=== PATIENT | male | born 1950 | race Caucasian/White ===

== ENCOUNTER 2022-09-21 07:14 | Outpatient (REF) | payer MEDICARE, SELFPAY ==
[2022-09-21 07:36] LABS: MANUAL DIFF FLAG NO
[2022-09-21 08:21] LABS: Basophils Percent Auto 0.4 % (0-2); Eosinophils Absolute Auto 0.2 X10*3/uL (0.0-0.4); Eosinophils Percent Auto 3.1 % (0-4); Hematocrit 49.2 % (42.0-52.0); Hemoglobin 16.4 g/dl (14.0-18.0); Imm Gran Abs Auto 0.01 X10*3/uL (0.00-0.03); Imm Gran Pct Auto 0.1 % (0.0-0.4); Lymphocytes Absolute Auto 2.5 X10*3/uL (1.2-4.9); Lymphocytes Percent Auto 37.2 % (20-40); Mean Corpuscular HGB Conc 33.3 g/dl (31.0-36.0); Mean Corpuscular Hemoglobin 30.3 pg (27.0-33.0); Mean Corpuscular Volume 90.9 fL (80.0-98.0); Mean Platelet Volume 11.5 fL (9.4-12.4); Monocytes Absolute Auto 0.5 X10*3/uL (0.1-1.2); Neutrophils Absolute Auto 3.5 x10*3/uL (2.0-8.3); Neutrophils Percent Auto 51.2 % (45-73); Platelet Count 165 X10*3/uL (160-400); Red Blood Count 5.41 X10*6/uL (4.60-5.80); Red Cell Distribution Width 12.8 % (11.0-16.0); White Blood Count 6.8 X10*3/uL (4.8-10.8)
[2022-09-21 08:39] LABS: Estimated Average Glucose 183 mg/dL
[2022-09-21 08:58] LABS: Alanine Aminotransferase 35 U/L (0-40); Albumin Level 3.9 g/dL (3.5-5.0); Alkaline Phosphatase 41 U/L (39-117); Anion Gap 13 (12-20); Aspartate Amino Transferase 21 U/L (5-37); Bilirubin Total 1.9 mg/dL (0.0-1.0); Blood Urea Nitrogen 15 mg/dL (9-16); Calcium 9.3 mg/dL (8.4-10.2); Carbon Dioxide 31 mmol/L (22-29); Chloride 102 mmol/L (96-108); Cholesterol 101 mg/dL; Estimated Glomerular Filt Rate > 60; Glucose Fasting 114 mg/dL (60-99); HDL Cholesterol 25 mg/dL; LDL Cholesterol Calculated 56 mg/dl; Potassium 3.8 mmol/L (3.3-5.1); Sodium 142 mmol/L (135-145); Total Protein 6.7 g/dL (6.5-8.0); Triglycerides 101 mg/dL
== END 2022-09-21 07:15 | disposition home or self-care (01) ==
LOC: HO.LAB 07:14
PROVIDERS: Visit Provider Internal Medicine Medical Oncology
DX: E78.5 Hyperlipidemia, unspecified (principal); E11.65 Type 2 diabetes mellitus with hyperglycemia; N40.0 Benign prostatic hyperplasia without lower urinary tract symptoms
CPT/HCPCS: 36415; 80053; 80061; 83036; 85025

== ENCOUNTER 2023-03-04 12:23 | Outpatient (REF) | payer MEDICARE, SELFPAY ==
--- NOTE | ~2023-03-04 | XR_ITS ---
EXAMINATION: XR CHEST CLINICAL INFORMATION: Nonrheumatic aortic valve stenosis. COMPARISON: 04/13/2016. TECHNIQUE: 2 views of the chest were obtained. 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 There is chronic elevation of the left hemidiaphragm. There is mild cardiac enlargement. There is mild central pulmonary vascular congestion without gross edema. There are tiny new bilateral pleural effusions. There is some left basilar atelectasis. No focal consolidations or lung masses are seen. XR/XR chest 2V IMPRESSION: Cardiomegaly with mild central pulmonary vascular congestion and tiny bilateral pleural effusions.
== END 2023-03-04 12:24 | disposition home or self-care (01) ==
LOC: HO.XRAY 12:23
PROVIDERS: PCP Internal Medicine Medical Oncology; Visit Provider Internal Medicine Medical Oncology
DX: I35.0 Nonrheumatic aortic (valve) stenosis (principal); I25.10 Atherosclerotic heart disease of native coronary artery without angina pectoris
CPT/HCPCS: 71046

== ENCOUNTER 2023-03-05 07:05 | Outpatient (REF) | payer MEDICARE, SELFPAY ==
[2023-03-05 07:35] LABS: MANUAL DIFF FLAG NO
[2023-03-05 08:14] LABS: Basophils Percent Auto 0.3 % (0-2); Eosinophils Absolute Auto 0.2 X10*3/uL (0.0-0.4); Eosinophils Percent Auto 2.6 % (0-4); Hematocrit 48.3 % (42.0-52.0); Hemoglobin 15.9 g/dl (14.0-18.0); Imm Gran Abs Auto 0.02 X10*3/uL (0.00-0.03); Imm Gran Pct Auto 0.3 % (0.0-0.4); Lymphocytes Absolute Auto 1.6 X10*3/uL (1.2-4.9); Lymphocytes Percent Auto 23.4 % (20-40); Mean Corpuscular HGB Conc 32.9 g/dl (31.0-36.0); Mean Corpuscular Hemoglobin 30.5 pg (27.0-33.0); Mean Corpuscular Volume 92.7 fL (80.0-98.0); Mean Platelet Volume 12.2 fL (9.4-12.4); Monocytes Absolute Auto 0.5 X10*3/uL (0.1-1.2); Monocytes Percent Auto 7.5 % (2-11); Neutrophils Absolute Auto 4.5 x10*3/uL (2.0-8.3); Neutrophils Percent Auto 65.9 % (45-73); Platelet Count 146 X10*3/uL (160-400); Red Blood Count 5.21 X10*6/uL (4.60-5.80); Red Cell Distribution Width 12.7 % (11.0-16.0); White Blood Count 6.9 X10*3/uL (4.8-10.8)
[2023-03-05 08:28] LABS: Estimated Average Glucose 163 mg/dL; Hemoglobin A1c % 7.3 % (<6.0)
[2023-03-05 08:39] LABS: Alanine Aminotransferase 48 U/L (0-40); Alkaline Phosphatase 40 U/L (39-117); Anion Gap 14 (12-20); Aspartate Amino Transferase 27 U/L (5-37); Bilirubin Total 1.6 mg/dL (0.0-1.0); Blood Urea Nitrogen 19 mg/dL (9-16); Calcium 9.2 mg/dL (8.4-10.2); Carbon Dioxide 31 mmol/L (22-29); Chloride 101 mmol/L (96-108); Cholesterol 76 mg/dL (<200); Estimated Glomerular Filt Rate > 60; Glucose Fasting 168 mg/dL (60-99); HDL Cholesterol 24 mg/dL (>40); LDL Cholesterol Calculated 39 mg/dL (<100); Potassium 4.2 mmol/L (3.3-5.1); Sodium 142 mmol/L (135-145); Total Protein 6.7 g/dL (6.5-8.0); Triglycerides 68 mg/dL (<150)
[2023-03-05 08:41] LABS: B Type Natriuretic Peptide 721 pg/mL (<100)
[2023-03-05 08:58] LABS: Creatinine Urine 112.58 mg/dL; Microalbum/Creatinine Ratio Ur 768.3 ug/mg cr (<30)
== END 2023-03-05 07:06 | disposition home or self-care (01) ==
LOC: HO.LAB 07:05
PROVIDERS: PCP Internal Medicine Medical Oncology; Visit Provider Internal Medicine Medical Oncology
DX: Z12.5 Encounter for screening for malignant neoplasm of prostate (principal); I35.0 Nonrheumatic aortic (valve) stenosis; E66.3 Overweight; E78.5 Hyperlipidemia, unspecified; E11.9 Type 2 diabetes mellitus without complications; N40.0 Benign prostatic hyperplasia without lower urinary tract symptoms
CPT/HCPCS: 36415; 80053; 80061; 82043; 82570; 83036; 83880; 84153; 85025

== ENCOUNTER 2023-08-01 08:46 | Outpatient (REF) | payer MEDICARE, SELFPAY ==
[2023-08-01 09:07] LABS: MANUAL DIFF FLAG NO
[2023-08-01 10:47] LABS: Basophils Percent Auto 0.3 % (0-2); Eosinophils Absolute Auto 0.3 X10*3/uL (0.0-0.4); Eosinophils Percent Auto 4.5 % (0-4); Hematocrit 41.7 % (42.0-52.0); Hemoglobin 14.1 g/dl (14.0-18.0); Imm Gran Abs Auto 0.02 X10*3/uL (0.00-0.03); Imm Gran Pct Auto 0.3 % (0.0-0.4); Lymphocytes Absolute Auto 1.7 X10*3/uL (1.2-4.9); Lymphocytes Percent Auto 28.4 % (20-40); Mean Corpuscular HGB Conc 33.8 g/dl (31.0-36.0); Mean Corpuscular Hemoglobin 31.5 pg (27.0-33.0); Mean Corpuscular Volume 93.3 fL (80.0-98.0); Monocytes Absolute Auto 0.5 X10*3/uL (0.1-1.2); Monocytes Percent Auto 8.1 % (2-11); Neutrophils Absolute Auto 3.4 x10*3/uL (2.0-8.3); Neutrophils Percent Auto 58.4 % (45-73); Platelet Count 140 X10*3/uL (160-400); Red Blood Count 4.47 X10*6/uL (4.60-5.80); Red Cell Distribution Width 13.9 % (11.0-16.0); White Blood Count 5.8 X10*3/uL (4.8-10.8)
[2023-08-01 11:04] LABS: Estimated Average Glucose 157 mg/dL; Hemoglobin A1c % 7.1 % (<6.0)
[2023-08-01 11:27] LABS: Alanine Aminotransferase 31 U/L (0-40); Albumin Level 3.7 g/dL (3.5-5.0); Alkaline Phosphatase 52 U/L (39-117); Anion Gap 15 (12-20); Aspartate Amino Transferase 25 U/L (5-37); Bilirubin Total 1.2 mg/dL (0.0-1.0); Blood Urea Nitrogen 25 mg/dL (9-16); Calcium 9.4 mg/dL (8.4-10.2); Carbon Dioxide 29 mmol/L (22-29); Chloride 102 mmol/L (96-108); Cholesterol 79 mg/dL (<200); Estimated Glomerular Filt Rate > 60; Glucose Fasting 134 mg/dL (60-99); Sodium 142 mmol/L (135-145); Total Protein 6.5 g/dL (6.5-8.0); Triglycerides 97 mg/dL (<150)
[2023-08-01 11:41] LABS: HDL Cholesterol 23 mg/dL (>40); LDL Cholesterol Calculated 37 mg/dL (<100)
== END 2023-08-01 08:47 | disposition home or self-care (01) ==
LOC: HO.LAB 08:46
PROVIDERS: PCP Internal Medicine Medical Oncology; Visit Provider Internal Medicine Medical Oncology
DX: I35.0 Nonrheumatic aortic (valve) stenosis (principal); E66.3 Overweight; N40.0 Benign prostatic hyperplasia without lower urinary tract symptoms; E11.9 Type 2 diabetes mellitus without complications
CPT/HCPCS: 36415; 80053; 80061; 82043; 82570; 83036; 85025; 87338

== ENCOUNTER 2023-09-26 08:39 | Outpatient (REF) | payer MEDICARE, SELFPAY ==
[2023-09-26 09:07] LABS: MANUAL DIFF FLAG NO
[2023-09-26 09:16] LABS: Basophils Percent Auto 0.3 % (0-2); Eosinophils Absolute Auto 0.2 X10*3/uL (0.0-0.4); Eosinophils Percent Auto 3.6 % (0-4); Hematocrit 44.1 % (42.0-52.0); Hemoglobin 15.5 g/dl (14.0-18.0); Imm Gran Abs Auto 0.01 X10*3/uL (0.00-0.03); Imm Gran Pct Auto 0.2 % (0.0-0.4); Lymphocytes Absolute Auto 1.7 X10*3/uL (1.2-4.9); Lymphocytes Percent Auto 28.5 % (20-40); Mean Corpuscular HGB Conc 35.1 g/dl (31.0-36.0); Mean Corpuscular Hemoglobin 31.6 pg (27.0-33.0); Mean Platelet Volume 11.4 fL (9.4-12.4); Monocytes Absolute Auto 0.5 X10*3/uL (0.1-1.2); Monocytes Percent Auto 7.9 % (2-11); Neutrophils Absolute Auto 3.6 x10*3/uL (2.0-8.3); Neutrophils Percent Auto 59.5 % (45-73); Platelet Count 156 X10*3/uL (160-400); Red Cell Distribution Width 12.6 % (11.0-16.0); White Blood Count 6.1 X10*3/uL (4.8-10.8)
[2023-09-26 09:52] LABS: Alanine Aminotransferase 26 U/L (0-40); Albumin Level 4.2 g/dL (3.5-5.0); Alkaline Phosphatase 60 U/L (39-117); Anion Gap 16 (12-20); Aspartate Amino Transferase 23 U/L (5-37); Blood Urea Nitrogen 25 mg/dL (9-16); Calcium 9.7 mg/dL (8.4-10.2); Carbon Dioxide 36 mmol/L (22-29); Chloride 98 mmol/L (96-108); Cholesterol 87 mg/dL (<200); Estimated Glomerular Filt Rate > 60; Glucose Random 178 mg/dL (60-115); HDL Cholesterol 25 mg/dL (>40); LDL Cholesterol Calculated 41 mg/dL (<100); Potassium 4.6 mmol/L (3.3-5.1); Sodium 145 mmol/L (135-145); Total Protein 7.2 g/dL (6.5-8.0); Triglycerides 109 mg/dL (<150)
== END 2023-09-26 08:40 | disposition home or self-care (01) ==
LOC: HO.LAB 08:39
PROVIDERS: PCP Internal Medicine Medical Oncology; Visit Provider Internal Medicine Medical Oncology
DX: Z00.00 Encounter for general adult medical examination without abnormal findings (principal); E78.5 Hyperlipidemia, unspecified; E66.3 Overweight
CPT/HCPCS: 36415; 80053; 80061; 85025

== ENCOUNTER 2023-12-27 07:32 | Outpatient (REF) | payer MEDICARE, SELFPAY ==
[2023-12-27 07:43] LABS: MANUAL DIFF FLAG NO
[2023-12-27 08:26] LABS: Basophils Percent Auto 0.2 % (0-2); Eosinophils Absolute Auto 0.2 X10*3/uL (0.0-0.4); Eosinophils Percent Auto 2.7 % (0-4); Hematocrit 42.6 % (42.0-52.0); Hemoglobin 14.3 g/dl (14.0-18.0); Imm Gran Abs Auto 0.02 X10*3/uL (0.00-0.03); Imm Gran Pct Auto 0.3 % (0.0-0.4); Lymphocytes Absolute Auto 1.7 X10*3/uL (1.2-4.9); Lymphocytes Percent Auto 29.8 % (20-40); Mean Corpuscular HGB Conc 33.6 g/dl (31.0-36.0); Mean Corpuscular Volume 92.4 fL (80.0-98.0); Mean Platelet Volume 12.1 fL (9.4-12.4); Monocytes Absolute Auto 0.5 X10*3/uL (0.1-1.2); Monocytes Percent Auto 9.1 % (2-11); Neutrophils Absolute Auto 3.4 x10*3/uL (2.0-8.3); Neutrophils Percent Auto 57.9 % (45-73); Platelet Count 134 X10*3/uL (160-400); Red Blood Count 4.61 X10*6/uL (4.60-5.80); Red Cell Distribution Width 13.3 % (11.0-16.0); White Blood Count 5.8 X10*3/uL (4.8-10.8)
[2023-12-27 08:48] LABS: B Type Natriuretic Peptide 353 pg/mL (<100)
[2023-12-27 08:54] LABS: Alanine Aminotransferase 35 U/L (0-40); Alkaline Phosphatase 57 U/L (39-117); Anion Gap 10 (12-20); Aspartate Amino Transferase 22 U/L (5-37); Bilirubin Total 1.2 mg/dL (0.0-1.0); Blood Urea Nitrogen 21 mg/dL (9-16); Calcium 9.5 mg/dL (8.4-10.2); Carbon Dioxide 33 mmol/L (22-29); Chloride 103 mmol/L (96-108); Cholesterol 77 mg/dL (<200); Estimated Glomerular Filt Rate > 60; Glucose Fasting 158 mg/dL (60-99); HDL Cholesterol 26 mg/dL (>40); LDL Cholesterol Calculated 35 mg/dL (<100); Potassium 3.7 mmol/L (3.3-5.1); Sodium 142 mmol/L (135-145); Total Protein 6.7 g/dL (6.5-8.0); Triglycerides 81 mg/dL (<150)
== END 2023-12-27 07:33 | disposition home or self-care (01) ==
LOC: HO.LAB 07:32
PROVIDERS: PCP Internal Medicine Medical Oncology; Visit Provider Internal Medicine Medical Oncology
DX: I35.0 Nonrheumatic aortic (valve) stenosis (principal); E66.3 Overweight; E78.5 Hyperlipidemia, unspecified; E11.9 Type 2 diabetes mellitus without complications
CPT/HCPCS: 36415; 80053; 80061; 83880; 85025

== ENCOUNTER 2024-03-12 09:13 | Outpatient (REF) | payer MEDICARE, SELFPAY ==
[2024-03-12 09:32] LABS: MANUAL DIFF FLAG NO
[2024-03-12 10:12] LABS: Basophils Percent Auto 0.3 % (0-2); Eosinophils Absolute Auto 0.2 X10*3/uL (0.0-0.4); Eosinophils Percent Auto 3.6 % (0-4); Hematocrit 44.7 % (42.0-52.0); Hemoglobin 15.1 g/dl (14.0-18.0); Imm Gran Abs Auto 0.02 X10*3/uL (0.00-0.03); Imm Gran Pct Auto 0.3 % (0.0-0.4); Lymphocytes Absolute Auto 1.6 X10*3/uL (1.2-4.9); Lymphocytes Percent Auto 27.3 % (20-40); Mean Corpuscular HGB Conc 33.8 g/dl (31.0-36.0); Mean Corpuscular Hemoglobin 31.1 pg (27.0-33.0); Mean Platelet Volume 11.8 fL (9.4-12.4); Monocytes Absolute Auto 0.5 X10*3/uL (0.1-1.2); Monocytes Percent Auto 8.5 % (2-11); Neutrophils Absolute Auto 3.5 x10*3/uL (2.0-8.3); Platelet Count 135 X10*3/uL (160-400); Red Blood Count 4.86 X10*6/uL (4.60-5.80); Red Cell Distribution Width 12.7 % (11.0-16.0); White Blood Count 5.9 X10*3/uL (4.8-10.8)
[2024-03-12 10:55] LABS: Alanine Aminotransferase 48 U/L (0-40); Alkaline Phosphatase 53 U/L (39-117); Anion Gap 10 (12-20); Aspartate Amino Transferase 27 U/L (5-37); Blood Urea Nitrogen 18 mg/dL (9-16); Calcium 8.8 mg/dL (8.4-10.2); Carbon Dioxide 34 mmol/L (22-29); Chloride 102 mmol/L (96-108); Cholesterol 92 mg/dL (<200); Estimated Glomerular Filt Rate > 60; Glucose Fasting 191 mg/dL (60-99); HDL Cholesterol 28 mg/dL (>40); LDL Cholesterol Calculated 48 mg/dL (<100); Potassium 4.6 mmol/L (3.3-5.1); Sodium 141 mmol/L (135-145); Total Protein 6.7 g/dL (6.5-8.0); Triglycerides 84 mg/dL (<150)
[2024-03-12 11:09] LABS: Prostate Specific Antigen 0.18 ng/mL (<0.05-4.0)
--- OUTSIDE RECORDS SUMMARY | 2024-03-14 13:50 | XMS_ITS ---
Author Organization Adan Arellano III, MD Address [address] [place] [address] Care Team Providers [facility] Sales Consultant Name Role Phone Adan Arellano Primary Care Provider Allergies Allergen (clinical drug ingredient) Drug/Non Drug Allergy documented on EMR Reaction Allergy Type Onset Date Status Penicillin Unknown Drug Allergy Active Contrast Allergy PreMed Pack Unknown Drug Allergy Active REASON FOR VISIT Follow up Medications Medication SIG (Take, Route, Frequency, Duration) Notes Start Date End Date Status Atorvastatin Calcium 40 MG 1 tablet Oral ly Once a day Active Doxylamine Succinate (Sleep) 25 MG 1 tablet at bedtime as needed Orally Once a day 04/13/2023 Active Omeprazole 20 MG 1 capsule 30 minutes before morning meal Orally Once a day 07/11/2023 Active metFORMIN HCl 1000 MG 1 tablet with a me al Orally Once a day 09/26/2023 Active Metoprolol Succinate ER 50 MG 1 tablet Orally Once a day 07/11/2023 Active Aspirin 81 81 MG 1 tablet Orally Once a day Active Brilinta 90 MG 1 tablet Orally Twic e a day Active Social History Tobacco Use: Social History Observation Description Date Details (start date - stop date) Former Smoker NA - NA Sex Assigned At : Social History Observation Description Sex Assigned At Male Tobacco Use/Smoking Question Answer Notes Patient is a former smoker How long has it been since you last smoked? > 10 years Additional Findings: Tobacco Non-User Ex-cigaret te smoker Vital Signs Temperature 98.8 degrees Fahrenheit 03/13/20 24 Blood pressure systolic 145 mm Hg 03/13/20 24 Blood pressure diastolic 78 mm Hg 024 Heart Rate 65 /min 03/13/2024 Height 65 in 03/13/2024 Weight 151, 148.0 lbs 03/13/2024 BMI 25.12 kg/m2 03/13/2024 Encounters Encounter Location Date Provider Diagnosis Adan Arellano III, MD [address] [place] [address] [place] [address] 03/13/2024 Adan Arellano Nonrheumatic aortic valve stenosis I35.0 ; Overweight E66.3 ; Hyperlipidemia E78.5 ; Type 2 diabetes mellitus without complication, without long-term current use of insulin E11.9 and Coronary artery disease involving [place] coronary artery of [place] heart without angina pectoris I25.10 Assessments Encounter Date Diagnosis (ICD Code) Assessment Notes Treat ment Notes Treatment Clinical Notes 03/13/2024 Nonrheumatic aortic valve stenosis (ICD-10 - I35.0) He was admitted to [facility] July 04 and discharged July 07, 2023 for an elective TAVR which was successfully accomplished. His shortness of breath is much better. I do not hear an aortic murmur today. I do not hear mitral murmur. He reports feeling much better and more able to tolerate exertion.His BNP has decreased from 721 to a current value of 353. He is asymptomatic. 03/13/2024 Overweight (ICD-10 - E66.3) 03/13/2024 Hyperlipidemia (ICD-10 - E78.5) 03/13/2024 Type 2 diabetes mellitus without complication, without long-term current use of insulin (ICD-10 - E11.9) 03/13/2024 Coronary artery disease involving [place] coronary artery of [place] heart without angina pectoris (ICD-10 - I25.10) Plan Of Treatment Medication Medication Name Sig Start Date Stop Date Notes Atorvastatin Calcium 40 MG 1 tablet Orally Once a day Doxylamine Succinate (Sleep) 25 MG 1 tablet at bedtime as needed Orally Once a day 04/13/2023 Omeprazole 20 MG 1 capsule 30 minutes before morning meal Orally Once a day 07/11/2023 metFORMIN HCl 1000 MG 1 tablet with a me al Orally Once a day 09/26/2023 Metoprolol Succinate ER 50 MG 1 tablet Orally Once a day 0 07/11/2023 Aspirin 81 81 MG 1 tablet Orally Once a day Brilinta 90 MG 1 tablet Orally Twic e a day Pending Test Test Name Order Date PROFILE, FASTING (COMPREHENSIVE METABOLI C) 03/13/2024 MICROALBUMIN, RANDOM 03/13/2024 CBC w DIFF 03/13/2024 Lipid Panel 03/13/2024 Hemoglobin A1c 03/13/2024 Next Appt Details Follow Up: 3 Months, In thre e months, Reason: ov review labs, Regular follow-up Provider Name:Adan Arellano, 09/26/2024 02:00:00 PM, [address] [place] [address] , [place] [address], [place], [id number], Progress Notes * Dionicio VIDALDOB:[birth year] (73 yo M)Acc No.[id number]:03/13/2024 Progress Notes Patient:?Dionicio VIDAL Provider:?Adan Arellano MD :1950???Age:73 Y???Sex:Male Jones e:03/13/2024 Address: [address], [id number] Subjective: * Chief Complaints: * ???1. Follow up. * HPI: ???COVID-19 Screening:?Questions?Have you experienced fever, chills, cough, sore throat, shortness of breath, difficulty breathing, muscle aches, loss of taste or smell??No ?Have you been exposed to the virus within the last 10 days??No ?Have you travelled internationally in the last 10 days??No ?Have you been exposed to COVID-19 in the past??Yes ???:? The patient, a 73-year-old male, presented with a history of aortic valve replacement and diabetes. He reported no swelling and has been maintaining his weight around 144 lbs, although he noted a recent increase to 148 lbs. He has been taking atorvastatin and expressed concern about his A1C3 levels, which he believes may be affected by the medication. He also mentioned his brother's experience with bypass surgery and subsequent increase in A1C3 levels. The patient has been on Brilinta since his aortic valve replacement and is considering stopping it. He reported occasional bruising and difficulty controlling bleeding when he bites his tongue. He also mentioned a dental issue related to a root canal that became reinfected, but was told by a dental team in [place] that it should be fine. * ROS:?General/Constitutional:?pain?only normal aches and pains.?Chills?denies.?Fatigue?admits.?Fever?denies.?ENT:?Decreased hearing?denies.?Respiratory:?Cough?denies.?Cardiovascular:?Chest pain with exertion?denies.?Dyspnea on exertion?denies.?Shortness of breath?denies.?Gastrointestinal:?Constipation?denies.?Decreased appetite?denies.?Diarrhea?denies.?Heartburn?denies.?Nausea?denies.?Rectal bleeding?denies.?Vomiting?denies.?Hematology:?Admits?bruising,?denies.?petechiae?denies.?Swollen glands?none have been noted.?Genitourinary:?Frequent urination?denies.?Musculoskeletal:?Muscle aches?denies.?Painful joints?denies.?Sciatica?denies.?Weakness?denies.?Skin:?Itching?denies.?Rash?denies.?Skin lesion(s)?denies.?Neurologic:?Difficulty speaking?denies.?Dizziness?denies.?Headache?denies.?Low back pain?denies.?Psychiatric:?Depressed mood?denies.? * Medical History:?Elevated tr iglycerides with high cholesterol, Atrial fibrillation, unspecified type, Aortic valve stenosis, etiology of cardiac valve disease unspecified, 1982. 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 2010, Overweight, Atrial fibrillation 2005, moderate aortic stenosis, ? Radiation- related, Former smoker, Asthmatic bronchitis, Incisional hernia, DVT left brachial and jugular veins 2004, coronary artery disease. 2004 four-vessel CABG, Dr. Mcgrath, Hyperlipidemia, Mitral valve regurgitation, Life long need for endocarditis prophylaxis with invasive procedures, Aortic Valve Replacement, Diabetes. * Surgical History:?CABG x 4 v essels 12/2004, resection of malignant seminoma of mediastinum, phrenic nerve injury, left diaphragm paralyzed 1982, history of incisional hernia , cardiac catheterization 2004, colonoscopy, Dr. Adan Linda, [facility], tubular adenoma 2010, colonoscopy, Dr. Adan Linda, [facility], negative findings 2016, TAVR 07/2023, Aortic valve replacement . * Hospitalization/Major Diagno stic Procedure:?Denies Past Hospitalization. * Family History:?Father: dece ased 73 yrs, diagnosed with Cancer, DM, HTN.?Mother: 47 yrs.?Siblings: alive.?Paternal uncle: alive, diagnosed with DM.?2 brother(s) - healthy. .? His mother of liver disease age 47. His father at age 73 of lung cancer. He has 2 healthy brothers who are alive and well. He has no children. * Social History:?Tobacco Use:?Tobacco Use/Smoking?Patient is a?former smoker ?How long has it been since you last smoked??> 10 years ?Additional Findings: Tobacco Non-User?Ex-cigarette smoker ???He has been to [place] and for 37 years. He has 2 stepdaughters but no biological children. 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 He is not on-call and he works 18 hours a week. 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 * Medications:?Taking Aspirin 81 81 MG Tablet 1 tablet Orally Once a day , Taking Brilinta 90 MG Tablet 1 tablet Orally Twice a day , Taking Atorvastatin Calcium 40 MG Tablet 1 tablet Orally Once a day , Taking Doxylamine Succinate (Sleep) 25 MG Tablet 1 tablet at bedtime as needed Orally Once a day , Taking Omeprazole 20 MG Capsule Delayed Release 1 capsule 30 minutes before morning meal Orally Once a day , Taking Metoprolol Succinate ER 50 MG Tablet Extended Release 24 Hour 1 tablet Orally Once a day , Taking metFORMIN HCl 1000 MG Tablet 1 tablet with a meal Orally Once a day , Discontinued Bumetanide 1 MG Tablet 1 tablet Orally Once a day , Discontinued Furosemide 20 MG Tablet 1 tablet Orally Once a day , Medication List reviewed and reconciled with the patient * Allergies:?Penicillin: Aller gy, Contrast Allergy PreMed Pack: Allergy. Objective: * Vitals:?Ht: 65, Wt: 151,148. 0, BMI:25.12, BP:145/78, HR:65, Temp:98.8, Wt-k.49. * ???Past Orders: Lab:B Type Natriuretic Pepti de * Collection Date 12/27/2023 03/05/2023 Collection Time 07:42 AM 07:33 AM Order Date 12/27/2023 03/05/2023 B Type Natriuretic Peptide 353?H (Ref Range: <100 pg/mL) 721?H (Ref Range: <100 pg/mL) * Lab:Lipid Panel * Collection Date 12/27/2023 09/26/2023 08/01/2023 Collection Time 07:42 AM 09:05 AM 09:06 AM Order Date 12/27/2023 09/26/2023 08/01/2023 Triglycerides 81 (Ref Range: <150 mg/dL) 109 (Ref Range: <150 mg/dL) 97 (Ref Range: <150 mg/dL) Cholesterol 77 (Ref Range: <200 mg/dL) 87 (Ref Range: <200 mg/dL) 79 (Ref Range: <200 mg/dL) LDL Cholesterol Calculated 35 (Ref Range: <100 mg/dL) 41 (Ref Range: <100 mg/dL) 37 (Ref Range: <100 mg/dL) HDL Cholesterol 26?L (Ref Range: >40 mg/dL) 25?L (Ref Range: >40 mg/dL) 23?L (Ref Range: >40 mg/dL) * Lab:Complete Blood Count Aut o Diff * Collection Date 12/27/2023 09/26/2023 08/01/2023 Collection Time 07:42 AM 09:05 AM 09:06 AM Order Date 12/27/2023 09/26/2023 08/01/2023 White Blood Count 5.8 (Ref Range: 4.8-10.8 X10*3/uL) 6.1 (Ref Range: 4.8-10.8 X10*3/uL) 5.8 (Ref Range: 4.8-10.8 X10*3/uL) Red Blood Count 4.61 (Ref Range: 4.60-5.80 X10*6/uL) 4.90 (Ref Range: 4.60-5.80 X10*6/uL) 4.47?L (Ref Range: 4.60-5.80 X10*6/uL) Hemoglobin 14.3 (Ref Range: 14.0-18.0 g/dl) 15.5 (Ref Range: 14.0-18.0 g/dl) 14.1 (Ref Range: 14.0-18.0 g/dl) Hematocrit 42.6 (Ref Range: 42.0-52.0 %) 44.1 (Ref Range: 42.0-52.0 %) 41.7?L (Ref Range: 42.0-52.0 %) Mean Corpuscular Volume 92.4 (Ref Range: 80.0-98.0 fL) 90.0 (Ref Range: 80.0-98.0 fL) 93.3 (Ref Range: 80.0-98.0 fL) Mean Corpuscular Hemoglobin 31.0 (Ref Range: 27.0-33.0 pg) 31.6 (Ref Range: 27.0-33.0 pg) 31.5 (Ref Range: 27.0-33.0 pg) Mean Corpuscular HGB Conc 33.6 (Ref Range: 31.0-36.0 g/dl) 35.1 (Ref Range: 31.0-36.0 g/dl) 33.8 (Ref Range: 31.0-36.0 g/dl) Red Cell Distribution Width 13.3 (Ref Range: 11.0-16.0 %) 12.6 (Ref Range: 11.0-16.0 %) 13.9 (Ref Range: 11.0-16.0 %) Platelet Count 134?L (Ref Range: 160-400 X10*3/uL) 156?L (Ref Range: 160-400 X10*3/uL) 140?L (Ref Range: 160-400 X10*3/uL) Mean Platelet Volume 12.1 (Ref Range: 9.4-12.4 fL) 11.4 (Ref Range: 9.4-12.4 fL) 12.0 (Ref Range: 9.4-12.4 fL) Neutrophils Percent Auto 57.9 (Ref Range: 45-73 %) 59.5 (Ref Range: 45-73 %) 58.4 (Ref Range: 45-73 %) Imm Gran Pct Auto 0.3 (Ref Range: 0.0-0.4 %) 0.2 (Ref Range: 0.0-0.4 %) 0.3 (Ref Range: 0.0-0.4 %) Lymphocytes Percent Auto 29.8 (Ref Range: 20-40 %) 28.5 (Ref Range: 20-40 %) 28.4 (Ref Range: 20-40 %) Monocytes Percent Auto 9.1 (Ref Range: 2-11 %) 7.9 (Ref Range: 2-11 %) 8.1 (Ref Range: 2-11 %) Eosinophils Percent Auto 2.7 (Ref Range: 0-4 %) 3.6 (Ref Range: 0-4 %) 4.5?H (Ref Range: 0-4 %) Basophils Percent Auto 0.2 (Ref Range: 0-2 %) 0.3 (Ref Range: 0-2 %) 0.3 (Ref Range: 0-2 %) NRBC Pct Auto 0.0 (Ref Range: 0.0-0.2 /100WBC) 0.0 (Ref Range: 0.0-0.2 /100WBC) 0.0 (Ref Range: 0.0-0.2 /100WBC) Neutrophils Absolute Auto 3.4 (Ref Range: 2.0-8.3 x10*3/uL) 3.6 (Ref Range: 2.0-8.3 x10*3/uL) 3.4 (Ref Range: 2.0-8.3 x10*3/uL) Imm Gran Abs Auto 0.02 (Ref Range: 0.00-0.03 X10*3/uL) 0.01 (Ref Range: 0.00-0.03 X10*3/uL) 0.02 (Ref Range: 0.00-0.03 X10*3/uL) Lymphocytes Absolute Auto 1.7 (Ref Range: 1.2-4.9 X10*3/uL) 1.7 (Ref Range: 1.2-4.9 X10*3/uL) 1.7 (Ref Range: 1.2-4.9 X10*3/uL) Monocytes Absolute Auto 0.5 (Ref Range: 0.1-1.2 X10*3/uL) 0.5 (Ref Range: 0.1-1.2 X10*3/uL) 0.5 (Ref Range: 0.1-1.2 X10*3/uL) Eosinophils Absolute Auto 0.2 (Ref Range: 0.0-0.4 X10*3/uL) 0.2 (Ref Range: 0.0-0.4 X10*3/uL) 0.3 (Ref Range: 0.0-0.4 X10*3/uL) Basophils Absolute Auto 0.0 (Ref Range: 0.0-0.2 X10*3/uL) 0.0 (Ref Range: 0.0-0.2 X10*3/uL) 0.0 (Ref Range: 0.0-0.2 X10*3/uL) NRBC Abs Auto 0.000 (Ref Range: 0.0-0.012 X10*3/uL) 0.000 (Ref Range: 0.0-0.012 X10*3/uL) 0.000 (Ref Range: 0.0-0.012 X10*3/uL) * Lab:Namita bejarano Fast * Collection Date 12/27/2023 08/01/2023 03/05/2023 Collection Time 07:42 AM 09:06 AM 07:33 AM Order Date 12/27/2023 08/01/2023 03/05/2023 Sodium 142 (Ref Range: 135-145 mmol/L) 142 (Ref Range: 135-145 mmol/L) 142 (Ref Range: 135-145 mmol/L) Bilirubin Total 1.2?H (Ref Range: 0.0-1.0 mg/dL) 1.2?H (Ref Range: 0.0-1.0 mg/dL) 1.6?H (Ref Range: 0.0-1.0 mg/dL) Aspartate Amino Transferase 22 (Ref Range: 5-37 U/L) 25 (Ref Range: 5-37 U/L) 27 (Ref Range: 5-37 U/L) Alanine Aminotransferase 35 (Ref Range: 0-40 U/L) 31 (Ref Range: 0-40 U/L) 48?H (Ref Range: 0-40 U/L) Total Protein 6.7 (Ref Range: 6.5-8.0 g/dL) 6.5 (Ref Range: 6.5-8.0 g/dL) 6.7 (Ref Range: 6.5-8.0 g/dL) Albumin Level 4.0 (Ref Range: 3.5-5.0 g/dL) 3.7 (Ref Range: 3.5-5.0 g/dL) 4.0 (Ref Range: 3.5-5.0 g/dL) Alkaline Phosphatase 57 (Ref Range: 39-117 U/L) 52 (Ref Range: 39-117 U/L) 40 (Ref Range: 39-117 U/L) Potassium 3.7 (Ref Range: 3.3-5.1 mmol/L) 4.0 (Ref Range: 3.3-5.1 mmol/L) 4.2 (Ref Range: 3.3-5.1 mmol/L) Chloride 103 (Ref Range: 96-108 mmol/L) 102 (Ref Range: 96-108 mmol/L) 101 (Ref Range: 96-108 mmol/L) Carbon Dioxide 33?H (Ref Range: 22-29 mmol/L) 29 (Ref Range: 22-29 mmol/L) 31?H (Ref Range: 22-29 mmol/L) Anion Gap 10?L (Ref Range: 12-20) 15 (Ref Range: 12-20) 14 (Ref Range: 12-20) Blood Urea Nitrogen 21?H (Ref Range: 9-16 mg/dL) 25?H (Ref Range: 9-16 mg/dL) 19?H (Ref Range: 9-16 mg/dL) Creatinine 0.80 (Ref Range: 0.5-1.4 mg/dL) 0.75 (Ref Range: 0.5-1.4 mg/dL) 0.85 (Ref Range: 0.5-1.4 mg/dL) Estimated Glomerular Filt Rate > 60 > 60 > 60 Glucose Fasting 158?H (Ref Range: 60-99 mg/dL) 134?H (Ref Range: 60-99 mg/dL) 168?H (Ref Range: 60-99 mg/dL) Calcium 9.5 (Ref Range: 8.4-10.2 mg/dL) 9.4 (Ref Range: 8.4-10.2 mg/dL) 9.2 (Ref Range: 8.4-10.2 mg/dL) * Examination: ???General Examination: ?GENERAL APPEARANCE:?pleasant, well nourished, well developed, in no acute distress, calm and relaxed.?HEAD:?atraumatic, normocephalic.?EYES:?eomi, perrla, anicteric, conjugate.?EARS:?normal.?NOSE:?septum intact.?ORAL CAVITY:?normal, unremarkable.?NECK/THYROID:?no jugular venous distention, no carotid bruit, thyroid normal.?LYMPH NODES:?no enlarged lymph nodes,spleen normal.?SKIN:?no suspicious lesions, anicteric.?HEART:?no clicks, gallops, murmurs, or rubs, regular rhythm, S1, S2 normal, no s3, or vascular bruits.?LUNGS:?clear to auscultation .?BREASTS:??no masses palpable bilaterally.?ABDOMEN:?bowel sounds normal, no ascites, no organomegaly, no mass.?RECTAL EXAM:?not examined.?MUSCULOSKELETAL:?extremities unremarkable, no clubbing, cyanosis or edema.?PERIPHERAL PULSES:?normal.?NEUROLOGIC:?alert and oriented, cranial nerves 2-12 grossly intact, deep tendon reflexes 2+ symmetrical, motor strength normal upper and lower extremities, sensory exam intact.?PSYCH:?alert, oriented.? Assessment: * Assessment: 1.?Nonrheumatic aortic valve stenosis - I35.0???Notes :He was admitted to [facility] July 04 and discharged July 07, 2023 for an elective TAVR which was successfully accomplished. His shortness of breath is much better. I do not hear an aortic murmur today. I do not hear mitral murmur. He reports feeling much better and more able to tolerate exertion.His BNP has decreased from 721 to a current value of 353. He is asymptomatic.???2.?Overweight - E66.3???3.?Hyperlipidemia - E78.5???4.?Type 2 diabetes mellitus without complication, without long-term current use of insulin - E11.9???5.?Coronary artery disease involving [place] coronary artery of [place] heart without angina pectoris - I25.10??? Plan: * Treatment: 2.?Overweight?LAB: PROFILE, FASTING (COMPREHENSIVE METABOLIC) ?LAB: MICROALBUMIN, RANDOM ?LAB: CBC w DIFF ?LAB: Lipid Panel ?LAB: Hemoglobin A1c 3.?Hyperlipidemia?LAB: PROFILE, FASTING (COMPREHENSIVE METABOLIC) ?LAB: MICROALBUMIN, RANDOM ?LAB: CBC w DIFF ?LAB: Lipid Panel ?LAB: Hemoglobin A1c 4.?Type 2 diabetes mellitus without complication, without long-term current use of insulin?LAB: PROFILE, FASTING (COMPREHENSIVE METABOLIC) ?LAB: MICROALBUMIN, RANDOM ?LAB: CBC w DIFF ?LAB: Lipid Panel ?LAB: Hemoglobin A1c 5.?Coronary artery disease i nvolving [place] coronary artery of [place] heart without angina pectoris?LAB: PROFILE, FASTING (COMPREHENSIVE METABOLIC) ?LAB: MICROALBUMIN, RANDOM ?LAB: CBC w DIFF ?LAB: Lipid Panel ?LAB: Hemoglobin A1c 6.?Others? Continue Brilinta Tablet, 90 MG, 1 tablet, Orally, Twice a day;?Continue Atorvastatin Calcium Tablet, 40 MG, 1 tablet, Orally, Once a day;?Continue Metoprolol Succinate ER Tablet Extended Release 24 Hour, 50 MG, 1 tablet, Orally, Once a day.?? * Follow Up:?3 Months, In thre e months (Reason: ov review labs, Regular follow-up) * Images: * The named appointment provid er may or may not be the originator of this progress note, and it is not deemed complete until electronically signed by the appointment provider. Sign off status: Pending * Provider:?Adan Arellano MD Date:?03/04 Generated for Polly mccurdy/Michael/eTransmitting on:?03/14/2024 01:50 PM EST History and Physical Notes * HPI (History of Present Illness) Category Sub-Category Detail Notes COVID-19 Screening Questions Have you expe rienced fever, chills, cough, sore throat, shortness of breath, difficulty breathing, muscle aches, loss of taste or smell?: No Have you been exposed to the virus withi n the last 10 days?: No Have you travelled internationally in e last 10 days?: No Have you been exposed to COVID-19 in the past?: Yes Examination Category Sub-Category Detail Notes General Examination GENERAL APPEARANCE: pleasant , well nourished, well developed, in no acute distress, calm and relaxed HEAD: atraumatic, normocep halic EYES: eomi, perrla, anicte laura, conjugate EARS: normal NOSE: septum intact NECK/THYROID: no jugular venous di stention, no carotid bruit, thyroid normal HEART: no clicks, gallops, murmurs, or rubs, regular rhythm, S1, S2 normal, no s3, or vascular bruits LUNGS: clear to auscultatio n ABDOMEN: bowel sounds normal, no ascites, no organomegaly, no mass NEUROLOGIC: alert and oriented, cranial nerves 2-12 grossly intact, deep tendon reflexes 2+ symmetrical, motor strength normal upper and lower extremities, sensory exam intact SKIN: no suspicious lesion s, anicteric PERIPHERAL PULSES: normal BREASTS: no masses palpable b ilaterally MUSCULOSKELETAL: extremities unremark able, no clubbing, cyanosis or edema LYMPH NODES: no enlarged lymph no sully,spleen normal RECTAL EXAM: not examined PSYCH: alert, oriented ORAL CAVITY: normal, unremarkable
--- OUTSIDE RECORDS SUMMARY | 2024-03-14 13:51 | XMS_ITS | Patient Health Record ---
Author Organization Adan Arellano III, MD Address [address] [place] [address] Care Team Providers Care Apartment Assistant Manager Name Role Phone Adan Arellano Primary Care Provider Allergies Allergen (clinical drug ingredient) Drug/Non Drug Allergy documented on EMR Reaction Allergy Type Onset Date Status Penicillin Unknown Drug Allergy Active Contrast Allergy PreMed Pack Unknown Drug Allergy Active Results Component Value Reference Range Notes URINE DIP STICK Reviewed date:09/26/2023 03:43:12 PM Interpretation: Performing Lab: Notes/Report: SG 1.010 1.005 - 1.025 pH 6.5 5.0 - 9.0 DILIA Negative Negative - NIT Negative Negative - PRO 15 Negative - Trace GLU Negative Negative - KET Negative Negative - UBG 1 0.1 - 1.8 EFRA Negative 0.2 - 1.3 BLD Negative Negative - Complete Blood Count Auto Di ff Reviewed date:08/02/2023 02:49:13 PM Interpretation: Performing Lab:[facility], [address] [place] [phone] Notes/Report: White Blood Count 5.8 4.8-10.8 X10*3/uL Red Blood Count 4.47 4.60-5.80 X10*6/uL Hemoglobin 14.1 14.0-18.0 g/dl Hematocrit 41.7 42.0-52.0 % Mean Corpuscular Volume 93.3 80.0-98.0 fL Mean Corpuscular Hemoglobin 31.5 27.0-33.0 pg Mean Corpuscular HGB Conc 33.8 31.0-36.0 g/dl Red Cell Distribution Width 13.9 11.0-16.0 % Platelet Count 140 160-400 X10*3/uL Mean Platelet Volume 12.0 9.4-12.4 fL Neutrophils Percent Auto 58.4 45-73 % Imm Gran Pct Auto 0.3 0.0-0.4 % Lymphocytes Percent Auto 28.4 20-40 % Monocytes Percent Auto 8.1 2-11 % Eosinophils Percent Auto 4.5 0-4 % Basophils Percent Auto 0.3 0-2 % NRBC Pct Auto 0.0 0.0-0.2 /100WBC Neutrophils Absolute Auto 3.4 2.0-8.3 x10*3/u L Imm Gran Abs Auto 0.02 0.00-0.03 X10*3/uL Lymphocytes Absolute Auto 1.7 1.2-4.9 X10*3/u L Monocytes Absolute Auto 0.5 0.1-1.2 X10*3/uL Eosinophils Absolute Auto 0.3 0.0-0.4 X10*3/u L Basophils Absolute Auto 0.0 0.0-0.2 X10*3/uL NRBC Abs Auto 0.000 0.0-0.012 X10*3/uL Comprehensive [place]. Panel Fa st Reviewed date:08/02/2023 02:49:13 PM Interpretation: Performing Lab:[facility], [address] [place] [phone] Notes/Report: Sodium 142 135-145 mmol/L Potassium 4.0 3.3-5.1 mmol/L Chloride 102 96-108 mmol/L Carbon Dioxide 29 22-29 mmol/L Anion Gap 15 12-20 Blood Urea Nitrogen 25 9-16 mg/dL Creatinine 0.75 0.5-1.4 mg/dL Estimated Glomerular Filt Rate > 60 NOTE: For -[place]oc[place] individuals, multiply the result by 1.210. Chronic Kidney Disease: Estimated GFR < 60 mL/min/1.73m2 Severe Kidney Disease: Estimated GFR < 15 mL/min/1.73m2 Glucose Fasting 134 60-99 mg/dL A fasting glucose of 126 mg/dl or greater on more than one occasion is considered diagnostic of diabetes. Calcium 9.4 8.4-10.2 mg/dL Bilirubin Total 1.2 0.0-1.0 mg/dL Aspartate Amino Transferase 25 5-37 U/L Alanine Aminotransferase 31 0-40 U/L Total Protein 6.5 6.5-8.0 g/dL Albumin Level 3.7 3.5-5.0 g/dL Alkaline Phosphatase 52 39-117 U/L Lipid Panel Reviewed date:08/02/2023 02:49:13 PM Interpretation: Performing Lab:[facility], [address] [place] [phone] Notes/Report: Triglycerides 97 <150 mg/dL Desirable Triglyceride: less than 150 mg/dL Borderline High Triglyceride 150-199 mg/dL High Triglyceride: 200-499 mg/dL Very High Triglyceride: greater than or equal to 5OO mg/dL Cholesterol 79 <200 mg/dL Desirable Cholesterol: less than 200 mg/dL Borderline High Cholesterol: 200-239 mg/dL High Cholesterol: greater than 239 mg/dL LDL Cholesterol Calculated 37 <100 mg/dL Desirable LDL: less than 100 mg/dL Near Optimal/Above Optimal LDL: 110-129 mg/dL Borderline High LDL: 130-159 mg/dL High LDL: 160-189 mg/dL Very High LDL: greater than or equal to 190 mg/dL HDL Cholesterol 23 >40 mg/dL Desirable HDL: greater than 40 mg/dL Note: This HDL assay may give artificially low results in patients with liver disease. Microalbumin, Random Reviewed date:08/02/2023 02:49:13 PM Interpretation: Performing Lab:[facility], [address] [place] [phone] Notes/Report: Creatinine Urine 148.00 Microalbumin Urine 9.0 Microalbum/Creatinine Ratio Ur 6.0 <30 ug/mg cr Albumin/Creatinine Ratio Reference Ranges: Normal: < 30 ug/mg creatinine Microalbuminuria: 30 - 300 ug/mg creatinine Clinical Albuminuria: > 300 ug/mg creatinine H pylori Ag Stool Reviewed date:08/04/2023 10:59:49 AM Interpretation: Performing Lab:[facility], [address] [place] [phone] Notes/Report: H pylori Ag Stool SEE NOTE [employer], EIA, STOOL Micro Number: [id number] Test Status: Final Specimen Source: Stool Specimen Quality: Adequate H.pylori Ag: Not Detected Antimicrobials, proton pump inhibitors, and bismuth preparations inhibit H. pylori and ingestion up to two weeks prior to testing may cause false negative results. If clinically indicated the test should be repeated on a new specimen obtained two weeks after discontinuing treatment. Reference Range: Not Detected THIS TEST WAS PERFORMED AT: [facility] [address] [place] [phone] SHANICE VERA MD Hemoglobin A1c Reviewed date:08/02/2023 02:49:13 PM Interpretation: Performing Lab:[address] [phone] Notes/Report: Hemoglobin A1c % 7.1 <6.0 % Hemoglobin A1C Reference Range Adults: 4.8 - 6.0 % Non diabetic: < 6.0 % Goal: < 7.0 % Additional Action Suggested: > 8.0 % Note: Hemoglobin A1c results are invalid for patients with abnormal amounts of HbF. Blood transfusions may impact the HbA1c concentration in the patient sample. Estimated Average Glucose 157 eAG = Estimated average glucose which is %A1C expressed as average glucose, using the formula of the [id number] Average Glucose study (ADAG), Diabetes Care, Vol.31,#8, Nov. 2007 Diabetic Eye Exam Reviewed date:09/07/2023 02:36:17 PM Interpretation:undefined Performing Lab: Notes/Report: undefined Complete Blood Count Auto Di ff Reviewed date:10/26/2023 01:10:19 PM Interpretation: Performing Lab:[facility], [address] [place] [phone] Notes/Report: White Blood Count 6.1 4.8-10.8 X10*3/uL Red Blood Count 4.90 4.60-5.80 X10*6/uL Hemoglobin 15.5 14.0-18.0 g/dl Hematocrit 44.1 42.0-52.0 % Mean Corpuscular Volume 90.0 80.0-98.0 fL Mean Corpuscular Hemoglobin 31.6 27.0-33.0 pg Mean Corpuscular HGB Conc 35.1 31.0-36.0 g/dl Red Cell Distribution Width 12.6 11.0-16.0 % Platelet Count 156 160-400 X10*3/uL Mean Platelet Volume 11.4 9.4-12.4 fL Neutrophils Percent Auto 59.5 45-73 % Imm Gran Pct Auto 0.2 0.0-0.4 % Lymphocytes Percent Auto 28.5 20-40 % Monocytes Percent Auto 7.9 2-11 % Eosinophils Percent Auto 3.6 0-4 % Basophils Percent Auto 0.3 0-2 % NRBC Pct Auto 0.0 0.0-0.2 /100WBC Neutrophils Absolute Auto 3.6 2.0-8.3 x10*3/u L Imm Gran Abs Auto 0.01 0.00-0.03 X10*3/uL Lymphocytes Absolute Auto 1.7 1.2-4.9 X10*3/u L Monocytes Absolute Auto 0.5 0.1-1.2 X10*3/uL Eosinophils Absolute Auto 0.2 0.0-0.4 X10*3/u L Basophils Absolute Auto 0.0 0.0-0.2 X10*3/uL NRBC Abs Auto 0.000 0.0-0.012 X10*3/uL Comprehensive Met. Panel Reviewed date:10/26/2023 01:10:19 PM Interpretation: Performing Lab:[facility], [address] [place] [phone] Notes/Report: Sodium 145 135-145 mmol/L Potassium 4.6 3.3-5.1 mmol/L Chloride 98 96-108 mmol/L Carbon Dioxide 36 22-29 mmol/L Anion Gap 16 12-20 Blood Urea Nitrogen 25 9-16 mg/dL Creatinine 0.87 0.5-1.4 mg/dL Estimated Glomerular Filt Rate > 60 NOTE: For -[place]oc[place] individuals, multiply the result by 1.210. Chronic Kidney Disease: Estimated GFR < 60 mL/min/1.73m2 Severe Kidney Disease: Estimated GFR < 15 mL/min/1.73m2 Glucose Random 178 60-115 mg/dL Calcium 9.7 8.4-10.2 mg/dL Bilirubin Total 1.0 0.0-1.0 mg/dL Aspartate Amino Transferase 23 5-37 U/L Alanine Aminotransferase 26 0-40 U/L Total Protein 7.2 6.5-8.0 g/dL Albumin Level 4.2 3.5-5.0 g/dL Alkaline Phosphatase 60 39-117 U/L Lipid Panel Reviewed date:10/26/2023 01:10:19 PM Interpretation: Performing Lab:[facility], [address] [place] [phone] Notes/Report: Triglycerides 109 <150 mg/dL Desirable Triglyceride: less than 150 mg/dL Borderline High Triglyceride 150-199 mg/dL High Triglyceride: 200-499 mg/dL Very High Triglyceride: greater than or equal to 5OO mg/dL Cholesterol 87 <200 mg/dL Desirable Cholesterol: less than 200 mg/dL Borderline High Cholesterol: 200-239 mg/dL High Cholesterol: greater than 239 mg/dL LDL Cholesterol Calculated 41 <100 mg/dL Desirable LDL: less than 100 mg/dL Near Optimal/Above Optimal LDL: 110-129 mg/dL Borderline High LDL: 130-159 mg/dL High LDL: 160-189 mg/dL Very High LDL: greater than or equal to 190 mg/dL HDL Cholesterol 25 >40 mg/dL Desirable HDL: greater than 40 mg/dL Note: This HDL assay may give artificially low results in patients with liver disease. Complete Blood Count Auto Di ff Reviewed date:12/27/2023 02:22:23 PM Interpretation: Performing Lab:[facility], [address] [place] [phone] Notes/Report: White Blood Count 5.8 4.8-10.8 X10*3/uL Red Blood Count 4.61 4.60-5.80 X10*6/uL Hemoglobin 14.3 14.0-18.0 g/dl Hematocrit 42.6 42.0-52.0 % Mean Corpuscular Volume 92.4 80.0-98.0 fL Mean Corpuscular Hemoglobin 31.0 27.0-33.0 pg Mean Corpuscular HGB Conc 33.6 31.0-36.0 g/dl Red Cell Distribution Width 13.3 11.0-16.0 % Platelet Count 134 160-400 X10*3/uL Mean Platelet Volume 12.1 9.4-12.4 fL Neutrophils Percent Auto 57.9 45-73 % Imm Gran Pct Auto 0.3 0.0-0.4 % Lymphocytes Percent Auto 29.8 20-40 % Monocytes Percent Auto 9.1 2-11 % Eosinophils Percent Auto 2.7 0-4 % Basophils Percent Auto 0.2 0-2 % NRBC Pct Auto 0.0 0.0-0.2 /100WBC Neutrophils Absolute Auto 3.4 2.0-8.3 x10*3/u L Imm Gran Abs Auto 0.02 0.00-0.03 X10*3/uL Lymphocytes Absolute Auto 1.7 1.2-4.9 X10*3/u L Monocytes Absolute Auto 0.5 0.1-1.2 X10*3/uL Eosinophils Absolute Auto 0.2 0.0-0.4 X10*3/u L Basophils Absolute Auto 0.0 0.0-0.2 X10*3/uL NRBC Abs Auto 0.000 0.0-0.012 X10*3/uL Comprehensive [place]. Panel Fa st Reviewed date:12/27/2023 02:22:23 PM Interpretation: Performing Lab:[facility], [address] [place] [phone] Notes/Report: Sodium 142 135-145 mmol/L Potassium 3.7 3.3-5.1 mmol/L Chloride 103 96-108 mmol/L Carbon Dioxide 33 22-29 mmol/L Anion Gap 10 12-20 Blood Urea Nitrogen 21 9-16 mg/dL Creatinine 0.80 0.5-1.4 mg/dL Estimated Glomerular Filt Rate > 60 NOTE: For -[place]oc[place] individuals, multiply the result by 1.210. Chronic Kidney Disease: Estimated GFR < 60 mL/min/1.73m2 Severe Kidney Disease: Estimated GFR < 15 mL/min/1.73m2 Glucose Fasting 158 60-99 mg/dL A fasting glucose of 126 mg/dl or greater on more than one occasion is considered diagnostic of diabetes. Calcium 9.5 8.4-10.2 mg/dL Bilirubin Total 1.2 0.0-1.0 mg/dL Aspartate Amino Transferase 22 5-37 U/L Alanine Aminotransferase 35 0-40 U/L Total Protein 6.7 6.5-8.0 g/dL Albumin Level 4.0 3.5-5.0 g/dL Alkaline Phosphatase 57 39-117 U/L B Type Natriuretic Peptide Reviewed date:12/27/2023 02:22:23 PM Interpretation: Performing Lab:[facility], [address] [place] [phone] Notes/Report: B Type Natriuretic Peptide 353 <100 pg/mL For those patients who are being treated with Natrecor (nesiritide, recombinant BNP), BNP testing should be performed at least two hours post treatment in order to ensure that only endogenous levels of BNP are detected. Lipid Panel Reviewed date:12/27/2023 02:22:23 PM Interpretation: Performing Lab:[facility], [address] [place] [phone] Notes/Report: Triglycerides 81 <150 mg/dL Desirable Triglyceride: less than 150 mg/dL Borderline High Triglyceride 150-199 mg/dL High Triglyceride: 200-499 mg/dL Very High Triglyceride: greater than or equal to 5OO mg/dL Cholesterol 77 <200 mg/dL Desirable Cholesterol: less than 200 mg/dL Borderline High Cholesterol: 200-239 mg/dL High Cholesterol: greater than 239 mg/dL LDL Cholesterol Calculated 35 <100 mg/dL Desirable LDL: less than 100 mg/dL Near Optimal/Above Optimal LDL: 110-129 mg/dL Borderline High LDL: 130-159 mg/dL High LDL: 160-189 mg/dL Very High LDL: greater than or equal to 190 mg/dL HDL Cholesterol 26 >40 mg/dL Desirable HDL: greater than 40 mg/dL Note: This HDL assay may give artificially low results in patients with liver disease. Complete Blood Count Auto Di ff (Not yet reviewed by provider) Interpretation: Performing Lab:[facility], [address] [place] [phone] Notes/Report: White Blood Count 5.9 4.8-10.8 X10*3/uL Red Blood Count 4.86 4.60-5.80 X10*6/uL Hemoglobin 15.1 14.0-18.0 g/dl Hematocrit 44.7 42.0-52.0 % Mean Corpuscular Volume 92.0 80.0-98.0 fL Mean Corpuscular Hemoglobin 31.1 27.0-33.0 pg Mean Corpuscular HGB Conc 33.8 31.0-36.0 g/dl Red Cell Distribution Width 12.7 11.0-16.0 % Platelet Count 135 160-400 X10*3/uL Mean Platelet Volume 11.8 9.4-12.4 fL Neutrophils Percent Auto 60.0 45-73 % Imm Gran Pct Auto 0.3 0.0-0.4 % Lymphocytes Percent Auto 27.3 20-40 % Monocytes Percent Auto 8.5 2-11 % Eosinophils Percent Auto 3.6 0-4 % Basophils Percent Auto 0.3 0-2 % NRBC Pct Auto 0.0 0.0-0.2 /100WBC Neutrophils Absolute Auto 3.5 2.0-8.3 x10*3/u L Imm Gran Abs Auto 0.02 0.00-0.03 X10*3/uL Lymphocytes Absolute Auto 1.6 1.2-4.9 X10*3/u L Monocytes Absolute Auto 0.5 0.1-1.2 X10*3/uL Eosinophils Absolute Auto 0.2 0.0-0.4 X10*3/u L Basophils Absolute Auto 0.0 0.0-0.2 X10*3/uL NRBC Abs Auto 0.000 0.0-0.012 X10*3/uL Comprehensive [place]. Panel Fa st (Not yet reviewed by provider) Interpretation: Performing Lab:[address] [phone] Notes/Report: Sodium 141 135-145 mmol/L Potassium 4.6 3.3-5.1 mmol/L Chloride 102 96-108 mmol/L Carbon Dioxide 34 22-29 mmol/L Anion Gap 10 12-20 Blood Urea Nitrogen 18 9-16 mg/dL Creatinine 0.76 0.5-1.4 mg/dL Estimated Glomerular Filt Rate > 60 Chronic Kidney Disease: Estimated GFR < 60 mL/min/1.73m2 Severe Kidney Disease: Estimated GFR < 15 mL/min/1.73m2 Glucose Fasting 191 60-99 mg/dL A fasting glucose of 126 mg/dl or greater on more than one occasion is considered diagnostic of diabetes. Calcium 8.8 8.4-10.2 mg/dL Bilirubin Total 1.0 0.0-1.0 mg/dL Aspartate Amino Transferase 27 5-37 U/L Alanine Aminotransferase 48 0-40 U/L Total Protein 6.7 6.5-8.0 g/dL Albumin Level 4.0 3.5-5.0 g/dL Alkaline Phosphatase 53 39-117 U/L Lipid Panel (Not yet reviewe d by provider) Interpretation: Performing Lab:[facility], [address] [place] [phone] Notes/Report: Triglycerides 84 <150 mg/dL Desirable Triglyceride: less than 150 mg/dL Borderline High Triglyceride 150-199 mg/dL High Triglyceride: 200-499 mg/dL Very High Triglyceride: greater than or equal to 5OO mg/dL Cholesterol 92 <200 mg/dL Desirable Cholesterol: less than 200 mg/dL Borderline High Cholesterol: 200-239 mg/dL High Cholesterol: greater than 239 mg/dL LDL Cholesterol Calculated 48 <100 mg/dL Desirable LDL: less than 100 mg/dL Near Optimal/Above Optimal LDL: 110-129 mg/dL Borderline High LDL: 130-159 mg/dL High LDL: 160-189 mg/dL Very High LDL: greater than or equal to 190 mg/dL HDL Cholesterol 28 >40 mg/dL Desirable HDL: greater than 40 mg/dL Note: This HDL assay may give artificially low results in patients with liver disease. Prostate Specific Antigen (N ot yet reviewed by provider) Interpretation: Performing Lab:[facility], [address] [place] [phone] Notes/Report: Prostate Specific Antigen 0.18 <0.05-4.0 ng/mL PSA methodology: [employer] Chemiluminescent Microparticle Immunoassay (CMIA) Reason For Referral No Information Medications Medication SIG (Take, Route, Frequency, Duration) Notes Start Date End Date Status Aspirin 81 81 MG 1 tablet Orally Once a day Active Atorvastatin Calcium 40 MG 1 tablet Oral ly Once a day Active Brilinta 90 MG 1 tablet Orally Twic e a day Active Doxylamine Succinate (Sleep) 25 [...] tablet Orally Once a day 07/11/2023 Active Immunizations Vaccine Route Administration Date Status Comme nts COVID PFIZER Unknown 01/28/2021 Administered COVID PFIZER Unknown 07/23/2020 Administered COVID PFIZER Unknown 07/01/2020 Administered COVID PFIZER Unknown 07/01/2020 Administered COVID PFIZER Unknown 01/28/2021 Administered Social History Tobacco Use: Social History Observation Description Date Details (start date - stop date) Former Smoker NA - NA Sex Assigned At : Social History Observation Description Sex Assigned At Male Tobacco Use/Smoking Question Answer Notes Patient is a former smoker How long has it been since you last smoked? > 10 years Additional Findings: Tobacco Non-User Ex-cigaret te smoker Alcohol Screen Question Answer Notes Did you have a drink containing alcohol in the p ast year? No Points 0 Interpretation Negative Problems Problem Type SNOMED Code ICD Code Onset Dates Problem Status W/U Status Risk Notes Problem 9504490 Former smoker (Z87.891) Active confirmed He is highly motivated not to smoke and has a plan to prevent relapse in times of stress and illness. Problem Hyperlipidemia (63007743) Hyperlipidemia (E78.5) Active confirmed His lipids are stable and in their target range. No changge in his medication was needed today. Problem 327377602 Overweight (E66.3) Active confirmed His weight is now in the normal range and this problem has resolved. Problem Benign prostatic hyperplasia (040399550) BPH (benign prostatic hyperplasia) (N40.0) Active confirmed He rises from sleep once a night to urinate. We have discussed lifestyle modifications as a way to reduce nocturia. Problem 81538713 Penicillin allergy (Z88.0) Active confirmed Problem 152342708 Nonrheumatic aortic valve stenosis (I35.0) Active confirmed He was admitted to [facility] July 04 and discharged July 07, 2023 for an elective TAVR which was successfully accomplished. His shortness of breath is much better. I do not hear an aortic murmur today. I do not hear mitral murmur. He reports feeling much better and more able to tolerate exertion.His BNP has decreased from 721 to a current value of 353. He is asymptomatic. Problem 672141790 History of DVT (deep vein thrombosis) (Z86.718) Active confirmed There are no signs of a DVT at this time. He has no history of a familial thrombophilia. The DVT occurred after cardiac surgery. Problem 3998490075898 Coronary artery disease involving [place] coronary artery of [place] heart without angina pectoris (I25.10) Active confirmed He has had no chest pain with exertion. Problem 535065430 History of atrial fibrillation (Z86.79) Active confirmed He is currently a regular sinus rhythm which is well controlled. Problem 976894090 Type 2 diabetes mellitus without complication, without long-term current use of insulin (E11.9) Active confirmed Is compliant with his medication. Problem 517052175 Adenomatous polyp (D36.9) Active confirmed His last colonoscopy had no findings and he is now scheduled to repeat in 10 years. 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 Vital Signs Heart Rate 65 /min 03/13/2024 Temperature 98.8 degrees Fahrenheit 03/13/2024 Blood pressure diastolic 78 mm Hg 03/13/2024 Height 65 in 03/13/2024 Blood pressure systolic 145 mm Hg 03/13/2024 Weight 151, 148.0 lbs 03/13/2024 BMI 25.12 kg/m2 03/13/2024 Encounters Encounter Location Date Provider Diagnosis Adan Arellano III, MD [address] [place] [address] [address] [place] [address] 03/13/2024 Adan Arellano Nonrheumatic aortic valve stenosis I35.0 ; Overweight E66.3 ; Hyperlipidemia E78.5 ; Type 2 diabetes mellitus without complication, without long-term current use of insulin E11.9 and Coronary artery disease involving [place] coronary artery of [place] heart without angina pectoris I25.10 Adan Arellano III, MD [address] [place] [address] [address] [place] [address] 03/23/2023 Adan Arellano Nonrheumatic aortic valve stenosis I35.0 ; History of atrial fibrillation Z86.79 ; 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 ; Coronary artery disease involving [place] coronary artery of [place] heart without angina pectoris I25.10 ; Overweight E66.3 ; Former smoker Z87.891 ; History of DVT (deep vein thrombosis) Z86.718 ; BPH (benign prostatic hyperplasia) N40.0 and Type 2 diabetes mellitus without complication, without long-term current use of insulin E11.9 Adan Arellano III, MD [address] [place] [address] [address] [place] [address] 03/31/2023 Adan Arellano Nonrheumatic aortic valve stenosis I35.0 ; History of atrial fibrillation Z86.79 ; 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 ; Coronary artery disease involving [place] coronary artery of [place] heart without angina pectoris I25.10 ; History of DVT (deep vein thrombosis) Z86.718 ; BPH (benign prostatic hyperplasia) N40.0 ; Type 2 diabetes mellitus without complication, without long-term current use of insulin E11.9 and Circadian rhythm sleep disorder, 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 Adan Arellano III, MD [address] [place] [address] [place] [address] 04/13/2023 Adan Mantillane Nonrheumatic aortic valve stenosis I35.0 ; History of atrial fibrillation Z86.79 ; 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 ; Overweight E66.3 ; Former smoker Z87.891 ; History of DVT (deep vein thrombosis) Z86.718 ; Coronary artery disease involving [place] coronary artery of [place] heart without angina pectoris I25.10 ; Type 2 diabetes mellitus without complication, without long-term current use of insulin E11.9 ; BPH (benign prostatic hyperplasia) N40.0 and Hyperlipidemia E78.5 Adan Arellano III, MD [address] [place] [address] [place] [address] 05/13/2023 Adan Arellano Nonrheumatic aortic valve stenosis I35.0 ; History of atrial fibrillation Z86.79 ; 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 ; Coronary artery disease involving [place] coronary artery of [place] heart without angina pectoris I25.10 ; History of DVT (deep vein thrombosis) Z86.718 ; Former smoker Z87.891 ; Type 2 diabetes mellitus without complication, without long-term current use of insulin E11.9 and Overweight E66.3 Adan Arellano III, MD [address] [place] [address] [place] [address] 07/11/2023 Adan Arellano Nonrheumatic aortic valve stenosis I35.0 ; Overweight E66.3 ; BPH (benign prostatic hyperplasia) N40.0 ; Type 2 diabetes mellitus without complication, without long-term current use of insulin E11.9 ; History of atrial fibrillation Z86.79 ; 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 ; Coronary artery disease involving [place] coronary artery of [place] heart without angina pectoris I25.10 ; History of DVT (deep vein thrombosis) Z86.718 ; Former smoker Z87.891 and Hyperlipidemia E78.5 Adan Arellano III, MD [address] [place] [address] [place] [address] 08/02/2023 Adan Arellano Nonrheumatic aortic valve stenosis I35.0 ; History of atrial fibrillation Z86.79 ; 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 ; History of DVT (deep vein thrombosis) Z86.718 ; Former smoker Z87.891 ; Coronary artery disease involving [place] coronary artery of [place] heart without angina pectoris I25.10 and Type 2 diabetes mellitus without complication, without long-term current use of insulin E11.9 Adan Arellano III, MD [address] [place] [address] [place] [address] 09/26/2023 Adan Arellano Nonrheumatic aortic valve stenosis I35.0 ; Coronary artery disease involving [place] coronary artery of [place] heart without angina pectoris I25.10 ; Hyperlipidemia E78.5 and Type 2 diabetes mellitus without complication, without long-term current use of insulin E11.9 Adan Arellano III, MD [address] [place] [address] [place] [address] 12/27/2023 Adan Arellano Nonrheumatic aortic valve stenosis I35.0 ; Hyperlipidemia E78.5 ; Overweight E66.3 ; BPH (benign prostatic hyperplasia) N40.0 ; History of atrial fibrillation Z86.79 ; 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 ; History of DVT (deep vein thrombosis) Z86.718 ; Coronary artery disease involving [place] coronary artery of [place] heart without angina pectoris I25.10 and Former smoker Z87.891 Adan Arellano III, MD [address] [place] [address] [place] [address] 03/14/2024 Adan Arellano III, MD [address] [place] [address] [place] [address] 03/23/2023 Adan Arellano III, MD [address] [place] [address] [place] [address] 03/31/2023 Adan Arellano III, MD [address] [place] [address] [address] [place] [id number] 03/31/2023 Adan Arellano III, MD [address] [place] [address] [place] [address] 04/01/2023 Adan Arellano III, MD [address] [place] [address] [place] [address] 04/01/2023 Adan Arellano III, MD [address] [place] [address] [place] [address] 04/01/2023 Adan Arellano III, MD [address] [place] [address] [place] [address] 04/25/2023 Adan Arellano III, MD [address] [place] [address] [place] [address] 04/25/2023 Adan Arellano III, MD [address] [place] [address] [place] [address] 05/03/2023 Adan Arellano III, MD [address] [place] [address] [place] [address] 05/03/2023 Adan Arellano III, MD [address] [place] [address] [place] [address] 06/02/2023 Adan Arellano III, MD [address] [place] [address] [place] [address] 07/12/2023 Adan Arellano III, MD [address] [place] [address] [place] [address] 10/04/2023 Adan Arellano Assessments Encounter Date Diagnosis (ICD Code) Assessment Notes Treat ment Notes Treatment Clinical Notes 03/13/2024 Nonrheumatic aortic valve stenosis (ICD-10 - I35.0) He was admitted to [facility] July 04 and discharged July 07, 2023 for an elective TAVR which was successfully accomplished. His shortness of breath is much better. I do not hear an aortic murmur today. I do not hear mitral murmur. He reports feeling much better and more able to tolerate exertion.His BNP has decreased from 721 to a current value of 353. He is asymptomatic. 03/23/2023 Nonrheumatic aortic valve stenosis (ICD-10 - I35.0) The peripheral edema has resolved without a change in weight.He is short of breath except with exertion. He was compliant with the furosemide. He has an appointment at the end of this week with the cardiology nurse practitioner. He has had the echocardiogram, but is not yet interpreted. We have called the cardiology office to see if they could get it interpreted by the time he goes for the appointment. They have replied that they would do so. 03/23/2023 History of atrial fibrillation (ICD-10 - Z86.79) His heart rate is well controlled and no change in his regimen as needed. His rhythm today is regular 03/31/2023 Nonrheumatic aortic valve stenosis (ICD-10 - I35.0) The echocardiogram has been interpreted with an aortic valve of 0.94 cm2, he has arranged a second opinion at [facility]. He will continue on his current diuretic therapy and followup with cardiology. 03/31/2023 History of atrial fibrillation (ICD-10 - Z86.79) His heart rate is well controlled and no change in his regimen as needed. His rhythm today is regular 04/13/2023 Nonrheumatic aortic valve stenosis (ICD-10 - I35.0) The echocardiogram has been interpreted with an aortic valve of 0.94 cm2, he has arranged a second opinion at [facility]. He will continue on his current diuretic therapy and followup with cardiology. It is likely that a repair will be done in the near future.A BNP value of 721 is noted. 04/13/2023 History of atrial fibrillation (ICD-10 - Z86.79) His heart rate is well controlled and no change in his regimen as needed. His rhythm today is regular 05/13/2023 Nonrheumatic aortic valve stenosis (ICD-10 - I35.0) His peripheral edema is improved but still present. He is less dyspneic. He pplans to have his invasive cardiac therapy done at [facility] where he has recently had a consultation. They have scheduled a stress echocardiogram and pulmonary function tests. He was comfortable at rest today with clear lungs. 05/13/2023 History of atrial fibrillation (ICD-10 - Z86.79) His heart rate is well controlled and no change in his regimen as needed. His rhythm today is regular 07/11/2023 Overweight (ICD-10 - E66.3) His body mass index is now in the normal range at 24. This problem has resolved. 07/11/2023 Nonrheumatic aortic valve stenosis (ICD-10 - I35.0) He was admitted to [facility] July 04 and discharge July 07, 2023 for an elective TAVR which was successfully accomplished. His shortness of breath is much better. I do not hear an aortic murmur today. He was told he may need a mitral valve procedure. 08/02/2023 Nonrheumatic aortic valve stenosis (ICD-10 - I35.0) He was admitted to [facility] July 04 and discharge July 07, 2023 for an elective TAVR which was successfully accomplished. His shortness of breath is much better. I do not hear an aortic murmur today. He was told he may need a mitral valve procedure. 08/02/2023 History of atrial fibrillation (ICD-10 - Z86.79) His heart rate is well controlled and no change in his regimen as needed. His rhythm today is regular 09/26/2023 Nonrheumatic aortic valve stenosis (ICD-10 - I35.0) He was admitted to [facility] July 04 and discharged July 07, 2023 for an elective TAVR which was successfully accomplished. His shortness of breath is much better. I do not hear an aortic murmur today. I do not hear mitral murmur. He reports feeling much better and more able to tolerate exertion. 09/26/2023 Coronary artery disease involving [place] coronary artery of [place] heart without angina pectoris (ICD-10 - I25.10) He has had no chest pain with exertion. 12/27/2023 Hyperlipidemia (ICD-10 - E78.5) His lipids are stable and in their target range. No changge in his medication was needed today. 12/27/2023 Nonrheumatic aortic valve stenosis (ICD-10 - I35.0) He was admitted to [facility] July 04 and discharged July 07, [...] is asymptomatic. 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 07/11/2023 BPH (benign prostatic hyperplasia) (ICD-10 - N40.0) He continues to rise from sleep once a night to urinate. We reviewed lifestyle modification as a way to reduce nocturia. 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 09/26/2023 Hyperlipidemia (ICD-10 - E78.5) Comprehensive blood work has been ordered. 12/27/2023 Overweight (ICD-10 - E66.3) His weight is now in the normal range and this problem has resolved. 03/13/2024 Hyperlipidemia (ICD-10 - E78.5) 03/23/2023 Coronary artery disease involving [place] coronary artery of [place] heart without angina pectoris (ICD-10 - I25.10) He denies any chest pain or exertional dyspnea or anginal symptoms. 03/31/2023 Coronary artery disease involving [place] coronary artery of [place] heart without angina pectoris (ICD-10 - I25.10) He denies any chest pain or exertional dyspnea or anginal symptoms. 04/13/2023 Overweight (ICD-10 - E66.3) His BMI is 27 and his weight is stable. We reviewed his diet and nutrition today.We reviewed his weight loss strategy. 05/13/2023 Coronary artery disease involving [place] coronary artery of [place] heart without angina pectoris (ICD-10 - I25.10) He denies any chest pain or exertional dyspnea or anginal symptoms. 07/11/2023 Type 2 diabetes mellitus without complication, without long-term current use of insulin (ICD-10 - E11.9) He was continued on current medications. His blood work was reviewed with him. He will have a hemoglobin A1c in the near future. 08/02/2023 History of DVT (deep vein thrombosis) (ICD-10 - Z86.718) There are no signs of a DVT at this time. He has no history of a familial thrombophilia. The DVT occurred after cardiac surgery. 09/26/2023 Type 2 diabetes mellitus without complication, without long-term current use of insulin (ICD-10 - E11.9) Is compliant with his medication. 12/27/2023 BPH (benign prostatic hyperplasia) (ICD-10 - N40.0) He rises from sleep once a night to urinate. We have discussed lifestyle modifications as a way to reduce nocturia. 03/13/2024 Type 2 diabetes mellitus without complication, without long-term current use of insulin (ICD-10 - E11.9) 03/23/2023 Overweight (ICD-10 - E66.3) He has gained 3 poounds, which is likely from the fluid retention. He kellogg wwinter clothing on. His weight is likely stable at this time. He will avoid excessive use of sodium. 03/31/2023 History of DVT (deep vein thrombosis) (ICD-10 - Z86.718) There are no signs of a DVT at this time. He has no history of a familial thrombophilia. The DVT occurred after cardiac surgery. 04/13/2023 Former smoker (ICD-10 - Z87.891) He is highly motivated not to smoke and has a plan to prevent relapse in times of stress and illness. 05/13/2023 History of DVT (deep vein thrombosis) (ICD-10 - Z86.718) There are no signs of a DVT at this time. He has no history of a familial thrombophilia. The DVT occurred after cardiac surgery. 07/11/2023 History of atrial fibrillation (ICD-10 - Z86.79) His heart rate is well controlled and no change in his regimen as needed. His rhythm today is regular 08/02/2023 Former smoker (ICD-10 - Z87.891) He is highly motivated not to smoke and has a plan to prevent relapse in times of stress and illness. 12/27/2023 History of atrial fibrillation (ICD-10 - Z86.79) He is currently a regular sinus rhythm which is well controlled. 03/13/2024 Coronary artery disease involving [place] coronary artery of [place] heart without angina pectoris (ICD-10 - I25.10) 03/23/2023 Former smoker (ICD-10 - Z87.891) He is highly motivated not to smoke and has a plan to prevent relapse in times of stress and illness. 03/31/2023 BPH (benign prostatic hyperplasia) (ICD-10 - N40.0) We have discussed lifestyle modification as a way of reducing nocturia today. 04/13/2023 History of DVT (deep vein thrombosis) (ICD-10 - Z86.718) There are no signs of a DVT at this time. He has no history of a familial thrombophilia. The DVT occurred after cardiac surgery. 05/13/2023 Former smoker (ICD-10 - Z87.891) He is highly motivated not to smoke and has a plan to prevent relapse in times of stress and illness. 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 08/02/2023 Coronary artery disease involving [place] coronary artery of [place] heart without angina pectoris (ICD-10 - I25.10) He denies any chest pain or exertional dyspnea or anginal symptoms. 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 03/23/2023 History of DVT (deep vein thrombosis) (ICD-10 - Z86.718) There are no signs of a DVT at this time. He has no history of a familial thrombophilia. The DVT occurred after cardiac surgery. 03/31/2023 Type 2 diabetes mellitus without complication, without long-term current use of insulin (ICD-10 - E11.9) His hemoglobin A1c has improved from 8.0 to 7.3. We reviewed his ddiabetic diet and nutrition and weight loss strategy today. 04/13/2023 Coronary artery disease involving [place] coronary artery of [place] heart without angina pectoris (ICD-10 - I25.10) He denies any chest pain or exertional dyspnea or anginal symptoms. 05/13/2023 Type 2 diabetes mellitus without complication, without long-term current use of insulin (ICD-10 - E11.9) His hemoglobin A1c has improved from 8.0 to 7.3. We reviewed his ddiabetic diet and nutrition and weight loss strategy today.His fasting glucose is 168. The microalbumin/creatin ine ratio of 768 is noted. We will pursue aggressive control of the diabetes. 07/11/2023 Coronary artery disease involving [place] coronary artery of [place] heart without angina pectoris (ICD-10 - I25.10) He denies any chest pain or exertional dyspnea or anginal symptoms. 08/02/2023 Type 2 diabetes mellitus without complication, without long-term current use of insulin (ICD-10 - E11.9) He was continued on current medications. His blood work was reviewed with him. His hemoglobin A1c is 7.1. 12/27/2023 History of DVT (deep vein thrombosis) (ICD-10 - Z86.718) There are no signs of a DVT at this time. He has no history of a familial thrombophilia. The DVT occurred after cardiac surgery. 03/23/2023 BPH (benign prostatic hyperplasia) (ICD-10 - N40.0) We have discussed lifestyle modification as a way of reducing nocturia today. 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 04/13/2023 Type 2 diabetes mellitus without complication, without long-term current use of insulin (ICD-10 - E11.9) His hemoglobin A1c has improved from 8.0 to 7.3. We reviewed his ddiabetic diet and nutrition and weight loss strategy today.His fasting glucose is 168. The microalbumin/creatin ine ratio of 768 is noted. We will pursue aggressive control of the diabetes. 05/13/2023 Overweight (ICD-10 - E66.3) His BMI is 28.12 and his weight is stable. He has gained 3 pounds with improvement in peripheral edema. We reviewed his diet and nutrition today. We reviewed his weight loss strategy. 07/11/2023 History of DVT (deep vein thrombosis) (ICD-10 - Z86.718) There are no signs of a DVT at this time. He has no history of a familial thrombophilia. The DVT occurred after cardiac surgery. 12/27/2023 Coronary artery disease involving [place] coronary artery of [place] heart without angina pectoris (ICD-10 - I25.10) He has had no chest pain with exertion. 03/23/2023 Type 2 diabetes mellitus without complication, without long-term current use of insulin (ICD-10 - E11.9) His hemoglobin A1c has improved from 8.0 to 7.3. We reviewed his ddiabetic diet and nutrition and weight loss strategy today. 04/13/2023 BPH (benign prostatic hyperplasia) (ICD-10 - N40.0) We have discussed lifestyle modification as a way of reducing nocturia today. 07/11/2023 Former smoker (ICD-10 - Z87.891) He is highly motivated not to smoke and has a plan to prevent relapse in times of stress and illness. 12/27/2023 Former smoker (ICD-10 - Z87.891) He is highly motivated not to smoke and has a plan to prevent relapse in times of stress and illness. 04/13/2023 Hyperlipidemia (ICD-10 - E78.5) Comprehensive blood work has been ordered with a fasting lipid profile. 07/11/2023 Hyperlipidemia (ICD-10 - E78.5) Comprehensive blood work has been ordered with a fasting lipid profile. Plan Of Treatment Pending Test Test Name Order Date PROFILE, FASTING (COMPREHENSIVE METABOLI C) 05/21/2022 PROFILE, FASTING (COMPREHENSIVE METABOLI C) 12/27/2023 PROFILE, FASTING (COMPREHENSIVE METABOLI C) 01/18/2022 PROFILE, FASTING (COMPREHENSIVE METABOLI C) 07/11/2023 PROFILE, FASTING (COMPREHENSIVE METABOLI C) 04/10/2019 PROFILE, FASTING (COMPREHENSIVE METABOLI C) 09/16/2021 PROFILE, FASTING (COMPREHENSIVE METABOLI C) 03/04/2023 PROFILE, FASTING (COMPREHENSIVE METABOLI C) 03/13/2024 PROFILE, FASTING (COMPREHENSIVE METABOLI C) 09/26/2023 PROFILE, FASTING (COMPREHENSIVE METABOLI C) 09/21/2022 PROFILE, FASTING (COMPREHENSIVE METABOLI C) 12/03/2019 PROFILE, FASTING (COMPREHENSIVE METABOLI C) 08/10/2019 HEMOGLOBIN A1C (GLYCOHEMOGLOBIN) 020 HEMOGLOBIN A1C (GLYCOHEMOGLOBIN) 023 HEMOGLOBIN A1C (GLYCOHEMOGLOBIN) 022 LIPID PANEL 09/21/2022 LIPID PANEL 12/03/2019 LIPID PANEL 08/10/2019 LIPID PANEL 05/21/2022 LIPID PANEL 04/10/2019 LIPID PANEL 09/16/2021 BRAIN NATRIURETIC PEPTIDE (BNP) 03/04/20 23 BRAIN NATRIURETIC PEPTIDE (BNP) 09/26/19 24 PSA, TOTAL 12/27/2023 PSA, TOTAL 03/04/2023 PSA, TOTAL 09/16/2021 MICROALBUMIN, RANDOM 08/10/2019 MICROALBUMIN, RANDOM 03/13/2024 CBC w DIFF 09/16/2021 CBC w DIFF 09/21/2022 CBC w DIFF 12/03/2019 CBC w DIFF 01/18/2022 CBC w DIFF 12/27/2023 CBC w DIFF 05/21/2022 CBC w DIFF 08/10/2019 CBC w DIFF 04/10/2019 CBC w DIFF 03/13/2024 HELICOBACTER PYLORI IGG (H PYLORI IGG) 0 07/11/2023 Sleep Study - Baseline 03/04/2023 CBC WITH AUTO DIFF 07/11/2023 CBC WITH AUTO DIFF 09/26/2023 CBC WITH AUTO DIFF 03/04/2023 SARS COV2 IGG 11/07/2019 Complete Blood Count Auto Diff Comprehensive [place]. Panel Fast Lipid Panel 09/26/2023 Lipid Panel 03/12/2024 Lipid Panel 01/18/2022 Lipid Panel 12/27/2023 Lipid Panel 07/11/2023 Lipid Panel 03/13/2024 Prostate Specific Antigen 03/12/2024 Microalbumin, Random 07/11/2023 Hemoglobin A1c 03/13/2024 Hemoglobin A1c 07/11/2023 Hemoglobin A1c 01/18/2022 Next Appt Details Provider Name:Adan Mejiarne, 09/26/2024 02:00:00 PM, [address] [place] [address] , [address], [phone], Insurance Providers Payer Name Payer Address Payer Phone Subscriber Number Group Number Insured Name Patient Relationship to Insured Coverage Start Date Coverage End Date MEDICARE NGS [address] [facility] [place] [address] [phone] [id number] Dionicio Salgado Self - patient is the insured [facility] [address] [place], [place] [id number] Dionicio Salgado Self - patient is the insured Medical (General) History Medical History History ICD Code Elevated triglycerides with high cholest simon E78.2 Atrial fibrillation, unspecified type I4 8.91 Aortic valve stenosis, etiology of cardi ac valve disease unspecified I35.0 1982. 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 2010 overweight atrial fibrillation 2006 moderate aortic stenosis, ? Radiation-re lated former smoker asthmatic bronchitis incisional hernia DVT left brachial and jugular veins 2005 coronary artery disease. 2005 four-vesse l CABG, Dr. Mcgrath hyperlipidemia Mitral valve regurgitation Life long need for endocarditis prophyla xis with invasive procedures Aortic Valve Replacement, Diabetes Surgical History Surgery Date(Month/Year) CABG x 4 vessels 12/2004 resection of malignant semin sebastian of mediastinum, phrenic nerve injury, left diaphragm paralyzed 1982 history of incisional hernia cardiac catheterization 2004 colonoscopy, Dr. Adan ramírez, [facility], tubular adenoma 2010 colonoscopy, Dr. Adan ramírez, [facility], negative findings 2016 TAVR 07/2023 Aortic valve replacement
--- OUTSIDE RECORDS SUMMARY | 2024-03-14 13:51 | XMS_ITS ---
Author Organization Adan Arellano III, MD Address [address] [place] [address] Care Team Providers Care Traffic Signal Technician Name Role Phone Adan Arellano Primary Care Provider Allergies Allergen (clinical drug ingredient) Drug/Non Drug Allergy documented on EMR Reaction Allergy Type Onset Date Status Penicillin Unknown Drug Allergy Active Contrast Allergy PreMed Pack Unknown Drug Allergy Active REASON FOR VISIT Aortic stenosis, Recent TAVR, History of atrial fibrillation, History of DVT, Coronary artery disease, History of seminoma with mediastinal radiation Medications Medication SIG (Take, Route, Frequency, Duration) Notes Start Date End Date Status Doxylamine Succinate (Sleep) 25 MG 1 tablet at bedtime as needed Orally Once a day 04/13/2023 Active Omeprazole 20 MG 1 capsule 30 minutes before morning meal Orally Once a day 07/11/2023 Active Furosemide 20 MG 1 tablet Orally Once a day 03/04/2023 Active Metoprolol Succinate ER 50 MG 1 tablet Orally Once a day 07/11/2023 Active metFORMIN HCl 1000 MG 1 tablet with a me al Orally Once a day 09/26/2023 Active Bumetanide 1 MG 1 tablet Orally Once a day Active Aspirin 81 81 MG 1 tablet Orally Once a day Active Atorvastatin Calcium 40 MG 1 tablet Oral ly Once a day Active Brilinta 90 MG 1 tablet Orally Twic e a day Active Azithromycin 500 MG 1 tablet Orally once before dental work for 1 days 12/27/2023 01/03/2024 Active Social History Tobacco Use: Social History [...] Non-User Ex-cigaret te smoker Vital Signs Temperature 97.9 degrees Fahrenheit 12/27/19 Blood pressure systolic 128 mm Hg 12/27/19 Blood pressure diastolic 65 mm Hg 024 Heart Rate 62 /min 12/27/2023 Height 65 in 12/27/2023 Weight 147 lbs 12/27/2023 BMI 24.46 kg/m2 12/27/2023 Encounters Encounter Location Date Provider Diagnosis Adan Arellano III, MD [address] [place] [address] [place] [address] 12/27/2023 Adan Arellano Nonrheumatic aortic valve stenosis I35.0 ; Hyperlipidemia E78.5 ; Overweight E66.3 ; BPH (benign prostatic hyperplasia) N40.0 ; History of atrial fibrillation Z86.79 ; 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 ; History of DVT (deep vein thrombosis) Z86.718 ; Coronary artery disease involving ely shoshone coronary artery of ely shoshone heart without angina pectoris I25.10 and Former smoker Z87.891 Assessments Encounter Date Diagnosis (ICD Code) Assessment Notes Treat ment Notes Treatment Clinical Notes 12/27/2023 Nonrheumatic aortic valve stenosis (ICD-10 - I35.0) He was admitted to [facility] July 04 and discharged July 07, 2023 for an elective TAVR which was successfully accomplished. His shortness of breath is much better. I do not hear an aortic murmur today. I do not hear mitral murmur. He reports feeling much better and more able to tolerate exertion.His BNP has decreased from 721 to a current value of 353. He is asymptomatic. 12/27/2023 Hyperlipidemia (ICD-10 - E78.5) His lipids are stable and in their target range. No changge in his medication was needed today. 12/27/2023 Overweight (ICD-10 - E66.3) His weight is now in the normal range and this problem has resolved. 12/27/2023 BPH (benign prostati c hyperplasia) (ICD-10 - N40.0) He rises from sleep once a night to urinate. We have discussed lifestyle modifications as a way to reduce nocturia. 12/27/2023 History of atrial fibrillation (ICD-10 - Z86.79) He is currently a regular sinus rhythm which is well controlled. 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 12/27/2023 History of DVT (deep vein thrombosis) (ICD-10 - Z86.718) There are no signs of a DVT at this time. He has no history of a familial thrombophilia. The DVT occurred after cardiac surgery. 12/27/2023 Coronary artery disease involving ely shoshone coronary artery of ely shoshone heart without angina pectoris (ICD-10 - I25.10) He has had no chest pain with exertion. 12/27/2023 Former smoker (ICD-1 0 - Z87.891) He is highly motivated not to smoke and has a plan to prevent relapse in times of stress and illness. Plan Of Treatment Medication Medication Name Sig Start Date Stop Date Notes Doxylamine Succinate (Sleep) 25 MG 1 tablet at bedtime as needed Orally Once a day 04/13/2023 Omeprazole 20 MG 1 capsule 30 minutes before morning meal Orally Once a day 07/11/2023 Furosemide 20 MG 1 tablet Orally Once a day 03/04/2023 Metoprolol Succinate ER 50 MG 1 tablet Orally Once a day 0 07/11/2023 metFORMIN HCl 1000 MG 1 tablet with a me al Orally Once a day 09/26/2023 Bumetanide 1 MG 1 tablet Orally Once a day Aspirin 81 81 MG 1 tablet Orally Once a day Atorvastatin Calcium 40 MG 1 tablet Orally Once a day Brilinta 90 MG 1 tablet Orally Twic e a day Azithromycin 500 MG 1 tablet Orally once before dental work for 1 days 12/27/2023 01/03/2024 Pending Test Test Name Order Date PROFILE, FASTING (COMPREHENSIVE METABOLI C) 12/27/2023 PSA, TOTAL 12/27/2023 CBC w DIFF 12/27/2023 Lipid Panel 12/27/2023 Next Appt Details Follow Up: 3 Months, Reason: Office visit Provider Name:Adan Arellano, 09/26/2024 02:00:00 PM, [address] [place] [address] [address], [place], [address], Progress Notes * Duane VIDAL:[birth year] (73 yo M)Acc No.[id number]:12/27/2023 Progress Notes Patient:?Dionicio VIDLA Provider:?Adan Arellano MD :1950???Age:73 Y???Sex:Male Jones e:12/27/2023 Address: [id number] Subjective: * Chief Complaints: * ???Aortic stenosisRecent TAV RHistory of atrial fibrillationHistory of DVTCoronary artery diseaseHistory of seminoma with mediastinal radiation * HPI: ???COVID-19 Screening:? He returns to the office for medical management.? Since his last visit he has been breathing comfortably with exertion.? He is up-to-date with his visits to cardiology.? He has no new complaints.? His weight is stable.? It is in the normal range.? He is breathing comfortably.? He has been in sinus rhythm without palpitations or syncope.? His diabetes has been controlled. ?Questions?Have you experienced fever, chills, cough, sore throat, shortness of breath, difficulty breathing, muscle aches, loss of taste or smell??No ?Have you been exposed to the virus within the last 10 days??No ?Have you travelled internationally in the last 10 days??No ?Have you been exposed to COVID-19 in the past??Yes * ROS:?General/Constitutional:?pain?only normal aches and pains.?Chills?denies.?Fatigue?admits.?Fever?denies.?ENT:?Decreased hearing?denies.?Respiratory:?Cough?denies.?Cardiovascular:?Chest pain with exertion?denies.?Dyspnea on exertion?denies.?Shortness of breath?denies.?Gastrointestinal:?Constipation?occasional.?Decreased appetite?denies.?Diarrhea?denies.?Heartburn?denies.?Nausea?denies.?Rectal bleeding?denies.?Vomiting?denies.?Hematology:?bruising?Since he began on brillinta, recent easy bruising.?petechiae?denies.?Swollen glands?none have been noted.?Genitourinary:?Frequent urination?denies.?Musculoskeletal:?Muscle aches?denies.?Painful joints?denies.?Sciatica?denies.?Weakness?denies.?Skin:?Itching?denies.?Rash?denies.?Skin lesion(s)?denies.?Neurologic:?Difficulty speaking?denies.?Dizziness?denies.?Headache?denies.?Low back pain?denies.?Psychiatric:?Depressed mood?denies.? * Medical History:? * Surgical History:?CABG x 4 v essels 12/2004resection of malignant seminoma of mediastinum, phrenic nerve injury, left diaphragm paralyzed 1983history of incisional hernia cardiac catheterization 2004colonoscopy, Dr. Adan Linda, [facility], tubular adenoma 2010colonoscopy, Dr. 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 * Medications:?TakingAspirin 8 1 81 MG Tablet 1 tablet Orally Once a day Brilinta 90 MG Tablet 1 tablet Orally Twice a day Atorvastatin Calcium 40 MG Tablet 1 tablet Orally Once a day Doxylamine Succinate (Sleep) 25 MG Tablet 1 tablet at bedtime as needed Orally Once a day Omeprazole 20 MG Capsule Delayed Release 1 capsule 30 minutes before morning meal Orally Once a day Metoprolol Succinate ER 50 MG Tablet Extended Release 24 Hour 1 tablet Orally Once a day metFORMIN HCl 1000 MG Tablet 1 tablet with a meal Orally Once a day Taking Aspirin 81 81 MG Tablet 1 tablet Orally Once a day Taking Brilinta 90 MG Tablet 1 tablet Orally Twice a day Taking Atorvastatin Calcium 40 MG Tablet 1 tablet Orally Once a day Taking Doxylamine Succinate (Sleep) 25 MG Tablet 1 tablet at bedtime as needed Orally Once a day Taking Omeprazole 20 MG Capsule Delayed Release 1 capsule 30 minutes before morning meal Orally Once a day Taking Metoprolol Succinate ER 50 MG Tablet Extended Release 24 Hour 1 tablet Orally Once a day Taking metFORMIN HCl 1000 MG Tablet 1 tablet with a meal Orally Once a day DiscontinuedBumetanide 1 MG Tablet 1 tablet Orally Once a day Furosemide 20 MG Tablet 1 tablet Orally Once a day metFORMIN HCl 500 MG Tablet 1 tablet with a meal Orally Once a day Medication List reviewed and reconciled with the patientDiscontinued Bumetanide 1 MG Tablet 1 tablet Orally Once a day Discontinued Furosemide 20 MG Tablet 1 tablet Orally Once a day Discontinued metFORMIN HCl 500 MG Tablet 1 tablet with a meal Orally Once a day Medication List reviewed and reconciled with the patient * Allergies:?Penicillin: Aller gyContrast Allergy PreMed Pack: Allergyno[Allergies Verified] Objective: * Vitals:?Ht: 65, Wt:147, BMI: 24.46, BP:128/65, HR:62, Temp:97.9, Wt-k.68. * ???Past Orders: Lab:Lipid Panel * Collection Date 12/27/2023 09/26/2023 [...] >40 mg/dL) 23?L (Ref Range: >40 mg/dL) ???Lab:Comprehensive Met. Panel (Order Date - 09/26/2023) (Collection Date & Time - 09/26/2023 09:05 AM)?ValueReference Range?[id number] - mmol/L?Bilirubin Total1.00.0-1.0 - mg/dL?Aspartate Amino Tdkkrfvfqab363-22 - U/L?Alanine Ziruippnhjqzxpie968-26 - U/L?Total Protein7.26.5-8.0 - g/dL?Albumin Level4.23.5-5.0 - g/dL?Alkaline Mnhvoghmgut7948-489 - U/L?Potassium4.63.3-5.1 - mmol/L?Dwbfbbvg77 96-108 - mmol/L?Carbon Qrdudxs71K17-49 - mmol/L?Anion Qok9578-20 - ?Blood Urea Bmedrpkh55M1-41 - mg/dL?Creatinine0.870.5-1.4 - mg/dL ?Estimated Glomerular Filt Rate> 60-?Glucose Yqtzxr560Y72-994 - mg/dL?Calcium9.78.4-10.2 - mg/dL * Lab:Complete Blood Count Aut o Diff [...] X10*3/uL) 0.000 (Ref Range: 0.0-0.012 X10*3/uL) * Lab:URINE DIP STICK * Collection Date 09/26/2023 09/21/2022 09/16/2021 Order Date 09/26/2023 09/21/2022 09/16/2021 SG 1.010 (Ref Range: 1.005 - 1.025) 1.010 (Ref Range: 1.005 - 1.025) 1.010 pH 6.5 (Ref Range: 5.0 - 9.0) 6.5 (Ref Range: 5.0 - 9.0) 6.5 DILIA Negative (Ref Range: Negative -) Negative (Ref Range: Negative -) neg NIT Negative (Ref Range: Negative -) Negative (Ref Range: Negative -) neg PRO 15 (Ref Range: Negative - Trace) 15 (Ref Range: Negative - Trace) trace GLU Negative (Ref Range: Negative -) Negative (Ref Range: Negative -) normal KET Negative (Ref Range: Negative -) Negative (Ref Range: Negative -) neg UBG 1 (Ref Range: 0.1 - 1.8) 0.2 (Ref Range: 0.1 - 1.8) neg EFRA Negative (Ref Range: 0.2 - 1.3) Negative (Ref Range: 0.2 - 1.3) neg BLD Negative (Ref Range: Negative -) Negative (Ref Range: Negative -) neg Menstrating NR N/A n/a * Lab:B Type Natriuretic Pepti de * Collection Date 12/27/2023 03/05/2023 Collection Time 07:42 AM 07:33 AM Order Date 12/27/2023 03/05/2023 B Type Natriuretic Peptide 353?H (Ref Range: <100 pg/mL) 721?H (Ref Range: <100 pg/mL) * Lab:Comprehensive [place]. Pane l Fast * Collection Date 12/27/2023 08/01/2023 03/05/2023 [...] developed, in no acute distress, calm and relaxed, man.?HEAD:?atraumatic, normocephalic.?EYES:?eomi, perrla, anicteric, conjugate.?EARS:?normal.?NOSE:?septum intact.?ORAL CAVITY:?normal, unremarkable.?NECK/THYROID:?no [...] * Assessment: 1.?Nonrheumatic aortic valve stenosis - I35.0 (Primary)???Notes :He was admitted to [facility] July 04 and discharged July 07, 2023 for an elective TAVR which was successfully accomplished. His shortness of breath is much better. I do not hear an aortic murmur today. I do not hear mitral murmur. He reports feeling much better and more able to tolerate exertion.His BNP has decreased from 721 to a current value of 353.? He is asymptomatic.???2.?Hyperlipidemia - E78.5???Notes :His lipids are stable and in their target range.? No changge in his medication was needed today.???3.?Overweight - E66.3???Notes :His weight is now in the normal range and this problem has resolved.???4.?BPH (benign prostatic hyperplasia) - N40.0???Notes :He rises from sleep once a night to urinate.? We have discussed lifestyle modifications as a way to reduce nocturia.???5.?History of atrial fibrillation - Z86.79???Notes :He is currently a regular sinus rhythm which is well controlled.???6.?Seminoma - C62.90???Notes :He reports that his remaining testis is unremarkable.???7.?History of DVT (deep vein thrombosis) - Z86.718???Notes :There are no signs of a DVT at this time. He has no history of a familial thrombophilia. The DVT occurred after cardiac surgery.???8.?Coronary artery disease involving ely shoshone coronary artery of ely shoshone heart without angina pectoris - I25.10???Notes :He has had no chest pain with exertion.???9.?Former smoker - Z87.891???Notes :He is highly motivated not to smoke and has a plan to prevent relapse in times of stress and illness.??? Plan: * Treatment: 2.?Hyperlipidemia?LAB: PROFILE, FASTING (COMPREHENSIVE METABOLIC) ?LAB: PSA, TOTAL ?LAB: CBC w DIFF ?LAB: Lipid Panel 3.?Overweight?LAB: PROFILE, FASTING (COMPREHENSIVE METABOLIC) ?LAB: PSA, TOTAL ?LAB: CBC w DIFF ?LAB: Lipid Panel 4.?BPH (benign prostatic hyp erplasia)?LAB: PROFILE, FASTING (COMPREHENSIVE METABOLIC) ?LAB: PSA, TOTAL ?LAB: CBC w DIFF ?LAB: Lipid Panel 5.?History of atrial fibrill ation?LAB: PROFILE, FASTING (COMPREHENSIVE METABOLIC) ?LAB: PSA, TOTAL ?LAB: CBC w DIFF ?LAB: Lipid Panel 6.?Others? Continue Brilinta Tablet, 90 MG, 1 tablet, Orally, Twice a day;?Continue Atorvastatin Calcium Tablet, 40 MG, 1 tablet, Orally, Once a day;?Continue Bumetanide Tablet, 1 MG, 1 tablet, Orally, Once a day;?Continue Metoprolol Succinate ER Tablet Extended Release 24 Hour, 50 MG, 1 tablet, Orally, Once a day.?? * Procedure Codes:? * Preventive Medicine:? ??Counseling:?Smoking/Tobacco Use?Patient counseled on the dangers of tobacco use and urged to quit.?12/27/2023 ??DM Care Plan:?Patient Lifestyle Goals?Patient wants to be able to manage diabetes without too much effort.?Treatment Goals?HbA1C < 7.0, Blood Sugars less than < 115.?Barriers?no barriers.?Self-Managment Goals?Increase exercise to 3 times a week for 30 mins, Stop drinking juice and/or soda, replace with more water.? * Follow Up:?3 Months (Reason: Office visit) * Images: * Sign off status: Completed true * Provider:?Adan Arellano MD Date:?12/04 Generated for Printi ng/Annag/eTransmitting on:?03/14/2024 01:50 PM EST History and Physical Notes * HPI (History of Present Illness) Category Sub-Category Detail Notes COVID-19 Screening Questions Have you expe rienced fever, chills, cough, sore throat, shortness of breath, difficulty breathing, muscle aches, loss of taste or smell?: No Have you been exposed to the virus withi n the last 10 days?: No Have you travelled internationally in [facility] last 10 days?: No Have you been exposed to COVID-19 in the past?: Yes Examination Category Sub-Category Detail Notes General Examination GENERAL APPEARANCE: pleasant , well nourished, well developed, in no acute distress, calm and relaxed, man HEAD: atraumatic, normocep halic EYES: eomi, perrla, [...]
--- OUTSIDE RECORDS SUMMARY | 2024-03-14 13:51 | XMS_ITS ---
Author Organization Adan Arellano III, MD Address [address] [place] [address] Care Team Providers Care Veterinary Pharmacologist Name Role Phone Adan Arellano Primary Care Provider REASON FOR VISIT New Refill Request Social History Sex Assigned At : Social History Observation Description Sex Assigned At Male Encounters Encounter Location Date Provider Diagnosis Adan Arellano III, MD [address] [place] [address] [place] [address] 10/04/2023 Adan Arellano Plan Of Treatment Next Appt Details Provider Name:Adan Arellano, 09/26/2024 02:00:00 PM, [address] [place] [address] [place], [address], Progress Notes * Dionicio VIDALDOB:[birth year] (73 yo M)Acc No.[id number]:10/04/2023 Patient:?Dionicio Vidal :1950???Age:73 Y???Sex:Male Address:[address], [place], [address] * true * Date:? Generated for Printi ng/Fadeirdreg/eTransmitting on:?03/14/2024 01:50 PM EST
== END 2024-03-12 09:14 | disposition home or self-care (01) ==
LOC: HO.LAB 09:13
PROVIDERS: PCP Internal Medicine Medical Oncology; Visit Provider Internal Medicine Medical Oncology
DX: I35.0 Nonrheumatic aortic (valve) stenosis (principal); E78.5 Hyperlipidemia, unspecified; E66.3 Overweight; N40.0 Benign prostatic hyperplasia without lower urinary tract symptoms; Z86.79 Personal history of other diseases of the circulatory system; Z12.5 Encounter for screening for malignant neoplasm of prostate
CPT/HCPCS: 36415; 80053; 80061; 84153; 85025

== ENCOUNTER 2024-08-17 11:26 | Outpatient (AMB) | payer MEDICARE, SELFPAY ==
--- NOTE | 2024-08-17 11:29 | A.OFFVIS_ITS ---
Vital Signs 3 08/17/24 11:37 Height 5 ft 4 in Weight 150 lb BMI 25.7 BP 145/67 H Blood Pressure Location Lt brachial Position Sitting Pulse 59 Intake Visit Reasons: INGUNIAL HERNIA Intake Note: Patient is seen in office for evaluation of an inguinal hernia. Pt c/o: right groin hernia and another above the belly button, groin one is more bothersome, pain comes and goes, some constipation, denies n/v/d, no blood in stool Manager Equipment Required: No Accompanied by: Self / Same As Patient Allergies Iodinated Contrast Media [IV Dye, Iodine Containing Contrast ] Allergy (Unknown, Unverified 08/17/24 11:33) HIVES Penicillins [PENICILLINS] Allergy (Unknown, Unverified 08/17/24 11:33) HIVES Medication List - Last Reconciled 08/17/24 by Jose Mckeno MD aspirin 81 mg PO DAILY atorvastatin 40 mg PO DAILY metformin 1,000 mg PO DAILY metoprolol succinate ER 50 mg PO DAILY HPI Comments Details: 74-year-old male patient presenting for evaluation of right inguinal hernia and incisional hernia. He reports recently undergoing a TEVAR with multiple procedures performed through the right groin. As a result he now feels a lump in the right groin which seems to increase in size with lifting and straining. He also notes increased pain when sitting forward in a chair. If he is having increased discomfort at the site he noted that laying down and relaxing we will reduce the hernia spontaneously. He denies nausea, vomiting, but does report constipation on occasion. He denies any previous history of hernia repair at this location. 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 He now has an upper midline abdominal wall incisional hernia which has been present for many years in his gradually increasing in size and causing some discomfort. He would like to have both hernias repaired at the same time. FORMERLY [facility], [facility] Medical History (Updated 08/17/24 @ 14:10 by Jose Mckeon MD) Diabetes type 2 VHD (valvular heart disease) CAD (coronary artery disease) Surgical History Heart valve replaced Hx of heart bypass surgery Hx of excision of mass Social History Alcohol intake: current Alcohol intake frequency: holidays/special occasions only Patient Tobacco Use Status: Never used Tobacco Review of Systems Const All systems reviewed & are unremarkable except as noted in HPI and below Physical Exam Const General: cooperative and no acute distress Nutritional Appearance: well nourished Orientation/consciousness: patient oriented x3 Limitations: no limitations HEENT Head: Yes normocephalic and Yes atraumatic Ears: hearing grossly normal bilaterally Chest Other: Median sternotomy incision Resp Effort & Inspection: normal respiratory effort, no audible wheezes, no cough and no respiratory distress Cardio Jugular venous distension: no JVD GI Other: Palpable epigastric incisional hernia measuring approximately 5 cm in diameter. The hernia increases in size with Valsalva maneuvers but reduces with light pressure. In the right groin a palpable right inguinal hernias noted which increases with Valsalva maneuvers but reduces spontaneously. No left inguinal hernias identified. Inspection: Yes normal to inspection Abdomen image: 2 1. 2. Skin Other: Warm, dry, no rash Neuro General: patient oriented x3 Extrem General: Yes no clubbing, cyanosis or edema Assessment & Plan Assessment & Plan (1) Reducible right inguinal hernia: Code(s): K40.90 - Unilateral inguinal hernia, without obstruction or gangrene, not specified as recurrent Category: Medical (2) Incisional hernia: Code(s): K43.2 - Incisional hernia without obstruction or gangrene Category: Medical Qualifiers: Obstruction and gangrene presence: without obstruction or gangrene Q ualified Code(s): K43.2 - Incisional hernia without obstruction or gangrene Plan 74-year-old male patient with a history of diabetes mellitus type 2, valvular heart disease, and cardiac disease presenting with an enlarging symptomatic right inguinal hernia and incisional hernia in the upper abdomen. He notes both hernias to be reducible but seemed to be causing more discomfort and is requesting repair of both. I reviewed the procedure, risks, and alternatives and he consents to a repair of the right inguinal and incisional hernia with mesh. This will be scheduled as a short-stay admit given his prior cardiac history in the large size of the upper abdominal hernia. Patient expressed understanding and agrees with the plan. Coding Level of Care Code New Pt Level 4 (74215) Diagnoses Reducible right inguinal hernia K40.90 Incisional hernia, without obstruction or gangrene K43.2 Obstruction and gangrene presence: without obstruction or gangrene
[2024-08-17 11:37] VITALS: BP 145/67; PULSE 59; BMI 25.7
--- OUTSIDE RECORDS SUMMARY | 2024-08-17 11:45 | XMS_ITS ---
Author Organization Adan Arellano III, MD Address [address] [address] Care Team Providers Care Stroke Program Coordinator Name Role Phone Adan Arellano Primary Care Provider [phone] Allergies Allergen (clinical drug ingredient) Drug/Non Drug [...] Date Provider Diagnosis Adan Arellano III, MD [address] [place] [address] [place] [address] 07/13/2024 Adan Arellano Nonrheumatic aortic valve stenosis I35.0 ; Type 2 diabetes mellitus without complication, without long-term current use of insulin E11.9 ; BPH (benign prostatic hyperplasia) N40.0 ; Hyperlipidemia E78.5 ; History of atrial fibrillation Z86.79 ; 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 ; Coronary artery disease involving [place] coronary artery of [place] heart without angina pectoris I25.10 ; History of DVT (deep vein thrombosis) Z86.718 and Former smoker Z87.891 Assessments Encounter Date Diagnosis (ICD Code) Assessment Notes Treat ment Notes Treatment Clinical Notes 07/13/2024 Nonrheumatic aortic valve stenosis (ICD-10 - I35.0) He was admitted to [facility] July 04 and discharged July 07, [...] is unremarkable. 07/13/2024 Coronary artery disease involving [place] coronary artery of [place] heart without angina pectoris (ICD-10 - I25.10) [...] Exam Provider Name:Adan Arellano, 09/26/2024 02:00:00 PM, [address] [place] [address] DR, [facility] [address], [place], [place], [address], Progress Notes * Khadijah VIDALB:[birth year] (74 yo M)Acc No.[id number]:07/13/2024 Progress Notes Patient:?Dionicio VIDAL Provider:?Adan Arellano MD :1950???Age:74 Y???Sex:Male Jones e:07/13/2024 [facility] [id number] Subjective: * Chief Complaints: * ???2 weeks of right knee mike nuncertainty about duration of BrilintaRepaired aortic stenosisHistory of atrial fibrillationHistory of seminomaHistory of deviatedCoronary artery diseaseDiabetesRight inguinal herniaBenign prostatic hypertrophy * HPI: ???COVID-19 Screening:? He returns with several issues. he has had pain in his right knee for 14 days.? It is beginning to feel better.? He is able to walk.? Pain is anterior around the patella.? I offered to get x-rays and send him to orthopedics.? He said that he would think about it and let me know.? He is concerned about a medication he is taking, Brilinta.? He understands this is a antiplatelet drug use to prevent clots intercoronary stent.? He does not know how long he should take it and wonders if he can stop it.? He was begun by the cardiology service in [place] he has gone back to his previous cardiology group here locally but they have referred him back to [place] not answering his questions.? He does not have an appointment with cardiology in [place] for several months.? I told him we would call them and see what they could tell us.? He has had no angina.? He was in normal sinus rhythm today with a rate of 58 and an oxygen saturation of 98.? His diabetes will be reevaluated in September with a hemoglobin A1c annd microalbumin.? His fasting blood glucose levels have been about 116-120.? He has small bilateral hernias that do not bother him.? He identifies his post form remover at [facility] as Dr. Dick Roberts. ?Questions?Have you had any new onset fever, chills, cough, congestion, sore throat, shortness of breath, muscle aches??No * ROS:?General/Constitutional:?pain?right knee with weightbearing for 2 weeks.?Chills?denies.?Fatigue?admits.?Fever?denies.?ENT:?Decreased hearing?denies.?Respiratory:?Cough?denies.?Cardiovascular:?Chest pain with exertion?denies.?Dyspnea on exertion?denies.?Shortness of breath?denies.?Gastrointestinal:?Constipation?occasional.?Decreased appetite?denies.?Diarrhea?denies.?Heartburn?denies.?Nausea?denies.?Rectal bleeding?denies.?Vomiting?denies.?Hematology:?bruising?denies.?petechiae?denies.?Swollen glands?none have been noted.?Genitourinary:?Frequent urination?once a night.?Musculoskeletal:?Muscle aches?denies.?Painful joints?denies.?Sciatica?denies.?Weakness?denies.?Skin:?Itching?denies.?Rash?denies.?Skin lesion(s)?denies.?Neurologic:?Difficulty speaking?denies.?Dizziness?denies.?Headache?denies.?Low back pain?denies.?Psychiatric:?Depressed mood?denies.? * Medical History:? * Surgical History:?CABG x 4 v essels 12/2004resection of malignant seminoma of mediastinum, phrenic nerve injury, left diaphragm paralyzed 1983history of incisional hernia cardiac catheterization 2004colonoscopy, Dr. Adan Linda, [facility], tubular adenoma 2010colonoscopy, Dr. Adan Linda, [facility], negative findings 2016TAVR ortic valve replacement * Hospitalization/Major Diagno stic Procedure:?Denies Past Hospitalization [...] Pack: Allergyno[Allergies Verified] Objective: * Vitals:?Ht: 65, Wt:150, BMI: 24.96, BP:136/64, HR:60, Temp:98.8, Oxygen sat %:97, Wt-k.04. * Examination: ???General Examination: ?GENERAL APPEARANCE:?pleasant, well [...] no organomegaly, no mass, small bilateral inguinal hernias.?RECTAL EXAM:?not examined.?MUSCULOSKELETAL:?extremities unremarkable, no clubbing, cyanosis or edema.?PERIPHERAL PULSES:?normal.?NEUROLOGIC:?alert and oriented, cranial nerves 2-12 grossly intact, deep tendon reflexes 2+ symmetrical, motor strength normal upper and lower extremities, sensory exam intact.?PSYCH:?alert, oriented.? Assessment: * Assessment: 1.?Type 2 diabetes mellitus without complication, without long-term current use of insulin - E11.9 (Primary)???Notes :he will have comprehensive blood work prior to his next visit in September.? His fasting glucose levels at home 3 times a week average between 1:15 and 125.? No change in his therapy was made today.???2.?Nonrheumatic aortic valve stenosis - I35.0???Notes :He was admitted to [facility] July 04 and discharged July 07, 2023 for an elective TAVR which was successfully accomplished. His shortness of breath is much better. I do not hear an aortic murmur today. I do not hear mitral murmur. He reports feeling much better and more able to tolerate exertion.His BNP has decreased from 721 to a current value of 353. He is asymptomatic.???3.?BPH (benign prostatic hyperplasia) - N40.0???Notes :he rises from sleep once a night to urinate.? We have discussed various lifestyle modifications he can make to reduce this.???4.?Hyperlipidemia - E78.5???Notes :fasting lipid profile has been ordered prior to his next visit.? No change in his therapy was made today.???5.?History of atrial fibrillation - Z86.79???Notes :He is currently a regular sinus rhythm which is well controlled.???6.?Seminoma - C62.90???Notes :He reports that his remaining testis is unremarkable.???7.?Coronary artery disease involving [place] coronary artery of [place] heart without angina pectoris - I25.10???Notes :He has had no angina recently. His aortic valve is working well. His cardiac status is stable. His BNP has dropped.???8.?History of DVT (deep vein thrombosis) - Z86.718???Notes :There are no signs of a DVT at this time. He has no history of a familial thrombophilia. The DVT occurred after cardiac surgery.???9.?Former smoker - Z87.891???Notes :He is highly motivated not to smoke and has a plan to prevent relapse in times of stress and illness.??? Plan: * Treatment: 2.?Nonrheumatic aortic valve stenosis? Continue Aspirin 81 Tablet, 81 MG, 1 tablet, Orally, Once a day;?Continue Doxylamine Succinate (Sleep) Tablet, 25 MG, 1 tablet at bedtime as needed, Orally, Once a day;?Continue Omeprazole Capsule Delayed Release, 20 MG, 1 capsule 30 minutes before morning meal, Orally, Once a day;?Continue metFORMIN HCl Tablet, 1000 MG, 1 tablet with a meal, Orally, Once a day.?? 3.?BPH (benign prostatic hyp erplasia)?LAB: PROFILE, FASTING (COMPREHENSIVE METABOLIC) ?LAB: PSA, TOTAL ?LAB: CBC w DIFF ?LAB: Lipid Panel ?LAB: Microalbumin, Random ?LAB: Hemoglobin A1c 4.?Hyperlipidemia?LAB: PROFILE, FASTING (COMPREHENSIVE METABOLIC) ?LAB: PSA, TOTAL ?LAB: CBC w DIFF ?LAB: Lipid Panel ?LAB: Microalbumin, Random ?LAB: Hemoglobin A1c 5.?Others? Continue Brilinta Tablet, 90 MG, 1 tablet, Orally, Twice a day;?Continue Atorvastatin Calcium Tablet, 40 MG, 1 tablet, Orally, Once a day;?Continue Metoprolol Succinate ER Tablet Extended Release 24 Hour, 50 MG, TAKE ONE TABLET BY MOUTH EVERY DAY.?? * Procedure Codes:?67864 MEASU RE BLOOD OXYGEN LEVEL * Preventive Medicine:? ??DM Care Plan:?Patient Lifestyle Goals?Patient wants to be able to manage diabetes without too much effort.?Treatment Goals?HbA1C < 7.0, Blood Sugars less than < 115.?Barriers?no barriers.?Self-Managment Goals?Increase exercise to 3 times a week for 30 mins, Stop drinking juice and/or soda, replace with more water.? * Follow Up:?As Scheduled (Reyna son: Annual Exam) * Images: * Sign off status: Completed true * Provider:?Adan Arellano MD Date:?07/03 Generated for Mariei calli/Michael/eTransmitting on:?08/17/2024 11:45 AM EDT History and Physical Notes * [...]
--- OUTSIDE RECORDS SUMMARY | 2024-08-17 11:45 | XMS_ITS ---
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 06/18/2024 Coronary artery disease involving wiyot coronary artery of wiyot heart without angina pectoris (ICD-10 - I25.10) [...] Exam Provider Name:Adan Arellano, 09/26/2024 02:00:00 PM, [address] [place] [address] [address] [place] [address], [place], [address], Progress Notes * Dionicio VIDALDOB:[birth year] (74 yo M)Acc No.[id number]:06/18/2024 Patient:?Dionicio VIDAL Provider:?Adan Arellano MD :1950???Age:74 Y???Sex:Male Jones e:06/18/2024 Address: [address], [place], [id number] Subjective: * Chief Complaints: * ???Right groin lump and pain for 2 weeksRepaired aortic stenosisHistory of atrial fibrillationHistory of mediastinal seminomaHistory of DVTCoronary artery disease * HPI: ???COVID-19 Screening:?He comes to the office today concerned he may have developed a hernia in the right groin.? He is noticing her intermittent lump with mild pain there several times a day.? It is not present when he is supine.? He was examined today.? There was a small right inguinal hernia.? We discussed this at length and he elected for observation at this time.? The risks and benefits treating it for discussion with him at length.? He was instructeed on what to do if it becomes very painful and is possibly incarcerated.He is due to see the cardiology team at [facility] in 2 weeks.? He had a TAVR last July and is very pleased with the results. ?Questions?Have you had any new onset fever, chills, cough, congestion, sore throat, shortness of breath, muscle aches??No * ROS:?General/Constitutional:?pain?Mild, right groin.?Chills?denies.?Fatigue?admits.?Fever?denies.?ENT:?Decreased hearing?denies.?Respiratory:?Cough?denies.?Cardiovascular:?Chest pain with exertion?denies.?Dyspnea on exertion?denies.?Shortness of breath?denies.?Gastrointestinal:?Constipation?occasional.?Decreased appetite?denies.?Diarrhea?denies.?Heartburn?denies.?Nausea?denies.?Rectal bleeding?denies.?Vomiting?denies.?Hematology:?bruising?denies.?petechiae?denies.?Swollen glands?none have been noted.?Genitourinary:?Frequent urination?once a night.?Musculoskeletal:?Muscle aches?denies.?Painful joints?denies.?Sciatica?denies.?Weakness?denies.?Skin:?Itching?denies.?Rash?denies.?Skin lesion(s)?denies.?Neurologic:?Difficulty speaking?denies.?Dizziness?denies.?Headache?denies.?Low back pain?denies.?Psychiatric:?Depressed mood?denies.? * Medical History:? * Surgical History:?CABG x 4 v essels 12/2004resection of malignant seminoma of mediastinum, phrenic nerve injury, left diaphragm paralyzed 1983history of incisional hernia cardiac catheterization 2005colonoscopy, Dr. Adan Linda, [facility], tubular adenoma 2010colonoscopy, Dr. Adan Linda, [facility], negative findings 2016TAVR ortic valve replacement [...] Pack: Allergyno[Allergies Verified] Objective: * Vitals:?Ht: 65, Wt:149, BMI: 24.79, BP:139/62, HR:63, Temp:98.8, Wt-k.59. * Examination: ???General Examination: ?GENERAL APPEARANCE:?pleasant, well nourished, well developed, in no acute distress, calm and relaxed, man.?HEAD:?atraumatic, normocephalic.?EYES:?eomi, perrla, anicteric, conjugate.?EARS:?normal.?NOSE:?septum intact.?ORAL CAVITY:?normal, unremarkable.?NECK/THYROID:?no jugular venous distention, no carotid bruit, thyroid normal.?LYMPH NODES:?no enlarged lymph nodes,spleen normal.?SKIN:?no suspicious lesions, anicteric.?HEART:?no clicks, gallops, murmurs, or rubs, regular rhythm, S1, S2 normal, no s3, or vascular bruits, Old sternotomy incision.?LUNGS:?clear to auscultation .?BREASTS:??no masses palpable bilaterally.?ABDOMEN:?bowel sounds normal, no ascites, no organomegaly, no mass.?RECTAL EXAM:?not examined.?MUSCULOSKELETAL:?extremities unremarkable, no clubbing, cyanosis or edema, Very small right inguinal hernia.?PERIPHERAL PULSES:?normal.?NEUROLOGIC:?alert and oriented, cranial nerves 2-12 grossly intact, deep tendon reflexes 2+ symmetrical, motor strength normal upper and lower extremities, sensory exam intact.?PSYCH:?alert, oriented.? Assessment: * Assessment: 1.?Right inguinal hernia - K 40.90 (Primary)???Notes :It is very small.? He has elected for observation.? We discussed what is involved in a herniorrhaphy and what to do if a loop of bowel becomes incarcerated and with those symptoms are.? Follow-up was arranged.???2.?Nonrheumatic aortic valve stenosis - I35.0???Notes :He was admitted to [facility] July 04 and discharged July 07, 2023 for an elective TAVR which was successfully accomplished. His shortness of breath is much better. I do not hear an aortic murmur today. I do not hear mitral murmur. He reports feeling much better and more able to tolerate exertion.His BNP has decreased from 721 to a current value of 353. 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 We have discussed lifestyle modifications as a way to reduce nocturia.???6.?Hyperlipidemia - E78.5???Notes :His fasting lipid profile shows his total cholesterol to be 77. He is doing well. No change in his regimen is needed..???7.?Coronary artery disease involving wiyot coronary artery of wiyot heart without angina pectoris - I25.10???Notes :He has had no angina recently. His aortic valve is working well. His cardiac status is stable. His BNP has dropped.???8.?Type 2 diabetes mellitus without complication, without long-term current use of insulin - E11.9???Notes :His fasting glucose is 158. I have ordered a hemoglobin A1c to be done before his next visit. He seems to be stable and no change in his regimen was made today.??? Plan: * Treatment: 2.?Others? Continue Brilinta Tablet, 90 MG, 1 tablet, Orally, Twice a day;?Continue Atorvastatin Calcium Tablet, 40 MG, 1 tablet, Orally, Once a day;?Continue Metoprolol Succinate ER Tablet Extended Release 24 Hour, 50 MG, TAKE ONE TABLET BY MOUTH EVERY DAY.?? * Procedure Codes:? * Preventive Medicine:? ??DM Care Plan:?Patient Lifestyle Goals?Patient wants to be able to manage diabetes without too much effort.?Treatment Goals?Blood Sugars less than < 115, HbA1C < 7.0.?Barriers?no barriers.?Self-Managment Goals?Take blood sugars twice daily and keep a log. Bring log in to next appointment, Increase exercise to 3 times a week for 30 mins.? * Follow Up:?As Scheduled (Reyna son: Annual Exam) * Images: * Sign off status: Completed true * Provider:?Adan Arellano MD Date:?06/02 Generated for Polly mccurdy/Michael/eTransmitting on:?08/17/2024 11:45 AM EDT History and Physical [...]
--- OUTSIDE RECORDS SUMMARY | 2024-08-17 11:45 | XMS_ITS | Patient Health Record ---
Author Organization Adan Arellano III, MD Address [address] [place] [address] Care Team Providers Care Stunner And Shackler Name Role Phone Adan Arellano Primary Care Provider [phone] Allergies Allergen (clinical drug ingredient) Drug/Non Drug [...] 0.2 - 1.3 BLD Negative Negative - Diabetic Eye Exam Reviewed date:09/07/2023 02:36:17 PM Interpretation:undefined Performing Lab: Notes/Report: undefined Complete Blood Count Auto Di ff Reviewed date:10/26/2023 01:10:19 PM Interpretation: Performing Lab:[facility], [address] [place] [phone] Notes/Report: White Blood Count 6.1 4.8-10.8 X10*3/uL [...] Panel Reviewed date:10/26/2023 01:10:19 PM Interpretation: Performing Lab:[facility], [address] [place] [phone] Notes/Report: Sodium 145 135-145 mmol/L Potassium 4.6 3.3-5.1 mmol/L Chloride 98 96-108 mmol/L Carbon Dioxide 36 22-29 mmol/L Anion Gap 16 12-20 Blood Urea Nitrogen 25 9-16 mg/dL Creatinine 0.87 0.5-1.4 mg/dL Estimated Glomerular Filt Rate > 60 NOTE: For -Irish individuals, multiply the result by 1.210. Chronic [...] Panel Reviewed date:10/26/2023 01:10:19 PM Interpretation: Performing Lab:[address] [phone] Notes/Report: Triglycerides 109 <150 mg/dL Desirable Triglyceride: [...] ff Reviewed date:12/27/2023 02:22:23 PM Interpretation: Performing Lab:[address] [phone] Notes/Report: White Blood Count 5.8 4.8-10.8 X10*3/uL [...] NRBC Abs Auto 0.000 0.0-0.012 X10*3/uL Comprehensive [place]. Panel Fa st Reviewed date:12/27/2023 02:22:23 PM Interpretation: Performing Lab:[facility], [address] [place] [phone] Notes/Report: Sodium 142 135-145 mmol/L Potassium 3.7 3.3-5.1 mmol/L Chloride 103 96-108 mmol/L Carbon Dioxide 33 22-29 mmol/L Anion Gap 10 12-20 Blood Urea Nitrogen 21 9-16 mg/dL Creatinine 0.80 0.5-1.4 mg/dL Estimated Glomerular Filt Rate > 60 NOTE: For -Irish individuals, multiply the result by 1.210. Chronic [...] Peptide Reviewed date:12/27/2023 02:22:23 PM Interpretation: Performing Lab:[facility], [address] [place] [phone] Notes/Report: B Type Natriuretic Peptide 353 <100 pg/mL For those patients who are being treated with Natrecor (nesiritide, recombinant BNP), BNP testing should be performed at least two hours post treatment in order to ensure that only endogenous levels of BNP are detected. Lipid Panel Reviewed date:12/27/2023 02:22:23 PM Interpretation: Performing Lab:[address] [phone] Notes/Report: Triglycerides 81 <150 mg/dL Desirable Triglyceride: [...] Complete Blood Count Auto Di ff Reviewed date:03/26/2024 11:50:31 AM Interpretation: Performing Lab:[facility], [address] [place] [phone] Notes/Report: White Blood Count 5.9 4.8-10.8 X10*3/uL [...] NRBC Abs Auto 0.000 0.0-0.012 X10*3/uL Comprehensive [place]. Panel Fa st Reviewed date:03/26/2024 11:50:31 AM Interpretation: Performing Lab:[facility], [address] [place] [phone] Notes/Report: Sodium 141 135-145 mmol/L Potassium 4.6 [...] Alkaline Phosphatase 53 39-117 U/L Lipid Panel Reviewed date:03/26/2024 11:50:31 AM Interpretation: Performing Lab:[facility], [address] [place] [phone] Notes/Report: Triglycerides 84 <150 mg/dL Desirable Triglyceride: [...] patients with liver disease. Prostate Specific Antigen Reviewed date:03/26/2024 11:50:31 AM Interpretation: Performing Lab:[facility], [address] [place] [phone] Notes/Report: Prostate Specific Antigen 0.18 <0.05-4.0 ng/mL PSA methodology: Malik Alinity i Chemiluminescent Microparticle Immunoassay (CMIA) Reason For Referral Reason evaluation and treat ment for inguinal hernia Diagnosis 1 Right inguinal herni a (K40.90) Referral Organization Adan Arellano III, MD Referring Provider First Name Adan Referring Provider Last Name Eileen Referring Provider Speciality Internal M edicine Referred Provider Jose Mckeon Referred Provider Specialty General Surg priyanka General Notes Shima Ramírez CMA 07/25 04:11:56 PM >ref, demographics and progress note faxed to Dr Keyes office today pt called and mailed this appt information Referral Priority Routine Referral Appointment Date 08/06/2024 Medications Medication SIG (Take, Route, Frequency, Duration) Notes Start Date End Date Status Omeprazole 20 MG 1 capsule 30 minutes before morning meal Orally Once a day 07/11/2023 Active metFORMIN HCl 1000 MG 1 tablet with a me al Orally Once a day 09/26/2023 Active Metoprolol Succinate ER 50 MG TAKE ONE TABLET BY MOUTH EVERY DAY Active Atorvastatin Calcium 40 MG TAKE ONE TABL ET BY MOUTH EVERY DAY for 90 Active Doxylamine Succinate (Sleep) 25 MG 1 tablet at bedtime as needed Orally Once a day 04/13/2023 Active Brilinta 90 MG 1 tablet Orally Twic e a day Active Aspirin 81 81 MG 1 tablet Orally Once a day Active Immunizations Vaccine Route Administration Date Status [...] Problem Status W/U Status Risk Notes Problem 0265067 Former smoker (Z87.891) Active confirmed He is highly motivated not to smoke and has a plan to prevent relapse in times of stress and illness. Problem Hyperlipidemia (17294147) Hyperlipidemia (E78.5) Active confirmed fasting lipid profile has been ordered prior to his next visit. No change in his therapy was made today. Problem 343852433 Overweight (E66.3) Active confirmed We have discussed his weight and his diet and nutrition. We reviewed his weight loss strategy. We made a plan to lose weight at a rate of one half of a pound per week. Problem 559005031 Thrombocytopenia (D69.6) Active confirmed Problem Benign prostatic hyperplasia (700799057) BPH (benign prostatic hyperplasia) (N40.0) Active confirmed he rises from sleep once a night to urinate. We have discussed various lifestyle modifications he can make to reduce this. Problem 14542573 Penicillin allergy (Z88.0) Active confirmed Problem 525953930 Nonrheumatic aortic valve stenosis (I35.0) Active confirmed He was admitted to [facility] July 04 and discharged July 07, 2023 for an elective TAVR which was successfully accomplished. His shortness of breath is much better. I do not hear an aortic murmur today. I do not hear mitral murmur. He reports feeling much better and more able to tolerate exertion.His BNP has decreased from 721 to a current value of 353. He is asymptomatic. Problem 116146830 History of DVT (deep vein thrombosis) (Z86.718) Active confirmed There are no signs of a DVT at this time. He has no history of a familial thrombophilia. The DVT occurred after cardiac surgery. Problem 3355963182334 Coronary artery disease involving council coronary artery of council heart without angina pectoris (I25.10) Active confirmed He has had no angina recently. His aortic valve is working well. His cardiac status is stable. His BNP has dropped. Problem 285421188 Right inguinal hernia (K40.90) Active confirmed It is very small. He has elected for observation. We discussed what is involved in a herniorrhaphy and what to do if a loop of bowel becomes incarcerated and with those symptoms are. Follow-up was arranged. Problem 461059211 History of atria l fibrillation (Z86.79) Active confirmed He is currently a regular sinus rhythm which is well controlled. Problem 713019161 Type 2 diabetes mellitus without complication, without long-term current use of insulin (E11.9) Active confirmed he will have comprehensive blood work prior to his next visit in September. His fasting glucose levels at home 3 times a week average between 1:15 and 125. No change in his therapy was made today. Problem 274436945 Adenomatous poly p (D36.9) Active confirmed His last colonoscopy had no findings and he is now scheduled to repeat in 10 years. 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 Vital Signs Heart Rate 60 /min 07/13/2024 Temperature 98.8 degrees Fahrenheit 07/13/2024 Oximetry 97 % 07/13/2024 Blood pressure diastolic 64 mm Hg 07/13/2024 Height 65 in 07/13/2024 Blood pressure systolic 136 mm Hg 07/13/2024 Weight 150 lbs 07/13/2024 BMI 24.96 kg/m2 07/13/2024 Encounters Encounter Location Date Provider Diagnosis Adan Arellano III, MD [address] [place] [address] [place] [phone] 09/26/2023 Adan Mantillane Nonrheumatic aortic valve stenosis I35.0 ; Coronary artery disease involving council coronary artery of council heart without angina pectoris I25.10 ; Hyperlipidemia E78.5 and Type 2 diabetes mellitus without complication, without long-term current use of insulin E11.9 Adan Arellano III, MD [address] [place] [address] [place] [phone] 12/27/2023 Adan Mantillane Nonrheumatic aortic valve stenosis I35.0 ; Hyperlipidemia E78.5 ; Overweight E66.3 ; BPH (benign prostatic hyperplasia) N40.0 ; History of atrial fibrillation Z86.79 ; 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 ; History of DVT (deep vein thrombosis) Z86.718 ; Coronary artery disease involving council coronary artery of council heart without angina pectoris I25.10 and Former smoker Z87.891 Adan Arellano III, MD [address] [place] [address] [place] [phone] 03/13/2024 Adan Mejiarne Nonrheumatic aortic valve stenosis I35.0 ; Type 2 diabetes mellitus without complication, without long-term current use of insulin E11.9 ; Overweight E66.3 ; Hyperlipidemia E78.5 ; Coronary artery disease involving council coronary artery of council heart without angina pectoris I25.10 and Thrombocytopenia D69.6 Adan Arellano III, MD [address] [place] [address] [place] [phone] 06/18/2024 Adan Eileen Nonrheumatic aortic valve stenosis I35.0 ; Right inguinal hernia K40.90 ; History of atrial fibrillation Z86.79 ; 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 ; BPH (benign prostatic hyperplasia) N40.0 ; Hyperlipidemia E78.5 ; Coronary artery disease involving council coronary artery of council heart without angina pectoris I25.10 and Type 2 diabetes mellitus without complication, without long-term current use of insulin E11.9 Adan Arellano III, MD [address] [place] [address] [place] [phone] 07/13/2024 Adan Arellano Nonrheumatic aortic valve stenosis I35.0 ; Type 2 diabetes mellitus without complication, without long-term current use of insulin E11.9 ; BPH (benign prostatic hyperplasia) N40.0 ; Hyperlipidemia E78.5 ; History of atrial fibrillation Z86.79 ; 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 ; Coronary artery disease involving council coronary artery of council heart without angina pectoris I25.10 ; History of DVT (deep vein thrombosis) Z86.718 and Former smoker Z87.891 Adan Arellano III, MD [address] [place] [address] [place] [phone] 03/14/2024 Adan Arellano III, MD [address] [place] [address] [place] [phone] 07/25/2024 Adan Arellano III, MD [address] [place] [address] [place] [phone] 10/04/2023 Adan Arellano Assessments Encounter Date Diagnosis (ICD Code) Assessment Notes Treat ment Notes Treatment Clinical Notes 09/26/2023 Nonrheumatic aortic valve stenosis (ICD-10 - I35.0) He was admitted to [facility] July 04 and discharged July 07, 2023 for an elective TAVR which was successfully accomplished. His shortness of breath is much better. I do not hear an aortic murmur today. I do not hear mitral murmur. He reports feeling much better and more able to tolerate exertion. 09/26/2023 Coronary artery disease involving council coronary artery of council heart without angina pectoris (ICD-10 - I25.10) He has had no chest pain with exertion. 12/27/2023 Hyperlipidemia (ICD- 10 - E78.5) His lipids are stable and in their target range. No changge in his medication was needed today. 12/27/2023 Nonrheumatic aortic valve stenosis (ICD-10 - I35.0) He was admitted to [facility] July 04 and discharged July 07, 2023 for an elective TAVR which was successfully accomplished. His shortness of breath is much better. I do not hear an aortic murmur today. I do not hear mitral murmur. He reports feeling much better and more able to tolerate exertion.His BNP has decreased from 721 to a current value of 353. He is asymptomatic. 03/13/2024 Nonrheumatic aortic valve stenosis (ICD-10 - I35.0) He was admitted to [facility] July 04 and discharged July 07, 2023 for an elective TAVR which was successfully accomplished. His shortness of breath is much better. I do not hear an aortic murmur today. I do not hear mitral murmur. He reports feeling much better and more able to tolerate exertion.His BNP has decreased from 721 to a current value of 353. He is asymptomatic. 03/13/2024 Type 2 diabetes mellitus without complication, without long-term current use of insulin (ICD-10 - E11.9) His fasting glucose is 158. I have ordered a hemoglobin A1c to be done before his next visit. He seems to be stable and no change in his regimen was made today. 06/18/2024 Nonrheumatic aortic valve stenosis (ICD-10 - I35.0) He was admitted to [facility] July 04 and discharged July 07, [...] with those symptoms are. Follow-up was arranged. 07/13/2024 Nonrheumatic aortic valve stenosis (ICD-10 - I35.0) He was admitted to [facility] July 04 and discharged July 07, [...] change in his therapy was made today. 09/26/2023 Hyperlipidemia (ICD- 10 - E78.5) Comprehensive blood work has been ordered. 12/27/2023 Overweight (ICD-10 - E66.3) His weight is now in the normal range and this problem has resolved. 03/13/2024 Overweight (ICD-10 - E66.3) We have discussed his weight and his diet and nutrition. We reviewed his weight loss strategy. We made a plan to lose weight at a rate of one half of a pound per week. 06/18/2024 History of atrial fibrillation (ICD-10 - Z86.79) He is currently a regular sinus rhythm which is well controlled. 07/13/2024 BPH (benign prostati c hyperplasia) (ICD-10 - N40.0) he rises from sleep once a night to urinate. We have discussed various lifestyle modifications he can make to reduce this. 09/26/2023 Type 2 diabetes mellitus without complication, without long-term current use of insulin (ICD-10 - E11.9) Is compliant with his medication. 12/27/2023 BPH (benign prostati c hyperplasia) (ICD-10 - N40.0) He rises from sleep once a night to urinate. We have discussed lifestyle modifications as a way to reduce nocturia. 03/13/2024 Hyperlipidemia (ICD- 10 - E78.5) His fasting lipid profile shows his total cholesterol to be 77. He is doing well. No change in his regimen is needed.. 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 07/13/2024 Hyperlipidemia (ICD- 10 - E78.5) fasting lipid profile has been ordered prior to his next visit. No change in his therapy was made today. 12/27/2023 History of atrial fibrillation (ICD-10 - Z86.79) He is currently a regular sinus rhythm which is well controlled. 03/13/2024 Coronary artery disease involving council coronary artery of council heart without angina pectoris (ICD-10 - I25.10) He has had no angina recently. His aortic valve is working well. His cardiac status is stable. His BNP has dropped. 06/18/2024 BPH (benign prostati c hyperplasia) (ICD-10 - N40.0) He rises from sleep once a night to urinate. We have discussed lifestyle modifications as a way to reduce nocturia. 07/13/2024 History of atrial fibrillation (ICD-10 - Z86.79) He is currently a regular sinus rhythm which is well controlled. 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 03/13/2024 Thrombocytopenia (ICD-10 - D69.6) 06/18/2024 Hyperlipidemia (ICD- 10 - E78.5) His fasting lipid profile shows his total cholesterol to be 77. He is doing well. No change in his regimen is needed.. 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 12/27/2023 History of DVT (deep vein thrombosis) (ICD-10 - Z86.718) There are no signs of a DVT at this time. He has no history of a familial thrombophilia. The DVT occurred after cardiac surgery. 06/18/2024 Coronary artery disease involving council coronary artery of council heart without angina pectoris (ICD-10 - I25.10) He has had no angina recently. His aortic valve is working well. His cardiac status is stable. His BNP has dropped. 07/13/2024 Coronary artery disease involving council coronary artery of council heart without angina pectoris (ICD-10 - I25.10) He has had no angina recently. His aortic valve is working well. His cardiac status is stable. His BNP has dropped. 12/27/2023 Coronary artery disease involving council coronary artery of council heart without angina pectoris (ICD-10 - I25.10) He has had no chest pain with exertion. 06/18/2024 Type 2 diabetes mellitus without complication, without long-term current use of insulin (ICD-10 - E11.9) His fasting glucose is 158. I have ordered a hemoglobin A1c to be done before his next visit. He seems to be stable and no change in his regimen was made today. 07/13/2024 History of DVT (deep vein thrombosis) (ICD-10 - Z86.718) There are no signs of a DVT at this time. He has no history of a familial thrombophilia. The DVT occurred after cardiac surgery. 12/27/2023 Former smoker (ICD-1 0 - Z87.891) He is highly motivated not to smoke and has a plan to prevent relapse in times of stress and illness. 07/13/2024 Former smoker (ICD-1 0 - Z87.891) He is highly motivated not to smoke and has a plan to prevent relapse in times of stress and illness. Plan Of Treatment Pending Test Test Name Order Date PROFILE, FASTING (COMPREHENSIVE METABOLI C) 05/21/2022 PROFILE, FASTING (COMPREHENSIVE METABOLI C) 12/27/2023 PROFILE, FASTING (COMPREHENSIVE METABOLI C) 01/18/2022 PROFILE, FASTING (COMPREHENSIVE METABOLI C) 07/11/2023 PROFILE, FASTING (COMPREHENSIVE METABOLI C) 04/10/2019 PROFILE, FASTING (COMPREHENSIVE METABOLI C) 03/04/2023 PROFILE, FASTING (COMPREHENSIVE METABOLI C) 09/16/2021 PROFILE, FASTING (COMPREHENSIVE METABOLI C) 09/26/2023 PROFILE, FASTING (COMPREHENSIVE METABOLI C) 09/21/2022 PROFILE, FASTING (COMPREHENSIVE METABOLI C) 12/03/2019 PROFILE, FASTING (COMPREHENSIVE METABOLI C) 07/13/2024 PROFILE, FASTING (COMPREHENSIVE METABOLI C) 08/10/2019 PROFILE, FASTING (COMPREHENSIVE METABOLI C) 03/13/2024 HEMOGLOBIN A1C (GLYCOHEMOGLOBIN) 020 HEMOGLOBIN A1C (GLYCOHEMOGLOBIN) 023 HEMOGLOBIN A1C (GLYCOHEMOGLOBIN) 022 LIPID PANEL 08/10/2019 LIPID PANEL 05/21/2022 LIPID PANEL 04/10/2019 LIPID PANEL 09/16/2021 LIPID PANEL 09/21/2022 LIPID PANEL 12/03/2019 BRAIN NATRIURETIC PEPTIDE (BNP) 03/04/20 23 BRAIN NATRIURETIC PEPTIDE (BNP) 09/26/19 24 PSA, TOTAL 07/13/2024 PSA, TOTAL 12/27/2023 PSA, TOTAL 03/04/2023 PSA, TOTAL 09/16/2021 MICROALBUMIN, RANDOM 03/13/2024 MICROALBUMIN, RANDOM 08/10/2019 CBC w DIFF 09/16/2021 CBC w DIFF 09/21/2022 CBC w DIFF 12/03/2019 CBC w DIFF 07/13/2024 CBC w DIFF 03/13/2024 CBC w DIFF 01/18/2022 CBC w DIFF 12/27/2023 CBC w DIFF 05/21/2022 CBC w DIFF 08/10/2019 CBC w DIFF 04/10/2019 HELICOBACTER PYLORI IGG (H PYLORI IGG) 0 07/11/2023 Sleep Study - Baseline 03/04/2023 CBC WITH AUTO DIFF 07/11/2023 CBC WITH AUTO DIFF 09/26/2023 CBC WITH AUTO DIFF 03/04/2023 SARS COV2 IGG 11/07/2019 Lipid Panel 07/13/2024 Lipid Panel 03/13/2024 Lipid Panel 01/18/2022 Lipid Panel 12/27/2023 Lipid Panel 07/11/2023 Lipid Panel 09/26/2023 Microalbumin, Random 07/11/2023 Microalbumin, Random 07/13/2024 Hemoglobin A1c 07/11/2023 Hemoglobin A1c 03/13/2024 Hemoglobin A1c 07/13/2024 Hemoglobin A1c 01/18/2022 Next Appt Details Provider Name:Adan Arellano, 09/26/2024 02:00:00 PM, [address] [place] [address] [address], [place], [address], Insurance Providers Payer Name Payer Address Payer Phone Subscriber Number Group Number Insured Name Patient Relationship to Insured Coverage Start Date Coverage End Date MEDICARE NGS [address] [place] [address] [id number] Dionicio Salgado Self - patient is the insured [facility] [address] [place], [place] [id number] [phone] [id number] Dionicio Salgado Self - patient is [...] Valve Replacement, Diabetes Surgical History Surgery Date(Month/Year) Aortic valve replacement TAVR 07/2023 colonoscopy, Dr. Adan ramírez, [facility], negative findings 2016 colonoscopy, Dr. 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
--- OUTSIDE RECORDS SUMMARY | 2024-08-17 11:46 | XMS_ITS ---
Author Organization Adan Arellano III, MD Address [address] [place] [address] [place] [address] Care Team Providers Care Brine Room Laborer Name Role Phone Adan Arellano Primary Care [...] Date Provider Diagnosis Adan Arellano III, MD [address] [place] [address] [place] [address] 07/25/2024 Adan Arellano Plan Of Treatment Referrals Referral Date Details 07/25/2024 07/25/2024, evaluati on and treatment for inguinal hernia, Jose Mckeon Next Appt Details Provider Name:Adan Arellano, 09/26/2024 02:00:00 PM, [address] [place] [address] [place], [address], Progress Notes * Duane VIDAL:[birth year] (74 yo M)Acc No.[id number]:07/25/2024 Patient:Dionicio ALMONTE :1950???Age:74 Y???Sex:Male Address: [address], [place], [address] Subjective: * Chief Complaints: * ???Message * Medical History:? * Surgical History:? * Hospitalization/Major Diagno stic Procedure:? * Medications:? Objective: * Vitals:? * Physical Examination:? Assessment: Plan: * Treatment: * Procedure Codes:? * true * Date:? Generated for Polly mccurdy/Michael/eTransmitting on:?08/17/2024 11:45 AM EDT Consultation Request Notes Referral Date Referring Provider Referred Provider Not es 07/25/2024 Adan Arellano John evaluation a nd treatment for inguinal hernia
== END 2024-08-17 12:06 | disposition home or self-care (01) ==
PROVIDERS: PCP Internal Medicine Medical Oncology; Visit Provider Surgery
DX: K40.90 Unilateral inguinal hernia, without obstruction or gangrene, not specified as recurrent (principal); K43.2 Incisional hernia without obstruction or gangrene
CPT/HCPCS: 99204

== ENCOUNTER → 2024-08-17 11:26 | Outpatient (BNVA) | payer MEDICARE, SELFPAY | PROVIDERS: PCP Internal Medicine Medical Oncology; Visit Provider Surgery | DX: K40.90 Unilateral inguinal hernia, without obstruction or gangrene, not specified as recurrent (principal); K43.2 Incisional hernia without obstruction or gangrene | CPT/HCPCS: 99202 ==

== ENCOUNTER → 2024-09-20 10:50 | Outpatient (BNV) | payer MEDICARE, SELFPAY | PROVIDERS: PCP Internal Medicine Medical Oncology; Visit Provider Internal Medicine Cardiovascular Disease | DX: R00.1 Bradycardia, unspecified (principal) | CPT/HCPCS: 93010 ==

== ENCOUNTER 2024-09-26 08:21 | Outpatient (REF) | payer MEDICARE, SELFPAY ==
--- OUTSIDE RECORDS SUMMARY | 2024-07-13 11:30 | XMS_ITS ---
Author Organization Adan Arellano III, MD Address [address] [place] [address] Care Team Providers Care Information Systems Coordinator Name Role Phone Adan Arellano Primary Care Provider [phone] Allergies Allergen (clinical drug ingredient) Drug/Non Drug [...] Date Provider Diagnosis Adan Arellano III, MD [address] [place] [address] [place] [address] 07/13/2024 Adan Arellano Nonrheumatic aortic valve stenosis I35.0 ; Type 2 diabetes mellitus without complication, without long-term current use of insulin E11.9 ; BPH (benign prostatic hyperplasia) N40.0 ; Hyperlipidemia E78.5 ; History of atrial fibrillation Z86.79 ; 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 07/13/2024 Coronary artery disease involving wainwright coronary artery of wainwright heart without angina pectoris (ICD-10 - I25.10) [...] Reyna son: Annual Exam Provider Name:Adan Arellano, 09/26/2024 02:00:00 PM, [address] [place] [address] DR, [facility] [address], [place], [place], [address], Progress Notes * Khadijah VIDALB:[birth year] (74 yo M)Acc No.[id number]:07/13/2024 Progress Notes Patient: Dionicio OSPINA Provider: Mara Arellano MD :1950 A ge:74 Y S ex:Male Date:07/13/2024 Address: [address], [id number] Subjective: * Chief Complaints: * 2 weeks [...] was begun by the cardiology service in [place] he has gone back to his previous cardiology group here locally but they have referred him back to [place] not answering his questions. He does not have an appointment with cardiology in [place] for several months. I told him we [...] do not bother him. 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 Dick Roberts. Questions H [...] hernia cardiac catheterization 2004colonoscopy, Dr. Adan Linda, [facility], tubular adenoma 2010colonoscopy, Dr. Adan Linda, [facility], negative findings 2016TAVR ortic valve replacement * [...] Examination: G eneral Examination: GENERAL APPEARANCE: p jose, well nourished, well developed, in no acute [...] I35.0 N otes :He was admitted to [facility] July 04 and discharged July 07, [...] 7 . C oronary artery disease involving wainwright coronary artery of wainwright heart without angina pectoris - I25.10 N [...] Arellano MD Date: 0 07/13/2024 Generated for Polly mccurdy/Michael/Valentinitting on: 0 09/26/2024 08:35 AM EDT History and Physical Notes * [...]
[2024-09-26 08:43] LABS: MANUAL DIFF FLAG NO
[2024-09-26 09:07] LABS: Basophils Percent Auto 0.3 % (0-2); Eosinophils Absolute Auto 0.2 X10*3/uL (0.0-0.4); Eosinophils Percent Auto 2.7 % (0-4); Hematocrit 46.6 % (42.0-52.0); Hemoglobin 15.7 g/dl (14.0-18.0); Imm Gran Abs Auto 0.02 X10*3/uL (0.00-0.03); Imm Gran Pct Auto 0.3 % (0.0-0.4); Lymphocytes Absolute Auto 1.7 X10*3/uL (1.2-4.9); Lymphocytes Percent Auto 28.8 % (20-40); Mean Corpuscular HGB Conc 33.7 g/dl (31.0-36.0); Mean Corpuscular Hemoglobin 30.7 pg (27.0-33.0); Mean Corpuscular Volume 91.2 fL (80.0-98.0); Monocytes Absolute Auto 0.5 X10*3/uL (0.1-1.2); Monocytes Percent Auto 7.8 % (2-11); Neutrophils Absolute Auto 3.6 x10*3/uL (2.0-8.3); Neutrophils Percent Auto 60.1 % (45-73); Platelet Count 143 X10*3/uL (160-400); Red Blood Count 5.11 X10*6/uL (4.60-5.80); Red Cell Distribution Width 12.5 % (11.0-16.0); White Blood Count 5.9 X10*3/uL (4.8-10.8)
[2024-09-26 09:17] LABS: Estimated Average Glucose 154 mg/dL
[2024-09-26 09:49] LABS: Alanine Aminotransferase 65 U/L (0-40); Albumin Level 4.2 g/dL (3.5-5.0); Alkaline Phosphatase 49 U/L (39-117); Anion Gap 11 (12-20); Aspartate Amino Transferase 32 U/L (5-37); Bilirubin Total 1.2 mg/dL (0.0-1.0); Blood Urea Nitrogen 20 mg/dL (9-16); Calcium 9.1 mg/dL (8.4-10.2); Carbon Dioxide 31 mmol/L (22-29); Chloride 103 mmol/L (96-108); Cholesterol 83 mg/dL (<200); Estimated Glomerular Filt Rate > 60; Glucose Fasting 119 mg/dL (60-99); HDL Cholesterol 27 mg/dL (>40); LDL Cholesterol Calculated 38 mg/dL (<100); Potassium 4.2 mmol/L (3.3-5.1); Sodium 141 mmol/L (135-145); Total Protein 6.6 g/dL (6.5-8.0); Triglycerides 90 mg/dL (<150)
[2024-09-26 11:35] LABS: Creatinine Urine 111.43 mg/dL; Microalbum/Creatinine Ratio Ur 13.4 ug/mg cr (<30)
== END 2024-09-26 08:22 | disposition home or self-care (01) ==
LOC: HO.LAB 08:21
PROVIDERS: PCP Internal Medicine Medical Oncology; Visit Provider Internal Medicine Medical Oncology
DX: E66.3 Overweight (principal); E11.9 Type 2 diabetes mellitus without complications; N40.0 Benign prostatic hyperplasia without lower urinary tract symptoms; E78.5 Hyperlipidemia, unspecified; Z12.5 Encounter for screening for malignant neoplasm of prostate
CPT/HCPCS: 36415; 80053; 80061; 82043; 82570; 83036; 84153; 85025

== ENCOUNTER 2024-10-03 05:55 | Day surgery (SDC) | payer MEDICARE, SELFPAY ==
--- OUTSIDE RECORDS SUMMARY | 2024-09-03 14:52 | XMS_ITS ---
Author Organization Adan Arellano III, MD Address [address] [place] [place] [address] Care Team Providers Care Division Commander Name Role Phone Adan Arellano Primary Care [...] Provider Diagnosis Adan Arellano III, MD [address] [place] [address] [place] [address] 07/13/2024 Adan Arellano Nonrheumatic aortic valve stenosis I35.0 ; Type 2 diabetes mellitus without complication, without long-term current use of insulin E11.9 ; BPH (benign prostatic hyperplasia) N40.0 ; Hyperlipidemia E78.5 ; History of atrial fibrillation Z86.79 ; 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 ; Coronary artery disease involving [place] coronary artery of [place] heart without angina pectoris I25.10 ; History of DVT (deep vein thrombosis) Z86.718 and Former smoker Z87.891 Assessments Encounter Date Diagnosis (ICD Code) Assessment Notes Treat ment Notes Treatment Clinical Notes 07/13/2024 Nonrheumatic aortic valve stenosis (ICD-10 - I35.0) He was admitted to [facility] July 04 and discharged July 07, [...] is unremarkable. 07/13/2024 Coronary artery disease involving [place] coronary artery of [place] heart without angina pectoris (ICD-10 - I25.10) [...] Exam Provider Name:Adan Arellano, 09/26/2024 02:00:00 PM, [address] [place] [address] DR, [facility], [place], [place], [address], Progress Notes * Khadijah VIDALB:[birth year] (74 yo M)Acc No.[id number]:07/13/2024 Progress Notes Patient:?Dionicio VIDAL Provider:?Adan Arellano MD :1950???Age:74 Y???Sex:Male Jones e:07/13/2024 Address: [address], [id number] Subjective: * Chief Complaints: * ???2 weeks [...] was begun by the cardiology service in [place] he has gone back to his previous cardiology group here locally but they have referred him back to [place] not answering his questions.? He does not have an appointment with cardiology in [place] for several months.? I told him we [...] do not bother him.? He identifies his administrative analyst at [facility] as Dr. Dick Roberts. ?Questions?Have you [...] hernia cardiac catheterization 2004colonoscopy, Dr. Adan Linda, [facility], tubular adenoma 2010colonoscopy, Dr. Adan Linda, [facility], negative findings 2016TAVR ortic valve replacement * [...] stenosis - I35.0???Notes :He was admitted to [facility] July 04 and discharged July 07, [...] remaining testis is unremarkable.???7.?Coronary artery disease involving [place] coronary artery of [place] heart without angina pectoris - I25.10???Notes :He [...] TABLET BY MOUTH EVERY DAY.?? * Procedure Codes:?77287 MEASU RE BLOOD OXYGEN LEVEL * Preventive [...] Arellano MD Date:?07/03 Generated for Mariei calli/Michael/eTransmitting on:?09/03/2024 02:52 PM EDT History and Physical Notes * HPI [...]
--- NOTE | 2024-09-20 | ECG_ITS ---
Test Reason : PREOP Blood Pressure : */* mmHG Vent. Rate : 53 BPM Atrial Rate : 53 BPM P-R Int : 146 ms QRS Dur : 102 ms QT Int : 460 ms P-R-T Axes : 46 -5 16 degrees QTcB Int : 431 ms Sinus bradycardia Otherwise normal ECG No previous ECGs available Referred By: Sima Luo Electronically Signed By: Og Montes De Oca
[2024-09-20 10:08] VITALS: BP 131/64; PULSE 55; RESP 16; O2SAT 97; BMI 25.8
--- NOTE | 2024-09-20 10:29 | HO.ANESPROP2 ---
Documented by User: Sima Luo NP 10/01/24 15:01 HPI - Anesthesia Eval Consult details Narrative: 74yo M for Right Repair Hernia Incisional Reducible with mesh, 10/03/24 No recent illness No CP/SOB with walking ~ 10k steps daily, some heavy lifting Cardiac optimized. 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 LLL not fully inflating) DM: metformin only, FBS ~ 120 PMFSH Active Problems Active Problems: All Active Problems Incisional hernia (Acute) Reducible right inguinal hernia (Acute) Diabetes type 2 (Acute) VHD (valvular heart disease) (Acute) CAD (coronary artery disease) (Acute) Past Medical History Medical History Hx of deep venous thrombosis Disorder of phrenic nerve History of aortic stenosis HTN (hypertension) HLD (hyperlipidemia) Hx of radiation therapy History of cancer (1982) Diabetes type 2 VHD (valvular heart disease) CAD (coronary artery disease) Family History Family history of problems with anesthesia: No Surgical History Surgical History Hx of colonoscopy Hx of cardiac catheterization (06/2023) Hx of aortic valve repair (07/2023) Heart valve replaced Hx of heart bypass surgery (2004) Hx of excision of mass History of Problems with Anesthesia: No Social History Social History Are you a primary manager critical care to a significant other at home: No Do you presently have visiting nurse or other home services: No Alcohol intake: current Alcohol intake frequency: holidays/special occasions only Patient Tobacco Use Status: Former Tobacco user Use of substances other than those prescribed or required for medical reasons: No Have you been hit, kicked, punched, or otherwise hurt by someone within the past year? If so, by whom?: No Are you DNR?: No Advance Directives: No Advance Directives Information Provided: Yes Advance Directives on File: No Poor oral hygiene: No Meds Allergies Allergy/AdvReac Type Severity Reaction Status Date / Time Iodinated Contrast Media (IV Allergy Severe HIVES Unverified 09/20/24 10:05 Dye, Iodine Containing Contrast ) Penicillins (PENICILLINS) Allergy Severe HIVES Unverified 09/20/24 10:05 Home Medications ?Medication ?Instructions ?Recorded ?Confirmed ?Last Taken ?Type aspirin 81 mg capsule 81 mg PO DAILY 08/17/24 10/03/24 10/03/24 History 0500 atorvastatin 40 mg tablet 40 mg PO DAILY 08/17/24 09/20/24 Unknown History metformin 1,000 mg tablet 1,000 mg DAILY 08/17/24 09/20/24 Unknown History metoprolol succinate 50 mg 50 mg PO DAILY 08/17/24 09/20/24 Unknown History tablet,extended release 24 hr Exam Height,Weight and Vital Signs: Height 5 ft 4 in Weight 68.2 kg Last Vital Signs Pulse 55 09/20/24 10:08 Resp 16 09/20/24 10:08 BP 131/64 09/20/24 10:08 Pulse Ox 97 09/20/24 10:08 O2 Del Method Room Air 09/20/24 10:08 Pertinent Lab Results Pertinent Lab Results: Lab Results 09/20/24 Range/Units 11:02 WBC 5.8 (4.8-10.8) X10*3/uL RBC 5.05 (4.60-5.80) X10*6/uL Hgb 15.5 (14.0-18.0) g/dl Hct 47.0 (42.0-52.0) % MCV 93.1 (80.0-98.0) fL MCH 30.7 (27.0-33.0) pg MCHC 33.0 (31.0-36.0) g/dl RDW 12.6 (11.0-16.0) % Plt Count 146 L (160-400) X10*3/uL MPV 11.7 (9.4-12.4) fL Absolute Nucleated RBC 0.000 (0.0-0.012) X10*3/uL Nucleated RBC % (auto) 0.0 (0.0-0.2) /100WBC Sodium 142 (135-145) mmol/L Potassium 4.8 (3.3-5.1) mmol/L Chloride 105 (96-108) mmol/L Carbon Dioxide 33 H (22-29) mmol/L Anion Gap 9 L (12-20) BUN 24 H (9-16) mg/dL Creatinine 0.71 (0.5-1.4) mg/dL Estim Creat Clear Calc 78.7 Estimated GFR > 60 Random Glucose 168 H (60-115) mg/dL Calcium 9.4 D (8.4-10.2) mg/dL Narrative Narrative: EKG 09/2024 Vent. Rate : 53 BPM Atrial Rate : 53 BPM P-R Int : 146 ms QRS Dur : 102 ms QT Int : 460 ms P-R-T Axes : 46 -5 16 degrees QTcB Int : 431 ms Sinus bradycardia Otherwise normal ECG No previous ECGs available ECHO 07/2024 Airway Mallampati Class: I TM Dist: >3cm Neck ROM: Full Loose/Missing/Broken Teeth: Yes (molars extracted, permanent bridge front up) Heart: RRR +M Lungs: dim LLL, otherwise CTA Assessment and Plan Assessment Anesthesia Assessment: Anesthesia Plan Discussed and PAT Visit Final Anesthetic Review Family History of Problems with Anesthesia: No History of Problems with Anesthesia: No Documented by User: Sheila Sharma MD 10/03/24 07:20 [facility] Past Medical History Medical History Hx of deep venous thrombosis Disorder of phrenic nerve History of aortic stenosis HTN (hypertension) HLD (hyperlipidemia) Hx of radiation therapy History of cancer (1982) Diabetes type 2 VHD (valvular heart disease) CAD (coronary artery disease) Surgical History Surgical History Hx of colonoscopy Hx of cardiac catheterization (06/2023) Hx of aortic valve repair (07/2023) Heart valve replaced Hx of heart bypass surgery (2004) Hx of excision of mass Social History Social History Are you a primary manager critical care to a significant other at home: No Do you presently have visiting nurse or other home services: No Alcohol intake: current Alcohol intake frequency: holidays/special occasions only Patient Tobacco Use Status: Former Tobacco user Use of substances other than those prescribed or required for medical reasons: No Have you been hit, kicked, punched, or otherwise hurt by someone within the past year? If so, by whom?: No Are you DNR?: No Advance Directives: No Advance Directives Information Provided: Yes Advance Directives on File: No Poor oral hygiene: No Meds Allergies Allergy/AdvReac Type Severity Reaction Status Date / Time Iodinated Contrast Media (IV Allergy Severe HIVES Unverified 09/20/24 10:05 Dye, Iodine Containing Contrast ) Penicillins (PENICILLINS) Allergy Severe HIVES Unverified 09/20/24 10:05 Home Medications ?Medication ?Instructions ?Recorded ?Confirmed ?Last Taken ?Type aspirin 81 mg capsule 81 mg PO DAILY 08/17/24 10/03/24 10/03/24 History 0500 atorvastatin 40 mg tablet 40 mg PO DAILY 08/17/24 09/20/24 Unknown History metformin 1,000 mg tablet 1,000 mg DAILY 08/17/24 09/20/24 Unknown History metoprolol succinate 50 mg 50 mg PO DAILY 08/17/24 09/20/24 Unknown History tablet,extended release 24 hr Exam Airway Mallampati Class: II Assessment and Plan Final Anesthetic Review NPO: Yes ASA Class: III Final Preanesthetic Review: No Changes in Pt Med Stat, Meds/Allgs Chart Reviewed and Consent Obtained/Reviewed Patient Risk: Intermediate Procedure Risk: Low Anesthetic Plan Anesthetic Plan: GA Disposition: Standard PACU
[2024-09-20 11:18] LABS: Hematocrit 47.0 % (42.0-52.0); Hemoglobin 15.5 g/dl (14.0-18.0); Mean Corpuscular HGB Conc 33.0 g/dl (31.0-36.0); Mean Corpuscular Hemoglobin 30.7 pg (27.0-33.0); Mean Corpuscular Volume 93.1 fL (80.0-98.0); NRBC Abs Auto 0.000 X10*3/uL (0.0-0.012); NRBC Pct Auto 0.0 /100WBC (0.0-0.2); Platelet Count 146 X10*3/uL (160-400); Red Blood Count 5.05 X10*6/uL (4.60-5.80); White Blood Count 5.8 X10*3/uL (4.8-10.8)
[2024-09-20 11:52] LABS: Anion Gap 9 (12-20); Blood Urea Nitrogen 24 mg/dL (9-16); Calcium 9.4 mg/dL (8.4-10.2); Carbon Dioxide 33 mmol/L (22-29); Chloride 105 mmol/L (96-108); Creatinine Clr Calc Pharmacy 78.7; Estimated Glomerular Filt Rate > 60; Potassium 4.8 mmol/L (3.3-5.1); Sodium 142 mmol/L (135-145)
[2024-10-03 06:08] VITALS: BMI 25.5
[2024-10-03] MEDS: Lactated Ringers 1,000 ML 100 ML IVCONT (06:27)
[2024-10-03 06:29] VITALS: BP 156/78; PULSE 56; RESP 16; TEMP 36.9; O2SAT 97
[2024-10-03 06:37] LABS: Glucose, Whole Blood 164 mg/dL (60-115)
--- NOTE | 2024-10-03 07:19 | MHC.SHP ---
Pre-Procedural Eval Section A - 24 Hr Update-Section A only Date of Service: 10/03/24 The patient is an INPATIENT: No Changes since office visit: Yes Patient answered all questions; No Cold of Flu in the past 2 weeks, No New Medical Problems and No Changes in Medication The patient has been examined within 24 hours of the surgical procedure. The History & Physical has been completed within 30 days and I have reviewed it.: No Section B - Complete if H&P > 30 days Chief Complaint: repair of incisional and right inquinal hernia Details of Present Illness: No current abdominal symptoms Relevant Social History: None Present Medications: see Short Stay Collaborative assessment Medical History: Significant History (valvular heart disease) History of Previous Operations: Relevant previous surgery/procedure and date(s) (Median sterniotomy) Allergies: Allergies Allergy/AdvReac Type Severity Reaction Status Date / Time Iodinated Contrast Media (IV Allergy Severe HIVES Unverified 09/20/24 10:05 Dye, Iodine Containing Contrast ) Penicillins (PENICILLINS) Allergy Severe HIVES Unverified 09/20/24 10:05 Review of Systems Sugical H&P ROS: Negative: Constitution, Cardiovascular, Respiratory, Neurological, Psychiatric, Hem-Onc, Allergic/Immunologic, Gastrointestinal, Genitourinary, Musculoskeletal and Integumentary Exam Surgical H&P Exam: Normal: HEENT, Normal: Heart, Normal: Lungs, Normal: Extremities, Normal: Abdomen and Normal: Skin Plan Diagnosis/Plan: Unchanged I have reviewed the history and physical and performed a pertinent physical examination on my patient. No changes have occurred unless specified. Time Spent With Patient Time: Total time managing care of this patient today ____ minutes.
[2024-10-03 09:12] VITALS: BP 139/56; PULSE 73; RESP 16; TEMP 37.1; O2SAT 93
--- NOTE | 2024-10-03 09:15 | P.OP_ITS ---
Operative Note Operative Note Date of Service: 10/03/24 Narrative: Preoperative diagnosis: Reducible incisional hernia, 3 cm, reducible right inguinal hernia Postoperative diagnosis: Same Procedure: Repair of reducible incisional and right inguinal hernia with mesh Surgeon: Jose Mcekon MD Button Inspector: Donal Bowens PA-C, Eduard BELLE Anesthesia: General LMA Indications for procedure: 74-year-old male patient with a history of previous cardiac surgery through median sternotomy now with an incisional hernia in the upper abdomen in the subxiphoid location measuring approximately 3 cm in diameter. Patient was also noted to have a lump in the right groin which incre ases in size with Valsalva reduces with light pressure consistent with a reducible right inguinal hernia. Operative findings: 3 cm incisional hernia in the subxiphoid location, right inguinal hernia, indirect Specimen: Right Hernia sac Estimated blood loss: 2 cc Complications: None Procedure details: Patient was brought to the OR and placed in a supine position. After administering general anesthesia the patient's abdomen was prepped with ChloraPrep and draped in a sterile fashion. A surgical time-out was called the consent confirmed. Patient received preoperative antibiotics and Venodyne boots were in place. Local anesthesia consisting of 0.5% Sensorcaine was infiltrated in the upper midline and right groin. Beginning in the epigastric region a midline incision was made directly over the palpable hernia. The incision was carried out through subcutaneous tissue up to the hernia sac. Fatty tissue was noted herniating through the hernia consistent with preperitoneal fat. This was dissected in the fascial margin further defined using sharp and electrocautery dissection. A preperitoneal space was then created. A 6.4 cm round Ventralex mesh was then obtained and deployed within the preperitoneal space. This was secured in 4 quadrants using a 1 Tycron suture. Fascia was then closed over the mesh using [id number]-[id number] 1 Tycron sutures. The Zenrelef was instilled over the fascia and dermis was then reapproximated using interrupted 3-0 Polysorb sutures. Skin was closed using a running subcuticular 4-0 Polysorb suture. Attention was then directed to the right inguinal hernia. Incision was made over the right inguinal ligament and carried out through subcutaneous tissue, past Ian's fashion up to the external oblique aponeurosis. Additional local was infiltrated below the aponeurosis. This was then incised in the direction of its fibers and widened with the Metzenbaum scissors. The spermatic cord was then dissected from the surrounding inguinal canal. This was retracted using a [place] drain. The floor of the inguinal canal was found to be intact without a direct hernia. Fibers of the cremaster muscle were then and a indirect hernia identified. The sac was dissected up to the internal ring. Dense adhesions were noted around the sac suggestive of a longstanding hernia. The sac was then entered and the contents reduced. Sac was then ligated at its base using a 0 Polysorb suture. The sac was excised and sent as a specimen. Fibers of the internal oblique aponeurosis and transversalis aponeurosis were then incised with electrocautery between Allis clamps. The preperitoneal space was then entered. This space was then widened using an open Ray-Glenroy sponge. A large PHS mesh was then obtained in the circular underlay deployed within the preperitoneal space. The overlay was then secured to the pubic tubercle, conjoined tendon, and shelving edge of the inguinal ligament using a 0 Polysorb suture. A slit was made in the mesh in the mesh wrapped around the spermatic cord at the internal ring. This was then secured to the shelving edge of the inguinal ligament. The wrap was made loose enough to allow the tip of the index finger to pass. Wounds were then irrigated with saline solution and suctioned dry. External oblique aponeurosis was then closed using a running 2-0 Polysorb suture. Approximately 5 mL of Zenrelef was then instilled below the fascia. Ian's fascia and dermis were then reapproximated using interrupted 3-0 Polysorb sutures. Skin was closed using a running subcuticular 4-0 Polysorb sofia ture. Dressings were then applied including Steri-Strips, 4 x 4 gauze and Tegaderm. The patient tolerated the procedure well. Sponge, instrument, and needle counts were reported as correct. The patient was transferred to PACU in stable condition.
[2024-10-03 09:17] VITALS: BP 124/56; PULSE 73; RESP 16; O2SAT 93
[2024-10-03 09:22] VITALS: BP 122/53; PULSE 71; RESP 16; O2SAT 93
[2024-10-03 09:27] VITALS: BP 124/56; PULSE 72; RESP 20; O2SAT 92
[2024-10-03 09:42] VITALS: BP 111/46; PULSE 68; RESP 20; TEMP 36.9; O2SAT 94
== END 2024-10-03 10:10 | disposition home or self-care (01) ==
LOC: HO.SSS 05:56 → HO.SSSA 09:10 → HO.SSS 09:21
PROVIDERS: Nurse Practitioner; PCP Internal Medicine Medical Oncology; Visit Provider Surgery
PROC: (CPT 49593; principal; 2024-10-03 07:30)
DX: K43.2 Incisional hernia without obstruction or gangrene (principal); K40.90 Unilateral inguinal hernia, without obstruction or gangrene, not specified as recurrent; K59.00 Constipation, unspecified; I25.10 Atherosclerotic heart disease of native coronary artery without angina pectoris; Z95.5 Presence of coronary angioplasty implant and graft; Z95.1 Presence of aortocoronary bypass graft; E11.9 Type 2 diabetes mellitus without complications; Z79.82 Long term (current) use of aspirin; Z79.84 Long term (current) use of oral hypoglycemic drugs; Z79.899 Other long term (current) drug therapy; Z88.0 Allergy status to penicillin; Z91.040 Latex allergy status; Z98.890 Other specified postprocedural states
CPT/HCPCS: 49593; 49505; 36415; 80048; 82947; 85027; 88302; 93005; C1781; C9088; J1100; J2003; J2250; J2405; J2704; J2795; J3010; J3370; J3373

== ENCOUNTER → 2024-10-03 05:55 | Outpatient (BNV) | payer MEDICARE, SELFPAY | PROVIDERS: PCP Internal Medicine Medical Oncology; Visit Provider Surgery | DX: K43.2 Incisional hernia without obstruction or gangrene (principal) | CPT/HCPCS: 49593 ==

== ENCOUNTER 2024-10-12 09:17 | Outpatient (AMB) | payer MEDICARE, SELFPAY ==
--- OUTSIDE RECORDS SUMMARY | 2024-07-13 11:30 | XMS_ITS ---
Author Organization Adan Arellano III, MD Address [address] [place] [address] Care Team Providers Care Cost And Sales Record Supervisor Name Role Phone Adan Arellano Primary Care Provider [phone] Allergies Allergen (clinical drug ingredient) Drug/Non Drug [...] Date Provider Diagnosis Adan Arellano III, MD [address] [place] [address] [place] [address] 07/13/2024 Adan Arellano Nonrheumatic aortic valve stenosis I35.0 ; Type 2 diabetes mellitus without complication, without long-term current use of insulin E11.9 ; BPH (benign prostatic hyperplasia) N40.0 ; Hyperlipidemia E78.5 ; History of atrial fibrillation Z86.79 ; 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 07/13/2024 Coronary artery disease involving yuhaaviatam coronary artery of yuhaaviatam heart without angina pectoris (ICD-10 - I25.10) [...] MG 1 tablet Orally Once a day Pending Test Test Name Order Date PROFILE, FASTING (COMPREHENSIVE METABOLI C) 07/13/2024 PSA, TOTAL 07/13/2024 CBC w DIFF 07/13/2024 Lipid Panel 07/13/2024 Microalbumin, Random 07/13/2024 Hemoglobin A1c 07/13/2024 Next Appt Details Follow Up: As Scheduled, Reyna son: Annual Exam Provider Name:Adan Arellano, 12/28/2024 02:00:00 PM, [address] [place] [address] DR, [facility] [address], [place], [address], Provider Name:Adan Arellano, 09/30/2025 02:00:00 PM, [address] [place] [address] [address], [place], [address], Progress Notes * Dionicio VIDALDOB:[birth year] (74 yo M)Acc No.[id number]:07/13/2024 Progress Notes Patient: Dionicio OSPINA Provider: Mara Arellano MD :1950 A ge:74 Y S ex:Male Date:07/13/2024 Address: [address], [place], [id number] Subjective: * Chief Complaints: * 2 weeks of right knee painuncertainty about duration of BrilintaRepaired aortic stenosisHistory of atrial fibrillationHistory of seminomaHistory of deviatedCoronary artery diseaseDiabetesRight inguinal herniaBenign prostatic hypertrophy * HPI: C OVID-19 Screening: He returns with several issues. he [...] was begun by the cardiology service in [place] he has gone back to his previous cardiology group here locally but they have referred him back to [place] not answering his questions. He does not have an appointment with cardiology in [place] for several months. I told him we [...] do not bother him. 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 Dick Roberts. Questions H [...] hernia cardiac catheterization 2004colonoscopy, Dr. Adan Linda, [facility], tubular adenoma 2010colonoscopy, Dr. Adan Linda, [facility], negative findings 2016TAVR ortic valve replacement [...] I35.0 N otes :He was admitted to [facility] July 04 and discharged July 07, [...] 7 . C oronary artery disease involving yuhaaviatam coronary artery of yuhaaviatam heart without angina pectoris - I25.10 N [...] true * Provider: Mara Arellano MD Date: 07/13/2024 Generated for Mariei calli/Michael/Valentinitting on: 10/12/2024 09:32 AM EDT History and Physical Notes * HPI (History [...]
--- NOTE | 2024-10-12 09:22 | A.OFFVIS_ITS ---
Vital Signs 10/12/24 09:33 Height 5 ft 4 in Weight 147 lb 11.355 oz BMI 25.4 BP 110/62 Blood Pressure Location Lt brachial Position Sitting Intake Visit Reasons: s/p RIH/R incisional hernia Intake Note: Patient is seen in office for post op assessment post right inguinal hernia repair. Pt c/o: denies any concerns at the time of visit surgery:10/03/24 Industrial Painter Required: No Accompanied by: Self / Same As Patient Allergies Iodinated Contrast Media (IV Dye, Iodine Containing Contrast ) Allergy (Severe, Unverified 10/12/24 09:35) HIVES Penicillins (PENICILLINS) Allergy (Severe, Unverified 10/12/24 09:35) HIVES Medication List - Last Reconciled 10/12/24 by Jose Mckeon MD aspirin 81 mg PO DAILY atorvastatin 40 mg PO DAILY metformin 1,000 mg DAILY metoprolol succinate ER 50 mg PO DAILY oxycodone 5 mg PO Q6H PRN HPI Comments Details: 74-year-old male patient returning 1 week following repair of an epigastric incisional hernia and right inguinal hernia with mesh. He tolerated the procedure well but did note some bruising around both incisions. He feels the pain has improved over the last several days but still notes some swelling especially in the right groin. [facility] Medical History Hx of deep venous thrombosis Disorder of phrenic nerve History of aortic stenosis HTN (hypertension) HLD (hyperlipidemia) Hx of radiation therapy History of cancer (1982) Diabetes type 2 VHD (valvular heart disease) CAD (coronary artery disease) Surgical History History of right inguinal hernia repair (10/03/24) Hx of colonoscopy Hx of cardiac catheterization (06/2023) Hx of aortic valve repair (07/2023) Heart valve replaced Hx of heart bypass surgery (2004) Hx of excision of mass Social History Are you a primary medicare sales representative to a significant other at home: No Do you presently have visiting nurse or other home services: No Alcohol intake: current Alcohol intake frequency: holidays/special occasions only Comment: COUNTS CORRECT Patient Tobacco Use Status: Former Tobacco user Physical Exam Const General: no acute distress Nutritional Appearance: well nourished Orientation/consciousness: patient oriented x3 Resp Effort & Inspection: normal respiratory effort GI Other: Incision in the epigastric region is clean and intact with surrounding ecchymosis. No changes noted with Valsalva maneuvers and no evidence of infection. Right inguinal incision is clean and intact. No changes noted with Valsalva maneuvers. There is surrounding ecchymosis extending into the right lower extremity and scrotum but no hematoma or seroma is palpable. No evidence of infection or recurrence. Neuro General: patient oriented x3 Assessment & Plan Assessment & Plan (1) Reducible right inguinal hernia: Code(s): K40.90 - Unilateral inguinal hernia, without obstruction or gangrene, not specified as recurrent Category: Medical (2) Incisional hernia: Code(s): K43.2 - Incisional hernia without obstruction or gangrene Category: Medical Qualifiers: Obstruction and gangrene presence: without obstruction or gangrene Qualified Code(s): K43.2 - Incisional hernia without obstruction or gangrene Plan 74-year-old male patient returning 1 week following repair of a ventral/incisional hernia and right inguinal hernia with mesh. He tolerated the procedure well in his wounds are healing nicely without evidence of recurrence or infection. He should continue to avoid lifting greater than 10 lb for one- month following the surgery. I asked him to return in 1 month for follow-up examination. 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 Coding Level of Care Code Global (71582) Diagnoses Reducible right inguinal hernia K40.90 Incisional hernia, without obstruction or gangrene K43.2 Obstruction and gangrene presence: without obstruction or gangrene
[2024-10-12 09:33] VITALS: BP 110/62; BMI 25.4
--- OUTSIDE RECORDS SUMMARY | 2024-10-12 09:33 | XMS_ITS | Patient Health Record ---
Author Organization [facility] Address [address] [place] [address] Care Team Providers Care Asphalt Raker Name Role Phone Jerardo Sethi Primary Care Provider Adan Alcaraz [phone] Allergies Allergen (clinical drug ingredient) Drug/Non Drug Allergy documented on EMR Reaction Allergy Type Onset Date Status Penicillin Unknown Drug Allergy Active contrast dye (uncoded) Unknown Allergy Active Reason For Referral No Information Medications Medication SIG (Take, Route, Frequency, Duration) Notes Start Date End Date Status Metoprolol Succinate ER 25 MG 1 tablet Orally twice a day Active Aspir-81 81 MG 1 tablet Orally Once a day Active Problems Problem Type SNOMED Code ICD Code Onset Dates Problem Status W/U Status Risk Notes Problem [id number] Encounter for screening for malignant neoplasm of colon (Z12.11) Active confirmed Problem 974355520 History of adenomatous polyp of colon (Z86.010) Active confirmed Problem Screening for malignant neoplasm of rectum (395781583) Encounter for screening for malignant neoplasm of rectum (Z12.12) Active confirmed Plan Of Treatment Future Test Test Name Order Date COLONOSCOPY 05/20/2016 Insurance Providers Payer Name Payer Address Payer Phone Subscriber Number Group Number Insured Name Patient Relationship to Insured Coverage Start Date Coverage End Date [facility] [employer] [address] [place] [address] [phone] [id number] 300 DANNY VIDAL Self - patient is the insured Medical (General) History Medical History History ICD Code Screening colonoscopy 11-24-2010--1 small tubular adenoma, diverticulosis Coronary artery disease--No [place]--CABG as below Heart murmur--aortic valve--- followed w ith periodic echocardiograms 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 At the the time of his surgery he did have a DVT in his left brachial and jugular veins. 2004
== END 2024-10-12 09:37 | disposition home or self-care (01) ==
LOC: HO.HGS 09:17
PROVIDERS: PCP Internal Medicine Medical Oncology; Visit Provider Surgery
DX: K40.90 Unilateral inguinal hernia, without obstruction or gangrene, not specified as recurrent (principal); K43.2 Incisional hernia without obstruction or gangrene
CPT/HCPCS: 99024

== ENCOUNTER → 2024-10-12 09:17 | Outpatient (BNVA) | payer MEDICARE, SELFPAY | PROVIDERS: PCP Internal Medicine Medical Oncology; Visit Provider Surgery | DX: Z48.815 Encounter for surgical aftercare following surgery on the digestive system (principal); Z98.890 Other specified postprocedural states | CPT/HCPCS: 99212 ==

== ENCOUNTER 2024-11-16 10:43 | Outpatient (AMB) | payer MEDICARE, SELFPAY ==
--- OUTSIDE RECORDS SUMMARY | 2024-09-26 10:00 | XMS_ITS ---
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 ; History of atrial fibrillation Z86.79 ; Former smoker Z87.891 ; Overweight E66.3 ; History of DVT (deep vein thrombosis) Z86.718 ; Coronary artery disease involving [place]annock coronary artery of rapp[place]annock heart without angina pectoris I25.10 ; Thrombocytopenia D69.6 ; BPH (benign prostatic hyperplasia) N40.0 and Type 2 diabetes mellitus without complication, without long-term current use of insulin E11.9 Assessments Encounter Date Diagnosis (ICD Code) Assessment Notes T reatment Notes Treatment Clinical Notes 09/26/2024 Nonrheumatic aortic valve stenosis (ICD-10 - I35.0) He was admitted to [facility] July 04 and discharged July 07, [...] cardiac surgery. 09/26/2024 Coronary artery disease involving rappahannock coronary artery of rappahannock heart without angina pectoris (ICD-10 - I25.10) [...] 3 Months, Reason: OV Provider Name:Adan Arellano, 12/28/2024 02:00:00 PM, [address] [place] [address] [address], [place], [address], Provider Name:Adan Arellano, 09/30/2025 02:00:00 PM, [address] [place] [address] [address], [place], [address], Progress Notes * Duane VIDAL:[birth year] (74 yo M)Acc No.[id number]:09/26/2024 Progress Notes Patient: Dionicio OSPINA Provider: Mara Arellano MD :1950 A ge:74 Y S ex:Male Date:09/26/2024 Address: [address], [place], [id number] Subjective: * Chief Complaints: * A nnual Exam * HPI: D epression Screening: Nhung glass returns to the office for medical management. He is due for a colonoscopy and has been referred for that. He was at [facility] cardiology last week. The TAVR is functioning well. Since that now has been repaired the mitral valve insufficiency has become very minor and will be observed. He has no appointment with general surgery [facility] for hernia repair. This will take place next Tuesday. He is taking aspirin but the Brill Giovanny has been discontinued. Cardiology department at [facility]. The aspirin was mandatory and should not [...] hernia cardiac catheterization 2004colonoscopy, Dr. Adan Linda, [facility], tubular adenoma 2010colonoscopy, Dr. Adan Linda, [facility], negative findings 2016TAVR ortic valve replacement * Hospitalization/Major Diagno stic Procedure: D enies Past Hospitalization * Family History: F ather: 73 yrs, diagnosed with Cancer, DM, HTN. M other: 47 yrs. S iblings: alive. P ateolegariol uncle: alive, diagnosed with DM. 2 brother(s) [...] * Lab:Namita bejarano Fast * Collection Date 09/26/2024 03/12/2024 12/27/2023 [...] (Primary) N otes :He was admitted to [facility] July 04 and discharged July 07, [...] 7 . C oronary artery disease involving rappahannock coronary artery of rapp[place]annock heart without angina pectoris - I25.10 N [...] MD Date: 0 09/26/2024 Generated for Polly mccurdy/Michael/Valentinitting on: 0 11/16/2024 10:48 AM EDT History and Physical Notes * [...]
--- NOTE | 2024-11-16 10:46 | MHC.OFFVIS ---
Vital Signs 11/16/24 10:53 Height 5 ft 4 in Weight 152 lb BMI 26.1 BP 147/66 H Blood Pressure Location Lt brachial Position Sitting Pulse 57 Intake Visit Reasons: s/p RIH/R incisional hernia Intake Note: Patient is seen for one month follow up visit, post right inguinal hernia repair. 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 He tolerated the procedure well and his wounds are healing nicely. He denies any nausea, vomiting, or difficulties with the bowels. He denies any bleeding or discharge from the incision. [facility] Medical History Hx of deep venous thrombosis Disorder of phrenic nerve History of aortic stenosis HTN (hypertension) HLD (hyperlipidemia) Hx of radiation therapy History of cancer (1982) Diabetes type 2 VHD (valvular heart disease) CAD (coronary artery disease) Surgical History History of right inguinal hernia repair (10/03/24) Hx of colonoscopy Hx of cardiac catheterization (06/2023) Hx of aortic valve repair (07/2023) Heart valve replaced Hx of heart bypass surgery (2004) Hx of excision of mass Social History Are you a primary career development engineer to a significant other at home: No Do you presently have visiting nurse or other home services: No Alcohol intake: current Alcohol intake frequency: holidays/special occasions only Comment: COUNTS CORRECT Patient Tobacco Use Status: Former Tobacco user Physical Exam Vital Signs: Last Vital Signs Pulse 57 11/16/24 10:53 BP 147/66 H 11/16/24 10:53 BMI result Body Mass Index 26.1 Const General: no acute distress Nutritional Appearance: well nourished Orientation/consciousness: patient oriented x3 Limitations: no limitations Resp Effort & Inspection: normal respiratory effort GI Other: Well-healed abdominal incisions with no changes noted with Valsalva maneuvers. No evidence of infection or hernia recurrence. Neuro General: patient oriented x3 Extrem General: No edema Assessment & Plan Assessment & Plan (1) Reducible right inguinal hernia: Code(s): K40.90 - Unilateral inguinal hernia, without obstruction or gangrene, not specified as recurrent Category: Medical (2) Incisional hernia: Code(s): K43.2 - Incisional hernia without obstruction or gangrene Category: Medical Qualifiers: Obstruction and gangrene presence: without obstruction or gangrene Qualified Code(s): K43.2 - Incisional hernia without obstruction or gangrene Plan 74-year-old male patient status post repair of incisional hernia and right inguinal hernia with mesh. He tolerated the procedure well and his wounds are healing nicely. He may resume normal activity without restriction and should follow up as needed. Coding Level of Care Code Global (07411) Diagnoses Reducible right inguinal hernia K40.90 Incisional hernia, without obstruction or gangrene K43.2 Obstruction and gangrene presence: without obstruction or gangrene
--- OUTSIDE RECORDS SUMMARY | 2024-11-16 10:48 | XMS_ITS | Encounter Summary ---
Author Organization [facility] Address [address] [place] [address] Phone Care Team Providers Care Feeder Tender Name Role Phone Adan Arellano MD Primary Care Provider [phone] Carmelo KhouryBS Unavailable [phone] Encounter Details Date Type Department Care Team (Late st Contact Info) Description 06/02/2023 [place] [facility] [place] [address] [place] [address] Social History Tobacco Use Types Packs/Day Years Used Date Smoking Tobacco: Never Assessed Education Answer Date Recorded Are you interested [...] computer) with a working camera? No 06/03/2023 Sex and Gender Information Value Date Recorded Sex Assigned at Male 03/30/2023 11:54 AM EST Legal Sex Male 11:48 AM EST Gender Identity Male 03/30/2023 11:54 AM EST Sexual Orientation Straight 03/30/2023 11 :54 AM EST documented as of this encounter Functional Status * Calculated C-SSRS Risk Score (Lifetime/Recent) Answer Date of Assessment Author No Risk Indicated 06/03/2023 6:00 PM Aparna Zimmerman RN * Gilbert Suicide Severity Rating Scale (Screener/Recent Self-Report) Question Answer Date of Assessment Author 1. Wish to be (Past 1 Month) No 024 6:00 PM Aparna Zimmerman RN 2. Non-Specific Active Suici magy Thoughts (Past 1 Month) No 06/03/2023 6:00 PM Laisha Zimmerman RN 6. Suicidal Behavior (Lifetime) No 4 6:00 PM Aparna Zimmerman RN documented as of this encounter Plan of Treatment Not on file documented as of this encounter Visit Diagnoses Not on filedocumented in this encounter Additional Health Concerns Infection Onset Date Last Indicated Resolved Time CoV-Risk Comment:Per note documentation 06/03/2023 06/03/2023 4 1:46 PM EST documented as of this encounter Care Teams Feeder Tender Relationship Specialty Start Date End Date Adan Arellano MD [facility] [place] [address] PCP - General Medical Oncology 03/30/23 Carmelo Khoury MBBS [address] [place] [id number] [email or web address] Thoracic Surgery 05/13/23 documented as of this encounter Additional Source Comments The information contained in this document represents components of the legal health record. It is not the complete legal health record.[facility]
--- OUTSIDE RECORDS SUMMARY | 2024-11-16 10:49 | XMS_ITS | Patient Health Record ---
Author Organization [facility] Address [address] [place] [address] Care Team Providers Care Associate Professor Of Art Name Role Phone Jerardo Sethi Primary Care Provider Adan Alcaraz [phone] Allergies Allergen (clinical drug ingredient) Drug/Non Drug [...] Problem Status W/U Status Risk Notes Problem [id number] Encounter for screening for malignant neoplasm of colon (Z12.11) Active confirmed Problem 682432725 History of adenomatous polyp of colon (Z86.010) Active confirmed Problem Screening for malignant neoplasm of rectum (725016950) Encounter for screening for malignant neoplasm of rectum (Z12.12) Active confirmed Plan Of Treatment Future Test Test Name Order Date COLONOSCOPY 05/20/2016 Insurance Providers Payer Name Payer Address Payer Phone Subscriber Number Group Number Insured Name Patient Relationship to Insured Coverage Start Date Coverage End Date [facility] [address] [place] [address] [phone] [id number] DANNY VIDAL Self - patient is the insured Medical (General) History Medical History History ICD Code Screening colonoscopy 11-24-2010--1 small tubular adenoma, diverticulosis Coronary artery disease--No IA--CABG as below Heart murmur--aortic valve--- followed w [...]
[2024-11-16 10:53] VITALS: BP 147/66; PULSE 57; BMI 26.1
== END 2024-11-16 11:04 | disposition home or self-care (01) ==
LOC: HO.HGS 10:44
PROVIDERS: PCP Internal Medicine Medical Oncology; Visit Provider Surgery
DX: K40.90 Unilateral inguinal hernia, without obstruction or gangrene, not specified as recurrent (principal); K43.2 Incisional hernia without obstruction or gangrene; Z09 Encounter for follow-up examination after completed treatment for conditions other than malignant neoplasm
CPT/HCPCS: 99212

== ENCOUNTER → 2024-11-16 10:43 | Outpatient (BNVA) | payer MEDICARE, SELFPAY | PROVIDERS: PCP Internal Medicine Medical Oncology; Visit Provider Surgery | DX: Z48.815 Encounter for surgical aftercare following surgery on the digestive system (principal); Z98.890 Other specified postprocedural states | CPT/HCPCS: 99212 ==

== ENCOUNTER 2024-12-05 15:10 | Outpatient (REF) | payer MEDICARE, SELFPAY ==
--- OUTSIDE RECORDS SUMMARY | 2004-12-14 | XMS_ITS | Encounter Summary ---
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 Name Role Phone Unavailable Primary Care Provider Unavailabl e Encounter Details Date Type Department Care Team (Late st Contact Info) Description 12/14/2004 Hospital Encounter [facility] [address] [place] [address] Peng De Souza MD [address] [place] [phone] [email or web address] Social History Tobacco Use Types Packs/Day Years [...] 07/05/2023 6:00 PM Racquel Cohn, BELEM * [place] Suicide Severity Rating Scale (Screener/Recent Self-Report) Question [...] (No Interpretation) (12/14/2004 12:00 AM EDT) Narrative [facility] [place] [facility] INTER[facility]AC[facility] - 03/31/2023 3:31 PM EST This study is for PACS storage only and not for interpretation. Peng De Souza MD IMG OUTSIDE IMAGING W/O UT INTERPRETATION Final Result [facility] [place] [facility] INTER[facility]AC[facility] documented in this encounter Visit Diagnoses Not on filedocumented in this encounter Additional Health Concerns Infection Onset Date Last Indicated Resolved Time CoV-Risk Comment:Per note documentation 06/03/2023 06/03/2023 4 1:46 PM EST documented as of this encounter Additional Source Comments The information contained in this document represents components of the legal health record. It is not the complete legal health record.[facility]
--- OUTSIDE RECORDS SUMMARY | 2024-07-25 06:55 | XMS_ITS ---
Author Organization Adan Arellano III, MD Address [address] [place] [address] Care Team Providers Care Flexo Press Operator Name Role Phone Adan Arellano Primary Care Provider Reason For Referral Reason evaluation and treat ment for inguinal hernia Diagnosis 1 Right inguinal herni a (K40.90) Referral Organization Adan Arellano III, MD Referring Provider First Name Adan Referring Provider Last Name Eileen Referring Provider Speciality Internal M edicine Referred Provider Jose Mckeon Referred Provider Specialty General Surg priyanka General Notes SShima CMA 07/25 04:11:56 PM >ref, demographics and progress note faxed to Dr Keyes office today pt called and mailed this appt information Referral Priority Routine Referral Appointment Date 08/06/2024 REASON FOR VISIT Message Social History Sex Assigned At : Social History Observation Description Sex Assigned At Male Encounters Encounter Location Date Provider Diagnosis Adan Arellano III, MD [address] [place] [address] [place] [address] 07/25/2024 Adan Arellano Plan Of Treatment Referrals Referral Date Details 07/25/2024 07/25/2024, evaluati on and treatment for inguinal hernia, Jose Mckeon Next Appt Details Provider Name:Adan Arellano, 12/19/2024 10:30:00 AM, [address] [facility] [place], [address], Provider Name:Adan Arellano, 12/28/2024 02:00:00 PM, [address] [place] [address] [address], [place], [address], Provider Name:Adan Arellano, 09/30/2025 02:00:00 PM, [address] [place] [address] [address], [place], [address], Progress Notes * Dionicio VIDALDOB:[birth year] (74 yo M)Acc No.[id number]:07/25/2024 Patient: Dionicio OSPINA :1950 A ge:74 Y S ex:Male Address: [address], [place], [address] Subjective: * Chief Complaints: * M essage * Medical History: * Surgical History: * Hospitalization/Major Diagno stic Procedure: * Medications: Objective: * Vitals: * Physical Examination: Assessment: Plan: * Treatment: * Procedure Codes: * true * Date: Generated for Polly mccurdy/Michael/eTransmitting on: 0 12/05/2024 05:19 PM EDT Consultation Request Notes Referral Date Referring Provider Referred Provider Not es 07/25/2024 Adan Arellano John evaluation a nd treatment for inguinal hernia
--- OUTSIDE RECORDS SUMMARY | 2024-09-26 10:00 | XMS_ITS ---
Author Organization Adan Arellano III, MD Address [address] [facility] [place] [address] Care Team Providers Care Train Gate Attendant Name Role Phone Adan Arellano Primary Care [...] 25 Blood pressure systolic 123 mm Hg 09/27/19 25 Blood pressure diastolic 62 mm Hg 025 Heart Rate 61 /min 09/26/2024 Height 65 in 09/26/2024 Weight 148 lbs 09/26/2024 BMI 24.63 kg/m2 09/26/2024 Encounters Encounter Location Date Provider Diagnosis Adan Arellano III, MD [address] [place] [address] [place] [address] 09/26/2024 Adan Arellano Nonrheumatic aortic valve stenosis I35.0 ; 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 ; History of atrial fibrillation Z86.79 ; Former smoker Z87.891 ; Overweight E66.3 ; History of DVT (deep vein thrombosis) Z86.718 ; Coronary artery disease involving kashia coronary artery of kashia heart without angina pectoris I25.10 ; Thrombocytopenia D69.6 ; BPH (benign prostatic hyperplasia) N40.0 and Type 2 diabetes mellitus without complication, without long-term current use of insulin E11.9 Assessments Encounter Date Diagnosis (ICD Code) Assessment Notes T reatment Notes Treatment Clinical Notes 09/26/2024 Nonrheumatic aortic valve stenosis (ICD-10 - I35.0) He was admitted to [facility] July 04 and discharged July 07, [...] cardiac surgery. 09/26/2024 Coronary artery disease involving kashia coronary artery of kashia heart without angina pectoris (ICD-10 - I25.10) [...] ONE TABL ET BY MOUTH EVERY DAY Pending Test Test Name Order Date PROFILE, FASTING (COMPREHENSIVE METABOLI C) 09/26/2024 PSA, TOTAL 09/26/2024 CBC w DIFF 09/26/2024 Lipid Panel 09/26/2024 Next Appt Details Follow Up: 3 Months, Reason: OV Provider Name:Adan Arellano, 12/19/2024 10:30:00 AM, [address] [facility] [address], [place], [address], Provider Name:Adan Arellano, 12/28/2024 02:00:00 PM, [address] [place] [address] [address], [place], [address], Provider Name:Adan Arellano, 09/30/2025 02:00:00 PM, [address] [facility] [place], [address], Progress Notes * Dionicio VIDALDOB:[birth year] (74 yo M)Acc No.[id number]:09/26/2024 Progress Notes Patient: Dionicio OSPINA Provider: Mara Arellano MD :1950 A ge:74 Y S ex:Male Date:09/26/2024 Address:[address] [place], [place] [address], [id number] Subjective: * Chief Complaints: * A nnual Exam * HPI: D epression Screening: Nhung glass returns to the office for medical management. He is due for a colonoscopy and has been referred for that. He was at [facility] cardiology last week. The TAVR is functioning well. Since that now has been repaired the mitral valve insufficiency has become very minor and will be observed. He has no appointment with general surgery [facility] for hernia repair. This will take place next Tuesday. He is taking aspirin but the Brill Giovanny has been discontinued. Cardiology department at [facility]. The aspirin was mandatory and should not [...] hernia cardiac catheterization 2004colonoscopy, Dr. Adan Linda, [facility], tubular adenoma 2010colonoscopy, Dr. Adan Linda, [facility], negative findings 2016TAVR ortic valve replacement * Hospitalization/Major Diagno stic Procedure: D enies Past Hospitalization * Family History: F ather: 73 yrs, diagnosed with Cancer, DM, HTN. M other: 47 yrs. S iblings: alive. P richard uncle: alive, diagnosed with DM. 2 brother(s) [...] 0.000 (Ref Range: 0.0-0.012 X10*3/uL) * Lab:Namita Oh * Collection Date 09/26/2024 03/12/2024 12/27/2023 Collection [...] (Primary) N otes :He was admitted to [facility] July 04 and discharged July 07, [...] 7 . C oronary artery disease involving kashia coronary artery of kashia heart without angina pectoris - I25.10 N [...] true * Provider: Mara Arellano MD Date: 09/26/2024 Generated for Mariei calli/Michael/eTalexandresmitting on: 12/05/2024 05:18 PM EDT History and Physical Notes * [...] Fall Risk Assessment:: No falls in the year COVID-19 Screening Questions Have you had [...]
--- OUTSIDE RECORDS SUMMARY | 2024-11-30 06:45 | XMS_ITS ---
Author Organization Adan Arellano III, MD Address [address] [place] [address] Care Team Providers Care Data Scientist Name Role Phone Adan Arellano Primary Care Provider [phone] Allergies Allergen (clinical drug ingredient) Drug/Non Drug [...] Problem Status W/U Status Risk Notes Problem 23717789 Dyspnea on exertion (R06.09) Active confirmed He has been growing more and more short of breath for 3 days. Examination of his larynx is unremarkable. The lungs were clear. He has a very significant coronary artery history and was referred to the emergency department [facility] for evaluation. Vital Signs Temperature 100.2 degrees Fahrenheit 025 Blood pressure systolic 154 mm Hg 12/01/19 25 Blood pressure diastolic 63 mm Hg 025 Heart Rate 55 /min 11/30/2024 Height 65 in 11/30/2024 Weight 152 lbs 11/30/2024 BMI 25.29 kg/m2 11/30/2024 Oximetry 94 % 11/30/2024 Encounters Encounter Location Date Provider Diagnosis Adan Arellano III, MD [address] [place] [address] [place] [address] 11/30/2024 Adan Arellano Nonrheumatic aortic valve stenosis I35.0 ; Dyspnea on exertion R06.09 ; Coronary artery disease involving port lions coronary artery of port lions heart without angina pectoris I25.10 ; Former smoker Z87.891 ; Overweight E66.3 ; History of atrial fibrillation Z86.79 and 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 Assessments Encounter Date Diagnosis (ICD Code) Assessment Notes Treatment Notes Treatment Clinical Notes 11/30/2024 Nonrheumatic aortic valve stenosis (ICD-10 - I35.0) He was admitted to [facility] July 04 and discharged July 07, [...] and was referred to the emergency department [facility] for evaluation. 11/30/2024 Coronary artery disease involving port lions coronary artery of port lions heart without angina pectoris (ICD-10 - I25.10) [...] As Scheduled, Reyna son: OV Provider Name:Adan Arellano, 12/19/2024 10:30:00 AM, [address] [place] [address] [address], [place], [address], Provider Name:Adan Arellano, 12/28/2024 02:00:00 PM, [address] [place] [address] [address], [place], [address], Provider Name:Adan Arellano, 09/30/2025 02:00:00 PM, [address] [place] [address] [place], [address], Progress Notes * Duane VIDAL:[birth year] (74 yo M)Acc No.[id number]:11/30/2024 Patient: Dionicio OSPINA Provider: Mara Arellano MD :1950 A ge:74 Y S ex:Male Date:11/30/2024 Address: [address], [place], [id number] Subjective: * Chief Complaints: * D yspnea [...] he was sent to the emergency room [facility] to rule out another blood clot or [...] hernia cardiac catheterization 2004colonoscopy, Dr. Adan Linda, [facility], tubular adenoma 2010colonoscopy, Dr. Adan Linda, [facility], negative findings 2016TAVR ortic valve replacement [...] dditional Findings: Tobacco non-user E x-cigarette smoker H maria luisa has been to [facility] and for 37 [...] and was referred to the emergency department [facility] for evaluation. 2 . N onrheumatic aortic valve stenosis - I35.0 N otes :He was admitted to [facility] July 04 and discharged July 07, [...] 3 . C oronary artery disease involving port lions coronary artery of port lions heart without angina pectoris - I25.10 N [...] MD Date: 0 11/30/2024 Generated for Polly mccurdy/Michael/Valentinitting on: 0 12/05/2024 05:19 PM EDT History and Physical Notes * Examination Category [...]
--- OUTSIDE RECORDS SUMMARY | 2024-12-02 16:59 | XMS_ITS | Continuity of Care Document ---
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 Name Role Phone Eileen GOMEZ, Adan Abrams Primary Care Physician [id number] Date(s): 11/30/24 - 12/02/[address] [address]- Discharge Disposition: A-D/C Home Attending Physician: Mikki Novoa MD Admitting Physician: Eric Clement MD Referring Physician: Not on Staff, Referring MD Encounter Type: Disch IP Allergies, Adverse Reactions, Alerts Substance Criticality Severity Reaction Reaction Severity Status ampicillin hives Active penicillins Active Contrast Dye hives Active Medications aspirin 81 mg oral tablet 81 mg, 1, tablet, By Mouth, Daily, 0 Refills Start Date: 06/02/05 Status: Ordered Medication Dispense Status: Completed Total Allowed Fills: 1 Fills Dispensed: 0 atorvastatin 40 mg oral tablet 1 tablet = 40 mg, By Mouth, Daily, # 90 tablet, 0 Refills, Maintenance, 08/26/23 9:34:00 AM EDT, Tablet, Partial fill upon patient request if the prescription is for a schedule II opioid drug. Start Date: 08/26/23 Status: Ordered Medication Dispense Status: Completed Quantity: 90.0 Unit: tablet Total Allowed Fills: 1 Fills Dispensed: 0 dapagliflozin 10 mg oral tablet = 10 mg, By Mouth, Daily, # 90 tablet, 0 Refills, Maintenance, 12/02/24 2:01:00 PM EDT, Tablet, [facility], Partial fill upon patient request if the prescription is for a schedule II opioid drug., 163, cm, 12/02/24 8:28:00 EDT, Height, 66, kg, 12/01/24 0:42:00 EDT, Dry Weight Start Date: 12/02/24 Status: Ordered Medication Dispense Status: Completed Quantity: 90.0 Unit: tablet Total Allowed Fills: 1 Fills Dispensed: 0 Lasix 20 mg oral tablet 20 mg, 1, tablet, By Mouth, Daily, PRN, Take 20 mg daily as needed if you were to gain 1 lbs daily for 3 days in a row or 5 lbs in total of week; Stop once your body weight is back to baseline., # 90tablet, Refills 0, Tot. Refills 0, Maintenance, Other, 12/02/24 2:01:00 PM EDT, Route to Pharmacy Electronically, [facility], Partial fill upon patient request if the prescription is fora schedule II opioid drug., 163, cm, 12/02/24 8:28:00 EDT, Height, 66, kg, 12/01/24 0:42:00 EDT, Dry Weight Start Date: 12/02/24 Status: Ordered Medication Dispense Status: Completed Quantity: 90.0 Unit: tablet Total Allowed Fills: 1 Fills Dispensed: 0 metFORMIN 1000 mg oral tablet 0 Refills, Maintenance, 11/30/24 11:04:00 PM EDT, Partial fill upon patient request if the prescription is for a schedule II opioid drug. Start Date: 11/30/24 Status: Ordered Medication Dispense Status: Completed Total Allowed Fills: 1 Fills Dispensed: 0 Toprol XL 25 mg oral tablet, extended release 25 mg, 1, tablet, By Mouth, Daily, Hold if systolic blood pressure is below 100 mmHg or heart rate is below 55 [id number], # 90 tablet, Refills 0, Tot. Refills 0, Maintenance, 12/02/24 2:01:00 PMEDT, Route to Pharmacy Electronically, [facility], Partial fill upon patient request if the prescription is for a schedule II opioid drug., 163, cm, 12/02/24 8:28:00 EDT, Height, 66, kg, 12/01/24 0:42:00 EDT, Dry Weight Start Date: 12/02/24 Status: Ordered Medication Dispense Status: Completed Quantity: 90.0 Unit: tablet Total Allowed Fills: 1 Fills Dispensed: 0 Problem List Condition Confirmation Course Effective Dates Status H ealth Status Informant Moderate aortic stenosis Confirmed Active Coronary artery disease Confirmed Active S/P CABG x 4 Confirmed Active Hyperlipidemia Confirmed Active Hypertension Confirmed Active Results Radiology Reports * Exam Date Time Procedure Performing Provider Status 11/30/24 9:[address] Angio Chest Auth (Veri lore) Notes: (CT Angio Chest) Reason For Exam: PE suspected, Intermediate prob, positive D-dimer,;Other: RESULT: CT Angio Chest CT Angio Chest INDICATION: Hx of Present Illness: states having shortness of breath since last night, woke from sleep with symptoms, denies cough fever. feeling palpitations and weird senstaion in the chest . denies any new edema.; Reason: PE suspected, Intermediate prob, positive D-dimer,; Clinical Question(s):Pulmonary Embolism TECHNIQUE: Spiral CTA of the chest was performed after rapid IV contrast administration without cardiac gating, triggered by an OLYA on the main pulmonary artery. Images are formatted in multiple planes using 2-D multiplanar and 3-D maximum intensity projection. 100 cc of Isovue 300 was administered intravenously. Weight-based protocol using automatic tube modulation was used to optimize exposure parameters. CTDIvol Body: 8.07 mGy, DLP Body: 496 mGy*cm. COMPARISONS: 12/14/2004. ANGIOGRAPHIC FINDINGS: No pulmonary embolism to the subsegmental level. Motion degradation mildly limits assessment of distal vessels. Normal caliber pulmonary arteries. No interventricular septal bowing. Reflux into the IVC is present. RV:LV ratio < 0.9. No findings to suggest right heart strain. No acute aortic abnormality seen on this study performed without cardiac gating. NON-ANGIOGRAPHIC FINDINGS: Insurance Examining Clerk view findings, lines and tubes: None. Trachea and airways: Patent without evidence of tracheal or endobronchial lesion. Lungs and pleura: Patchy groundglass opacity throughout both lungs with mild interlobular septal thickening. Small bilateral pleural effusions with associated atelectasis. No pneumothorax. Mediastinum and shukri: No mass or hematoma. No mediastinal or hilar lymphadenopathy. No esophageal abnormality. Normal thyroid. Heart: Heart is normal in size. No pericardial effusion. Status post CABG. Status post TAVR. Chest wall soft tissues: Prior median sternotomy. No acute abnormality. Diaphragm: Chronic elevation of the left hemidiaphragm. Upper abdomen: Cholelithiasis without acute cholecystitis. 2.4 cm left adrenal nodule with macroscopic fat, consistent with benign adrenal myelolipoma requiring a dedicated follow-up. Bones: No acute abnormality. IMPRESSION: No evidence of pulmonary embolism. Small bilateral pleural effusions with probable mild pulmonary edema. I have personally reviewed the images and I agree with this report. WSN: [id number] Ordering Physician: César Gandara Dictated By: Julito Fermin DO Dictated Date/Time: 11/30/24 9:38 pm Reviewed By: Sudheer Terry MD Signed By: Sudheer Terry MD Signed Date/Time: 11/30/24 9:43 pm Transcribed By: SCARLETT Transcribed Date/Time: 11/30/24 9:33 pm * Exam Date Time Procedure Performing Provider Status 11/30/24 2:12 PM Chest 2 Views Frontal and Lat Auth (Verified) Notes: (Chest 2 Views Frontal and Lat) Reason For Exam: Chest Pain;Other: RESULT: Chest 2 Views Frontal and Lat Chest 2 Views Frontal and Lat Reason: Shortness of breath, palpitations, chest pain. COMPARISON: Multiple chest x-rays, the most recent on 06/06/2007, CT chest without IV contrast 12/14/2004. FINDINGS: LINES AND TUBES: None. LUNGS AND PLEURA: Persistent moderate elevation of the left hemidiaphragm with adjacent atelectasis. Blunting of the costophrenic angles. Probable mild pulmonary vascular congestion and interstitial edema with small bilateral pleural effusions present consistent mild pulmonary edema. No pneumothorax. HEART, MEDIASTINUM AND SHUKRI: Mild prominence of the cardiac silhouette, unchanged. Changes on TAVR with sternotomy wires and multiple surgical clips projecting over the left hilum. Normal mediastinal and hilar contour. BONES AND SOFT TISSUES: No acute abnormality. IMPRESSION: 1. Bilateral right greater than left small pleural effusions. 2. Persistent left hemidiaphragm elevation with adjacent atelectasis. Probable mild pulmonary edema. Clinical correlation is recommended. I have personally reviewed the images and I agree with this report. WSN: [id number] Ordering Physician: Chauncey Larson Dictated By: Galdino Murray MD Dictated Date/Time: 11/30/24 2:27 pm Reviewed By: Nik Ojeda MD, V Signed By: Nik Ojeda MD, V Signed Date/Time: 11/30/24 2:32 pm Transcribed By: SCARLETT Transcribed Date/Time: 11/30/24 2:20 pm Social History Social History Type Response Smoking Status Former smoker; Tobac co user in household: No entered on: 10/31/13 Sex Sex Representation Male (finding) Admission evaluation note * Eric Clement MD: PERFORM Event Display: Admission Note Authored Date: [id number] Patient: ??DIONICIO VIDAL ? Age:??74 Years?Sex:??Male?:??1950?? History of Present Illness 74M with history of severe symptomatic aortic stenosis s/p TAVR Jul 2023), multivessel CAD with prior CABG (2004) and PCI of [place] vessels, HTN, HLD, and DM2, presenting with 4 days of exertional dyspnea. Reports difficulty sleeping due to SOB, occasional palpitations, but denies chest pain, syncope, edema, or fevers. ?? In the ED he is hypertensive (180/66 --> 169/77), afebrile, sat 95% RA. Labs: hs-troponin 109 --> 122 ng/L (stable) NT-proBNP 1444 pg/mL Hgb 15.1??Cr 0.83, no baseline available but no Hx of CKD. Current CrCl ~67 ?? CXR: Small bilateral effusions, pulmonary edema, elevated left hemidiaphragm (his baseline). CTA chest: no PE; confirms mild pulmonary edema, small bilateral effusions,??benign adrenal myelolipoma. ?? ECG reviewed by shows NSR/Sinus manpreet w/ no ST Depressions, elevations, or T wave inversions. He isCP free ?? He tells me he was at [employer] a week ago and has been eating plenty of salt at restaurants. He hasbeen gaining weight (about 8 pounds since 2 weeks ago as he measures himself daily), and has been having difficulty sleeping flat, sometimes waking up not able to take a breath. He used to be on diuretics in the past.? Post-TAVR echo in July 2023 demonstrated well-functioning prosthetic valve, normal biventricular function, severe Mitral annular calcifications??but low MV gradient. he had an Echo done at [facility] which was relatively unchanged to that dictated above. it is on his phone Review of Systems As above Objective Measurements?? Height: 163 cm (11/30/24) Weight: 68.4 kg (11/30/24) Dry Weight: 68.4 kg (11/30/24) Body Mass Index:??25.74 kg/m2??High (11/30/24) ? Vital Signs?? Temperature: 98.3 DegF (11/30/24 13:28:00) Temperature Route: Oral (11/30/24 13:28:00) Pulse Rate: 58 bpm (11/30/24 16:26:00) Respiratory Rate: 16 br/min (11/30/24 16:26:00) Systolic Blood Pressure:??169 mm Hg??High (11/30/24 16:26:00) Diastolic Blood Pressure: 77 mm Hg (11/30/24 16:26:00) Blood pressure sites: Arm, right (11/30/24 16:26:00) Mean Arterial Pressure: 104 mm Hg (11/30/24 13:28:00) Pulse Pressure: 114 mm Hg (11/30/24 13:28:00) Oxygen Saturation: 95 % (11/30/24 16:26:00) Mode of Delivery (Oxygen): Room air (11/30/24 16:26:00) ? Intake/Output? No Data Available ? Physical Exam Constitutional: Alert, in mild distress. SoB Mental Status: Oriented to person, place and time. Head: Normocephalic. Eyes: Pupils are equal, round Ear, Nose and Throat: Oropharynx clear, mucous membranes moist. Neck: Supple, Full range of motion. Respiratory: Fleeting crackles bilaterally w/ reduced air entry at bases Cardiovascular: S1 S2 regular.?? Gastrointestinal: Abdomen soft, non-tender, slightly distended per Hx. some sacral edema. no LL swelling. Elevated JV to mid-upper neck Genitourinary: No costovertebral angle tenderness. Neurologic: Moves all extremities spontaneously. Skin: No rashes Musculoskeletal: No gross deformities. Psychiatric: Normal mood and affect Assessment/Plan Diagnoses Adrenal myelolipoma ??(D17.79) Aortic valve replaced ??(Z95.2) Coronary artery disease ??(I25.10) Demand ischemia ??(I24.89) Heart failure ??(I50.9) Shortness of breath ??(R06.02) Type 2 diabetes mellitus ??(E11.9) ?? Assessment:??74M with CAD s/p CABG and??PCI, severe s/p TAVR, HTN, HLD, DM2, presenting with acute decompensated HFpEF with pulmonary edema, stable troponin elevation, and small bilateral pleural effusions. ?? Heart failure (I50.9) ?Associated with??Aortic valve replaced (Z95.2) ? Clinical diagnosis based on PND, orthopnea, increased weight, elevated JV to mid-upper neck, fleeting crackles on examination, edema on CXR increased??abdominal??girth,??elevated probnp and??demand-ischemia picture.?? Plan: - Admit M7 - Tele - Weights - I/O - IV Lasix 40mg BID - Cardiac diet - Consider Cardiology consult. He had ECHO done recently at [facility]??which was relatively unchanged to the one from [facility] in??July 2023. It is on his phone - He is a patient of Dr. Mcgrath and has regular FU w/ him so may be optimized from fluid perspectiveand discharged to see Dr. Mcgrath shortly after. - Resume Metoprolol XL 50mg - Resume home ASA ?? Coronary artery disease (I25.10) ?Associated with??Demand ischemia (I24.89) ? Demand ischemia Plan: - One more trop to ensure good delta - EKG PRN - Resume home ASA - Resume home atorvastatin ?? Type 2 diabetes mellitus (E11.9):??Resume home metformin ER 1g daily ?? Adrenal myelolipoma (D17.79):??Incidental finding ?? VTE Prophylaxis:??Enoxaparin ?? Code Status:??Full code ?Order Code Status:??Code Status Ordered Histories Allergies Allergies ?(Active and Proposed Allergies Only) penicillins? (Severity: Unknown severity, Onset: Unknown) ampicillin? (Severity: Unknown severity, Onset: Unknown) ?Reactions: hives Contrast Dye? (Severity: Unknown severity, Onset: Unknown) ?Reactions: hives ? Past Medical History/Problem List Active Problems(5) Coronary artery disease Hyperlipidemia Hypertension Moderate aortic stenosis S/P CABG x 4 ? Past Surgical History Cancer Heart ? Social History Alcohol Details:??Use: Current. ??Frequency: 1-2 times per week. ??Type: Wine. Employment/School Details:??Status: Employed. Exercise Details:??Self assessment: Fair condition. ??Regular exercise: Yes. ??Exercise frequency: 1-2 times/week. ??Exercise type: Walking. Home/Environment Details:??Living situation: Home/Independent. ??Lives with: Spouse. Substance Abuse Details:??Use: Never. Tobacco Details:??Use: Former smoker. ??Tobacco user in household: No. ? Family History Mother: Alcoholism Father: Cancer of lung; Diabetes mellitus type II Brother: Asthma ? Medications Home Medications Aspirin (aspirin 81 mg oral tablet)??81 Milligram 1 tab(s) By Mouth Daily Atorvastatin (atorvastatin 40 mg oral tablet)??1 tab(s) 40 Milligram By Mouth Daily Metoprolol (metoprolol succinate 50 mg oral capsule, extended release)??1 capsule 50 Milligram By Mouth Daily ? Inpatient Medications Medications (5) Active SCHEDULED: (5) Aspirin 81 mg Chew Tablet (aspirin 81 mg oral tablet, chewable) ??81 mg, By Mouth, Daily Atorvastatin 40 mg Tablet (atorvastatin 40 mg oral tablet) ??40 mg, By Mouth, Daily Furosemide Inj (Lasix ??Inj) ??40 mg 4 mL, IV Push Slowly, 2 times a day MetFORMIN 500 mg ER Tablet (metFORMIN 500 mg oral tablet, extended release) ??1,000 mg, By Mouth, Daily Metoprolol 50 mg XL Tablet (metoprolol 50 mg oral tablet, extended release) ??50 mg, By Mouth, Daily CONTINUOUS: (0) PRN: (0) ? Results Abnormal Labs ?? BLOOD COUNT & DIFF Abs. Imm Gran?0.0 k/mm3 ()?11/30/2024 13:38 Abs. NRBC?0.0 k/mm3 ()?11/30/2024 13:38 Imm Gran?0.2 % ()?11/30/2024 13:38 Nucleated RBC (Automated)?0.0 #/100 WBC'S ()?11/30/2024 13:38 Platelet Count?149 k/mm3 (Low)?11/30/2024 13:38 RDW-SD?42.3 femtoliters ()?11/30/2024 13:38 ?? CARDIAC High Sensitivity Troponin (HSTnT)?122 ng/L (Critical)?11/30/2024 17:50 Nt-Probnp?1444 pg/mL (High)?11/30/2024 17:50 ?? CHEM GENERAL Bicarbonate Level?30 mmol/L (High)?11/30/2024 13:38 Estimated GFR Creatinine?93 ML/MIN/1.73 M2 ()?11/30/2024 13:38 Glucose Level?173 mg/dL (High)?11/30/2024 13:38 ?? COAG D-Dimer?0.70 mg/L FEU ()?11/30/2024 17:50 ?? HEME OTHER Hold Blue Top?SPECIMEN DISCARDED AFTER 4 HOURS. ()?11/30/2024 13:38 ?? Note: Critical results are displayed in red. ? EKG study * Event Display: EKG Authored Date: * Event Display: ECG 12-Lead Authored Date: Please click on pdf link to open report * Event Display: ECG 12-Lead Authored Date: Ventricular Rate: 60 BPM QRS Duration: 92 ms Q-T Interval: 446 ms QTC Calculation(Bazett): 446 ms R [place]: -9 degrees T [place]: -12 degrees Sinus rhythm Normal ECG When compared with ECG of 30-Nov-2024 17:35, No significant change Confirmed by Irineo Garcia ([id number]) on 12/01/2024 9:43:04 PM Cameron: Irineo Garcia * Event Display: ECG 12-Lead Authored Date: [id number] Please click on pdf link to open report * Event Display: ECG 12-Lead Authored Date: [id number] Ventricular Rate: 60 BPM Atrial Rate: 60 BPM P-R Interval: 82 ms QRS Duration: 96 ms Q-T Interval: 466 ms QTC Calculation(Bazett): 466 ms P [place]: -5 degrees R [place]: -11 degrees T [place]: 1 degrees Sinus rhythm with short MN Otherwise normal ECG When compared with ECG of 30-Nov-2024 13:44, MN interval has decreased Confirmed by Reginald Courtney ([id number]) on 12/02/2024 7:56:11 AM Cameron: Reginald Courtney * Event Display: ECG 12-Lead Authored Date: [id number] Please click on pdf link to open report * Event Display: ECG 12-Lead Authored Date: [id number] Ventricular Rate: 59 BPM Atrial Rate: 59 BPM P-R Interval: 112 ms QRS Duration: 100 ms Q-T Interval: 442 ms QTC Calculation(Bazett): 437 ms P [place]: 39 degrees R [place]: -10 degrees T [place]: 2 degrees Sinus bradycardia Otherwise normal ECG When compared with ECG of 15-Oct-2014 09:47, No significant change was found Confirmed by Irineo Garcia ([id number]) on 11/30/2024 2:30:09 PM Cameron: Irineo Garcia Heart * Event Display: Echocardiogram - Complete Authored Date: [id number] Transthoracic Echocardiography Report (TTE) Patient Demographics Patient Name DIONICIO VIDAL Date of Study 12/02/2024 Corporate Gender Male Facility Race .[id number] Ethnicity Date of 1950 Height: 64.17 inches Age 74 year(s) Weight: 145.51 pounds Accession Number [id number] BSA: 1.71 m2 Room Number [id number] BMI: 24.84 kg/m2 Referring Sommer Ortiz A Physician Physician Manager [employer] Dwayne Brito Indications Myocardial infarction. Additional Indications:NSTEMI Clinical History CAD Multiple stents Remote hx of CABG x 4 New onset heart failure Diabetes Mellitus. Hypertension. TAVR-Richey Ana Cristina S3 26mm 07/26 at [facility] Study Data Type of Study TTE procedure:Echo Complete-(Doppler, Colorflow) with Contrast. Procedure Information:Definity was administered by Sandblaster Glass . Study Date12/02/2024 Start Time: 11:32 AM Study Location: [facility] Adult Echo Study Status: Bedside Patient Status: Pending Discharge Technical Quality: Technically difficult due to poor acoustical window. Blood Pressure:104/46 mmHg EKG: Sinus bradycardia HR: 48 bpm Contrast Medium: Definity for LV opacification. Amount - 2 ml 2D Measurements LV Diastolic Dimension: 3.9 cm LV Systolic Dimension: 1.8 cm LV Septum Diastolic: 0.7 cm LV PW Diastolic: 0.8 cm AO Root Dimension: 3 cm LA ESV (BP):45.9 ml LVOT Stroke Volume: 93.09 ml LA ESV Index: 27 ml/m2 Stroke Volume Index54.44 ml/m2 LVOT: 2.2 cm Cardiac Index:2.61 l/min/m2 Ascending Aorta:2.3 cm Doppler Measurements AV Peak Velocity: 218 cm/s MV Peak E-Wave: 151 cm/s AV Peak Gradient: 19.01 mmHg MV Peak A-Wave: 45.1 cm/s AV Mean Gradient: 10 mmHg MV E/A Ratio: 3.35 AV VTI:50.2 cm LVOT Peak Velocity: 93.3 cm/s MV Mean Gradient: 2 mmHg LVOT VTI24.5 cm MV Area (continuity): 2.15 cm2 AV Area (Continuity):1.85 cm2 MV Deceleration Time: 239 msec PV Peak Velocity: 81.3 cm/s E' Septal Velocity: 4.46 cm/s PV Peak Gradient: 2.64 mmHg E' Lateral Velocity: 5.66 cm/s E/Med E':33.8565 E/Lat E':26.82492 Cardiac Anatomy Left Ventricle/Interventricular Septum The left ventricular size is normal. Left ventricular wall thickness is normal. The LV systolic function is normal. The left ventricular ejection fraction is 60-65% visually. There are no regional wall motion abnormalities.Unable to assess diastolic function due to severe mitral annulus calcification . Left Atrium/Interatrial Septum The left atrium is normal in size. Aortic Valve The aortic valve is poorly visualized. There is a bioprosthetic valve in the aortic position (TAVR-Richey Ana Cristina S3 26mm). The mean gradient is 10 mmHg. No significant central regurgitation or perivalvular leak. Mitral Valve There is severe mitral annular calcification which extends into the valve leaflets and LVOT(anterior>posterior). There is mild mitral regurgitation. There is no significant mitral stenosis. mean gradient is 2mmhg at 49bpm. Aorta The ascending aorta and aortic root are normal in size. Right Ventricle The right ventricular size and function appears grossly normal. Right Atrium The right atrium is normal in size. Pulmonic Valve The pulmonic valve is poorly visualized. Tricuspid Valve The tricuspid valve is poorly visualized. There is no significant tricuspid valve regurgitation. Pumonary Artery An accurate pulmonary artery pressure could not be obtained. Venous Structures The inferior vena cava is poorly visualized. Pericardium/Extracardiac There is no significant pericardial effusion. Summary The left ventricular size is normal. Left ventricular wall thickness is normal. The LV systolic function is normal. The left ventricular ejection fraction is 60-65% visually. There are no regional wall motion abnormalities.Unable to assess diastolic function due to severe mitral annulus calcification . There is a bioprosthetic valve in the aortic position (TAVR-Richey Ana Cristina S3 26mm). The mean gradient is 10 mmHg. No significant central regurgitation or perivalvular leak. There is severe mitral annular calcification which extends into the valve leaflets and LVOT(anterior>posterior). There is mild mitral regurgitation. There is no significant mitral stenosis. mean gradient is 2mmhg at 49bpm. The right ventricular size and function appears grossly normal. There is no significant pericardial effusion. Comparison Comparison is made to the study report of March 17, 2023. TAVR is present. Signature * Event Display: Echocardiogram - Complete Authored Date: Procedure * Event Display: Cardiac Rhythm Strips Authored Date: Hospital Progress note * Willem PATRICIA, Luli Washington: PERFORM, SIGN, VERIFY Event Display: Progress Note Hospital Authored Date: Patient: DIONICIO VIDAL Age: 74 years Sex: Male : 1950 Associated Diagnoses: None Author: Willem PATRICIA, Luli Washington Findings Problem Related to Alteration in Cardiac Function (new) : Alteration in Cardiac Function/new 12/01/2024 22:00 EDT Alteration in Cardiac Status Related to Heart failure Goals & Outcomes, Cardiac Status Pt will resume/maintain adequate cardiac output, Pt will resume/maintain adequate respiratory function Cardiac Interventions Implemented Assess/monitor cardiac status, Assess/monitor neuro status, Assess/monitor respiratory status, Assess for tolerance of IV infusions; verify rate & dose, Call/Report variances in ECG to provider, Document & Monitor O2 Sats; Administer O2 as ordered, Ensure adequate caloric intake, If no bowel movement in 3 days activate bowel regime, Monitor & document daily weight, Monitor anticoagulation values, Monitor ECG w/administration of antiarrhythmics (CO 13.420), Obtain 12 Lead ECG and CXR as ordered, Prep pt for treatments & procedures, Teach/encourage deep breath & cough exercises, Teach/encourage use of incentive spirometer, Team conversation regarding appropriate level of care, Turn & reposition Q2 hours per activity restrictions, Useadjunctive therapies per Standards of Practice Goals/Interventions, Cardiac Yes Cardiac, Problem Start 12/01/2024 2:05 Reviewed Plan with, Cardiac Status Patient Patient Progression, Cardiac Status Plan Initiation . Evaluation P: Alteration in Cardiovascular I: see care plan above E: AOx4, denies dizziness or lightheadedness. LS clear, on RA, denies SOB or CP. Pt on tele displaying sinus manpreet in the 50s. BS active in all quadrants, denies any N/V. LBM 11/30. Pt ambulating independently, walking the hallways, voiding in the bathroom without any difficulties. Skin intact, all extremities +CMS, +PF/DF, +wiggle. Pt reports no pain. Pt took a shower tonight. Pt medicated according to JUN. Pt sleeping in bed comfortably, equal chest rise and fall noted upon assessment. Call keith within reach. Bed in lowest locked position for safety. Bed alarm on for safety. Will report any changes PRN. * Sommer GOMEZ, Mikki: PERFORM Event Display: Progress Note Hospital Authored Date: [id number] Patient: ??DIONICIO VIDAL ? Age:??74 Years?Sex:??Male?:??1950?? Subjective Events and workup since admission reviewed, labs and CT reviewed. Patient is out of bed in chair, O2 is weaned off, endorsed most resolution of dyspnea following Lasix dose from last night, no chest pain or other new complaints, did notice weight gain and discretionary salt intake from recent trip to the [facility], at baseline independent and feeling well following TAVR last year. We reviewed plan of care. Review of Systems ?? Cardiovascular:??no chest pain Respiratory:??Improved dyspnea. Gastrointestinal:??No anorexia, nausea, vomiting or diarrhea. No abdominal pain or blood in stool. Genitourinary:??No burning micturition. No urinary frequency or incontinence. Objective Measurements?? Height: 163 cm (12/01/24) Weight: 66 kg (12/01/24) Dry Weight: 66 kg (12/01/24) Body Mass Index:??25.97 kg/m2??High (12/01/24) ? Vital Signs?? Temperature: 98.5 DegF (12/01/24 11:40:00) Temperature Route: Oral (12/01/24 11:40:00) Pulse Rate: 55 bpm (12/01/24 11:40:00) Respiratory Rate: 18 br/min (12/01/24 11:40:00) Systolic Blood Pressure: 130 mm Hg (12/01/24 11:40:00) Diastolic Blood Pressure:??45 mm Hg??Low (12/01/24 11:40:00) Blood pressure sites: Arm, left (12/01/24 11:40:00) Mean Arterial Pressure: 73 mm Hg (12/01/24 11:40:00) Pulse Pressure: 85 mm Hg (12/01/24 11:40:00) Oxygen Saturation: 98 % (12/01/24 11:40:00) Liters per Minute: 2 L/min (12/01/24 08:10:00) Mode of Delivery (Oxygen): Room air (12/01/24 11:40:00) Early Warning Score: 3 (12/01/24 11:42:21) ? Pain Scores?? No qualifying data available. ?? Intake/Output? 11/30 22:59 12/01 07:00 11/30 07:00 11/29 07:00 11/28 07:00 ?? 12/01 15:09 12/01 15:09 12/01 06:59 11/30 06:59 11/29 06:59 Intake ?240 ?0 ?240 ?0 ?0 Output ?950 ?0 ?950 ?0 ?0 Net Total ? -710 ?0 ? -710 ?0 ?0 ? Precautions No Precautions documented.? Physical Exam Constitutional: Alert, in no acute distress. Head EENT: Extraocular muscle movement intact.??Moist mucous membranes.?? Respiratory: Good AE with lung base crackles. No use of accessory muscles. Cardiovascular: S1S2 regular. No murmurs, rubs or gallops. Gastrointestinal: Abdomen soft, non-tender, non-distended. Normal bowel sounds. Extremities: No lower extremity pitting??edema. No cyanosis or clubbing. Neurologic: AAOx3, Speech normal. No focal neurological deficits. Psychiatric: Normal mood and affect _ Inpatient Medications Medications (11) Active SCHEDULED: (6) Aspirin 81 mg Chew Tablet (aspirin 81 mg oral tablet, chewable) ??81 mg, By Mouth, Daily Atorvastatin 40 mg Tablet (atorvastatin 40 mg oral tablet) ??40 mg, By Mouth, Daily Dapagliflozin 10 mg Tablet (Dapagliflozin Tablet) ??10 mg, By Mouth, Daily Enoxaparin 40 mg Inj (Enoxaparin Inj) ??40 mg 0.4 mL, Subcutaneous Injection, Every 24 hours Insulin Lispro 100 units/mL Inj (Insulin LISPRO Scale) ??2-8 units, Subcutaneous Injection, 3 timesa day before meals Metoprolol 25 mg XL Tablet (metoprolol extended release) ??25 mg, By Mouth, Daily CONTINUOUS: (0) PRN: (5) Dextrose 50 % Vial (50 mL) (Dextrose 50% Inj Syringe (25Gm)) ??12.5 Gm 25 mL, IV Push Slowly, Every20 minutes Dextrose 50 % Vial (50 mL) (Dextrose 50% Inj Syringe (25Gm)) ??25 Gm 50 mL, IV Push Slowly, Every 15 minutes Glucagon 1 mg Inj (Glucagon Inj) ??1 mg, Intramuscular, Once Glucose 40% Gel (15 Gm) (Glucose Gel) ??15 Gm, By Mouth, Every 20 minutes Glucose 40% Gel (15 Gm) (Glucose Gel) ??30 Gm, By Mouth, Every 20 minutes ? Results Recent Labs BLOOD COUNT & DIFF WBC 9.0 k/mm3 ()?? 11/30/2024 13:38 RBC 4.84 m/mm3 ()?? 11/30/2024 13:38 Hgb 15.1 Gm/dL ()?? 11/30/2024 13:38 Hct 44.9 % ()?? 11/30/2024 13:38 MCV 92.8 femtoliters ()?? 11/30/2024 13:38 MCH 31.2 pg ()?? 11/30/2024 13:38 MCHC 33.6 Gm/dL ()?? 11/30/2024 13:38 Platelet Count 149 k/mm3 (Low)?? 11/30/2024 13:38 RDW-SD 42.3 femtoliters ()?? 11/30/2024 13:38 MPV 11.7 femtoliters ()?? 11/30/2024 13:38 Nucleated RBC (Automated) 0.0 #/100 WBC'S ()?? 11/30/2024 13:38 Abs. NRBC 0.0 k/mm3 ()?? 11/30/2024 13:38 Abs. Neut 6.5 k/mm3 ()?? 11/30/2024 13:38 Abs. Lymph 1.5 k/mm3 ()?? 11/30/2024 13:38 Abs. [place] 0.7 k/mm3 ()?? 11/30/2024 13:38 Abs. Eo 0.2 k/mm3 ()?? 11/30/2024 13:38 Abs. Baso 0.0 k/mm3 ()?? 11/30/2024 13:38 Neut % 73.0 % ()?? 11/30/2024 13:38 Lymph % 17.2 % ()?? 11/30/2024 13:38 [place] % 7.2 % ()?? 11/30/2024 13:38 Eos % 2.2 % ()?? 11/30/2024 13:38 Baso % 0.2 % ()?? 11/30/2024 13:38 Imm Gran 0.2 % ()?? 11/30/2024 13:38 Abs. Imm Gran 0.0 k/mm3 ()?? 11/30/2024 13:38 ?? CARDIAC Nt-Probnp 1444 pg/mL (High)?? 11/30/2024 17:50 High Sensitivity Troponin (HSTnT) 125 ng/L (Critical)?? 11/30/2024 22:54 ?? CHEM GENERAL Sodium 138 mmol/L ()?? 12/01/2024 01:04 Potassium 4.0 mmol/L ()?? 12/01/2024 01:04 Chloride 98 mmol/L ()?? 12/01/2024 01:04 Bicarbonate Level 26 mmol/L ()?? 12/01/2024 01:04 Anion Gap 14 mmol/L ()?? 12/01/2024 01:04 Glucose Level 188 mg/dL (High)?? 12/01/2024 01:04 Glucose, POC 139 mg/dL (High)?? 12/01/2024 11:40 BUN 20 mg/dL ()?? 12/01/2024 01:04 Creatinine-Blood 0.89 mg/dL ()?? 12/01/2024 01:04 Estimated GFR Creatinine 91 ML/MIN/1.73 M2 ()?? 12/01/2024 01:04 Calcium 9.5 mg/dL ()?? 12/01/2024 01:04 Magnesium 1.9 mg/dL ()?? 12/01/2024 01:04 ?? COAG D-Dimer 0.70 mg/L FEU ()?? 11/30/2024 17:50 ?? HEME OTHER Hold Blue Top SPECIMEN DISCARDED AFTER 4 HOURS. ()?? 11/30/2024 13:38 ?? URINE OTHER Est Creatinine Clearance 63.24 mL/min ()?? 12/01/2024 03:12 ?? VIROLOGY COVID-19 by RT-PCR NEGATIVE ()?? 12/01/2024 01:26 ? Blood Glucose Trend Glucose Level:??188 mg/dL??High (12/01/24 01:04:00) Glucose, POC:??139 mg/dL??High (12/01/24 11:40:00) Glucose, POC:??179 mg/dL??High (12/01/24 08:15:00) ? Assessment/Plan ? Diagnoses 1. ??Acute diastolic heart failure ??(I50.31) 2. ??Type 2 myocardial infarction ??(I21.A1) 3. ??Coronary artery disease without angina pectoris ??(I25.10) 4. ??Status post transcatheter aortic valve replacement (TAVR) using bioprosthesis ??(Z95.3) 5. ??Type 2 diabetes mellitus with hyperglycemia, without long-term current use of insulin ??(E11.65) ?? Assessment:??74M with CAD s/p CABG and??PCI, severe s/p TAVR, HTN, HLD, DM2, presenting with acute decompensated HFpEF with pulmonary edema, stable troponin elevation, and small bilateral pleural effusions. ?? Acute diastolic heart failure (I50.31):??-based on dyspnea, elevated proBNP and pulmonary edema on CT, dyspnea improved with 1 dose of IV Lasix will give one more dose today and reassess tomorrow? -TTE pending ?? -GDTM: Farxiga, additions as appropriate based on TTE findings ?? -monitor lytes and weight closely? Type 2 myocardial infarction (I21.A1):??-elevated troponin with dynamic changes, chest pain free most consistent with type 2 CO 2/2 decompensated heart failure, TTE pending? Coronary artery disease without angina pectoris (I25.10):??-s/p PCI 2023; continue ASA and statin? Type 2 diabetes mellitus with hyperglycemia, without long-term current use of insulin (E11.65):??-hold metformin while admitted, monitor with sliding scale titrate as needed to target F/S 140-180 mg/dL? Discussed with RN; Tele reviewed: NSR. ?? VTE Prophylaxis:??Lovenox?VTE Prophylaxis Assessment:??VTE Prophylaxis Ordered ?? Discharge Planning:??Home? Ongoing Medical Necessity:??CHFE TTE ?? Code Status:??Full?Order Code Status:??Code Status Ordered ? Order Date/Time Order Action Order Name Order Detail 12/01/2024 15:05 Order Add On Lab Order Routine, Test(s) Requested: A1c, lipid panel, LFT, Use Last Specimen, If Spec Is Unacceptable: Notify Ordering Physician, 12/01/24 15:05:00 EDT 12/01/2024 11:41 Order Glucose POC (GLUCOSE POC) Routine, 12/01/24 11:40:00 EDT, LAB 12/01/2024 09:11 Order Consult Cardiology (Adult) Consultation, Reason: s/p TAVR and PCI, new decompensated heart failure CO possible type 2, 12/01/24 9:11:00 EDT 12/01/2024 09:09 Order Dapagliflozin 10 mg Tablet (Dapagliflozin Tablet) 10 mg, By Mouth, Daily 12/01/2024 09:09 Order Echo Complete Routine, Reason: NSTEMI (I21.4), UEA As Needed, 12/01/24 9:09:00 EDT 12/01/2024 09:09 Discontinue Furosemide Inj (Lasix ??Inj) 40 mg, 4 mL, IV Push Slowly, 2 times a day 12/01/2024 08:15 Order Glucose POC (GLUCOSE POC) Routine, 12/01/24 8:15:00 EDT, LAB 12/01/2024 07:28 Order Enoxaparin 40 mg Inj (Enoxaparin Inj) 40 mg, 0.4 mL, Subcutaneous Injection, Every 24 hours 12/01/2024 07:28 Order VTE Prophylaxis Guidelines 12/01/24 7:28:00 EDT 12/01/2024 07:27 Modify Dextrose 50 % Vial (50 mL) (Dextrose 50% Inj Syringe (25Gm)) 12.5 Gm, 25 mL, IV Push Slowly, Every 20 minutes, PRN: Blood Glucose 12/01/2024 07:27 Modify Metoprolol 25 mg XL Tablet (metoprolol extended release) 25 mg, By Mouth, Daily 12/01/2024 07:25 Modify Metoprolol 25 mg XL Tablet (metoprolol extended release) 25 mg, By Mouth, Daily 12/01/2024 07:23 Discontinue Cardiac Diet Cardiac, No Carbohydrate Restriction, 2 Gram Sodium, Fluids: 1500mL/day (1000mL from Dietary), Start: now, 11/30/24 22:59:00 EDT 12/01/2024 07:23 Order Cardiac Diet Cardiac, 75 Gm CHO per meal, 4 Gram Sodium, Fluids: No Fluid Restriction, Start: now, 12/01/24 7:23:00 EDT 12/01/2024 07:23 Order Call MD for any episode of hypoglycemia which has not resolved within 20 minutes of administering 25 Gm of D50%W IV Push, 12/01/24 7:23:00 EDT 12/01/2024 07:23 Order Dextrose 50 % Vial (50 mL) (Dextrose 50% Inj Syringe (25Gm)) 12.5 Gm, IV Push Slowly, Every 20 minutes, PRN: Blood Glucose 12/01/2024 07:23 Order Glucagon 1 mg Inj (Glucagon Inj) 1 mg, Intramuscular, Once, PRN: Other 12/01/2024 07:23 Order Glucose (Nsg POC) Scheduled, Every 15 minutes, PRN for Blood Glucose , per Hypoglycemic Emergency Measures, 12/01/24 7:23:00 EDT 12/01/2024 07:23 Order Glucose 40% Gel (15 Gm) (Glucose Gel) 15 Gm, By Mouth, Every 20 minutes, PRN: Blood Glucose 12/01/2024 07:23 Order Hypoglycemia Emergency Measures For BG LESS than 50 AND alert and can take po: give 8 oz juice OR regular soda OR 2 x 15 gm tubes of oral glucose gel, Repeat Glucose POC in 15 minutes, 12/01/24 7:23:00 EDT 12/01/2024 07:23 Order Insulin Lispro 100 units/mL Inj (Insulin LISPRO Scale) 2-8 units, Subcutaneous Injection, 3 times a day before meals 12/01/2024 07:23 Order MD/RN Insulin Dietary Orders If oral intake questionable, give rapid acting insulin w/meals proportional to food amount consumed, give full dose if 50% meal consumed,, Call MD for insulin dose if less than 50% meal consumed for 1 time insulin dose, 12/01/24 7:23:00 EDT 12/01/2024 07:23 Cancel MetFORMIN 500 mg ER Tablet (metFORMIN 500 mg oral tablet, extended release) 1,000 mg, By Mouth, Daily 12/01/2024 07:00 Order Change Attending, /Mikki Najera MD, 12/01/24 7:00:00 EDT ? * Daron Rock RN: PERFORM, SIGN, VERIFY, SIGN, MODIFY Event Display: Progress Note Hospital Authored Date: [id number] Patient: DIONICIO VIDAL Age: 74 years Sex: Male : 1950 Associated Diagnoses: None Author: Daron Rock RN Findings Problem Related to Alteration in Cardiac Function (new) : Alteration in Cardiac Function/new 12/01/2024 2:00 EDT Alteration in Cardiac Status Related to Heart failure Goals & Outcomes, Cardiac Status Pt will resume/maintain adequate cardiac output, Pt will resume/maintain adequate respiratory function Cardiac Interventions Implemented Assess/monitor cardiac status, Monitor & document daily weight, Use adjunctive therapies per Standards of Practice Goals/Interventions, Cardiac Yes Cardiac, Problem Start 12/01/2024 2:05 Reviewed Plan with, Cardiac Status Patient Patient Progression, Cardiac Status Plan Initiation . Nursing Data Cardiac Data. : Cardiac Data. 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 Gastrointestinal Data. : Gastrointestinal Data. 12/01/2024 0:55 EDT Last Bowel Movement 11/30/2024 GI WNL . Genitourinary Data. : Genitourinary Data. 12/01/2024 0:55 EDT WNL . Integumentary Data. : Integumentary Data. 12/01/2024 0:54 EDT Sensory Perception No impairment Moisture Rarely moist Activity Walks frequently Mobility No limitations Nutrition Excellent Friction and Shear No apparent problem Moe Score 23 Nursing Care Plan initiated/updated Not applicable . Musculoskeletal Data. : Musculoskeletal Data. 12/01/2024 0:55 EDT Musculoskeletal WNL . Vital Signs : VITAL SIGNS SECTION 12/01/2024 0:42 EDT Temperature 98.2 DegF Temperature Route Oral Pulse Rate 59 bpm Respiratory Rate 18 br/min Systolic Blood Pressure 158 mm Hg H Diastolic Blood Pressure 71 mm Hg Blood pressure sites Arm, right Mean Arterial Pressure 100 mm Hg Pulse Pressure 87 mm Hg Oxygen Saturation 98 % Liters per Minute 2 L/min Mode of Delivery (Oxygen) Nasal cannula . Evaluation Arrived from ED to M6 approx 0040. Admitted for CHF and Covid r/o. Pt A/Ox4. Denies pain at this time. SOB related to exertion. Tele- sinus manpreet 40s-50s. 2L NC at this time, baseline RA. Ambulates ind. Rings appropriately for needs. See CIS for full biophysical and assessment. Discussed care plan with Eric Clement MD, currently monitor his O2. No need for POCs at this time considering pt well controlled DM hx, cont w/ metformin. Cont to monitor pt progress. Pt expresses feeling better already , post lasix admin in ED. As of 0200, cont ESRP isolation. Pt understanding of r/o and precautions.. * Daron Rock RN: PERFORM Event Display: Progress Note Hospital Authored Date: Approx 0250, negative covid result. notified to d/c iso order. Consult note * Lucinda GOMEZ, Diane: MODIFY, PERFORM Event Display: Consultation Note Authored Date: Patient: ??DIONICIO VIDAL ? Age:??74 Years?Sex:??Male?:??1950?? History of Present Illness/Interval History Consultation for: CHF Consultation requested by: Dr. Sommer GOMEZ Primary stock drier tender: Dr. Mcgrath Consulting stock drier tender: Dr. Vidal ?? 74-year-old gentleman with history of severe symptomatic AAS s/p TAVR (26 mm bioprosthetic ANA CRISTINA 3Resilia valve at [facility] in July [address] 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 As per patient he was recently on vacation in [facility] and has had dietary noncompliance, has been consuming more salt than usual.?? Since then he noted that he was having exertional dyspnea and had an episode of orthopnea overnight prompting him to come to the ED.?? He does have some occasional palpitations and feels more fatigued than usual.?? No chest pain, lower extremity edema, fevers, chills.?? But he does endorse gaining approximately 6 pounds during this time. He had an echocardiogram done in July 2023 which as per report had well- functioning prosthetic valve, normal BiV function, severe mitral annular calcification with low MV gradient. Otherwise he is compliant with his medications and take aspirin, statin, metoprolol and metformin Patient drinks alcohol occasionally 1-2 times wine per week otherwise does not smoke ?? In the ED patient presented hypertensive with blood pressure 180/66, 95% on room air, afebrile, pulse rate 58 EKG done showed sinus bradycardia without any ST/T wave changes, chest x-ray with bilateral small pleural effusions, mild pulmonary edema, patient has CT angio chest done that showed small bilateral effusions and mild pulmonary edema, lab work consistent with normal CBC with the exception of platelet count of 149, normal BMP, NT-proBNP 1444, high-sensitivity troponin 109, 122 and 125.?? Patient was given 2 doses of IV Lasix with significant improvement in his symptoms, overall now he feels well and says has been able to walk around much better. Review of Systems As above Physical Exam Vitals & Measurements T:??98.7?F?? HR:??53??(Peripheral)?? RR:??18?? BP:??123/53?? SpO2:??100%?? HT:??163??cm?? WT:??66??kg?? BMI:??25.97?? Weight lb/oz: 145 lb 8 oz General: Patient in no acute distress?? Respiratory: bilateral equal air entry, clear to auscultation with no wheezes or crackles. ??Mild crackles bilaterally CVS: Regular rate and rhythm. ??S1 and S2 murmur.?? No murmur or gallops.?? Mildly elevated JVD Abdomen: soft, non tender, non distended, bowel sounds present, no organomegaly.?? Extremities: no cyanosis, pulses present and equal bilaterally. . No edema noted b/l.?? Neuro: alert and oriented x3. Moving all extremities spontaneously. Normal tones, following simple commands.?? Intake and Output Yesterday's Intake Total?240?? Yesterday's Output Total?950?? Yesterday's Urine Voided?950?? Yesterday's Balance? -710?? Clinical Range's Intake Total?240?? Clinical Range's Output Total?950?? Clinical Range's Total Urine Voided?950?? Clinical Range's Balance ? -710?? Assessment/Plan Shortness of breath Confirmation: Provisional New onset CHF exacerbation Severe aortic stenosis s/p TAVR??July 2023??[facility] CABG X4 2024, recent??KASSANDRA to??left main, proximal LAD and vein graft to RCA??prior to TAVR Hypertension/hyperlipidemia Patient presenting with??exertional??dyspnea, orthopnea, palpitations and weight gain??for the last??3 to 4 days, in the background of??recent dietary noncompliance, found to??be initially hypertensive, chest x-ray, CTA, labs consistent with mild CHF exacerbation.?? On physical exam??after receiving??1 dose of IV Lasix patient reports he has put out significant amount of urine and since then has been feeling well and has not required oxygen and has been walking around with significant improvement in his symptoms.?? On exam he is still mildly volume overloaded with mild JVD??and some bilateralcrackles. On physical exam I did not hear??a murmur??that could indicate??TAVR stenosis. He is??high sensitive troponin is elevated which I suspect is in the setting of CHF, I do not thinkthis is NSTEMI/ACS. ?? Recommendations -Continue IV diuretics as you are doing. ??To reassess the need for more diuretics in the a.m. -Obtain echocardiogram in the a.m. -Continue his aspirin, statin and metoprolol -Based on the echocardiogram??we will have more recommendations??regarding??GDMT/diuretics ?? Thank you for the consult, cardiology will continue to follow patient along with you. Allergies Contrast Dye??hives ampicillin??hives penicillins Home Medications Aspirin: 81 mg = 1 tablet, By Mouth, Daily Atorvastatin: 40 mg = 1 tablet, By Mouth, Daily Metformin Metoprolol: 50 mg = 1 capsule, By Mouth, Daily Hospital Medications Medications (11) Active SCHEDULED: (6) Aspirin 81 mg Chew Tablet (aspirin 81 mg oral tablet, chewable) ??81 mg, By Mouth, Daily Atorvastatin 40 mg Tablet (atorvastatin 40 mg oral tablet) ??40 mg, By Mouth, Daily Dapagliflozin 10 mg Tablet (Dapagliflozin Tablet) ??10 mg, By Mouth, Daily Enoxaparin 40 mg Inj (Enoxaparin Inj) ??40 mg 0.4 mL, Subcutaneous Injection, Every 24 hours Insulin Lispro 100 units/mL Inj (Insulin LISPRO Scale) ??2-8 units, Subcutaneous Injection, 3 timesa day before meals Metoprolol 25 mg XL Tablet (metoprolol extended release) ??25 mg, By Mouth, Daily CONTINUOUS: (0) PRN: (5) Dextrose 50 % Vial (50 mL) (Dextrose 50% Inj Syringe (25Gm)) ??12.5 Gm 25 mL, IV Push Slowly, Every20 minutes Dextrose 50 % Vial (50 mL) (Dextrose 50% Inj Syringe (25Gm)) ??25 Gm 50 mL, IV Push Slowly, Every 15 minutes Glucagon 1 mg Inj (Glucagon Inj) ??1 mg, Intramuscular, Once Glucose 40% Gel (15 Gm) (Glucose Gel) ??15 Gm, By Mouth, Every 20 minutes Glucose 40% Gel (15 Gm) (Glucose Gel) ??30 Gm, By Mouth, Every 20 minutes Lab Results Cardiology Labs Blood Count & Diff General Chemistry?? WBC: 9 k/mm3 (11/30/24) Sodium: 138 mmol/L (12/01/24) RBC: 4.84 m/mm3 (11/30/24) Potassium: 4 mmol/L (12/01/24) Hgb: 15.1 Gm/dL (11/30/24) Chloride: 98 mmol/L (12/01/24) Hct: 44.9 % (11/30/24) Bicarbonate Level: 26 mmol/L (12/01/24) MCV: 92.8 femtoliters (11/30/24) Anion Gap: 14 mmol/L (12/01/24) Platelet Count:??149 k/mm3??Low (11/30/24) Glucose Level:??188 mg/dL??High (12/01/24) ?? BUN: 20 mg/dL (12/01/24) ?? Creatinine-Blood: 0.89 mg/dL (12/01/24) ?? Estimated GFR Creatinine: 91 ML/MIN/1.73 M2 (12/01/24) ?? Calcium: 9.5 mg/dL (12/01/24) ?? Magnesium: 1.9 mg/dL (12/01/24) Diagnostic Impression ECG ECG 12-Lead * Preliminary * ?? 22:10:18 Ventricular Rate: 60 BPM QRS Duration: 92 ms Q-T Interval: 446 ms QTC Calculation(Bazett): 446 ms R [place]: -9 degrees T [place]: -12 degrees Junctional rhythm Abnormal ECG When compared with ECG of 30-Nov-2024 17:35, MANUAL COMPARISON REQUIRED DATA IS UNCONFIRMED ?? Cameron: , ?? ECG 12-Lead * Preliminary * ?? 22:10:18 Please click on pdf link to open report Echo Echocardiogram - Complete ?? 14:24:30 Summary The left ventricular size is normal. Left ventricular wall thickness is normal. The LV systolic function is normal. The left ventricular ejection fraction is 55-60%. No obvious wall motion abnormalities seen on limited views. Unable to assess diastolic function due to severe mitral annulus calcification . The aortic valve is is poorly visualized, but appears severely calcified with decreased leaflet mobility. There is severe aortic stenosis. The aortic valve area is 0.94cm2 by continuity equation. The mean gradient is 30mmHg. There is no significant aortic regurgitation. There is severe mitral annular calcification which extends into the valve leaflets and LVOT(anterior>posterior). There is mild mitral regurgitation. There is mitral stenosis. mean gradient is 2.4 mmHg. The right ventricle is dilated. Right ventricular systolic function appears preserved. There is no significant pericardial effusion. ?? Comparison Comparison is made to the study of November 07, 2019. Images not available. ?? Signature ?? 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 Patient seen independently and discussedtogether. ? 55 minutes spent in the care of this patient. CPT 94029. ?? Toro Vidal MD [facility] * Edita Hood: PERFORM Event Display: Discharge/Transfer Note Hospital Authored Date: [id number] Nursing Discharge Note Entered On: 12/02/2024 16:51 EDT Performed On: 12/02/2024 16:50 EDT by Edita Hood Nursing Discharge Note 2 Discharge Time : 12/02/2024 17:00 EDT Discharge Level of Care at Discharge : Home/Penitentiary/Foster Care Patient Left Unit Via : Ambulatory Patient Accompanied Off Unit with : Significant other DC Instructions Provided & Signed by Pt : Yes Patient Understands D/C Instructions : Yes Patient Instructions Discharge Signed : Yes Did Pt have Specialty Bed or Wound Vac : No Edita Hood - 12/02/2024 16:50 EDT * Mikki Novoa MD: PERFORM, MODIFY Event Display: Discharge/Transfer Note Hospital Authored Date: [id number] Patient: ??DIONICIO VIDAL ? Age:??74 Years?Sex:??Male?:??1950?? Patient Information Discharge Location: Primary Care Physician: Adan Arellano MD Admit Date/Time: 11/30/2024 22:59 Discharge Disposition Discharge Disposition: Home: No Services Discharge Diagnosis Acute diastolic heart failure (I50.31) Type 2 myocardial infarction (I21.A1) Coronary artery disease without angina pectoris (I25.10) Status post transcatheter aortic valve replacement (TAVR) using bioprosthesis (Z95.3) Type 2 diabetes mellitus with hyperglycemia, without long-term current use of insulin (E11.65) _ Discharge Medications Aspirin (aspirin 81 mg oral tablet)??81 Milligram 1 tab(s) By Mouth Daily Atorvastatin (atorvastatin 40 mg oral tablet)??1 tab(s) 40 Milligram By Mouth Daily dapagliflozin (dapagliflozin 10 mg oral tablet)??10 Milligram By Mouth Daily Furosemide (Lasix 20 mg oral tablet)??20 Milligram 1 tablet By Mouth Daily as needed Take 20 mg daily as needed if you were to gain 1 lbs daily for 3 days in a row or 5 lbs in total of week; Stop once your body weight is back to baseline. Other Metoprolol (Toprol XL 25 mg oral tablet, extended release)??25 Milligram 1 tablet By Mouth Daily Hold if systolic blood pressure is below 100 mmHg or heart rate is below 55 [id number] ? Discharge Medications New dapagliflozin (dapagliflozin 10 mg oral tablet)10 Milligram Oral Daily. Refills: 0. Changed Atorvastatin (atorvastatin 40 mg oral tablet)1 tab(s) Oral Daily. Furosemide (Lasix 20 mg oral tablet)1 tab(s) Oral Daily as needed Other. Take 20 mg daily as neededif you were to gain 1 lbs daily for 3 days in a row or 5 lbs in total of week; Stop once your body weight is back to baseline.. Refills: 0. Metformin (metFORMIN 1000 mg oral tablet) Metoprolol (Toprol XL 25 mg oral tablet, extended release)1 tab(s) Oral Daily. Hold if systolic blood pressure is below 100 mmHg or heart rate is below 55 [id number]. Refills: 0. Unchanged Aspirin (aspirin 81 mg oral tablet)1 tab(s) Oral Daily. Discontinued Bumetanide (bumetanide 1 mg oral tablet)1 tab(s) Oral Daily. Durable Medical Equipment (FastSoft Flash Glucose Meter)Test 2 times a day. Refills: 0. Durable Medical Equipment (Freestyle Lancets)Test 4 times a day for DM2. Refills: 5. Durable Medical Equipment (Freestyle Lite Monitor)Use to check blood glucose levels up to 4 times aday, E11.9. Refills: 0. Durable Medical Equipment (Freestyle Lite Test Strips)Use to check blood glucose levels up to 4 times a day, E11.9. Refills: 6. Durable Medical Equipment (Freestyle Test Strips)Test 2 times a day for DM2. Refills: 5. Omeprazole (omeprazole 20 mg oral enteric coated capsule)1 capsule Oral Daily. Ticagrelor (Brilinta (ticagrelor) 90 mg oral tablet) PCP Follow-Up/Heads-Up Repeat BMP in one week Hospital Course Dionicio is a 74 years old male??with CAD s/p CABG and??PCI, severe s/p TAVR, HTN, HLD, DM2, presenting with acute dyspnea, ER workup showed stable BMP/CBC, normal D-dimer (adjusted for age), and elevated troponin, CT chest showed pulmonary edema and pleural effusion, he was diagnosed with acute decompensated HFpEF and admitted, his symptoms responded very well to IV diuresis, Farxiga was started as GDMT, cardiology consulted and TTE showed preserved LVEF without RWMA. No other acute events during hospital stay. Today he is alert and oriented, hemodynamically stable, feeling great and has been walking several laps in hallway and tolerated well, clinically euvolemic without new symptoms, ready for discharge. Cardiology will schedule closer outpatient follow up. Objective Assessment and Plan Assessment:? Acute diastolic heart failure (I50.31):??-based on dyspnea, elevated proBNP and pulmonary edema on CT, dyspnea resolved with IV Lasix x2; trigger include discretionary salt intake? -TTE showed preserved LVEF without RWMA ?? -GDTM: Farxiga repeat BMP in one week outpatient; additional GDMT can be determined??at next cardiology visit? -heart failure action plan discussed, prn Lasix based on weight gain; avoid NSAIDs? Type 2 myocardial infarction (I21.A1):??-elevated troponin with dynamic changes, chest pain free most consistent with type 2 CO 2/2 decompensated heart failure ?? Coronary artery disease without angina pectoris (I25.10):??-s/p PCI 2023; continue ASA and statin; Toprol XL lowered to 25 mg due to borderline low HR (50-60 BPM during daytime, occasionally down to high 40 BPM on tele while asleep, no prolonged pause or high degree AV block) ?? Type 2 diabetes mellitus with hyperglycemia, without long-term current use of insulin (E11.65):??-resume metformin upon discharge, A1c 7.5% may stop metformin if deemed appropriate by PCP now that heis on Farxiga? Discussed with RN/Cardiology; Tele reviewed: NSR, HR 50-60 BPM. ?? Discharge Planning:??Home? Code Status:??Full?Order Code Status:??Code Status Ordered ? Measurements?? Height: 163 cm (12/02/24) Weight: 67.5 kg (12/02/24) Dry Weight: 66 kg (12/01/24) Body Mass Index:??25.97 kg/m2??High (12/01/24) ? Vital Signs?? Temperature: 97.8 DegF (12/02/24 08:28:00) Temperature Route: Oral (12/02/24 08:28:00) Pulse Rate:??53 bpm??Low (12/02/24 08:28:00) Respiratory Rate: 19 br/min (12/02/24 08:28:00) Systolic Blood Pressure: 133 mm Hg (12/02/24 08:28:00) Diastolic Blood Pressure:??50 mm Hg??Low (12/02/24 08:28:00) Blood pressure sites: Arm, right (12/02/24 08:28:00) Mean Arterial Pressure: 78 mm Hg (12/02/24 08:28:00) Pulse Pressure: 83 mm Hg (12/02/24 08:28:00) Oxygen Saturation: 97 % (12/02/24 08:28:00) Mode of Delivery (Oxygen): Room air (12/02/24 08:28:00) Early Warning Score: 5 (12/02/24 12:32:25) ? Basic ADLs Assistance w bathing/eating/dressing: No (12/01/24) Feeding Assistance: Independent (12/02/24) Need for Assist w/ Walk/Transfer: No (12/01/24) ? Mobility & Ambulation Level Mobility & Ambulation Level No qualifying data available. ?? Therapeutic Activity Therapeutic Activities/Mobility/Balance?? No qualifying data available. ?? . Physical Exam Constitutional: Alert, in no acute distress. Head EENT: Extraocular muscle movement intact.??Moist mucous membranes.?? Respiratory: Clear to auscultation. No wheezing or crackles. No use of accessory muscles. Cardiovascular: S1S2 regular. No murmurs, rubs or gallops. Gastrointestinal: Abdomen soft, non-tender, non-distended. Normal bowel sounds. Extremities: No lower extremity pitting??edema. No cyanosis or clubbing. Neurologic: AAOx3, Speech normal. No focal neurological deficits. Skin: No rash. Psychiatric: Normal mood and affect [facility] Cardiology Pending Results Add On Lab Order ordered on 12/01/2024 Patient Education Titles [employer] Patient Education - Heart Failure Nutrition Therapy?? [employer] Patient Education - Furosemide?? [employer] Patient Education - Dapagliflozin?? [employer] Patient Education - Heart Failure Zones: Your Action Plan?? Follow-Up Appointments Added Follow Up ?Time Frame ?Comments ArellanoAdan knott MD?1 week Patient Instructions You are admitted for heart failure exacerbation, it means there was excessive amount of fluid in your circulation that exceeded your heart capacity to pump, and some of these extra fluid got retainedin your lungs and legs; You received diuresis (furosemide) with good response, the new echocardiogram did not show significant changes when compared to previous one; You were also evaluated by cardiology team;? Following discharge please start dapagliflozin (Farxiga), this may help improve outcome of chronic heart failure; Dapagliflozin may increase risk of dehydration and urinary tract infection/fungal infection around perineum area, hold it if you need to be fasting for events or procedures, or wheneveryour oral intake is low; Keep up with personal hygiene as you have been doing; ?? Farxiga can also treat type 2 diabetes and lower your glucose level, please monitor the fingerstickglucose level regularly upon discharge and discuss with your primary care provider if you still need metformin now that you begin to take Farxiga;? Your heart rate has been on the lower end of normal range, please reduce metoprolol to 25 mg daily (new prescription sent); Check blood pressure and heart rate daily, hold metoprolol for that given day if the systolic blood pressure is below 100 mmHg or heart rate is below 55 [id number];? Please repeat blood work to ensure stability of electrolytes and kidney function (via primary care provider office) in one week following discharge;? Please weigh yourself daily upon discharge, if you were to gain 1 lbs daily for 3 days in a row, or5 lbs in total of one week, please??start taking furosemide 20 mg daily until your weight is back to baseline, call your stock drier tender's office for additional advice as appropriate;? You may use acetaminophen for minor pain but do not exceed 3000 mg/24 hours (taking excessive amount of acetaminophen may cause severe, even life- threatening liver failure); Please do not use ibuprofen, naproxen, diclofenac or other pqvg-vpx-ldzgtjk analgesics collectively called NSAIDs as they may worsen your heart conditions and??also increase risk of internal bleeding; ?? Follow up with [facility] Cardiology as scheduled (the office will schedule a sooner appointment for you due to this hospitalization);? Return to nearest emergency room or call 911 if you experience fever T>100.4F, chill, chest painlasts longer than 10 minutes, shortness of breathing with minimal exertion, worsening or more constant abdominal pain, nausea/vomiting, food intolerance, bloody or tarry stool, extreme fatigue or dizziness, or other severe and/or persistent symptoms. ?? Post Discharge Care Activity: ??Resume activity as tolerated ?? Code Status: ??Full ?? Condition: ??Good ?? Prognosis: ??Good ?? Results Discharge Labs BLOOD COUNT & DIFF WBC 9.0 k/mm3 ()?? 11/30/2024 13:38 RBC 4.84 m/mm3 ()?? 11/30/2024 13:38 Hgb 15.1 Gm/dL ()?? 11/30/2024 13:38 Hct 44.9 % ()?? 11/30/2024 13:38 MCV 92.8 femtoliters ()?? 11/30/2024 13:38 MCH 31.2 pg ()?? 11/30/2024 13:38 MCHC 33.6 Gm/dL ()?? 11/30/2024 13:38 Platelet Count 149 k/mm3 (Low)?? 11/30/2024 13:38 RDW-SD 42.3 femtoliters ()?? 11/30/2024 13:38 MPV 11.7 femtoliters ()?? 11/30/2024 13:38 Nucleated RBC (Automated) 0.0 #/100 WBC'S ()?? 11/30/2024 13:38 Abs. NRBC 0.0 k/mm3 ()?? 11/30/2024 13:38 Abs. Neut 6.5 k/mm3 ()?? 11/30/2024 13:38 Abs. Lymph 1.5 k/mm3 ()?? 11/30/2024 13:38 Abs. [place] 0.7 k/mm3 ()?? 11/30/2024 13:38 Abs. Eo 0.2 k/mm3 ()?? 11/30/2024 13:38 Abs. Baso 0.0 k/mm3 ()?? 11/30/2024 13:38 Neut % 73.0 % ()?? 11/30/2024 13:38 Lymph % 17.2 % ()?? 11/30/2024 13:38 [place] % 7.2 % ()?? 11/30/2024 13:38 Eos % 2.2 % ()?? 11/30/2024 13:38 Baso % 0.2 % ()?? 11/30/2024 13:38 Imm Gran 0.2 % ()?? 11/30/2024 13:38 Abs. Imm Gran 0.0 k/mm3 ()?? 11/30/2024 13:38 ?? CARDIAC Nt-Probnp 1444 pg/mL (High)?? 11/30/2024 17:50 High Sensitivity Troponin (HSTnT) 125 ng/L (Critical)?? 11/30/2024 22:54 ?? CHEM GENERAL Sodium 139 mmol/L ()?? 12/02/2024 01:10 Potassium 4.0 mmol/L ()?? 12/02/2024 01:10 Chloride 100 mmol/L ()?? 12/02/2024 01:10 Bicarbonate Level 29 mmol/L ()?? 12/02/2024 01:10 Anion Gap 10 mmol/L ()?? 12/02/2024 01:10 Glucose Level 99 mg/dL ()?? 12/02/2024 01:10 Glucose, POC 96 mg/dL ()?? 12/02/2024 12:31 Hemoglobin A1C (Monitoring) 7.5 % (High)?? 12/01/2024 01:04 BUN 27 mg/dL (High)?? 12/02/2024 01:10 Creatinine-Blood 0.84 mg/dL ()?? 12/02/2024 01:10 Estimated GFR Creatinine 93 ML/MIN/1.73 M2 ()?? 12/02/2024 01:10 Calcium 9.3 mg/dL ()?? 12/02/2024 01:10 Magnesium 1.9 mg/dL ()?? 12/02/2024 01:10 Protein, Total 6.4 Gm/dL ()?? 12/02/2024 01:10 Albumin 3.8 Gm/dL ()?? 12/02/2024 01:10 AG Ratio 1.5 ()?? 12/02/2024 01:10 Alkaline Phosphatase 57 units/L ()?? 12/02/2024 01:10 AST (SGOT) 25 units/L ()?? 12/02/2024 01:10 ALT (SGPT) 59 units/L (High)?? 12/02/2024 01:10 Bilirubin, Total 1.0 mg/dL ()?? 12/02/2024 01:10 Bilirubin, Direct HEMOLYZED mg/dL ()?? 12/01/2024 01:04 Bilirubin, Indirect Unable to calculate mg/dL ()?? 12/01/2024 01:04 ?? COAG D-Dimer 0.70 mg/L FEU ()?? 11/30/2024 17:50 ? HEME OTHER Hold Lavender Top SPECIMEN DISCARDED AFTER 24 HOURS. ()?? 12/01/2024 01:04 Hold Blue Top SPECIMEN DISCARDED AFTER 4 HOURS. ()?? 11/30/2024 13:38 ?? LIPID STUDIES Cholesterol 76 mg/dL ()?? 12/01/2024 01:04 Triglycerides 93 mg/dL ()?? 12/01/2024 01:04 HDL Cholesterol 26 mg/dL (Low)?? 12/01/2024 01:04 LDL Cholesterol 31 mg/dL ()?? 12/01/2024 01:04 Non HDL Cholesterol 50 mg/dL ()?? 12/01/2024 01:04 ? URINE OTHER Est Creatinine Clearance 67.01 mL/min ()?? 12/02/2024 02:25 ? VIROLOGY COVID-19 by RT-PCR NEGATIVE ()?? 12/01/2024 01:26 ? 35??minutes spent on discharge * Ivette Amin RN: PERFORM Event Display: Patient Education/Instruction Authored Date: [id number] Inpatient Adult Discharge Instructions. [place] [id number] Name: DIONICIO VIDAL : 1950?? Visit: 11/30/2024 22:59?? Current Date: 12/02/2024 16:18 ?? Account: [id number]?? Inpatient Adult Discharge Instructions We would like to thank you for allowing us to assist you with your healthcare needs. The following includes patient education materials and information regarding your injury/illness. Our entire staffstrives to provide an excellent experience for our patients and their families. PLEASE ENSURE YOU FOLLOW-UP PER THE INSTRUCTIONS BELOW! ?? YOUR OPINION IS IMPORTANT TO US! Please complete the survey you may receive by mail or email. Your feedback will be used to make improvements to the healthcare experiences of our patients and their families. Surveys are administered by [employer] ?? If further treatment with your primary care physician or another doctor is recommended, it is important for you to keep the appointment. Call your primary care physician or return to the Emergency Department immediately if your condition worsens, fails to improve, or new symptoms develop. If you need to find a doctor, you can call [facility] for a referral at [phone] or toll free at [phone]) or log in to [email or web address].. ?? [facility], in keeping with [facility] guidance, no longer requires face masks for staff, patientsor visitors in most situations. Similiar to time spent indoors at other locations, there is the chance that you were exposed to repiratory viruses during your time with us (such as flu or COVID-19). If you develop symptoms concerning for a viral respiratory infection, please seek testing (and treatment if indicated) from your medical provider or home test kit. ?? You can view and manage your care through the patient portal or by using a health care samuel of your choosing. [email or web address] is a website that allows you to securely view your medical information including your hospital discharge summary, office visit summaries, medications and follow-up visits. You can also request appointments, renew medications, and request access to your medical information using a health care samuel of your choosing, or just ask a question. You are entitled to know the individuals who participated in your treatment.This information is available within your medical record and will be provided upon your request. You can enroll at [email or web address] or register during your next office visit. You have been discharged from [facility], Patient Care Unit: M6??. If you have any questions or concerns following your procedure, please call your surgeon?s office for assistance. [facility] Your Care Team Attending Physician Mikki Novoa MD?? Consulting Providers Mikki Novoa MD?? Discharging Providers Mikki Novoa MD Reason for Your Visit acs r.o, elevated trop?? Your Diagnosis Acute diastolic heart failure Type 2 myocardial infarction Coronary artery disease without angina pectoris Status post transcatheter aortic valve replacement (TAVR) using bioprosthesis Type 2 diabetes mellitus with hyperglycemia, without long-term current use of insulin Tests Performed Below is a partial list of the tests performed during your hospitalization. You may have had other tests and procedures not included in this list. Please discuss all test results with your provider. Basic Metabolic Panel CBC w/ Differential Comprehensive Metabolic Panel COVID-19 (Novel Coronavirus), Rapid PCR D Dimer GLUCOSE POC HEMOGLOBIN A1C HEPATIC FUNCTION PANEL High??Sensitivity??Troponin T Hold Blue Top Tube HOLD LAVENDER TUBE LIPID PANEL Magnesium Level ProBNP CT Angio Chest XR Chest 2 Views Frontal and Lat Add On Lab Order?? B Type Natriuretic Peptide (NT-proBNP) (ProBNP)?? Basic Metabolic Panel?? CBC w/ Differential?? COVID-19 (Novel Coronavirus), Rapid PCR?? CT Angio Chest?? Comprehensive Metabolic Panel?? D Dimer?? Glucose POC?? Hemoglobin A1C (Monitoring) (HEMOGLOBIN A1C)?? Hepatic Function Panel?? High??Sensitivity??Troponin T?? Hold Blue Top Tube?? Hold Lavender Top Tube (HOLD LAVENDER TUBE)?? Lipid Panel?? Magnesium Level?? Chest 2 Views Frontal and Lat (XR Chest 2 Views Frontal and Lat)?? Primary Care Provider Adan Arellano MD? Advance Directive Health Care Proxy on File No Patient refuses to discuss Discharge Vitals Temperature: 98 DegF Height: 163 cm Pulse Rate:??52 bpm??Low Weight: 67.5 kg Respiratory Rate: 18 br/min Body Mass Index:??25.97 kg/m2??High Systolic Blood Pressure: 135 mm Hg Body surface area: 1.77 Diastolic Blood Pressure: 56 mm Hg ?? Oxygen Saturation: 98 % ?? Studies Pending All studies ordered during this hospital stay have been completed unless listed below. Please discuss all pending results with your provider listed above in these instructions. ?? Add On Lab Order?? What to do next Instructions From Your Doctor You are admitted for heart failure exacerbation, it means there was excessive amount of fluid in your circulation that exceeded your heart capacity to pump, and some of these extra fluid got retainedin your lungs and legs; You received diuresis (furosemide) with good response, the new echocardiogram did not show significant changes when compared to previous one; You were also evaluated by cardiology team;? Following discharge please start dapagliflozin (Farxiga), this may help improve outcome of chronic heart failure; Dapagliflozin may increase risk of dehydration and urinary tract infection/fungal infection around perineum area, hold it if you need to be fasting for events or procedures, or wheneveryour oral intake is low; Keep up with personal hygiene as you have been doing; ?? Farxiga can also treat type 2 diabetes and lower your glucose level, please monitor the fingerstickglucose level regularly upon discharge and discuss with your primary care provider if you still need metformin now that you begin to take Farxiga;? Your heart rate has been on the lower end of normal range, please reduce metoprolol to 25 mg daily (new prescription sent); Check blood pressure and heart rate daily, hold metoprolol for that given day if the systolic blood pressure is below 100 mmHg or heart rate is below 55 [id number];? Please repeat blood work to ensure stability of electrolytes and kidney function (via primary care provider office) in one week following discharge;? Please weigh yourself daily upon discharge, if you were to gain 1 lbs daily for 3 days in a row, or5 lbs in total of one week, please??start taking furosemide 20 mg daily until your weight is back to baseline, call your stock drier tender's office for additional advice as appropriate;? You may use acetaminophen for minor pain but do not exceed 3000 mg/24 hours (taking excessive amount of acetaminophen may cause severe, even life- threatening liver failure); Please do not use ibuprofen, naproxen, diclofenac or other iihg-lhv-ygmxfyp analgesics collectively called NSAIDs as they may worsen your heart conditions and??also increase risk of internal bleeding; ?? Follow up with [facility] Cardiology as scheduled (the office will schedule a sooner appointment for you due to this hospitalization);? Return to nearest emergency room or call 911 if you experience fever T>100.4F, chill, chest painlasts longer than 10 minutes, shortness of breathing with minimal exertion, worsening or more constant abdominal pain, nausea/vomiting, food intolerance, bloody or tarry stool, extreme fatigue or dizziness, or other severe and/or persistent symptoms. ? Orders??:Resume activity as tolerated Status:Full : ??Good :Good? 12/02/24 14:27:00 EDT?? Prescriptions??, ??12/02/24 14:27:00 EDT?? You Need to Schedule the Following Appointments Follow Up with??Adan Arellano MD:Within 1 week Where:[address] Adan Arellano III, [place] [address]- Discharge Medications DIONICIO VIDAL :1950 Visit Date:11/30/2024 Medications: Please continue your medications until treatment is completed or stopped by your provider. Medications not listed below should be discontinued. Discuss any questions related to medications with your provider. What How Much When Instructions Next Dose New dapagliflozin (dapagliflozin 10 mg oral tablet) 10 Milligram Oral Daily Ordering Physician: Mikki Novoa MD Pickup at [place] [address] Tomorrow 12/03 in a.m. Changed Atorvastatin (atorvastatin 40 mg oral tablet) 1 tab(s) Oral Daily Tomorrow 12/03 in a.m. Changed Furosemide (Lasix 20 mg oral tablet) 1 tab(s) Oral Daily as needed for Other Special Instructions: Take 20 mg daily as needed if you were to gain 1 lbs daily for 3 days in a row or 5 lbs in total of week; Stop once your body weight is back to baseline. Ordering Physician: Mikki Novoa MD ?? Pickup at [facility] 3 As directed Changed Metformin (metFORMIN 1000 mg oral tablet) Tomorrow 12/03 in a.m. Changed Metoprolol (Toprol XL 25 mg oral tablet, extended release) 1 tab(s) Oral Daily Special Instructions: Hold if systolic blood pressure is below 100 mmHg or heart rate is below 55 [id number] Ordering Physician: Mikki Novoa MD ?? Pickup at [facility] 3 Tomorrow 12/03 in a.m. Unchanged Aspirin (aspirin 81 mg oral tablet) 1 tab(s) Oral Daily Tomorrow 12/03 in a.m. Pharmacy Information [facility]: [address], [place] [id number] [phone] ?? What How Much When Why Comments Stop Taking Bumetanide (bumetanide 1 mg oral tablet) 1 tab(s) Oral Daily Stop Taking Durable Medical Equipment (Freestyle Flash Glucose Meter) See instructions Diabetes mellitus Special Instructions: Test 2 times a day Ordering Physician: Eric Clement MD ?? Stop Taking Durable Medical Equipment (Freestyle Lancets) See instructions Diabetes mellitus Duration: 30 Days Special Instructions: Test 4 times a day for DM2 Ordering Physician: Eric Clement MD ?? Stop Taking Durable Medical Equipment (Freestyle Lite Monitor) See instructions Special Instructions: Use to check blood glucose levels up to 4 times a day, E11.9 Ordering Physician: Eric Clement MD ?? Stop Taking Durable Medical Equipment (Freestyle Lite Test Strips) See instructions Special Instructions: Use to check blood glucose levels up to 4 times a day, E11.9 Ordering Physician: Eric Clement MD ?? Stop Taking Durable Medical Equipment (Freestyle Test Strips) See instructions Diabetes mellitus Duration: 30 Days Special Instructions: Test 2 times a day for DM2 Ordering Physician: Eric Clement MD ?? Stop Taking Omeprazole (omeprazole 20 mg oral enteric coated capsule) 1 capsule Oral Daily Stop Taking Ticagrelor (Brilinta (ticagrelor) 90 mg oral tablet) Prescription Given During Visit Furosemide (Lasix 20 mg oral tablet) - 1 tablet = 20 mg, By Mouth, Daily, # 90 tablet, 0 Refills, Take 20 mg daily as needed if you were to gain 1 lbs daily for 3 days in a row or 5 lbs in total of week; Stop once your body weight is back to baseline., [place] [address] [phone]?? Metoprolol (Toprol XL 25 mg oral tablet, extended release) - 1 tablet = 25 mg, By Mouth, Daily, # 90 tablet, 0 Refills, Hold if systolic blood pressure is below 100 mmHg or heart rate is below 55 [id number], [place] [address] [phone]?? dapagliflozin (dapagliflozin 10 mg oral tablet) - 10 mg, By Mouth, Daily, # 90 tablet, 0 Refills, [place] [address] [phone]?? Laboratory Results Below is a partial list of the most recent Laboratory test results done prior to this discharge. You may have had other tests and procedures not included in this list. Please discuss all test resultswith your provider. Est Creatinine Clearance - 67.01 mL/min (12/02/2024) Basic Metabolic Panel (12/01/2024) ???Sodium - 138 mmol/L???Potassium - 4.0 mmol/L???Chloride - 98 mmol/L???Bicarbonate Level - 26 mmol/L???Anion Gap - 14 mmol/L???Glucose Level - 188 mg/dL???BUN - 20 mg/dL???Creatinine-Blood - 0.89 mg/dL???Estimated GFR Creatinine - 91 ML/MIN/1.73 M2???Calcium - 9.5 mg/dL CBC w/ Differential (11/30/2024) ???WBC - 9.0 k/mm3???RBC - 4.84 m/mm3???Hgb - 15.1 Gm/dL???Hct - 44.9 %???MCV - 92.8 femtoliters???MCH - 31.2 pg???MCHC - 33.6 Gm/dL???Platelet Count - 149 k/mm3???RDW-SD - 42.3 femtoliters???MPV - 11.7 femtoliters???Nucleated RBC (Automated) - 0.0 #/100 WBC'S???Abs. NRBC - 0.0 k/mm3???Abs. Neut - 6.5 k/mm3???Abs. Lymph - 1.5 k/mm3???Abs. [place] - 0.7 k/mm3???Abs. Eo - 0.2 k/mm3???Abs. Baso - 0.0 k/mm3???Neut % - 73.0 %???Lymph % - 17.2 %???[place] % - 7.2 %???Eos % - 2.2 %???Baso % - 0.2 %???Imm Gran - 0.2 %???Abs. Imm Gran - 0.0 k/mm3 Comprehensive Metabolic Panel (12/02/2024) ???Sodium - 139 mmol/L???Potassium - 4.0 mmol/L???Chloride - 100 mmol/L???Bicarbonate Level - 29 mmol/L???Anion Gap - 10 mmol/L???Glucose Level - 99 mg/dL???BUN - 27 mg/dL???Creatinine-Blood - 0.84 mg/dL???Estimated GFR Creatinine - 93 ML/MIN/1.73 M2???Calcium - 9.3 mg/dL???Protein, Total - 6.4 Gm/d L???Albumin - 3.8 Gm/dL???AG Ratio - 1.5???Alkaline Phosphatase - 57 units/L???AST (SGOT) - 25 units/L???ALT (SGPT) - 59 units/L???Bilirubin, Total - 1.0 mg/dL COVID-19 (Novel Coronavirus), Rapid PCR (12/01/2024) ???COVID-19 by RT-PCR - NEGATIVE D Dimer (11/30/2024) ???D-Dimer - 0.70 mg/L FEU GLUCOSE POC (12/02/2024) ???Glucose, POC - 96 mg/dL HEMOGLOBIN A1C (12/01/2024) ???Hemoglobin A1C (Monitoring) - 7.5 % HEPATIC FUNCTION PANEL (12/01/2024) ???Protein, Total - 7.1 Gm/dL???Albumin - 4.1 Gm/dL???Alkaline Phosphatase - 64 units/L???AST (SGOT) - 42 units/L???ALT (SGPT) - 79 units/L???Bilirubin, Total - 1.1 mg/dL???Bilirubin, Direct - HEMOLYZED???Bilirubin, Indirect - Unable to calculate High??Sensitivity??Troponin T (11/30/2024) ???High Sensitivity Troponin (HSTnT) - 125 ng/L Hold Blue Top Tube (11/30/2024) ???Hold Blue Top - SPECIMEN DISCARDED AFTER 4 HOURS. HOLD LAVENDER TUBE (12/01/2024) ???Hold Lavender Top - SPECIMEN DISCARDED AFTER 24 HOURS. LIPID PANEL (12/01/2024) ???Cholesterol - 76 mg/dL???Triglycerides - 93 mg/dL???HDL Cholesterol - 26 mg/dL???LDL Cholesterol- 31 mg/dL???Non HDL Cholesterol - 50 mg/dL Magnesium Level (12/02/2024) ???Magnesium - 1.9 mg/dL ProBNP (11/30/2024) ???Nt-Probnp - 1444 pg/mL Allergies (NKA means No Known Allergies) Contrast Dye??hives ampicillin??hives penicillins Problems Active Problems??(5) Coronary artery disease?? Hyperlipidemia?? Hypertension?? Moderate aortic stenosis?? S/P CABG x 4?? Education Materials Below is the list of Educational Leaflet Providered with your Discharge Instructions. [employer] Patient Education - Heart Failure Nutrition Therapy?? [employer] Patient Education - Furosemide?? [employer] Patient Education - Dapagliflozin?? [employer] Patient Education - Heart Failure Zones: Your Action Plan?? Valuables and Belongings I fully understand and agree that [facility] accepts no responsibility for all my personal property including clothing, toilet articles, radios, jewelry, dentures, hearing aids, rings, money, or any other property that is in my possession or is brought to me after admission. I understand certain valuables may be placed in a hospital safe for a short period of time. I understand that the hospital is not liable for loss or damage due to accident, fire, or other natural occurrence while said property is in the safe. I accept full responsibility for any personal property that I keep with me, and will not hold the hospital responsible in case of loss or disappearance. I acknowledge that i have been encouraged to send valuables and belongings home. ?? Review of Valuable and Belonging List: With patient Date for Pt to Sign Valuables/Belongings: 12/01/24 00:46:00 ?? Other Discharge Information ? Pulmonary Rehab Status?? Pulmonary Rehab Discharge Status?? Respiratory Rate: 18 br/min ? Common Emergency Awareness Tips IS IT A STROKE? Act FAST and Check for these signs: FACE Does the face look uneven? ARM Does one arm drift down? SPEECH Does their speech sound strange? TIME Call at any sign of stroke ?? Heart Attack Signs Chest discomfort: Most heart attacks involve discomfort in the center of the chest and lasts more than a few minutes, or goes away and comes back. It can feel like uncomfortable pressure, squeezing, fullness or pain. Discomfort in upper body: Symptoms can include pain or discomfort in one or both arms, back, neck, jaw or stomach. Shortness of breath: With or without discomfort. Other signs: Breaking out in a cold sweat, nausea, or lightheaded. Remember, MINUTES DO MATTER. If you experience any of these heart attack warning signs, call to get immediate medical attention! ?? Smoking can increase your chances of developing chronic health problems and can cause harmful effects to other family members in your house. If you smoke, you are strongly encouraged to quit. Please call [facility] at [phone] or [phone]) or log in to [email or web address] for referrals to smoking cessation programs. ?? 712 Suicide & Crisis Lifeline is available 25/10 if you or someone you know needs to find a reason to keep living. By calling 843 you'll be connected to a skilled, trained counselor at a crisis center in your area. INPATIENT DISCHARGE INSTRUCTIONS SIGNATURE PAGE DIONICIO VIDAL Location:[facility] Registration Date and Time:11/30/2024 22:59 EDT Primary Care Physician: Eileen GOMEZ, Adan Abrams, Attending Physician: Sommer GOMEZ, Mikki, I DIONICIO VIDAL, have received the above patient education materials/instructions and have verbalized understanding. If ambulance or transport services are being used I further acknowledge being given a choice of service. ?? If you need to contact me, please call me at this number: . Patient/Service Trainer Name: Patient/Service Trainer Signature: Relationship to Patient: Witness Name/Signature: Date: * Mikki Novoa MD: PERFORM Event Display: Patient Education Leaflets Authored Date: [id number] Heart Failure Nutrition Therapy ?? 656 ? P repared For: ?? Date: ?? Prepared By: ?? Contact: ? Heart Failure Nutrition Therapy ?This nutrition therapy will help you feel better and support your heart. ?This plan focuses on: ? Limiting sodium in your diet. Salt (sodium) makes your body hold water. When your body holds too much water, you can feel shortness of breath and swelling. You can prevent these symptoms by eating less salt. ??? Limiting fluid in your diet. For some patients, drinking too much fluid can make heart failure worse. It can cause symptoms such as shortness of breath and swelling. Limiting fluids can help relieve some of your symptoms. ??? Managing your weight. Your certified registered locksmith (RDN) canhelp you choose a healthy weight for your body type. ?? You can achieve these goals by: ? Reading food labels to keep track of how much sodium is in the foods you eat. ??? Limiting foods that are high in sodium ??? Checking your weight to make sure you are not retaining too much fluid. ?? Reading the food label:?? How much sodium is too much? The nutrition plan for heart failure usually limits the sodium you get from food and drinks to 2,000 milligrams per day. Salt is the main source of sodium. Read the nutrition label to ?? nd out how much sodium is in 1 serving of a food. ? Select foods with 140 milligrams of sodium or less per serving. ??? Foods with more than 300 milligrams of sodium per serving may not ?? t into a reduced- sodium meal plan. ??? Check serving sizes. If you eat more than 1 serving, you will get more sodium than the amount listed. ?? Cutting back on Sodium ? Avoid processed foods. Eat more fresh foods o Fresh and frozen fruits and vegetables without added juices or sauces are naturally low in sodium. o Fresh meats are lower in sodium than processed meats, such as delgado, sausage, and hot dogs. Read the nutrition label or ask your rehabilitation services coordinator to help you?? nd a fresh meat that is low in sodium. ??? Eat less salt, at the table and when cooking o Just 1 teaspoon of table salt has 2,300 milligrams of sodium o Leave the salt out of recipes for pasta, casseroles, and soups o Ask your RDN how to cook your favorite recipes without sodium ??? Be a smart hydraulic chair assembler o Look for food packages that say ???salt-free?? or ???sodium-free.?? These items contain less than 5 milligrams of sodium per serving o ???Mhbl-ufp-melmvb?? products contain less than 35 milligrams of sodium per serving o ???Low-sodium?? products contain less than 140 milligrams of sodium per serving o ???Unsalted?? or ???no added salt?? products may still be high in sodium. Check the nutrition label ??? Add flavor to your food without adding sodium o Try lemon juice, kaguyuk juice, fruit juice, or vinegar o Dry or fresh herbs add ???avor. Try basil, bay leaf, dill, toni, parsley, tanner, dry mustard, nutmeg, thyme, and paprika o Pepper, red pepper ???akes, and cayenne pepper can add spice to your meals without adding sodium. Hot sauce contains sodium, but if you use just a drop or two, it will not add up to much o Buy a sodium-free seasoning blend or make your own at home ??? Use caution when you eat outside your home o Restaurant foods can be very high in sodium o Ask for nutrition information. Many restaurants provide nutrition facts on their menus or websites o Let your surveillance observer know that you want your food to be cooked without salt. Ask for your salad dressing and sauces to come ???on the side ?? Fluid Restriction ?? Your doctor may ask you to follow a ???uid restriction in addition to taking diuretics (water pills). Ask your doctor how much ???uid you can have. Foods that are liquid atroom temperature are considered a ???uid, such as popsicles, soup, ice cream, and Jell-O. Here are some common conversions thatwill help you measure your ???uid intake everyday: ?? -?? 1,000 milliliters = 1 liter or 4 cups?-?? 1 ???uid ounce = 30milliliters ?? -?? 1 cup = 240 milliliters?-?? 2,000 milliliters = 2 liters or 8 cups ?? -?? 1,500 milliliters = 1?? liters or 6 cups ?? Weight Monitoring ?? Weigh yourself each day. Sudden weight gain is a sign that fluid is building up in your body. Follow these guidelines: ? Weigh yourself every morning. If you gain 3 or more pounds in 1-2 days or 5 or more in pounds within a week, call your doctor. Your doctor may adjust your medicine to get rid of the extra fluid ??? Talk to your doctor or RDN about what a healthy weight is for you ??? Talk to your doctor to findout what type of physical activity is best for you ?? Foods Recommended ? Food Group ?? Recommended Foods Grains Bread with less than 80 milligrams sodium per slice (yeast breads usually have less sodium than those made with baking soda) Homemade bread made with reduced-sodium baking soda Many cold cereals, especially shredded wheat and pu???ed rice Oats, grits, or cream of wheat Dry pastas, noodles, quinoa, and rice Vegetables Fresh and frozen vegetables without added sauces, salt, or sodium Homemade soups (salt free or low sodium) Low-sodium or sodium-free canned vegetables and soups Fruits Fresh and canned fruits Dried fruits, such as raisins, cranberries, and prunes Dairy (Milk and Milk Products) Milk or milk powder Rice milk and soy milk Yogurt, including [place]ic yogurt Small amounts of natural, block cheese or reduced-sodium cheese (Israeli, ricotta, and fresh mozzarella are lower in sodium than others) Regular or soft cream cheese and low-sodium cottage cheese Protein Fresh meats and ?? sh Foods [place] delgado (except if packaged in a sodium solution) (Meat, Canned or packed tuna (no more than 4 ounces at 1 serving) Poultry, Dried beans and peas; edamame (fresh soybeans) Fish, Beans) Eggs or egg beaters (if less than 200 mg per serving) ?? Unsalted nuts or peanut butter Desserts Fresh fruit or applesauce and Snacks [place] food cake ?? Granola bars ?? Unsalted pretzels, popcorn, or nuts ?? Pudding or gelatin with whipped cream topping ?? Homemade rice-crispy treats ?? Vanilla wafers ?? Frozen fruit bars Fats Tub or liquid margarine Unsaturated fat oils (canola, olive, corn, sun???ower, sa???ower, peanut) Condiments Fresh or dried herbs; low-sodium ketchup; vinegar; lemonor kag[place] juice; pepper; salt-freeseasoning mixes and marinades (salt-free seasoning blend); simple salad dressings (vinegar and oil); salt-free sauces ?? Foods Not Recommended ?? Food Group Foods Not Recommended Grains Breads or crackers topped with salt Cereals (hot/cold) with more than 300 milligrams sodium per serving Biscuits, cornbread, and other ???quick?? breads prepared with baking soda Prepackaged breadcrumbs Self-rising ???ours Vegetables Canned vegetables (unless they are salt free or low sodium) Frozen vegetables with seasoning and sauces Sauerkraut and pickled vegetables Canned or dried soups (unless they are salt free or low sodium) Dutch fries and onion rings Fruits Dried fruits preserved with sodium-containing additives Dairy (Milk and Milk Products) Buttermilk Processed cheeses Cottage cheese (unless a low-sodium variety) Feta cheese; shredded cheese (has more sodium than block cheese); ???singles?? slices and string cheese Protein Foods (Meat, Poultry, Fish, Beans) Cured meats: delgado, ham, sausage, pepperoni, and hot dogs Canned meats: chili, Merced sausage, sardines, and ham Smoked ?? sh and meats Frozen meals that have more than 600 milligrams sodium Fats Salted butter or margarine Condiments Salt, sea salt, kosher salt, onion salt, and garlic salt Seasoning mixes containing salt (Lemon Pepper or Bouillon cubes) Catsup or ketchup, BBQ sauce, Worcestershire and soy sauce Salsa, pickles, olives, relish Salad dressings: ranch, blue cheese, Frisian, and Dutch Alcohol Check with your doctor. ?? Heart Failure Sample 1-Day Menu ? Breakfast 1 cup regular oatmeal made with water or milk 1 cup reduced-fat (2%) milk 1 medium banana 1 slice whole wheat bread 1 tablespoon salt-free peanut butter Morning Snack 1/2 cup dried cranberries ? Lunch 3 ounces grilled chicken breast 1 cup salad greens [place] oil and vinegar dressing (for greens) 5 unsalted or low-sodium crackers Fruit plate with 1/4 cup strawberries 1/2 sliced orange (for fruit plate) 1 peach half (for fruit plate) ?? Afternoon Snack 1/2 low-sodium turkey sandwich made with: 1 ounce low-sodium turkey 1 piece whole wheat bread ? Evening Meal 3 ounces herb-baked ?? sh 1 baked potato 2 teaspoons soft margarine (trans fat???free) (for potato) Sliced tomatoes 1/2 cup steamed spinach drizzled with lemon juice 3-inch square of rico food cake Fresh strawberries (2) (for cake) Evening Snack 2 tablespoons salt-free peanut butter 5 low-sodium crackers ?? Notes: ?? * Mikki Novoa MD: PERFORM Event Display: Patient Education Leaflets Authored Date: [id number] Furosemide ?? [id number] Furosemide WHY is this medicine prescribed? Furosemide is used alone or with other medications to treat high blood pressure. Furosemide is usedto treat edema excess fluid held in body tissues caused by various medical problems. Furosemide is in a class of medications called diuretics ('water pills'). It works by causing the kidneys to get rid of unneeded water and salt from the body. High blood pressure is a common condition. When not treated, it can cause damage to the brain, heart, blood vessels, kidneys and other parts of the body. This damage may cause heart disease, a heart attack, heart failure, stroke, kidney failure, loss of vision, and other problems. Making lifestyle changes will also help to control your blood pressure. These changes include eating a diet that is low in fat and salt, maintaining a healthy weight, exercising, not smoking, and using alcohol in moderation. HOW should this medicine be used? Furosemide comes as a tablet and as a solution (liquid) to take by mouth. It usually is taken once or twice a day. When used to treat edema, furosemide may be taken daily or only on certain days of the week. When used to treat hypertension, take furosemide at around the same time(s) every day. Take furosemide exactly as directed. Ask your doctor or pharmacist to explain any part you do not understand. Do not take more or less of it or take it more often than prescribed by your doctor. Furosemide controls high blood pressure and edema but does not cure these conditions. Continue to take furosemide even if you feel well. Do not stop taking furosemide without talking to your doctor. Are there OTHER USES for this medicine? This medicine is sometimes prescribed for other uses; ask your doctor or pharmacist for more information. What SPECIAL PRECAUTIONS should I follow? Before taking furosemide, ??? tell your doctor or pharmacist if you are allergic to this drug, any part of this drug, or any other drugs, foods or substances. Tell your doctor or pharmacist about the allergy and what symptomsyou had. ??? tell your doctor and pharmacist what prescription and nonprescription medications, vitamins, nutritional supplements, and herbal products you are taking or plan to take while taking furosemide. Your doctor may need to change the doses of your medications or monitor you carefully for side effects. ??? if you are taking sucralfate (Carafate??), take it 2 hours before or after you take furosemide. ??? the following nonprescription products may interact with furosemide: aspirin and other salicylates; nonsteroidal anti-inflammatory drugs (NSAIDS) such as ibuprofen (Advil??, Motrin??, others) and naproxen (Aleve??). Be sure to let your doctor and pharmacist know that you are taking these medications before you start taking furosemide. Do not start any of these medications while taking furosemide without discussing with your healthcare provider. ??? tell your doctor if you have kidney disease. Your doctor may tell you not to take furosemide. ??? tell your doctor if you have or have ever had any condition that stops your bladder from emptying completely, diabetes, gout, systemic lupus erythematosus (SLE, a chronic inflammatory condition), or liver disease. ??? tell your doctor if you are , plan to become . If you become while taking furosemide, callyour doctor. ??? tell your doctor if you are breast-feeding. Furosemide may affect your milk supply. ??? if you are having surgery, tell the doctor that you are using furosemide. ??? plan to avoid unnecessary or prolonged exposure to sunlight and to wear protective clothing, sunglasses, and sunscreen. Furosemide may make your skin sensitive to sunlight. ??? you should know that furosemide may cause dizziness, lightheadedness, and fainting when you get up too quickly from a lying position. This is more common when you first start taking furosemide. To avoid this problem, get out of bed slowly,resting your feet on the floor for a few minutes before standing up. Alcohol can add to these side effects. What SPECIAL DIETARY instructions should I follow? If your doctor prescribes a low-salt or low-sodium diet, or to eat or drink increased amounts of potassium-rich foods (e.g., bananas, prunes, raisins, and orange juice) in your diet, follow these instructions carefully. What should I do IF I FORGET to take a dose? Take the missed dose as soon as you remember it. However, if it is almost time for your next dose, skip the missed dose and continue your regular dosing schedule. Do not take a double dose to make upfor a missed one. What SIDE EFFECTS can this medicine cause? Some side effects can be serious. If you have any of these symptoms, call your doctor immediately or seek emergency medical treatment: ??? decreased urination; dry mouth; thirst; nausea; vomiting; weakness; drowsiness; confusion; muscle pain or cramps; or rapid or pounding heartbeats ??? fever ??? ringing in the ears, loss of hearing ??? itching, rash, hives, blisters or peeling skin, difficulty breathing or swallowing ??? yellowing of the skin or eyes If you experience a serious side effect, you or your doctor may send a report to the Food and Drug Administration's (FDA) MedWatch Adverse Event Reporting program online (https://www.fda.gov/Safety/MedWatch) or by phone ( ). What should I know about STORAGE and DISPOSAL of this medication? Keep this medicine in the container it came in, tightly closed, and out of reach of children. Storeit at room temperature and away from excess heat and moisture (not in the bathroom). Dispose of unused furosemide solution after 90 days. Keep all medication out of sight and reach of children as many containers are not child resistant. Always lock safety caps. Place the medication in a safe location ??? one that is up and away and outof their sight and reach. https://www.upandaway.org Dispose of unneeded medications in a way so that pets, children, and other people cannot take them.Do not flush this medication down the toilet. Use a medicine take-back program. Talk to your pharmacist about take-back programs in your community. Visit the FDA's Safe Disposal of Medicines website ( https://goo.gl/c4Rm4p) for more information. What should I do in case of OVERDOSE? In case of overdose, call the poison control helpline at . Information is also available online at https://www.poisonhelp.org/help. If the victim has collapsed, had a seizure, has trouble breathing, or can't be awakened, immediately call emergency services at 911. Symptoms of overdose may include: ??? extreme thirst ??? dry mouth ??? dizziness ??? confusion ??? extreme tiredness ??? vomiting ???stomach cramps What OTHER INFORMATION should I know? Keep all appointments with your doctor and the laboratory. Your blood pressure should be checked regularly, and blood tests should be done occasionally. Before having any laboratory test, tell your doctor and the laboratory personnel that you are taking furosemide. Keep a written list of all of the prescription and nonprescription ([id number]) medicines vitamins, minerals, and dietary supplements you are taking. Bring this list with you each time you visit a doctor or if you are admitted to the hospital. You should carry the list with you in case of yanet gencies. Brand Name(s): ??? Lasix?? also available generically ?? This report on medications is for your information only, and is not considered individual patient advice. Because of the changing nature of drug information, please consult your physician or pharmacist about specific clinical use. The [employer] [employer] represents that the information provided hereunder was formulated with a reasonable standard of care, and in conformity with professional standards in the field. [employer] makes no representations or warranties, express or implied, including, but not limited to, any implied warranty of merchantability and/or fitness for a particular purpose, with respect to such information and specifically disclaims all such warranties. Users are advised that decisions regarding drug therapy are complex medical decisions requiring the independent, informed decision of an appropriate health emergency care tech, and the information is provided for informational purposes only. The entire monograph for a drug should be reviewed for a thorough understanding of the drug's actions, uses and side effects. The [employer] does not endorse or recommend the use of any drug.The information is not a substitute for medical care. AHFS?? Patient Medication Information???. ?? Copyright, 2023. [employer]??, [address], [address], [place], [place]. All Rights Reserved. Duplication for commercial use must be authorized by [employer] [facility]. Selected Revisions: July 17, 2024. AHFS?? Patient Medication Information???. ?? Copyright, 2024 ?? * Mikki Novoa MD: PERFORM Event Display: Patient Education Leaflets Authored Date: [id number] Dapagliflozin ?? [id number] Dapagliflozin WHY is this medicine prescribed? Dapagliflozin is used ??? to lower blood sugar in people with type 2 diabetes (condition in which blood sugar is too highbecause the body does not make or use insulin normally). ??? to reduce the risk of being hospitalized for heart failure in certain adults with type 2 diabetes ??? to reduce the risk of being hospitalized for heart failure and in adults with heart failure ??? to reduce the risk of worsening ofkidney disease, being hospitalized for heart failure, and in certain adults with kidney disease Dapagliflozin is in a class of medications called sodium-glucose co-transporter 2 (SGLT2) inhibitors. It lowers blood sugar by causing the kidneys to get rid of more glucose in the urine. Dapagliflozin is not used to treat type 1 diabetes (condition in which the body does not produce insulin and, therefore, cannot control the amount of sugar in the blood) or diabetic ketoacidosis (a serious condition that may develop if high blood sugar is not treated). Over time, people who have diabetes and high blood sugar can develop serious or life-threatening complications, including heart disease, stroke, kidney problems, nerve damage, and eye problems. Taking dapagliflozin, making lifestyle changes (e.g., diet, exercise, quitting smoking), and regularly checking your blood sugar may help to manage your diabetes and improve your health. This therapy may also decrease your chances of having a heart attack, stroke, or other diabetes-related complications such as kidney failure, nerve damage (numb, cold legs or feet; decreased sexual ability in men and women), eye problems, including changes or loss of vision, or gum disease. Your doctor and other healt hcare providers will talk to you about the best way to manage your diabetes. HOW should this medicine be used? Dapagliflozin comes as a tablet to take by mouth. Take with or without food once a day. Take dapagliflozin at around the same time every day. Take dapagliflozin exactly as directed. Do not take more or less of it or take it more often than prescribed by your doctor. Your doctor may start you on a low dose of dapagliflozin and increase your dose if needed. Dapagliflozin helps to control your condition but does not cure it. Continue to take dapagliflozin even if you feel well. Do not stop taking dapagliflozin without talking to your doctor. You will be given you the Medication Guide when you begin treatment with dapagliflozin and each time you refill your prescription. Read the information carefully and ask your doctor or pharmacist if you have any questions. You can also visit https://www.fda.gov/Drugs/DrugSafety/czy669820.htm to obtain the Medication Guide. Are there OTHER USES for this medicine? This medication may be prescribed for other uses; ask your doctor or pharmacist for more information. What SPECIAL PRECAUTIONS should I follow? Before taking dapagliflozin, ??? tell your doctor and pharmacist if you are allergic to this drug, any part of this drug, or anyother drugs, foods or substances. Tell your doctor or pharmacist about the allergy and what symptoms you had. ??? tell your doctor and pharmacist what other prescription and nonprescription medications, vitamins, nutritional supplements, and herbal products you are taking or plan to take. Your doctor may need to change the doses of your medications or monitor you carefully for side effects. ??? tell your doctor if you regularly drink alcohol or sometimes drink large amounts of alcohol in a short time (binge drinking), if you are on a low sodium diet, or if you have an infection. Also tell your doctor if you have or have ever had heart failure, pancreatic disease including pancreatitis or have had surgery on your pancreas, urinary tract infections or problems urinating, low blood pressure,yeast infections in the genital area, or kidney or liver disease. If you are male, tell your doctorif you have never been circumcised. Also, tell your doctor if you are eating or drinking less due to illness, surgery or a change in your diet; if you are following a ketogenic diet (a high fat, low carbohydrate diet); or have recently had diarrhea, vomiting, been in the sun too long, or have been sweating a lot, which may cause dehydration (loss of a large amount of body fluids). ??? tell your doctor if you are , plan to become , or are . Do not breastfeed while you are taking dapagliflozin. If you become while taking dapagliflozin, call your doctor. ???if you are having surgery, including dental surgery, tell the doctor or dentist that you are takingdapagliflozin. Your doctor will probably tell you to stop taking dapagliflozin at least 3 days befor e a surgery. ??? alcohol may cause a change in blood sugar. Ask your doctor about the safe use of alcoholic beverages while you are taking dapagliflozin. ??? you should know that dapagliflozin may cause dizziness, lightheadedness, and fainting when you get up too quickly from a lying position. If you have this problem, call your doctor. This problem is more common when you first start taking dapagliflozin. To avoid this problem, get out of bed slowly, resting your feet on the floor for a few minutes before standing up. ??? ask your doctor what to do if you get sick, develop an infection or fever, experience unusual stress, or are injured. These conditions can affect your blood sugar and theamount of dapagliflozin you may need. What SPECIAL DIETARY instructions should I follow? Be sure to follow all exercise and dietary recommendations made by your doctor or dietitian. It is important to eat a healthful diet and exercise regularly. Follow your doctor's instructions about drinking enough fluids throughout the day while you are on this medication. What should I do IF I FORGET to take a dose? Take the missed dose as soon as you remember it. However, if it is almost time for the next dose, skip the missed dose and continue your regular dosing schedule. Do not take a double dose to make up for a missed one. What SIDE EFFECTS can this medicine cause? Dapagliflozin may cause side effects. Tell your doctor if any of these symptoms are severe or do not go away: ??? urinating a lot, including at night ??? stuffy or runny nose ??? sore throat ??? leg or arm pain ??? constipation Some side effects can be serious. If you experience any of these symptoms, call your doctor immediately: ??? frequent, urgent, burning, or painful urination; urine that is cloudy, red, pink, or brown; strong smelling urine; decrease in amount of urine; fever, back pain, nausea or vomiting ??? dry mouth,dark urine, decreased sweating, dry skin, and other signs of dehydration ??? pelvic or rectal pain ??? (in women) vaginal odor, white or yellowish vaginal discharge (may be lumpy or look like cottage cheese), or vaginal itching ??? (in men) redness, itching, or swelling of the penis; rash on the penis; foul smelling discharge from the penis; or pain in the skin around the penis ??? feeling tired,weak, or uncomfortable; along with a fever and pain, tenderness, redness, and swelling of the genitals or the area between the genitals and the rectum If you experience any of the following symptoms, stop taking dapagliflozin and call your doctor immediately or get emergency medical treatment: ??? rash; hives; itching; difficulty breathing or swallowing; hoarseness; or swelling of the face, throat, tongue, lips, mouth, or eyes If you experience any of the following symptoms of ketoacidosis, stop taking dapagliflozin and callyour doctor immediately or get emergency medical treatment. If possible, check for ketones in your urine if you have these symptoms, even if your blood sugar is less than 250 mg/dL: ??? nausea, vomiting, stomach-area pain, tiredness, or difficulty breathing Dapagliflozin can cause dehydration. It is important that you drink plenty of water while taking dapagliflozin. Talk to your doctor or pharmacist about the right amount of water to drink to prevent dehydration while taking dapagliflozin. Dapagliflozin may cause other side effects. Call your doctor if you have any unusual problems whiletaking this medication. If you experience a serious side effect, you or your doctor may send a report to the Food and Drug Administration's (FDA) MedWatch Adverse Event Reporting program online (https://www.fda.gov/Safety/MedWatch) or by phone ( ). What should I know about STORAGE and DISPOSAL of this medication? Keep this medication in the container it came in, tightly closed, and out of reach of children. Store it at room temperature and away from excess heat and moisture (not in the bathroom). What should I do in case of OVERDOSE? In case of overdose, call the poison control helpline at . Information is also available online at https://www.poisonhelp.org/help. If the victim has collapsed, had a seizure, has trouble breathing, or can't be awakened, immediately call emergency services at 707. What OTHER INFORMATION should I know? Keep all appointments with your doctor and the laboratory. Your doctor will probably order certain laboratory test before and during your treatment to check your body's response to dapagliflozin. Your blood sugar levels should be checked regularly to determine your response to dapagliflozin. Your doctor will order other lab tests, including glycosylated hemoglobin (HbA1c), to check your response to dapagliflozin. Your doctor will also tell you how to check your response to this medication by measuring your blood sugar levels at home. Follow these instructions carefully. Before having any laboratory test, tell your doctor and the laboratory personnel that you are taking dapagliflozin. Because of the way this medication works, your urine may test positive for glucose. You should always wear a diabetic identification bracelet to be sure you get proper treatment in anemergency. Do not let anyone else take your medication. Ask your pharmacist any questions you have about refilling your prescription. Keep a written list of all of the prescription and nonprescription (tczn-njs-kjgljek) medicines, vitamins, minerals, and dietary supplements you are taking. Bring this list with you each time you visit a doctor or if you are admitted to the hospital. You should carry the list with you in case of reese rgencies. Brand Name(s): ??? Farxiga? Qtern?? (as a combination product containing Dapagliflozin, Saxagliptin) ??? Qternmet?? XR (as a combination product containing Dapagliflozin, Metformin, Saxagliptin)? Xigduo?? XR (as a combination product containing Dapagliflozin, Metformin) ? This branded product is no longer on the market. Generic alternatives may be available. ?? This report on medications is for your information only, and is not considered individual patient advice. Because of the changing nature of drug information, please consult your physician or pharmacist about specific clinical use. The [employer] represents that the information provided hereunder was formulated with a reasonable standard of care, and in conformity with professional standards in the field. The [employer] makes no representations or warranties, express or implied, including, but not limited to, any implied warranty of merchantability and/or fitness for a particular purpose, with respect to such information and specifically disclaims all such warranties. Users are advised that decisions regarding drug therapy are complex medical decisions requiring the independent, informed decision of an appropriate health emergency care tech, and the information is provided for informational purposes only. The entire monograph for a drug should be reviewed for a thorough understanding of the drug's actions, uses and side effects. The [employer] does not endorse or recommend the use of any drug.The information is not a substitute for medical care. AHFS?? Patient Medication Information???. ?? Copyright, 2023. [employer]??, [address], [address], [place], [place]. All Rights Reserved. Duplication for commercial use must be authorized by [facility]. Selected Revisions: October 16, 2024. AHFS?? Patient Medication Information???. ?? Copyright, 2024 ?? Patient Care team information Care Team Personnel Name: Adan Arellano MD Position: [facility] Physician - Oncology Member Role: PCP Address: [address] [place] [address] [address] Adan Abrams. Eileen PHIPPS MD [address] Telecom: Name: Georgi Worley RN Position: S RN Member Role: Primary Care Nurse Name: Luli Bangura RN Position: [facility] RN Member Role: Primary Care Nurse Care Team Related Persons Name: RICHARD VIDAL Insurance Providers Guarantor name: DIONICIO VIDAL [facility] Information #: 1 Payer: MEDICARE A INPT 25 Payer Identifier: Member Number: [id number] Group Number: Subscriber Identifier: [id number] Relationship to Subscriber: self Coverage Type: MEDICARE Coverage Verification Date: NA Telecom: NA Address: [facility] Plan Information #: 2 Payer: [employer]EX SECONDARY ONLY Payer Identifier: Member Number: [id number] Group Number: [id number] Subscriber Identifier: [id number] Relationship to Subscriber: self Coverage Type: Medicare Other Coverage Verification Date: NA Telecom: NA Address:
--- OUTSIDE RECORDS SUMMARY | 2024-12-04 06:35 | XMS_ITS ---
Author Organization Adan Arellano III, MD Address [address] [place] [address] Care Team Providers Care Pulmonologist Intensivist Name Role Phone Adan Arellano Primary Care Provider Results Component Value Reference Range Notes Magnesium (Not yet reviewed by provider) Interpretation: Performing Lab:[address] [phone] Notes/Report: Magnesium 2.4 1.6-2.6 mg/dL Hemoglobin A1c (Not yet revi ewed by provider) Interpretation: Performing Lab:[address] [phone] Notes/Report: Hemoglobin A1c % 7.4 <6.0 % [...] average glucose, using the formula of the B7G-Mxediyp Average Glucose study (ADAG), Diabetes Care, Vol.31,#8, Nov. 2007 Social History Sex Assigned At : Social History Observation Description Sex Assigned At Male Encounters Encounter Location Date Provider Diagnosis Adan Arellano III, MD [address] [place] [address] [place] [address] 12/04/2024 Aadn Arellano Type 2 diabetes mellitus without complication, without [...] type (ICD-10 - I50.9) Plan Of Treatment Pending Test Test Name Order Date BASIC METABOLIC PROFILE RANDOM BRAIN NATRIURETIC PEPTIDE (BNP) 12/05/19 25 CBC w DIFF 12/04/2024 Magnesium 12/04/2024 Hemoglobin A1c 12/04/2024 Next Appt Details Provider Name:Adan Arellano, 12/19/2024 10:30:00 AM, [address] [place] [address] [address], [place], [address], Provider Name:Adan Arellano, 12/28/2024 02:00:00 PM, [address] [place] [address] [address] R[address], [place], [address], Provider Name:Adan Arellano, 09/30/2025 02:00:00 PM, [address] [place] [address] [address] R[address], [place], [address], Progress Notes * Dionicio VIDALDOB:[birth year] (74 yo M)Acc No.[id number]:12/04/2024 Patient: Dionicio OSPINA :1950 A ge:74 Y S ex:Male Address: [address], [place], [address] Subjective: * Chief Complaints: * * Medical [...] * true * Date: Generated for Polly mccurdy/Michael/Michoacano on: 0 12/05/2024 05:19 PM EDT
--- OUTSIDE RECORDS SUMMARY | 2024-12-05 12:00 | XMS_ITS ---
Author Organization Adan Arellano III, MD Address [address] [place] [address] Care Team Providers Care Ampoule Sealer Name Role Phone Adan Arellano Primary Care Provider [phone] Allergies Allergen (clinical drug ingredient) Drug/Non Drug Allergy documented on EMR Reaction Allergy Type Onset Date Status No Known Food Allergy Unknown Drug Allergy Active Penicillin Unknown Drug Allergy Active Contrast Allergy PreMed Pack Unknown Drug Allergy Active REASON FOR VISIT Hospital Follow up Medications Medication SIG (Take, Route, Frequency, Duration) Notes Start Date End Date Status Metoprolol Succinate ER 50 MG TAKE ONE [...] Provider Diagnosis Adan Arellano III, MD [address] [place] [address] [place] [address] 12/05/2024 Adan Arellano Nonrheumatic aortic valve stenosis I35.0 Assessments Encounter Date Diagnosis (ICD Code) Assessment Notes Treatment Notes Treatment Clinical Notes 12/05/2024 Nonrheumatic aortic [...] current value of 353. He is asymptomatic. Plan Of Treatment Medication Medication Name Sig Start Date Stop Date Notes Metoprolol Succinate ER 50 MG TAKE ONE [...] Once a day 09/26/2023 Next Appt Details Provider Name:Adan Arellano, 12/19/2024 10:30:00 AM, [address] [place] [address] [address], [place], [address], Provider Name:Adan Arellano, 12/28/2024 02:00:00 PM, [address] [place] [address] [place], [address], Provider Name:Adan Arellano, 09/30/2025 02:00:00 PM, [address] [place] [address] [place], [address], Progress Notes * Duane VIDAL:[birth year] (74 yo M)Acc No.[id number]:12/05/2024 Patient: Dionicio OSPINA Provider: Mara Arellano MD :1950 A ge:74 Y S ex:Male Date:12/05/2024 Address: [address], [place], [id number] Subjective: * Chief Complaints: * 1 . Hospital Follow up. * ROS: G eneral/Constitutional: pain o nly [...] Depressed mood d enies. * Medical History: E levated triglycerides with high cholesterol, Atrial fibrillation, unspecified type, Aortic valve stenosis, etiology of cardiac valve disease unspecified, 1982. 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 2010, Overweight, Atrial fibrillation 2005, moderate aortic stenosis, ? Radiation-related, Former smoker, Asthmatic bronchitis, Incisional hernia, DVT left brachial and jugular veins 2004, coronary artery disease. 2004 four-vessel CABG, Dr. Mcgrath, Hyperlipidemia, Mitral valve regurgitation, Life long need for endocarditis prophylaxis with invasive procedures, Aortic Valve Replacement, Diabetes. * Surgical History: C ABG x 4 vessels 12/2004, resection of malignant seminoma of mediastinum, phrenic nerve injury, left diaphragm paralyzed 1982, history of incisional hernia , cardiac catheterization 2004, colonoscopy, Dr. Adan Linda, [facility], tubular adenoma 2010, colonoscopy, Dr. Adan Linda, [facility], negative findings 2016, TAVR 07/2023, Aortic valve replacement . * Hospitalization/Major Diagno stic Procedure: D enies Past Hospitalization. * Family History: F ather: 75 yrs, [...] who retired on disability. * Medications: T aking Metoprolol Succinate ER 25 MG Tablet Extended Release 24 Hour 1 tablet Orally Once a day , Taking Furosemide 20 MG Tablet 1 tablet Orally Once a day , Taking Dapagliflozin Propanediol 10 MG Tablet 1 tablet Orally Once a day , Taking Aspirin 81 81 MG Tablet 1 tablet Orally Once a day , Taking metFORMIN HCl 1000 MG Tablet 1 tablet with a meal Orally Once a day , Taking Atorvastatin Calcium 40 MG Tablet TAKE ONE TABLET BY MOUTH EVERY DAY , Taking Omeprazole 20 MG Capsule Delayed Release 1 capsule 30 minutes before morning meal Orally Once a day , Medication List reviewed and reconciled with the patient * Allergies: P enicillin: Allergy, Contrast Allergy PreMed Pack: Allergy, No Known Food Allergy. Objective: * Vitals: H t: 65, Wt:147, [...] X10*3/uL) 0.000 (Ref Range: 0.0-0.012 X10*3/uL) * Lab:Comprehensive [place]. Pane l Fast * Collection Date 09/26/2024 03/12/2024 [...] Time - 10/03/2024 06:34 AM)?ValueReference Range?Glucose, Whole [id number] 60-115 - mg/dL ???Lab:Pathology (Order Date - 10/03/2024) (Collection Date & Time - 10/03/2024 08:47 AM) * Examination: G eneral Examination: GENERAL APPEARANCE: p leasant, well nourished, well developed, in no acute distress, calm and relaxed. HEAD: a traumatic, normocephalic. EYES: e remedios, [...] current value of 353. He is asymptomatic. Plan: * Treatment: * Images: * The named appointment provid er may or may not be the originator of this progress note, and it is not deemed complete until electronically signed by the appointment provider. Sign off status: Pending * Provider: Mara Arellano MD Date: 12/05/2024 Generated for Polly mccurdy/Michael/Valentinitting on: 12/05/2024 05:18 PM EDT History and [...]
[2024-12-05 15:33] LABS: MANUAL DIFF FLAG NO
[2024-12-05 16:28] LABS: Hematocrit 43.4 % (42.0-52.0); Hemoglobin 14.7 g/dl (14.0-18.0); Imm Gran Abs Auto 0.02 X10*3/uL (0.00-0.03); Imm Gran Pct Auto 0.3 % (0.0-0.4); Lymphocytes Absolute Auto 1.4 X10*3/uL (1.2-4.9); Mean Corpuscular HGB Conc 33.9 g/dl (31.0-36.0); Mean Corpuscular Hemoglobin 30.7 pg (27.0-33.0); Mean Corpuscular Volume 90.6 fL (80.0-98.0); NRBC Abs Auto 0.000 X10*3/uL (0.0-0.012); NRBC Pct Auto 0.0 /100WBC (0.0-0.2); Platelet Count 163 X10*3/uL (160-400); Red Blood Count 4.79 X10*6/uL (4.60-5.80); White Blood Count 6.6 X10*3/uL (4.8-10.8)
[2024-12-05 16:35] LABS: B Type Natriuretic Peptide 323 pg/mL (<100)
[2024-12-05 16:39] LABS: Hemoglobin A1C 219.7443 umol/L; Total Hemoglobin (HGBA1C) 3851.7457 umol/L
[2024-12-05 16:56] LABS: Anion Gap 12 (12-20); Blood Urea Nitrogen 27 mg/dL (9-16); Calcium 9.1 mg/dL (8.4-10.2); Carbon Dioxide 31 mmol/L (22-29); Chloride 103 mmol/L (96-108); Estimated Glomerular Filt Rate > 60; Magnesium 2.4 mg/dL (1.6-2.6); Potassium 4.2 mmol/L (3.3-5.1); Sodium 142 mmol/L (135-145)
--- OUTSIDE RECORDS SUMMARY | 2024-12-05 17:18 | XMS_ITS | Encounter Summary ---
Author Organization [facility] Address [address] [place] [address] Phone Care Team Providers Care Mail Sorter Name Role Phone Adan Arellano MD Primary Care Provider [phone] Carmelo KhouryBS Unavailable [phone] Encounter Details Date Type Department Care Team (Late st Contact Info) Description 07/05/2023 Procedure [place] [facility] [place] [address] [place] [address] Social History Tobacco Use Types Packs/Day Years [...] is your housing situation today? I have lukascandy neves 06/03/2023 How many times have you move [...] 07/05/2023 6:00 PM Racquel Cohn, BELEM * [place] Suicide Severity Rating Scale (Screener/Recent Self-Report) Question Answer Date of Assessment Author 1. Wish to be (Past 1 Month) No 07/05/2023 6:00 PM Racquel Reed, BELEM 2. Non-Specific Active Suicidal Thoughts (Past 1 Month) No 07/05/2023 6:00 PM Racquel Reed, BELEM 6. Suicidal Behavior (Lifetime) No 07/05/2023 6:00 PM Racquel Reed, RN documented as of this encounter Plan of Treatment Not on file documented as of this encounter Visit Diagnoses Not on filedocumented in this encounter Care Teams Mail Sorter Relationship Specialty Start Date End Date Adan Arellano MD [address] [place] [address] PCP - General Medical Oncology 03/30/23 Carmelo Khoury MBBS [address] [place] [id number] [email or web address] Thoracic Surgery 05/13/23 documented as of this encounter Additional Source Comments The information contained in this document represents components of the legal health record. It is not the complete legal health record.[facility]
--- OUTSIDE RECORDS SUMMARY | 2024-12-05 17:18 | XMS_ITS | Encounter Summary ---
Author Organization [facility] Address [address] [place] [address] Phone Care Team Providers Care Mercerizer Name Role Phone Adan Arellano MD Primary Care Provider [phone] Carmelo KhouryBS Unavailable Encounter Details Date Type Department Care Team (Late st Contact Info) Description 06/20/2023 Procedure Pass [facility] [place] [address] [place] [address] Social History Tobacco Use Types Packs/Day Years [...] AM EST documented as of this encounter Plan of Treatment Not on file documented as of this encounter Visit Diagnoses Not on filedocumented in this encounter Care Teams Mercerizer Relationship Specialty [place] [address] [place] [address] PCP - General Medical Oncology 03/30/23 Carmelo Khoury MBBS [address] [place] [id number] [email or web address] Thoracic Surgery 05/13/23 documented as of this encounter Additional Source Comments The information contained in this document represents components of the legal health record. It is not the complete legal health record.[facility]
--- OUTSIDE RECORDS SUMMARY | 2024-12-05 17:18 | XMS_ITS | Encounter Summary ---
Author Organization [facility] Address [address] [place] [address] Phone Care Team Providers Care Remote Sensing Research Scientist Name Role Phone Adan Arellano MD Primary Care Provider [phone] Carmelo KhouryBS Unavailable [phone] Encounter Details Date Type Department Care Team (Late st Contact Info) Description 07/07/2023 Procedure [place] [facility] [facility]PT [address] [facility] [place] [address] Social History Tobacco Use Types Packs/Day Years [...] on filedocumented in this encounter Care Teams Remote Sensing Research Scientist Relationship Specialty Start Date End Date Adan Arellano MD [address] [place] [id number] PCP - General Medical Oncology 03/30/23 Carmelo Khoury MBBS [address] [place] [phone] [email or web address] Thoracic Surgery 05/13/23 documented as of this encounter Additional Source Comments The information contained in this document represents components of the legal health record. It is not the complete legal health record.[facility]
--- OUTSIDE RECORDS SUMMARY | 2024-12-05 17:18 | XMS_ITS | Encounter Summary ---
Author Organization [facility] Address [address] [place] [address] Phone Care Team Providers Care Surveillance Systems Engineer Name Role Phone Adan Arellano MD Primary Care Provider [phone] Carmelo KhouryBS Unavailable [phone] Encounter Details Date Type Department Care Team (Late st Contact Info) Description 07/05/2023 Procedure Pass [facility] Cardiac US [address] [place] [address] Social History Tobacco Use Types Packs/Day Years [...] 07/05/2023 6:00 PM Racquel Cohn, BELEM * [place] Suicide Severity Rating Scale (Screener/Recent Self-Report) Question [...] on filedocumented in this encounter Care Teams Surveillance Systems Engineer Relationship Specialty Start Date End Date Adan Arellano MD [address] [place] [address] PCP - General Medical Oncology 03/30/23 Carmelo Khoury MBBS [address] [place] [id number] [email or web address] Thoracic Surgery 05/13/23 documented as of this encounter Additional Source Comments The information contained in this document represents components of the legal health record. It is not the complete legal health record.[facility]
--- OUTSIDE RECORDS SUMMARY | 2024-12-05 17:18 | XMS_ITS | Encounter Summary ---
Author Organization [facility] Address [address] [place] [address] Phone Care Team Providers Care Medication Manager Name Role Phone Adan Arellano MD Primary Care Provider [phone]- [phone] Carmelo KhouryBS Unavailable [phone] Encounter Details Date Type Department Care Team (Late st Contact Info) Description 06/02/2023 Procedure [place] [facility] [address] [place] [address] Social History Tobacco Use Types Packs/Day Years [...] 06/03/2023 6:00 PM Aparna Zimmerman RN * [place] Suicide Severity Rating Scale (Screener/Recent Self-Report) Question [...] documented as of this encounter Care Teams Medication Manager Relationship Specialty Start Date End Date Adan Arellano MD [facility] [place] [address] PCP - General Medical Oncology 03/30/23 Carmelo Khoury MBBS [address] [place] [phone] [email or web address] Thoracic Surgery 05/13/23 documented as of this encounter Additional Source Comments The information contained in this document represents components of the legal health record. It is not the complete legal health record.[facility]
--- OUTSIDE RECORDS SUMMARY | 2024-12-05 17:19 | XMS_ITS | Encounter Summary ---
Author Organization [facility] Address [address] [place] [address] Phone Care Team Providers Care Screening Technician Name Role Phone Adan Arellano MD Primary Care Provider [phone]- [phone] Carmelo Khoury MBBS Unavailable [phone] Encounter Details Date Type Department Care Team (Late st Contact Info) Description 06/09/2023 Procedure Pass [facility] 3DCTMR MG [address] [place] [address] Social History Tobacco Use Types Packs/Day Years [...] on filedocumented in this encounter Care Teams Screening Technician Relationship Specialty Start Date End Date Adan Arellano MD [address] [place] [address] PCP - General Medical Oncology 03/30/23 Carmelo Khoury MBBS [address] [place] [phone] [email or web address] Thoracic Surgery 05/13/23 documented as of this encounter Additional Source Comments The information contained in this document represents components of the legal health record. It is not the complete legal health record.[facility]
--- OUTSIDE RECORDS SUMMARY | 2024-12-05 17:19 | XMS_ITS | Encounter Summary ---
Author Organization [facility] Address [address] [place] [address] [place] [address] Phone Care Team Providers Care Inspector Insulation Name Role Phone Adan Arellano MD Primary Care Provider [phone]- [phone] Carmelo KhouryBS Unavailable [phone] Encounter Details Date Type Department Care Team (Late st Contact Info) Description 04/28/2023 Procedure Pass [facility] 3DCTMR MG [address] [place] [address] Social History Tobacco Use Types Packs/Day Years Used Date Smoking Tobacco: Never Assessed Education Answer Date Recorded Are you interested in more education? Not on denis e 03/30/2023 Are you concerned about learning? Not on file 03/30/2023 No 03/30/2023 No 03/30/2023 Digital Access Answer Date Recorded No 03/30/2023 No 03/30/2023 Reliable internet access at home? Not on file 03/30/2023 Device with a working camera? Not on file Sex and Gender Information Value Date Recorded [...] documented as of this encounter Care Teams Inspector Insulation Relationship Specialty Start Date End Date Adan Arellano MD [address] [place] [address] PCP - General Medical Oncology 03/30/23 Carmelo Khoury MBBS [address] [place] [phone] [email or web address] Thoracic Surgery 05/13/23 documented as of this encounter Additional Source Comments The information contained in this document represents components of the legal health record. It is not the complete legal health record.[facility]
--- OUTSIDE RECORDS SUMMARY | 2024-12-05 17:19 | XMS_ITS | Encounter Summary ---
Author Organization [facility] Address [address] [place] [address] Phone Care Team Providers Care Finished Goods Stock Clerk Name Role Phone Adan Arellano MD Primary Care Provider [phone] Carmelo KhouryBS Unavailable [phone] Encounter Details Date Type Department Care Team (Late st Contact Info) Description 09/13/2023 Procedure Pass [facility] Cardiac US [address] [place] [address] Social History Tobacco Use Types Packs/Day Years [...] on filedocumented in this encounter Care Teams Finished Goods Stock Clerk Relationship Specialty Start Date End Date Adan Arellano MD [address] [place] [address] PCP - General Medical Oncology 03/30/23 Carmelo Khoury MBBS [address] [place] [phone] [email or web address] Thoracic Surgery 05/13/23 documented as of this encounter Additional Source Comments The information contained in this document represents components of the legal health record. It is not the complete legal health record.[facility]
--- OUTSIDE RECORDS SUMMARY | 2024-12-05 17:19 | XMS_ITS | Patient Health Record ---
Author Organization Adan Arellano III, MD Address [address] [place] [address] Care Team Providers Care Web Development Consultant Name Role Phone Adan Arellano Primary Care Provider [phone] Allergies Allergen (clinical drug ingredient) Drug/Non Drug Allergy documented on EMR Reaction Allergy Type Onset Date Status Penicillin Unknown Drug Allergy Active No Known Food Allergy Unknown Drug Allergy Active Contrast Allergy PreMed Pack Unknown Drug Allergy Active Results Component Value Reference Range Notes Magnesium (Not yet reviewed by provider) Interpretation: Performing Lab:[facility], [address] [place] [phone] Notes/Report: Magnesium 2.4 1.6-2.6 mg/dL Hemoglobin A1c (Not yet revi ewed by provider) Interpretation: Performing Lab:[facility], [address] [place] [phone] Notes/Report: Hemoglobin A1c % 7.4 <6.0 % [...] average glucose, using the formula of the I1S-Ywwgsls Average Glucose study (ADAG), Diabetes Care, Vol.31,#8, Nov. 2007 Complete Blood Count Auto Di ff Reviewed date:12/27/2023 02:22:23 PM Interpretation: Performing Lab:[facility], [address] [place] [phone] Notes/Report: White Blood Count 5.8 4.8-10.8 X10*3/uL [...] 0.0-0.2 /100WBC Neutrophils Absolute Auto 3.4 2.0-8.3 x10*3/uL Imm Gran Abs Auto 0.02 0.00-0.03 X10*3/uL Lymphocytes Absolute Auto 1.7 1.2-4.9 X10*3/uL Monocytes Absolute Auto 0.5 0.1-1.2 X10*3/uL Eosinophils Absolute Auto 0.2 0.0-0.4 X10*3/uL Basophils Absolute Auto 0.0 0.0-0.2 X10*3/uL NRBC Abs Auto 0.000 0.0-0.012 X10*3/uL Comprehensive [place]. Panel Fa st Reviewed date:12/27/2023 02:22:23 PM Interpretation: Performing Lab:[facility], [address] [place] [phone] Notes/Report: Sodium 142 135-145 mmol/L Potassium 3.7 3.3-5.1 mmol/L Chloride 103 96-108 mmol/L Carbon Dioxide 33 22-29 mmol/L Anion Gap 10 12-20 Blood Urea Nitrogen 21 9-16 mg/dL Creatinine 0.80 0.5-1.4 mg/dL Estimated Glomerular Filt Rate > 60 NOTE: For -Emirati individuals, multiply the result by 1.210. Chronic [...] Peptide Reviewed date:12/27/2023 02:22:23 PM Interpretation: Performing Lab:[facility], [address] [place] [phone] Notes/Report: B Type Natriuretic Peptide 353 <100 pg/mL For those patients who are being treated with Natrecor (nesiritide, recombinant BNP), BNP testing should be performed at least two hours post treatment in order to ensure that only endogenous levels of BNP are detected. Lipid Panel Reviewed date:12/27/2023 02:22:23 PM Interpretation: Performing Lab:[facility], [address] [place] [phone] Notes/Report: Triglycerides 81 <150 mg/dL Desirable Triglyceride: [...] ff Reviewed date:03/26/2024 11:50:31 AM Interpretation: Performing Lab:[facility], [address] [place] [phone] Notes/Report: White Blood Count 5.9 4.8-10.8 X10*3/uL [...] 0.0-0.2 /100WBC Neutrophils Absolute Auto 3.5 2.0-8.3 x10*3/uL Imm Gran Abs Auto 0.02 0.00-0.03 X10*3/uL Lymphocytes Absolute Auto 1.6 1.2-4.9 X10*3/uL Monocytes Absolute Auto 0.5 0.1-1.2 X10*3/uL Eosinophils Absolute Auto 0.2 0.0-0.4 X10*3/uL Basophils Absolute Auto 0.0 0.0-0.2 X10*3/uL NRBC Abs Auto 0.000 0.0-0.012 X10*3/uL Comprehensive [place]. Panel Fa st Reviewed date:03/26/2024 11:50:31 AM Interpretation: Performing Lab:[facility], [address] [place] [phone] Notes/Report: Sodium 141 135-145 mmol/L Potassium 4.6 [...] Panel Reviewed date:03/26/2024 11:50:31 AM Interpretation: Performing Lab:[address] [phone] Notes/Report: Triglycerides 84 <150 mg/dL Desirable Triglyceride: [...] Antigen Reviewed date:03/26/2024 11:50:31 AM Interpretation: Performing Lab:[address] [phone] Notes/Report: Prostate Specific Antigen 0.18 <0.05-4.0 ng/mL PSA methodology: Malik Alinity i Chemiluminescent Microparticle Immunoassay (CMIA) Diabetic Eye Exam Reviewed date:09/10/2024 11:16:52 AM Interpretation:undefined Performing Lab: Notes/Report: undefined Complete Blood Count no Diff Reviewed date:09/23/2024 01:47:39 PM Interpretation: Performing Lab:[facility], [address] [place] [phone] Notes/Report: White Blood Count 5.8 4.8-10.8 X10*3/uL Red Blood Count 5.05 4.60-5.80 X10*6/uL Hemoglobin 15.5 14.0-18.0 g/dl Hematocrit 47.0 42.0-52.0 % Mean Corpuscular Volume 93.1 80.0-98.0 fL Mean Corpuscular Hemoglobin 30.7 27.0-33.0 pg Mean Corpuscular HGB Conc 33.0 31.0-36.0 g/dl Red Cell Distribution Width 12.6 11.0-16.0 % Platelet Count 146 160-400 X10*3/uL Mean Platelet Volume 11.7 9.4-12.4 fL NRBC Pct Auto 0.0 0.0-0.2 /100WBC NRBC Abs Auto 0.000 0.0-0.012 X10*3/uL Basic Metabolic Panel Reviewed date:09/23/2024 01:47:39 PM Interpretation: Performing Lab:[address] [phone] Notes/Report: Sodium 142 135-145 mmol/L Potassium 4.8 3.3-5.1 mmol/L Chloride 105 96-108 mmol/L Carbon Dioxide 33 22-29 mmol/L Anion Gap 9 12-20 Blood Urea Nitrogen 24 9-16 mg/dL Creatinine 0.71 0.5-1.4 mg/dL Creatinine Clr Calc Pharmacy 78.7 eGFR (calculated from the MDRD study equation) and eCrCl (calculated from the Cockcroft-Gault equation) are based on different parameters and may not yield comparable results. If eCrCl result is absurd, please check patient's height/weight. Estimated Glomerular Filt Rate > 60 Chronic Kidney Disease: Estimated GFR < 60 mL/min/1.73m2 Severe Kidney Disease: Estimated GFR < 15 mL/min/1.73m2 Glucose Random 168 60-115 mg/dL Calcium 9.4 8.4-10.2 mg/dL Complete Blood Count Auto Di ff Reviewed date:09/26/2024 02:18:04 PM Interpretation: Performing Lab:[facility], [address] [place] [phone] Notes/Report: White Blood Count 5.9 4.8-10.8 X10*3/uL Red Blood Count 5.11 4.60-5.80 X10*6/uL Hemoglobin 15.7 14.0-18.0 g/dl Hematocrit 46.6 42.0-52.0 % Mean Corpuscular Volume 91.2 80.0-98.0 fL Mean Corpuscular Hemoglobin 30.7 27.0-33.0 pg Mean Corpuscular HGB Conc 33.7 31.0-36.0 g/dl Red Cell Distribution Width 12.5 11.0-16.0 % Platelet Count 143 160-400 X10*3/uL Mean Platelet Volume 12.0 9.4-12.4 fL Neutrophils Percent Auto 60.1 45-73 % Imm Gran Pct Auto 0.3 0.0-0.4 % Lymphocytes Percent Auto 28.8 20-40 % Monocytes Percent Auto 7.8 2-11 % Eosinophils Percent Auto 2.7 0-4 % Basophils Percent Auto 0.3 0-2 % NRBC Pct Auto 0.0 0.0-0.2 /100WBC Neutrophils Absolute Auto 3.6 2.0-8.3 x10*3/uL Imm Gran Abs Auto 0.02 0.00-0.03 X10*3/uL Lymphocytes Absolute Auto 1.7 1.2-4.9 X10*3/uL Monocytes Absolute Auto 0.5 0.1-1.2 X10*3/uL Eosinophils Absolute Auto 0.2 0.0-0.4 X10*3/uL Basophils Absolute Auto 0.0 0.0-0.2 X10*3/uL NRBC Abs Auto 0.000 0.0-0.012 X10*3/uL Comprehensive [place]. Panel Fa st Reviewed date:09/26/2024 02:18:04 PM Interpretation: Performing Lab:[facility], [address] [place] [phone] Notes/Report: Sodium 141 135-145 mmol/L Potassium 4.2 3.3-5.1 mmol/L Chloride 103 96-108 mmol/L Carbon Dioxide 31 22-29 mmol/L Anion Gap 11 12-20 Blood Urea Nitrogen 20 9-16 mg/dL Creatinine 0.75 0.5-1.4 mg/dL Estimated Glomerular Filt Rate > 60 Chronic Kidney Disease: Estimated GFR < 60 mL/min/1.73m2 Severe Kidney Disease: Estimated GFR < 15 mL/min/1.73m2 Glucose Fasting 119 60-99 mg/dL A fasting glucose from 100-125 mg/dl is considered impaired (pre-diabetes). Calcium 9.1 8.4-10.2 mg/dL Bilirubin Total 1.2 0.0-1.0 mg/dL Aspartate Amino Transferase 32 5-37 U/L Alanine Aminotransferase 65 0-40 U/L Total Protein 6.6 6.5-8.0 g/dL Albumin Level 4.2 3.5-5.0 g/dL Alkaline Phosphatase 49 39-117 U/L Lipid Panel Reviewed date:09/26/2024 02:18:04 PM Interpretation: Performing Lab:[facility], [address] [place] [phone] Notes/Report: Triglycerides 90 <150 mg/dL Desirable Triglyceride: less than 150 mg/dL Borderline High Triglyceride 150-199 mg/dL High Triglyceride: 200-499 mg/dL Very High Triglyceride: greater than or equal to 5OO mg/dL Cholesterol 83 <200 mg/dL Desirable Cholesterol: less than 200 mg/dL Borderline High Cholesterol: 200-239 mg/dL High Cholesterol: greater than 239 mg/dL LDL Cholesterol Calculated 38 <100 mg/dL Desirable LDL: less than 100 mg/dL Near Optimal/Above Optimal LDL: 110-129 mg/dL Borderline High LDL: 130-159 mg/dL High LDL: 160-189 mg/dL Very High LDL: greater than or equal to 190 mg/dL HDL Cholesterol 27 >40 mg/dL Desirable HDL: greater than 40 mg/dL Note: This HDL assay may give artificially low results in patients with liver disease. Prostate Specific Antigen Reviewed date:09/26/2024 02:18:04 PM Interpretation: Performing Lab:[facility], [address] [place] [phone] Notes/Report: Prostate Specific Antigen 0.20 <0.05-4.0 ng/mL PSA methodology: Malik Alinity i Chemiluminescent Microparticle Immunoassay (CMIA) Microalbumin, Random Reviewed date:09/26/2024 02:18:04 PM Interpretation: Performing Lab:[address] [phone] Notes/Report: Creatinine Urine 111.43 Microalbumin Urine 15.0 Microalbum/Creatinine Ratio Ur 13.4 <30 ug/mg cr Albumin/Creatinine Ratio Reference Ranges: Normal: < 30 ug/mg creatinine Microalbuminuria: 30 - 300 ug/mg creatinine Clinical Albuminuria: > 300 ug/mg creatinine Hemoglobin A1c Reviewed date:09/26/2024 02:18:04 PM Interpretation: Performing Lab:[address] [phone] Notes/Report: Hemoglobin A1c % 7.0 <6.0 % Hemoglobin A1C Reference Range Adults: 4.8 - 6.0 % Non diabetic: < 6.0 % Goal: < 7.0 % Additional Action Suggested: > 8.0 % Note: Hemoglobin A1c results are invalid for patients with abnormal amounts of HbF. Blood transfusions may impact the HbA1c concentration in the patient sample. Estimated Average Glucose 154 eAG = Estimated average glucose which is %A1C expressed as average glucose, using the formula of the T0Q-Zgtpeye Average Glucose study (ADAG), Diabetes Care, Vol.31,#8, 2007 Glucose, Whole Blood Reviewed date:10/03/2024 07:23:17 AM Interpretation: Performing Lab:[facility], [address] [place] [phone] Notes/Report: Glucose, Whole Blood 164 60-115 mg/dL METER # : [id number] Pathology Reviewed date:10/05/2024 06:03:20 PM Interpretation: Performing Lab:[facility], [address] [place] [phone] Notes/Report: ------ Name: Roberto Salgado Age/Sex: 74/M : 1950 Unit#: [id number] Attend Dr: Jose Mckeon MD Re10/03/24 Status : [facility] Location: [facility] Disch: ------ SPEC : [id number] RECD : 10/03/24 STATUS: CHARLESRayo ESCALANTERy NUM: [id number] GRICELDA: 10/03/[address] [facility] [address]: Jose Mckeon MD ENTERED: 10/03/24- 39 SP TYPE: Surgical OTHR DR: Adan Arellano MD ORDERED: Gross Micro L2 Diagnosis Hernia sac, herniorr haphy: Fibromembranous tissue with attenuated mesothelial lining and focal chronic inflammation, consistent with hernia sac. Clinical History Repair of incisional and right inguinal hernia Microscopic Description Microscopic sections reviewed. Material Received Hernia sac Gross Description Received in formalin labeled ?hernia sac? is a 3.0 x 3.0 x 0.1-0.25 cm smooth and shaggy, edematous and conges yudi, magana, pink-red saccular portion of fibromembranous tissue with attached fibroadipos e tissue. Sectioning reveals thin and delicate edematous and congested magana-pink fibromembra nous tissue unremarkable fibroadipose tissue. [employer] sections are submitted in a cassette labeled A1. CEDS IHC S/NG Disclaimer NOTE: Unless otherwi se stated, all tissue is formalin-fixed and paraffin-embedded. Some or all of the immunohistochemical tests reported herein may have been developed and their performance characteristics determined by [facility]. They have not been cleared or appr marcel by the U.S. Food and Drug Administration (FDA). However, the FDA has determined that such clearance or approval is not necessary. This laboratory is certified under the Clinical Laboratory Improvement Amendments of 1988 (CLIA) as qualified to perform high comp lexity clinical laboratory testing. Copies To: Adan Arellano MD [address] [place] [address], [facility] [address] [place], [place] [id number] CONTINUED ON NEXT PAGE ------ Name: Roberto Salgado Age/Sex: 74/M : 1950 Unit#: [id number] Attend Dr: Jose Mckeon MD Re10/03/24 Status : [facility] Location: [facility] Disch: ------ SPEC : [id number] RECD : 10/03/24 STATUS: JACKELYN ABDI NUM: [id number] GRICELDA: 10/03/[address] [facility] [address]: Jose Mckeon MD ENTERED: 10/03/24- 39 SP TYPE: Surgical OTHR DR: Adan Arellano MD ORDERED: Gross Micro L2 Copies To: (Continued) Jose Mckeon MD [facility] [address] [place] [address] ------ Signed (signature on file) Yen [place] 10/04/24 1533 ------ END OF REPORT Complete Blood Count Auto Di ff (Not yet reviewed by provider) Interpretation: Performing Lab:[facility], [address] [place] [phone] Notes/Report: White Blood Count 6.6 4.8-10.8 X10*3/uL Red Blood Count 4.79 4.60-5.80 X10*6/uL Hemoglobin 14.7 14.0-18.0 g/dl Hematocrit 43.4 42.0-52.0 % Mean Corpuscular Volume 90.6 80.0-98.0 fL Mean Corpuscular Hemoglobin 30.7 27.0-33.0 pg Mean Corpuscular HGB Conc 33.9 31.0-36.0 g/dl Red Cell Distribution Width 12.6 11.0-16.0 % Platelet Count 163 160-400 X10*3/uL Mean Platelet Volume 12.0 9.4-12.4 fL Neutrophils Percent Auto 65.8 45-73 % Imm Gran Pct Auto 0.3 0.0-0.4 % Lymphocytes Percent Auto 21.5 20-40 % Monocytes Percent Auto 7.4 2-11 % Eosinophils Percent Auto 4.5 0-4 % Basophils Percent Auto 0.5 0-2 % NRBC Pct Auto 0.0 0.0-0.2 /100WBC Neutrophils Absolute Auto 4.4 2.0-8.3 x10*3/uL Imm Gran Abs Auto 0.02 0.00-0.03 X10*3/uL Lymphocytes Absolute Auto 1.4 1.2-4.9 X10*3/uL Monocytes Absolute Auto 0.5 0.1-1.2 X10*3/uL Eosinophils Absolute Auto 0.3 0.0-0.4 X10*3/uL Basophils Absolute Auto 0.0 0.0-0.2 X10*3/uL NRBC Abs Auto 0.000 0.0-0.012 X10*3/uL Basic Metabolic Panel (Not y et reviewed by provider) Interpretation: Performing Lab:[address] [phone] Notes/Report: Sodium 142 135-145 mmol/L Potassium 4.2 3.3-5.1 mmol/L Chloride 103 96-108 mmol/L Carbon Dioxide 31 22-29 mmol/L Anion Gap 12 12-20 Blood Urea Nitrogen 27 9-16 mg/dL Creatinine 0.89 0.5-1.4 mg/dL Estimated Glomerular Filt Rate > 60 Chronic Kidney Disease: Estimated GFR < 60 mL/min/1.73m2 Severe Kidney Disease: Estimated GFR < 15 mL/min/1.73m2 Glucose Random 98 60-115 mg/dL Calcium 9.1 8.4-10.2 mg/dL B Type Natriuretic Peptide ( Not yet reviewed by provider) Interpretation: Performing Lab:[address] [phone] Notes/Report: B Type Natriuretic Peptide 323 <100 pg/mL Reason For Referral Reason evaluation and treat ment for inguinal hernia Diagnosis 1 Right inguinal herni a (K40.90) Referral Organization Adan Arellano III, MD Referring Provider First Name Adan Referring Provider Last Name Eileen Referring Provider Speciality Internal M edicine Referred Provider Jose Mckeno Referred Provider Specialty General Surg priyanka General [...] al Orally Once a day 09/26/2023 Active Immunizations Vaccine Route Administration Date Status Comme nts COVID PFIZER Unknown 01/28/2021 Administered COVID PFIZER Unknown 07/23/2020 Administered COVID PFIZER Unknown 07/01/2020 Administered COVID PFIZER Unknown 07/01/2020 Administered COVID PFIZER Unknown 01/28/2021 Administered Fluzone High-Dose (HD-IIV3) Unknown 02/07/2019 Administ ered Influenza-iiv4 p-free high dose Unknown 02/19/2022 Admi nistered Influenza-iiv4 p-free high dose Unknown 02/18/2023 Admi nistered Influenza-iiv4 p-free high dose Unknown 04/23/2021 Admi nistered Fluzone High-Dose (HD-IIV3) Unknown 02/24/2024 Administ ered Social History Tobacco Use: Social History Observation [...] Problem Status W/U Status Risk Notes Problem 1265350 Former smoker (Z87.891) Active confirmed He is highly motivated not to smoke and has a plan to prevent relapse in times of stress and illness. Problem Hyperlipidemia (84921387) Hyperlipidemia (E78.5) Active confirmed fasting lipid profile has been ordered prior to his next visit. No change in his therapy was made today. Problem 229607630 Overweight (E66.3) Active confirmed We have discuss ed his weight and his diet and nutrition. We reviewed his weight loss strategy. We made a plan to lose weight at a rate of one half of a pound per week. Problem 769834537 Thrombocytopenia (D69.6) Active confirmed His thrombocytopenia is very mild at 146. No change in his regimen as necessary. He was continued on his medications. Problem Benign prostatic hyperplasia (623301810) BPH (benign prostatic hyperplasia) (N40.0) Active confirmed He has been rising from sleep once or twice a night to urinate. He is quite happy with this and no change in his treatment is necessary. We did discuss lifestyle modifications she can make to reduce nocturia. Problem 51293713 Penicillin allergy (Z88.0) Active confirmed Problem 240992361 Nonrheumatic aortic valve stenosis (I35.0) Active confirmed He was admi tted to [facility] July 04 and discharged July [...] value of 353. He is asymptomatic. Problem 766049760 History of DVT (deep vein thrombosis) (Z86.718) Active confirmed There are no signs of a DVT at this time. He has no history of a familial thrombophilia. The DVT occurred after cardiac surgery. Problem 1810415044434 Coronary artery disease involving algaaciq coronary artery of algaaciq heart without angina pectoris (I25.10) Active confirmed He has had no angina recently. His aortic valve is working well. His cardiac status is stable. His BNP has dropped. Problem 844344435 Right inguinal hernia (K40.90) Active confirmed It is very s mall. He has elected for observation. We discussed what is involved in a herniorrhaphy and what to do if a loop of bowel becomes incarcerated and with those symptoms are. Follow-up was arranged. Problem 490677435 History of atrial fibrillation (Z86.79) Active confirmed He is currently a regular sinus rhythm which is well controlled. Problem 08617370 Dyspnea on exertion (R06.09) Active confirmed He has been growing more and more short of breath for 3 days. Examination of his larynx is unremarkable. The lungs were clear. He has a very significant coronary artery history and was referred to the emergency department [facility] for evaluation. Problem 134295634 Type 2 diabetes mellitus without complication, without long-term current use of insulin (E11.9) Active confirmed he will have comprehensive blood work prior to his next visit in September. His fasting glucose levels at home 3 times a week average between 1:15 and 125. No change in his therapy was made today. Problem 01319141 Congestive heart failure, unspecified HF chronicity, unspecified heart failure type (I50.9) Active confirmed Problem 259108905 Adenomatous polyp (D36.9) Active confirmed His last colonoscopy had no findings and he is now scheduled to repeat in 10 years. Problem 009800857 Seminoma (C62.90) Active confirmed He reports that his remaining testis is unremarkable. Vital Signs Heart Rate 61 /min 12/05/2024 Temperature 99.9 degrees Fahrenheit 12/05/2024 Oximetry 94 % 11/30/2024 Blood pressure diastolic 88 mm Hg 12/05/2024 Height 65 in 12/05/2024 Blood pressure systolic 135 mm Hg 12/05/2024 Weight 147 lbs 12/05/2024 BMI 24.46 kg/m2 12/05/2024 Encounters Encounter Location Date Provider Diagnosis Adan Arellano III, MD [address] [place] [address] [place] [phone] 12/05/2024 Adan Arellano Nonrheumatic aortic valve stenosis I35.0 Adan Arellano III, MD [address] [place] [address] [place] [address] 12/27/2023 Adan Arellano Nonrheumatic aortic valve stenosis I35.0 ; Hyperlipidemia E78.5 ; Overweight E66.3 ; BPH (benign prostatic hyperplasia) N40.0 ; History of atrial fibrillation Z86.79 ; 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 ; History of DVT (deep vein thrombosis) Z86.718 ; Coronary artery disease involving algaaciq coronary artery of algaaciq heart without angina pectoris I25.10 and Former smoker Z87.891 Adan Arellano III, MD [address] [place] [address] [place] [address] 03/13/2024 Adan Mantillane Nonrheumatic aortic valve stenosis I35.0 ; Type 2 diabetes mellitus without complication, without long-term current use of insulin E11.9 ; Overweight E66.3 ; Hyperlipidemia E78.5 ; Coronary artery disease involving algaaciq coronary artery of algaaciq heart without angina pectoris I25.10 and Thrombocytopenia D69.6 Adan Arellano III, MD [address] [place] [address] [place] [phone] 06/18/2024 Adan Mantillane Nonrheumatic aortic valve stenosis I35.0 ; Right inguinal hernia K40.90 ; History of atrial fibrillation Z86.79 ; 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 ; BPH (benign prostatic hyperplasia) N40.0 ; Hyperlipidemia E78.5 ; Coronary artery disease involving algaaciq coronary artery of algaaciq heart without angina pectoris I25.10 and Type 2 diabetes mellitus without complication, without long-term current use of insulin E11.9 Adan Arellano III, MD [address] [place] [address] [place] [phone] 07/13/2024 Adan Mantillane Nonrheumatic aortic valve stenosis I35.0 ; Type 2 diabetes mellitus without complication, without long-term current use of insulin E11.9 ; BPH (benign prostatic hyperplasia) N40.0 ; Hyperlipidemia E78.5 ; History of atrial fibrillation Z86.79 ; 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 ; Coronary artery disease involving algaaciq coronary artery of algaaciq heart without angina pectoris I25.10 ; History of DVT (deep vein thrombosis) Z86.718 and Former smoker Z87.891 Adan Arellano III, MD [address] [place] [address] [place] [phone] 09/26/2024 Adan Arellano Nonrheumatic aortic valve stenosis I35.0 ; 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 ; History of atrial fibrillation Z86.79 ; Former smoker Z87.891 ; Overweight E66.3 ; History of DVT (deep vein thrombosis) Z86.718 ; Coronary artery disease involving algaaciq coronary artery of algaaciq heart without angina pectoris I25.10 ; Thrombocytopenia D69.6 ; BPH (benign prostatic hyperplasia) N40.0 and Type 2 diabetes mellitus without complication, without long-term current use of insulin E11.9 Adan Arellano III, MD [address] [place] [address] [place] [phone] 11/30/2024 Adan Arellano Nonrheumatic aortic valve stenosis I35.0 ; Dyspnea on exertion R06.09 ; Coronary artery disease involving algaaciq coronary artery of algaaciq heart without angina pectoris I25.10 ; Former smoker Z87.891 ; Overweight E66.3 ; History of atrial fibrillation Z86.79 and 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 Adan Arellano III, MD [address] [place] [address] [address] [place] [address] 03/14/2024 Adan Arellano III, MD [address] [place] [address] [address] [place] [phone] 07/25/2024 Adan Arellano III, MD [address] [place] [address] [address] [place] [phone] 12/04/2024 Adan Arellano Type 2 diabetes paula itus without complication, without long-term current use of insulin E11.9 and Congestive heart failure, unspecified HF chronicity, unspecified heart failure type I50.9 Assessments Encounter Date Diagnosis (ICD Code) Assessment Notes T reatment Notes Treatment Clinical Notes 12/05/2024 Nonrheumatic aortic valve stenosis (ICD-10 - I35.0) He was admitted to [facility] July 04 and discharged July [...] (ICD-10 - I35.0) He was admitted to [facility] July 04 and discharged July [...] (ICD-10 - I35.0) He was admitted to [facility] July 04 and discharged July [...] (ICD-10 - I35.0) He was admitted to [facility] July 04 and discharged July [...] (ICD-10 - I35.0) He was admitted to [facility] July 04 and discharged July [...] change in his therapy was made today. 09/26/2024 Nonrheumatic aortic valve stenosis (ICD-10 - I35.0) He was admitted to [facility] July 04 and discharged July [...] reports that his remaining testis is unremarkable. 11/30/2024 Nonrheumatic aortic valve stenosis (ICD-10 - I35.0) He was admitted to [facility] July 04 and discharged July [...] and was referred to the emergency department [facility] for evaluation. 12/04/2024 Type 2 diabetes mellitus without complication, without long-term current use of insulin (ICD-10 - E11.9) 12/27/2023 Overweight (ICD-10 - E66.3) His weight [...] modifications he can make to reduce this. 09/26/2024 History of atrial fibrillation (ICD-10 - Z86.79) He is currently a regular sinus rhythm which is well controlled. 11/30/2024 Coronary artery disease involving algaaciq coronary artery of algaaciq heart without angina pectoris (ICD-10 - I25.10) He has had no angina recently. His aortic valve is working well. His cardiac status is stable. His BNP has dropped. 12/04/2024 Congestive heart failure, unspecified HF chronicity, unspecified heart failure type (ICD-10 - I50.9) 12/27/2023 BPH (benign prostati c hyperplasia) (ICD-10 - N40.0) He rises from sleep once a night to urinate. We have discussed lifestyle modifications as a way to reduce nocturia. 03/13/2024 Hyperlipidemia (ICD-10 - E78.5) His fasting lipid profile shows his total cholesterol to be 77. He is doing well. No change in his regimen is needed.. 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 07/13/2024 Hyperlipidemia (ICD-10 - E78.5) fasting lipid profile has been ordered prior to his next visit. No change in his therapy was made today. 09/26/2024 Former smoker (ICD-1 0 - Z87.891) He is highly motivated not to smoke and has a plan to prevent relapse in times of stress and illness. 11/30/2024 Former smoker (ICD-1 0 - Z87.891) He is highly motivated not to smoke and has a plan to prevent relapse in times of stress and illness. 12/27/2023 History of atrial fibrillation (ICD-10 - Z86.79) He is currently a regular sinus rhythm which is well controlled. 03/13/2024 Coronary artery disease involving algaaciq coronary artery of algaaciq heart without angina pectoris (ICD-10 - I25.10) [...] sinus rhythm which is well controlled. 09/26/2024 Overweight (ICD-10 - E66.3) We have discussed his weight and his diet and nutrition. We reviewed his weight loss strategy. We made a plan to lose weight at a rate of one half of a pound per week. 11/30/2024 Overweight (ICD-10 - E66.3) We have discussed his weight and his diet and nutrition. We reviewed his weight loss strategy. We made a plan to lose weight at a rate of one half of a pound per week. 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 03/13/2024 Thrombocytopenia (ICD-10 - D69.6) 06/18/2024 Hyperlipidemia (ICD-10 - E78.5) His fasting lipid profile shows his total cholesterol to be 77. He is doing well. No change in his regimen is needed.. 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 09/26/2024 History of DVT (deep vein thrombosis) (ICD-10 - Z86.718) There are no signs of a DVT at this time. He has no history of a familial thrombophilia. The DVT occurred after cardiac surgery. 11/30/2024 History of atrial fibrillation (ICD-10 - Z86.79) He is currently a regular sinus rhythm which is well controlled. 12/27/2023 History of DVT (deep vein thrombosis) (ICD-10 - Z86.718) There are no signs of a DVT at this time. He has no history of a familial thrombophilia. The DVT occurred after cardiac surgery. 06/18/2024 Coronary artery disease involving algaaciq coronary artery of algaaciq heart without angina pectoris (ICD-10 - I25.10) He has had no angina recently. His aortic valve is working well. His cardiac status is stable. His BNP has dropped. 07/13/2024 Coronary artery disease involving algaaciq coronary artery of algaaciq heart without angina pectoris (ICD-10 - I25.10) He has had no angina recently. His aortic valve is working well. His cardiac status is stable. His BNP has dropped. 09/26/2024 Coronary artery disease involving algaaciq coronary artery of algaaciq heart without angina pectoris (ICD-10 - I25.10) He has had no angina recently. His aortic valve is working well. His cardiac status is stable. His BNP has dropped. 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 12/27/2023 Coronary artery disease involving algaaciq coronary artery of algaaciq heart without angina pectoris (ICD-10 - I25.10) [...] The DVT occurred after cardiac surgery. 09/26/2024 Thrombocytopenia (ICD-10 - D69.6) His thrombocytopenia is very mild at 146. No change in his regimen as necessary. He was continued on his medications. 12/27/2023 Former smoker (ICD-1 0 - Z87.891) He is highly motivated not to smoke and has a plan to prevent relapse in times of stress and illness. 07/13/2024 Former smoker (ICD-1 0 - Z87.891) He is highly motivated not to smoke and has a plan to prevent relapse in times of stress and illness. 09/26/2024 BPH (benign prostati c hyperplasia) (ICD-10 [...] insulin (ICD-10 - E11.9) Plan Of Treatment Pending Test Test Name Order Date BASIC METABOLIC PROFILE RANDOM 5 PROFILE, FASTING (COMPREHENSIVE METABOLI C) 09/26/2024 PROFILE, FASTING (COMPREHENSIVE METABOLI C) 05/21/2022 PROFILE, FASTING (COMPREHENSIVE METABOLI C) 12/27/2023 PROFILE, FASTING (COMPREHENSIVE METABOLI C) 04/10/2019 PROFILE, FASTING (COMPREHENSIVE METABOLI C) 01/18/2022 PROFILE, FASTING (COMPREHENSIVE METABOLI C) 07/11/2023 PROFILE, FASTING (COMPREHENSIVE METABOLI C) 09/16/2021 PROFILE, FASTING (COMPREHENSIVE METABOLI C) 03/04/2023 PROFILE, FASTING (COMPREHENSIVE METABOLI C) 09/26/2023 PROFILE, FASTING (COMPREHENSIVE METABOLI C) 12/03/2019 PROFILE, FASTING (COMPREHENSIVE METABOLI C) 09/21/2022 PROFILE, FASTING (COMPREHENSIVE METABOLI C) 07/13/2024 PROFILE, FASTING (COMPREHENSIVE METABOLI C) 08/10/2019 PROFILE, FASTING (COMPREHENSIVE METABOLI C) 03/13/2024 HEMOGLOBIN A1C (GLYCOHEMOGLOBIN) 020 HEMOGLOBIN A1C (GLYCOHEMOGLOBIN) 023 HEMOGLOBIN A1C (GLYCOHEMOGLOBIN) 022 LIPID PANEL 12/03/2019 LIPID PANEL 09/21/2022 LIPID PANEL 08/10/2019 LIPID PANEL 05/21/2022 LIPID PANEL 04/10/2019 LIPID PANEL 09/16/2021 BRAIN NATRIURETIC PEPTIDE (BNP) 12/05/19 25 BRAIN NATRIURETIC PEPTIDE (BNP) 03/04/20 23 BRAIN NATRIURETIC PEPTIDE (BNP) 09/26/19 24 PSA, TOTAL 07/13/2024 PSA, TOTAL 09/26/2024 PSA, TOTAL 12/27/2023 PSA, TOTAL 03/04/2023 PSA, TOTAL 09/16/2021 MICROALBUMIN, RANDOM 03/13/2024 MICROALBUMIN, RANDOM 08/10/2019 CBC w DIFF 09/16/2021 CBC w DIFF 12/03/2019 CBC w DIFF 09/21/2022 CBC w DIFF 07/13/2024 CBC w DIFF 03/13/2024 CBC w DIFF 12/04/2024 CBC w DIFF 09/26/2024 CBC w DIFF 01/18/2022 CBC w DIFF 12/27/2023 CBC w DIFF 08/10/2019 CBC w DIFF 05/21/2022 CBC w DIFF 04/10/2019 HELICOBACTER PYLORI IGG (H PYLORI IGG) 0 07/11/2023 Sleep Study - Baseline 03/04/2023 CBC WITH AUTO DIFF 07/11/2023 CBC WITH AUTO DIFF 09/26/2023 CBC WITH AUTO DIFF 03/04/2023 SARS COV2 IGG 11/07/2019 Complete Blood Count Auto Diff Basic Metabolic Panel 12/05/2024 Magnesium 12/04/2024 B Type Natriuretic Peptide 12/05/2024 Lipid Panel 09/26/2023 Lipid Panel 07/13/2024 Lipid Panel 03/13/2024 Lipid Panel 09/26/2024 Lipid Panel 01/18/2022 Lipid Panel 12/27/2023 Lipid Panel 07/11/2023 Microalbumin, Random 07/11/2023 Microalbumin, Random 07/13/2024 Hemoglobin A1c 07/11/2023 Hemoglobin A1c 03/13/2024 Hemoglobin A1c 12/04/2024 Hemoglobin A1c 07/13/2024 Hemoglobin A1c 01/18/2022 Next Appt Details Provider Name:Adan Arellano, 12/19/2024 10:30:00 AM, [address] [place] [address] CLAUDETTE ROPER, RAMÓN [place], [id number], Provider Name:Adan Arellano, 12/28/2024 02:00:00 PM, [address] [place] [address] CLAUDETTE ROPER, RAMÓN HA, [address], Provider Name:Adan Arellano, 09/30/2025 02:00:00 PM, [address] [place] [address] CLAUDETTE ROPER, RAMÓN HA, [address], Insurance Providers Payer Name Payer Address Payer Phone Subscriber Number Group Number Insured Name Patient Relationship to Insured Coverage Start Date Coverage End Date MEDICARE NGS [address] [place] [address] [id number] Dionicio Salgado Self - patient is the insured [facility] [address] [place], [place] [id number] [phone] [id number] Dionicio Salgado Self - patient is [...] hernia DVT left brachial and jugular veins 2004 coronary artery disease. 2004 four-vesse l CABG, Dr. Mcgrath hyperlipidemia Mitral valve regurgitation Life long need for endocarditis prophyla xis with invasive procedures Aortic Valve Replacement, Diabetes Surgical History Surgery Date(Month/Year) Aortic valve replacement TAVR 07/2023 colonoscopy, Dr. Adan ramírez, [facility], negative findings 2016 colonoscopy, Dr. 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
--- OUTSIDE RECORDS SUMMARY | 2024-12-05 17:19 | XMS_ITS | Encounter Summary ---
Author Organization [facility] Address [address] [place] [address] Phone Care Team Providers Care Energy Systems Engineer Name Role Phone Adan Arellano MD Primary Care Provider [phone] Carmelo Khoury Unavailable [phone] Encounter Details Date Type Department Care Team (Late st Contact Info) Description 06/10/2023 Procedure Pass [facility] PERIOPERATIVE DEPT [address] [place] [address] Social History Tobacco Use Types Packs/Day Years [...] on filedocumented in this encounter Care Teams Energy Systems Engineer Relationship Specialty Start Date End Date Adan Arellano MD [address] [place] [address] PCP - General Medical Oncology 03/30/23 Carmelo Khoury MBBS [address] [place] [address] [email or web address] Thoracic Surgery 05/13/23 documented as of this encounter Additional Source Comments The information contained in this document represents components of the legal health record. It is not the complete legal health record.[facility]
--- OUTSIDE RECORDS SUMMARY | 2024-12-05 17:19 | XMS_ITS | Encounter Summary ---
Author Organization [facility] Address [address] [place] [address] [place] [address] Phone Care Team Providers Care Watch Commander Name Role Phone Adan Arellano MD Primary Care Provider [phone] Carmelo Khoury Unavailable [phone] Reason for Referral * MRI/CAT Scan - Closed Specialty Diagnoses / Procedures Referred By Eduardo ballesteros Referred To Contact Radiology Diagnoses Nonrheumatic aortic valve stenosis Procedures CT 3D TAVR Reconstruction Krissy Guerra CNP Phone: tel: fax: [email or web address] Referral ID Status Reason Start Date Expiration Date Visits Re quested Visits Authorized [id number] Closed 04/28/2023 1 1 Encounter Details Date Type Department Care Team (Latest Contact Info) Description 04/28/2023 Ancillary Orders [facility] Cardiology [address] [place] [address] Krissy Guerra CNP [address] [place] [address] [email or web address] Nonrheumatic aortic valve stenosis (Primary Dx) Social History Tobacco Use Types Packs/Day Years [...] on file documented as of this encounter Results * CT 3D TAVR Reconstruction (05/02/2023 8:23 AM EST) Anatomical Region Laterality Modality Heart, Thoracic Vasculature Comp uted Tomography 05/02/2023 10:3 9 AM EST Impressions 05/02/2023 10:40 AM EST * Aortic annulus diameter is 30.4 x 21.3 mm, circumference 83.7 mm, and area 5.25 cm2. * The aortic valve calcium score could not be calculated. * Minimal luminal diameter is 6.7 mm in the right iliac system and 8.0 mm in the left iliac system. Minimal aortic diameter is 12.2 mm. * Minimal luminal diameter of subclavian/axillary artery is 3.9 mm on the right and 4.3 mm on the left. * Additional qualitative findings for this examination are reported separately. Narrative 05/02/2023 10:40 AM EST 3D MULTIPLANAR REFORMATION WAS PERFORMED AND INTERPRETED. This report contains measurements pertinent for transcatheter percutaneous valve placement planning only. Please see accompanying report under separate accession number for qualitative anatomic findings. FINDINGS: Aortic annulus measured in maximal systolic size: Diameter: 30.4 mm x 21.3 mm Circumference: 83.7 mm Area: 5.25 cm2 Technologist note: unable to do an Aortic Valve Calcium Score due to the non- contrast image series being corrupt. Tried multiple options without success. Coronary ostia height: Right: 15.5 mm (to annular plane), 16.8 mm (to hinge point) Left: 15.8 mm (to annular plane), 16.0 mm (to hinge point) Leaflet Lengths: Right: 14.5 mm Left: 17.9 mm Thoracic Aorta: Sinus of Valsalva height: 22.4 mm Sinus of Valsalva: 29.8 mm x 30.8 mm x 32.9 mm (measured from the left/right/noncoronary cusp to the opposite commissure) Sinotubular junction diameter: 28.4 x 24.6 mm Ascending aorta: 32.8 mm x 28.1 mm (at the level of the pulmonary artery bifurcation) Descending Aorta: 24.8 mm x 22.5 mm (at the level of the pulmonary artery bifurcation) Maximum descending aorta diameter: 29.6 mm x 23.2 mm Minimal arterial luminal diameters: Aorta: 13.5 mm x 12.2 mm Right common iliac artery: 10.6 mm x 8.0 mm Right external iliac artery: 8.4 mm x 6.7 mm Right common femoral artery: 8.5 mm x 8.0 mm Left common iliac artery: 9.8 mm x 8.2 mm Left external iliac artery: 8.4 mm x 8.0 mm Left common femoral artery: 9.0 mm x 8.3 mm Right subclavian artery: 6.2 mm x 5.4 mm Right axillary artery: 7.1 mm x 3.9 mm Left subclavian artery: 7.3 mm x 4.3 mm Left axillary artery: 7.2 mm x 5.4 mm Procedure Note Sary Vargas MD - 05/02/2023 3D MULTIPLANAR REFORMATION WAS PERFORMED AND INTERPRETED. This report contains measurements pertinent for transcatheter percutaneousvalve placement planning only. Please see accompanying report underseparate accession number for qualitative anatomic findings. FINDINGS: Aortic annulus measured in maximal systolic size: Diameter: 30.4 mm x 21.3 mm Circumference: 83.7 mm Area: 5.25 cm2 Technologist note: unable to do an Aortic Valve Calcium Score due to thenon- contrast image series being corrupt. Tried multiple options withoutsuccess. Coronary ostia height: Right: 15.5 mm (to annular plane), 16.8 mm (to hinge point) Left: 15.8 mm (to annular plane), 16.0 mm (to hinge point) Leaflet Lengths: Right: 14.5 mm Left: 17.9 mm Thoracic Aorta: Sinus of Valsalva height: 22.4 mm Sinus of Valsalva: 29.8 mm x 30.8 mm x 32.9 mm (measured from theleft/right/noncoronary cusp to the opposite commissure) Sinotubular junction diameter: 28.4 x 24.6 mm Ascending aorta: 32.8 mm x 28.1 mm (at the level of the pulmonary arterybifurcation) Descending Aorta: 24.8 mm x 22.5 mm (at the level of the pulmonary arterybifurcation) Maximum descending aorta diameter: 29.6 mm x 23.2 mm Minimal arterial luminal diameters: Aorta: 13.5 mm x 12.2 mm Right common iliac artery: 10.6 mm x 8.0 mm Right external iliac artery: 8.4 mm x 6.7 mm Right common femoral artery: 8.5 mm x 8.0 mm Left common iliac artery: 9.8 mm x 8.2 mm Left external iliac artery: 8.4 mm x 8.0 mm Left common femoral artery: 9.0 mm x 8.3 mm Right subclavian artery: 6.2 mm x 5.4 mm Right axillary artery: 7.1 mm x 3.9 mm Left subclavian artery: 7.3 mm x 4.3 mm Left axillary artery: 7.2 mm x 5.4 mm IMPRESSION: * Aortic annulus diameter is 30.4 x 21.3 mm, circumference 83.7 mm, andarea 5.25 cm2. * The aortic valve calcium score could not be calculated. * Minimal luminal diameter is 6.7 mm in the right iliac system and 8.0 mmin the left iliac system. Minimal aortic diameter is 12.2 mm. * Minimal luminal diameter of subclavian/axillary artery is 3.9 mm on theright and 4.3 mm on the left. * Additional qualitative findings for this examination are reportedseparately. us Krissy Guerar CNP IMG CT Fin al Result documented in this encounter Visit Diagnoses Diagnosis Nonrheumatic aortic valve stenosis- Primary Nonrheumatic aortic valve stenosis documented in this encounter Additional Health Concerns Infection Onset Date Last Indicated Resolved Time CoV-Risk Comment:Per note documentation 06/03/2023 06/03/202306/02/202 4 1:46 PM EST documented as of this encounter Care Teams Watch Commander Relationship Specialty Start Date End Date Adan Arellano MD [address] [place] [address] PCP - General Medical Oncology 03/30/23 Carmelo Khoury MBBS [address] [place] [address] [email or web address] Thoracic Surgery 05/13/23 documented as of this encounter Additional Source Comments The information contained in this document represents components of the legal health record. It is not the complete legal health record.[facility]
--- OUTSIDE RECORDS SUMMARY | 2024-12-05 17:19 | XMS_ITS | Encounter Summary ---
Author Organization [facility] Address [address] [place] [address] Phone Care Team Providers Care Chemical Supervisor Name Role Phone Adan Arellano MD Primary Care Provider [phone] Carmelo KhouryBS Unavailable [phone] Encounter Details Date Type Department Care Team (Late st Contact Info) Description 06/07/2023 Procedure Pass [facility] Cardiac Fire Extinguisher Mechanic [address], [address], [address] [place] [address] Social History Tobacco Use Types Packs/Day Years [...] on filedocumented in this encounter Care Teams Chemical Supervisor Relationship Specialty Start Date End Date Adan Arellano MD [address] [place] [address] PCP - General Medical Oncology 03/30/23 Carmelo Khoury MBBS [address] [place] [address] [email or web address] Thoracic Surgery 05/13/23 documented as of this encounter Additional Source Comments The information contained in this document represents components of the legal health record. It is not the complete legal health record.[facility]
--- OUTSIDE RECORDS SUMMARY | 2024-12-05 17:19 | XMS_ITS | Encounter Summary ---
Author Organization [facility] Address [address] [place] [address] Phone Care Team Providers Care Counselor Marriage And Family Name Role Phone Adan Arellano MD Primary Care Provider [phone] Carmelo Khoury MBBS Unavailable Encounter Details Date Type Department Care Team (Late st Contact Info) Description 06/08/2023 Procedure Pass [facility] CT, [address] [facility], [address]nd [address], [address] [place] [address] Social History Tobacco Use Types Packs/Day Years [...] on filedocumented in this encounter Care Teams Counselor Marriage And Family Relationship Specialty Start Date End Date Adan Arellano MD [address] [place] [address] PCP - General Medical Oncology 03/30/23 Carmelo Khoury MBBS [address] [place] [address] [email or web address] Thoracic Surgery 05/13/23 documented as of this encounter Additional Source Comments The information contained in this document represents components of the legal health record. It is not the complete legal health record.[facility]
--- OUTSIDE RECORDS SUMMARY | 2024-12-05 17:19 | XMS_ITS | Patient Health Record ---
Author Organization [facility] Address [address] [place] [address] Care Team Providers Care Endocrinology Nurse Name Role Phone Jerardo Sethi Primary Care Provider Adan Alcaraz [phone] Allergies Allergen (clinical drug ingredient) Drug/Non Drug [...] Problem Status W/U Status Risk Notes Problem [id number] Encounter for screening for malignant neoplasm of colon (Z12.11) Active confirmed Problem [id number] History of adenomatous polyp of colon (Z86.010) Active confirmed Problem Screening for malignant neoplasm of rectum ([id number]) Encounter for screening for malignant neoplasm of rectum (Z12.12) Active confirmed Plan Of Treatment Future Test Test Name Order Date COLONOSCOPY 05/20/2016 Insurance Providers Payer Name Payer Address Payer Phone Subscriber Number Group Number Insured Name Patient Relationship to Insured Coverage Start Date Coverage End Date [facility] [address] [place] [address] [id number] DANNY VIDAL Self - patient is the insured Medical (General) History Medical History History ICD Code Screening colonoscopy 11-24-2010--1 small tubular adenoma, diverticulosis Coronary artery disease--No [place]--CABG as below Heart murmur--aortic valve--- followed w [...]
--- OUTSIDE RECORDS SUMMARY | 2024-12-05 17:19 | XMS_ITS | Encounter Summary ---
Author Organization [facility] Address [address] [place] [address] Phone Care Team Providers Care Log Handler Name Role Phone Adan Arellano MD Primary Care Provider [phone]- [phone] Carmelo KhouryBS Unavailable [phone] Encounter Details Date Type Department Care Team (Late st Contact Info) Description 06/08/2023 Procedure Pass [facility] Cardiac Oil Processing Technician [address] [facility], [address], [address] [place] [address] Social History Tobacco Use Types [...] on filedocumented in this encounter Care Teams Log Handler Relationship Specialty Start Date End Date Adan Arellano MD [address] [place] [address] PCP - General Medical Oncology 03/30/23 Carmelo Khoury MBBS [address] [place] [address] [email or web address] Thoracic Surgery 05/13/23 documented as of this encounter Additional Source Comments The information contained in this document represents components of the legal health record. It is not the complete legal health record.[facility]
--- OUTSIDE RECORDS SUMMARY | 2024-12-05 17:19 | XMS_ITS | Encounter Summary ---
Author Organization [facility] Address [address] [place] [address] Phone Care Team Providers Care Smudger Name Role Phone Adan Arellano MD Primary Care Provider [phone]- [phone] Carmelo KhouryBS Unavailable [phone] Encounter Details Date Type Department Care Team (Late st Contact Info) Description 06/13/2023 Procedure Pass [facility] Cardiac Hand Shaker [address] [facility], [address], [address] [place] [address] Social History Tobacco Use Types [...] on filedocumented in this encounter Care Teams Smudger Relationship Specialty Start Date End Date Adan Arellano MD [address] [place] [address] PCP - General Medical Oncology 03/30/23 Carmelo Khoury MBBS [address] [place] [address] [email or web address] Thoracic Surgery 05/13/23 documented as of this encounter Additional Source Comments The information contained in this document represents components of the legal health record. It is not the complete legal health record.[facility]
--- OUTSIDE RECORDS SUMMARY | 2024-12-05 17:19 | XMS_ITS | Clinical Summary ---
Author Organization [facility] Address [address] [place] [address] Phone Care Team Providers Care Computed Tomography Scanner Operator Name Role Phone Adan Arellano MD Primary Care Provider [phone] Carmelo Khoury MBBS Unavailable [phone] Allergies Active Allergy Reactions Criticality Noted Date Comments Iodinated Contrast Media Hives 04/24/2023 Penicillins Hives,Unknown 04/28/2023 Medications aspirin 81 mg Cap Take 81 mg by mouth daily. Active metFORMIN (GLUCOPHAGE) 500 MG tablet Take 500 mg by mouth daily with breakfast. 05/21/2022 Active metoprolol succinate (TOPROL-XL) 50 MG 24 hr tablet Take 1 tablet (50 mg total) by mouth daily. 30 tablet 2 06/18/2023 Active diphenhydrAMINE (BENADRYL) 50 MG capsule Take 1 tablet (50 mg) 1 hour prior to your procedure. 2 capsule 06/17/2023 Active atorvastatin (LIPITOR) 40 MG tablet Take 1 tablet (40 mg total) by mouth nightly at bedtime. 90 tablet 06/17/2023 Active Active Problems Problem Noted Date Diagnosed Date Valvular heart disease 07/05/2023 Assessment & Plan (07/07/2023 10:23 AM EDT): Radiation heart disease with severe , indeterminate severity but likely severe MR/mod MS, HFpEF now s/p elective TF TAVR 07/05/23 (26 mm Kevin Ultra Resilia valve) with GA/TTE guidance. Procedure c/b inability to pass KEREN probe for mitral evaluation and brief small volume hemoptysis in PACU. Access: RFA, LFA, RRA, LFV > mild ecchymosis but otherwise well healed. Post TAVR TTE shows well seated TAVR with no PVL, MG 5, calcific MS MG 3, mild to mod MR, RVSP 62, EF 55%. Hgb/Hct down from admission 16/44.6 > 12.7/37.9 > 13.2/41 but no significant access site or oral bleeding. Lab: Cre 0.83, Hgb 13.2, Hct 41, Plt 110 ECG/Telemetry: remains in SR with no tachy, manpreet, pause events or HGAVB. Hgb/Hct/Plts down post TAVR but there is no significant access site bleeding or complication to explain downtrend. Hemoptysis was very limited and small volume per pt report (< 1 Tbsp). Ecchymosis noted in R peritonsillar area without airway or swallowing difficulties. We would like to evaluate his esophagus to facilitate future KEREN for possible transcatheter mitral valve evaluation/intervention in the future. Appears euvolemic on exam Plan: - Upper endoscopy today per GI recs. - Needs to remain on DAPT (ASA, Ticagrelor) for recent PCI - SBE prophylaxis prn for life - Continue Bumex 1 mg po daily - f/u TTE and OV Dr. Hendricks 23-75 days and will f/u for possible mitral valve eval/intervention at that time. - Can likely discharge home later today Atherosclerosis of tangirnaq co ronary artery of tangirnaq heart without angina pectoris 06/07/2023 Assessment & Plan (07/07/2023 10:25 AM EDT): Radiation heart disease s/p CABG 2004 (free WHITMAN to LAD now occluded, LRA to OM, SVG to ramus, SVG to RCA). S/p SVG to RCA PCI/KASSANDRA x 1 and proximal LAD & distal LM PCI, cutting balloon, Shockwave IVL and KASSANDRA x 1 06/13/23. In retrospect, he reported marked improvement in mid scapular/neck pain and SOB after PCI. No symptoms to suggest angina and ECG today does not suggest ischemia. - continue DAPT (ASA, Ticagrelor) for at least one year from 06/13/23 - continue atorva 40 mg, metoprolol ER 50 mg daily Assessment & Plan (06/17/2023 12:05 PM EDT): CABG 2004 [facility] (Free WHITMAN to LAD, free LRA to OM branch, SVG to ramus, SVG to RCA). Multiple ECGs 06/06/23 showed dynamic, diffuse STDs up to 2mm and CLAUDETTE aVR but pt reported no CP or significant SOB during event. EF 55%. TnTs were elevated on admission. Has had few short runs of VT, likely ischemic substrate. Coronary CTA 06/07 occluded WHITMAN-LAD, severe ostial SVG-RCA; patent arterial graft to ramus and SVG-OM. IV contrast allergy in remote past (hives). Tolerated CTA and cor angio with routine prednisone prophylaxis. S/p SVG to RCA PCI/KASSANDRA x 1 and proximal LAD & distal LM PCI, cutting balloon, Shockwave IVL and KASSANDRA x 1 06/13/23. On Ticagrelor and ASA. RFA access site well healed. Renal fxn stable. In hindsight, he now notes that mid scapular back pain, present over past year, has resolved. Had similar symptoms prior to CABG. 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 Evaluated by Dr. Khoury and Dr. Hendricks. Given his young age, prior chest surgery and XRT, would like to avoid another sternotomy for AVR +/- MVR and redo CABG. Case discussed in multidisciplinary valve team meeting 06/06/23: plan for TAVR with KEREN assessment of MR at time of TAVR once work up completed. He may be a candidate for future TMVR but needs KEREN assessment first. TMVR analysis for [id number] and APOLLO: * Mitral annulus average diameter is 39.1 mm , circumference 131 mm, and area 12.0 cm2 and 3-D perimeter is 132 mm in systole. * Minimal new LVOT area after 29 mm valve simulation is 4.2 sqcm with a maximum 40.8% area reduction With slow 20 lb diuresis to 145 lbs on Lasix drip, filling pressures, SOB, LE edema, chest/abd congestion improved. 06/07: RA 16, PA 88/36, PCW 36 V waves 60, CI 2.97 TD (157 lbs) 06/12: RA 2, PA 53/18/32, PCW 18 V waves 31, CI 2.8 TD (146 lbs) With coronary revascularization 06/13/23 (PCI/KASSANDRA SVG to RCA and PCI/KASSANDRA tangirnaq LAD and distal LM) he feels even better with less SOB and resolution of mid scapular back pain (present x 1 yr, prior anginal equivalent). 06/16/13 He looks quite well Completed Eval: Echo: 06-02-2023: - LVEF 55% with anterior, septal, inferior WMA - RV dilated with reduced systolic function - AV calcified and restricted. pG 69, mG 40, CARLOS 0.8cm2. Mild to moderate AI. - Calcific MS, mean gradient of 4 mmHg at HR 85 mmHg. Some degree of MR, incompletely evaluated on this study - Mild to moderate TR CT TAVR and TMVR: suitable TF access for TAVR. Minimal neoLVOT appears suitable for TMVR. Coronary CTA 06/07: occluded WHITMAN-LAD, severe ostial SVG-RCA. AV Ca score 3590. Carotid US 06/06/23: mild LICA stenosis, normal flow both subclavians PFT: Not completed Dental evalution: Seen by local dentist, needs at least one extraction. Per [facility] Dental > cleared for surgery. CT surgery: Dr. Khoury Coronary Revascularization: completed 06/13/23 PLAN: - he would benefit from some time at home to recover post PCI and after long hospitalization > plan for outpt TAVR 07/[address] Hendricks - d/w primary team who feels pt ready for dch today on po Bumex 1mg - Aim for near dry wt 145 lbs. - Check NTproBNP on discharge to correlate with wt. - Ok to cancel outpt Pulmonary evaluation scheduled for 06/22. GDMT HFpEF - add empagliflozin 10mg daily (Jardiance) after TAVR (would not start now as it will need to be held for TAVR). - after 2 weeks on empagliflozin, add spironolactone 12.5 mg daily For future TAVR - please check CBC with diff before dch (remainder of preop labs will be up to date) - will need active blood bank sample/type & cross for TAVR - Hibiclens prep neck to knees x 3 beginning 3 days prior to procedure > Please send bottle of Hibiclens home with patient - IV contrast allergy prophylaxis (prednisone 50 mg 13h, 7h, 1h prior to procedure, benadryl 50 mg IV or PO 1h prior to procedure)...Please send PRESCRIPTION for PREDNISONE 50 mg tabs on discharge and ask pt to take OTC diphenhydramine 50 mg one hour prior to procedure. - aspirin 324 mg po x 1 am of TAVR - Hold vitamins and OTC supplements 1 week prior to TAVR - No short acting insulin day of procedure - Hold antihypertensive medications day of TAVR - Dr. Hendricks will follow up Assessment & Plan (05/05/2023 2:08 PM EST): Dionicio Salgado presents with evidence of severe aortic stenosis based on our independent review of the echocardiographic images. Completed evaluation: - TTE (completed) - CT surgery consultation with Dr. Khoury (completed) - TAVR protocol CTA (completed) Plan: - stress echocardiogram - dental evaluation-pt has form and an appointment next week - referral placed to Dr. Katy Cervantes - [facility] pulmonology based on CT findings Encounters Date Type Department Care Team Description 09/24/2024 4:00 PM EDT Office Visit [facility] [address] [place] [address], [address], [address] [place] [address] Nikia Mattson, LIVIER Mitral valve disease (Primary Dx); Atherosclerosis of tangirnaq coronary artery of tangirnaq heart without angina pectoris; Nonrheumatic aortic valve stenosis from Last 3 Months Social History Tobacco Use Types Packs/Day Years [...] Orientation Straight 03/30/2023 11 :54 AM EST Last Filed Vital Signs Vital Sign Reading Time Taken Comments Blood Pressure 162/86 09/24/2024 4:14 PM EDT Pulse 57 09/24/2024 4:14 PM EDT Temperature 36.2 C (97.1 F) 08/31/2023 10:13 AM EDT Respiratory Rate 16 08/31/2023 10:13 AM EDT Oxygen Saturation 95% 08/31/2023 10:34 AM EDT Inhaled Oxygen Concentration - - Weight 66.7 kg (147 lb) 09/24/2024 4:14 PM EDT Height 162.6 cm (5' 4 ) 07/19/2024 1:52 PM EDT Body Mass Index 25.23 07/19/2024 1:52 PM EDT Plan of Treatment Health Maintenance Due Date Last Done Comments Adult Td,Tdap Booster 1952 DEPRESSION SCREENING 1964 SMOKING Hx and SMOKELESS TOBACCO SCREENING 1965 HEPATITIS C SCREENING 1970 COLOGUARD 1997 COLONOSCOPY 1997 COLORECTAL CANCER SCREENING 1997 FIT TEST 1997 FOBT 1997 SIGMOIDOSCOPY 1997 VIRTUAL COLONOSCOPY 1997 PNEUMOCOCCAL VACCINES (50+ years) (1 of 1 - PCV) 2002 ZOSTER VACCINES (1 of 2) 2002 RSV VACCINE (1 - Risk 60-74 years 1-dose series) 2012 CREATININE LEVEL 07/06/2024 07/07/2023, 06/2023, 07/06/2023, Additional history exists INFLUENZA VACCINE (#1) 2024 , 02/19/2022, 04/23/2021, Additional history exists COVID-19 VACCINE ( season) 2024 01/28/2021, 07/23/2020, 07/01/2020 HEPATITIS A VACCINES Aged Out No long er eligible based on patient's age to complete this topic HIB VACCINES Aged Out No longer eligi ble based on patient's age to complete this topic MENINGOCOCCAL VACCINES (ACWY) Aged Out No longer eligible based on patient's age to complete this topic MENINGOCOCCAL VACCINES (B) Aged Out N o longer eligible based on patient's age to complete this topic Medical Devices Implanted Type Area Handbag Operator Device Identifier Shelf Expiration Date Model / Serial / Lot Stent Xience Skypoint [id number] Rapid-Exchange Everolimus Eluting Coronary - [id number] Implanted:Qty: 1 on 06/13/2023 at [facility] [employer] 12/15/2025 [id number] / / [id number] System Stent [id number] Rapid-Exchange Coronary Eluting Everolimus Xience Skypoint - [id number] Implanted:Qty: 1 on 06/13/2023 by Josh Farnsworth MD, PhD, MPH at [facility] Coronary [employer] 02/14/2024 [id number] Richey Kevin 3 Ultra Resilia Transcatheter Heart Valve 26mm Implanted:Qty: 1 on 07/05/2023 by Nghia Houston MD at [facility] N/A: Heart 11/17/2025 [id number] / [id number] / Procedures Procedure Name Priority Date/Time Associated Diagnosis Comments ECG 12-LEAD Routine 09/24/2024 4:10 PM EDT Mitral valve disease BASIC METABOLIC PANEL Routine 07/07/2023 5:50 AM EDT from Last 3 Months or Most Recently Relevant to Health Maintenance Results * ECG 12-LEAD (09/24/2024 4:10 PM EDT) Systolic Blood Pressure [facility] Diastolic Blood Pressure [facility] Ventricular Rate EKG/MIN 58 BPM [facility] Atrial Rate 58 BPM [facility] NM Interval 142 ms [facility] QRS Duration 102 ms [facility] QT Interval 458 ms [facility] QTC Interval 449 ms [facility] P [place] 40 degrees [facility] R Wave [place] -10 degrees [facility] T Wave [place] 16 degrees [facility] 09/24/2024 4:10 PM EDT 09/30/2024 9:33 PM EDT Narrative [facility] - 09/30/2024 9:33 PM EDT LOC: [id number] DX: ABNORMAL ECG REF: NIKIA MATTSON SINUS BRADYCARDIA EARLY PRECORDIAL R WAVE TRANSITION NONSPECIFIC ST SEGMENT AND T WAVE ABNORMALITIES WHEN COMPARED WITH ECG OF 05-Sep-2023 15:32, NO SIGNIFICANT CHANGE us Nikia Mattson PRESIDENT ERGONOMIC CONSULTING ECG ORDERABLES Final Re sult Performing Organization Address [facility]/ZIP Co de Phone Number [facility] * (ABNORMAL) Basic metabolic panel (07/07/2023 5:50 AM EDT) SODIUM 136 135 - 145 mmol/L [facility] POTASSIUM 4.3 3.4 - 5.0 mmol/L [facility] CHLORIDE 98 98 - 108 mmol/L [facility] CO2 28 23 - 32 mmol/L [facility] BUN 32(H) 8 - 25 mg/dL [facility] CREATININE 0.83 0.60 - 1.50 mg/dL [facility] GLUCOSE 104 70 - 110 mg/dL [facility] CALCIUM 9.0 8.5 - 10.5 mg/dL [facility] EGFR 94 >59 mL/min/1.7 3m2 [facility] Comment:Estimated glomerular filtration rate calculated using the CKD-EPI refit equation. ANION GAP 10 3 - 17 mmol/L [facility] Blood 07/07/2023 5:50 AM EDT 07/07/2023 6:39 AM EDT us Rodriguez Severino PA-C LAB BLOOD ORDERABLES Final R esult Performing Organization Address City/[facility]/ZIP Co de Phone Number [address] [address] from Last 3 Months or Most Recently Relevant to Health Maintenance Insurance MEDICARE PART A & B [employer] MED[employer] SUPPLEMENT MEDICARE PART A & B [employer] MED[employer] SUPPLEMENT MEDICARE PART A & B [employer] MED[employer] SUPPLEMENT MEDICARE PART A & B [employer] MEDEX SUPPLEMENT MEDICARE PART A & B [facility] MEDEX SUPPLEMENT MEDICARE PART A & B [employer] MEDEX SUPPLEMENT Advance Directives For more information, please contact: [phone] (9AM - 5PM [facility], Tuesday-Tuesday) * Full Code (Latest Code Status on File) Date Activated Date Inactivated Comments 07/05/2023 3:55 PM Question Answer Comments Code Status Confirmed With: Patient * Full Code Date Activated Date Inactivated Comments 06/13/2023 12:04 PM 07/05/2023 3:55 PM Question Answer Comments Code Status Confirmed With: Patient * Full Code Date Activated Date Inactivated Comments 06/03/2023 5:37 PM 06/13/2023 12:04 PM Question Answer Comments Code Status Confirmed With: PatientFamily * Full Code Date Activated Date Inactivated Comments 06/03/2023 4:27 PM 06/03/2023 5:37 PM Question Answer Comments Code Status Confirmed With: PatientFamily Code Status Communicated To: Inpatient Attending Care Teams Computed Tomography Scanner Operator Relationship Specialty Start Date End Date Adan Arellano MD [address] [place] [address] PCP - General Medical Oncology 03/30/23 Carmelo Khoury MBBS [address] [place] [phone] [email or web address] Thoracic Surgery 05/13/23 Additional Source Comments The information contained in this document represents components of the legal health record. It is not the complete legal health record.[facility]
--- OUTSIDE RECORDS SUMMARY | 2024-12-05 17:19 | XMS_ITS | Encounter Summary ---
Author Organization [facility] Address [address] [place] [address] Phone Care Team Providers Care Independent Beauty Consultant Name Role Phone Adan Arellano MD Primary Care Provider [phone] Carmelo KhouryBS Unavailable [phone] Encounter Details Date Type Department Care Team (Late st Contact Info) Description 07/05/2023 Procedure Pass [facility] [address] [place] [address] Social History Tobacco Use Types Packs/Day Years [...] 07/05/2023 6:00 PM Racquel Cohn, BELEM * Riley Suicide Severity Rating Scale (Screener/Recent Self-Report) Question [...] on filedocumented in this encounter Care Teams Independent Beauty Consultant Relationship Specialty Start Date End Date Arellano, Adan [place]ke[place], MD [address] [place] [address] PCP - General Medical Oncology 03/30/23 Carmelo Khoury MBBS [address] [id number] [email or web address] Thoracic Surgery 05/13/23 documented as of this encounter Additional Source Comments The information contained in this document represents components of the legal health record. It is not the complete legal health record.[facility]
--- OUTSIDE RECORDS SUMMARY | 2024-12-05 17:19 | XMS_ITS | Encounter Summary ---
Author Organization [facility] Address [address] [place] [address] Phone Care Team Providers Care News Copy Editor Name Role Phone Adan Arellano MD Primary Care Provider [phone] Carmelo KhouryBS Unavailable [phone] Encounter Details Date Type Department Care Team (Late st Contact Info) Description 04/07/2023 Procedure Pass [facility], [place] [address] [facility], [address], [address] [address] Social History Tobacco Use Types Packs/Day Years [...] documented as of this encounter Care Teams News Copy Editor Relationship Specialty Start Date End Date Adan Arellano MD [address] [place] [address] PCP - General Medical Oncology 03/30/23 Carmelo Khoury MBBS [address] [place] [id number] [email or web address] Thoracic Surgery 05/13/23 documented as of this encounter Additional Source Comments The information contained in this document represents components of the legal health record. It is not the complete legal health record.[facility]
== END 2024-12-05 15:11 | disposition home or self-care (01) ==
LOC: HO.LAB 15:10
PROVIDERS: PCP Internal Medicine Medical Oncology; Visit Provider Internal Medicine Medical Oncology
DX: E11.9 Type 2 diabetes mellitus without complications (principal); I50.9 Heart failure, unspecified
CPT/HCPCS: 36415; 80048; 83036; 83735; 83880; 85025

== ENCOUNTER 2025-02-13 09:47 | Outpatient (REF) | payer MEDICARE, SELFPAY ==
--- OUTSIDE RECORDS SUMMARY | 2004-12-13 23:00 | XMS_ITS | Encounter Summary ---
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 Not on denis e 03/30/2023 Are you concerned about learning? Not on file 03/30/2023 No 03/30/2023 No 03/30/2023 Food Answer Date Recorded Within the past 6 months we worried whether our food would run out before we got money to buy more. Never True 06/03/2023 Within the past 6 months the food we bought just didn't last and we didn't have enough money to get more. Never True Residential Stability Answer Date Recor ded What is your housing situation today? I have lukas sing 06/03/2023 How many times have you move d in the past 12 months? Zero (I did not move) 06/03/2023 Paying for Meds Answer Date Recorded Do you have trouble paying for medicines? No 06/03/2023 Paying Utility Bills Answer Date Record ed Do you have trouble paying your heating or elect ricity bill? No 06/03/2023 Transportation Answer Date Recorded Has the lack of transportati on kept you from medical appointments or from getting medications? No 06/03/2023 Digital Access Answer Date Recorded Yes 06/03/2023 No 06/03/2023 Do you have reliable internet access at home? No 06/03/2023 Do you have a device (e.g., phone, tablet, computer) with a working camera? No 06/03/2023 Intimate Partner Violence Answer Date R ecorded Are you denied basic needs s uch as food, clothing, or medical care? Deferred 07/05/2023 In the past 12 months have y ou been in a relationship with a person who hurts, threatens, or tries to control you? Deferred 07/05/2023 Are you denied basic needs s uch as food, clothing, or medical care? Deferred 07/05/2023 In the past 12 months have y ou been in a relationship with a person who hurts, threatens, or tries to control you? Deferred 07/05/2023 Sex and Gender Information Value Date Recorded Sex Assigned at Male 03/30/2023 11:54 AM EST Legal Sex Male 11:48 AM EST Gender Identity Male 03/30/2023 11:54 AM EST Sexual Orientation Straight 03/30/2023 11 :54 AM EST documented as of this encounter Functional Status * Calculated C-SSRS Risk Score (Lifetime/Recent) Answer Date of Assessment Author No Risk Indicated 07/05/2023 6:00 PM Racquel Cohn, BELEM * [place] Suicide Severity Rating Scale (Screener/Recent Self-Report) Question Answer Date of Assessment Author 1. Wish to be (Past 1 Month) No 07/05/2023 6:00 PM Racquel Reed, BELEM 2. Non-Specific Active Suicidal Thoughts (Past 1 Month) No 07/05/2023 6:00 PM Racquel Reed, RN 6. Suicidal Behavior (Lifetime) No 07/05/2023 6:00 PM Racquel Reed, BELEM documented as of this encounter Plan of Treatment Not on file documented as of this encounter Procedures Procedure Name Priority Date/Time Associated Diagnosis Comments [place] THORACIC OUTSIDE (NO INTERPRETATION) Routine 12/14/2004 12:00 AM EDT documented in this encounter Results * [place] Thoracic Outside (No Interpretation) (12/14/2004 12:00 AM EDT) Narrative [facility] [facility] - 03/31/2023 3:31 PM EST This study is for PACS storage only and not for interpretation. Peng De Souza MD IMG OUTSIDE IMAGING W/O UT INTERPRETATION Final Result [facility] documented in this encounter Visit Diagnoses Not on filedocumented in this encounter Additional Health Concerns Infection Onset Date Last Indicated Resolved Time CoV-Risk Comment:Per note documentation 06/03/2023 06/03/2023 4 1:46 PM EST documented as of this encounter Additional Source Comments The information contained in this document represents components of the legal health record. It is not the complete legal health record.[facility]
--- OUTSIDE RECORDS SUMMARY | 2024-03-14 05:37 | XMS_ITS ---
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 Adan Arellano III Primary Care Provider REASON FOR VISIT Message Social History Sex Assigned At : Social History Observation Description Sex Assigned At Male Encounters Encounter Location Date Provider Diagnosis Adan Arellano III, MD [address] [place] [address] [place] [phone] 03/14/2024 Adan Arellano Plan Of Treatment Next Appt Details Provider Name:Adan Arellano , 02/13/2025 02:30:00 PM, [address] [place] [address] [place], [address], Provider Name:Adan Arellano , 09/30/2025 02:00:00 PM, [address] [place] [address] [place], [address], Progress Notes * Dionicio VIDALDOB:[birth year] (73 yo M)Acc No.[id number]:03/14/2024 Patient: Dionicio OSPINA :1950 A ge:73 Y S ex:Male Address:[address] [place], [address] * true * Date: Generated for Printi ng/Faxing/eTransmitting on: 04/15/2024 11:11 AM EST
--- OUTSIDE RECORDS SUMMARY | 2024-06-18 08:45 | XMS_ITS ---
Author Organization Adan Arellano III, MD Address [address] [place] [address] Care Team Providers Care Clinical Laboratory Medical Director Name Role Phone Dr. Adan Arellano III Primary Care Provider Allergies Allergen (clinical drug ingredient) Drug/Non Drug Allergy documented on EMR Reaction Allergy Type Onset Date Status Penicillin Unknown Drug Allergy Active Contrast Allergy PreMed Pack Unknown Drug Allergy Active REASON FOR VISIT Right groin lump and pain for 2 weeks, Repaired aortic stenosis, History of atrial fibrillation, History of mediastinal seminoma, History of DVT, Coronary artery disease Medications Medication SIG (Take, Route, Frequency, Duration) Notes Start Date End Date Status Doxylamine Succinate (Sleep) 25 MG 1 tablet at bedtime as needed Orally Once a day 04/13/2023 Active Omeprazole 20 MG 1 capsule 30 minutes before morning meal Orally Once a day 07/11/2023 Active Atorvastatin Calcium 40 MG 1 tablet Oral ly Once a day Active metFORMIN HCl 1000 MG 1 tablet with a me al Orally Once a day 09/26/2023 Active Metoprolol Succinate ER 50 MG TAKE ONE TABLET BY MOUTH EVERY DAY Active Aspirin 81 81 MG 1 tablet [...] Additional Findings: Tobacco Non-User Ex-cigaret te smoker Problems Problem Type SNOMED Code ICD Code Onset Dates Problem Status W/U Status Risk Notes Problem [id number] Right inguinal hernia (K40.90) Active confirmed It is very small. He has elected for observation. We discussed what is involved in a herniorrhaphy and what to do if a loop of bowel becomes incarcerated and with those symptoms are. Follow-up was arranged. Vital Signs Temperature 98.8 degrees Fahrenheit 06/19/19 25 Blood pressure systolic 139 mm Hg 06/19/19 25 Blood pressure diastolic 62 mm Hg 025 Heart Rate 63 /min 06/18/2024 Height 65 in 06/18/2024 Weight 149 lbs 06/18/2024 BMI 24.79 kg/m2 06/18/2024 Encounters Encounter Location Date Provider Diagnosis Adan Arellano III, MD [address] [place] [address] [place] [address] 06/18/2024 Adan Arellano Nonrheumatic aortic valve stenosis I35.0 ; Right inguinal hernia K40.90 ; History of atrial fibrillation Z86.79 ; 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 ; BPH (benign prostatic hyperplasia) N40.0 ; Hyperlipidemia E78.5 ; Coronary artery disease involving [place] coronary artery of [place] heart without angina pectoris I25.10 and Type 2 diabetes mellitus without complication, without long-term current use of insulin E11.9 Assessments Encounter Date Diagnosis (ICD Code) Assessment Notes Treat ment Notes Treatment Clinical Notes 06/18/2024 Nonrheumatic aortic valve stenosis (ICD-10 - I35.0) He was admitted to [facility] July 04 and discharged July 07, 2023 for an elective TAVR which was successfully accomplished. His shortness of breath is much better. I do not hear an aortic murmur today. I do not hear mitral murmur. He reports feeling much better and more able to tolerate exertion.His BNP has decreased from 721 to a current value of 353. He is asymptomatic. 06/18/2024 Right inguinal herni a (ICD-10 - K40.90) It is very small. He has elected for observation. We discussed what is involved in a herniorrhaphy and what to do if a loop of bowel becomes incarcerated and with those symptoms are. Follow-up was arranged. 06/18/2024 History of atrial fibrillation (ICD-10 - Z86.79) He is currently a regular sinus rhythm which is well controlled. 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 06/18/2024 BPH (benign prostati c hyperplasia) (ICD-10 - N40.0) He rises from sleep once a night to urinate. We have discussed lifestyle modifications as a way to reduce nocturia. 06/18/2024 Hyperlipidemia (ICD-10 - E78.5) His fasting lipid profile shows his total cholesterol to be 77. He is doing well. No change in his regimen is needed.. 06/18/2024 Coronary artery disease involving [place] coronary artery of [place] heart without angina pectoris (ICD-10 - I25.10) He has had no angina recently. His aortic valve is working well. His cardiac status is stable. His BNP has dropped. 06/18/2024 Type 2 diabetes mellitus without complication, without long-term current use of insulin (ICD-10 - E11.9) His fasting glucose is 158. I have ordered a hemoglobin A1c to be done before his next visit. He seems to be stable and no change in his regimen was made today. Plan Of Treatment Medication Medication Name Sig Start Date Stop Date Notes Doxylamine Succinate (Sleep) 25 MG 1 tablet at bedtime as needed Orally Once a day 04/13/2023 Omeprazole 20 MG 1 capsule 30 minutes before morning meal Orally Once a day 07/11/2023 Atorvastatin Calcium 40 MG 1 tablet Orally Once a day metFORMIN HCl 1000 MG 1 tablet with a me al Orally Once a day 09/26/2023 Metoprolol Succinate ER 50 MG TAKE ONE T ABLET BY MOUTH EVERY DAY Aspirin 81 81 MG 1 tablet Orally Once a day Brilinta 90 MG 1 tablet Orally Twic e a day Next Appt Details Follow Up: As Scheduled, Reyna son: Annual Exam Provider Name:Adan Arellano , 02/13/2025 02:30:00 PM, [address] [place] [address] [address], [place], [id number], Provider Name:Adan Arellano , 09/30/2025 02:00:00 PM, [address] [place] [address] [address], [place], [phone], Progress Notes * Duane VIDAL:[birth year] (74 yo M)Acc No.[id number]:06/18/2024 Patient: Dionicio OSPINA Provider: Mara Arellano MD :[id number] A ge:74 Y S ex:Male Date:06/18/2024 Address: [address], [place], [id number] Subjective: * Chief Complaints: * R ight groin lump and pain for 2 weeksRepaired aortic stenosisHistory of atrial fibrillationHistory of mediastinal seminomaHistory of DVTCoronary artery disease * HPI: C OVID-19 Screening: Nhung glass comes to the office today concerned he may have developed a hernia in the right groin.? He is noticing her intermittent lump with mild pain there several times a day. It is not present when he is supine. He was examined today. There was a small right inguinal hernia.? We discussed this at length and he elected for observation at this time. The risks and benefits treating it for discussion with him at length. He was instructeed on what to do if it becomes very painful and is possibly incarcerated.He is due to see the cardiology team at [facility] in 2 weeks. He had a TAVR last July and is very pleased with the results. Questions H ave you had any new onset fever, chills, cough, congestion, sore throat, shortness of breath, muscle aches? N o * ROS: G eneral/Constitutional: pain M ild, right groin. C hills d enies. F atigue a dmits. F ever d enies. E NT: Decreased hearing d enies. R espiratory: Cough d enies. C ardiovascular: Chest pain with exertion d enies. D yspnea on exertion?denies. S hortness of breath d enies. G astrointestinal: Constipation o ccasional. D ecreased appetite d enies. D iarrhea d enies. H eartburn d enies. N ausea d enies. R ectal bleeding d enies. V omiting d enies. H ematology: bruising d enies. p etechiae d enies. S wollen glands n one have been noted. G enitourinary: Frequent urination o nce a night. M usculoskeletal: Muscle aches d enies. P ainful joints d enies. S ciatica d enies. W eakness d enies. S kin: Itching d enies. R matt d enies. S kin lesion(s)?denies. N eurologic: Difficulty speaking d enies. D izziness d enies.?Headache d enies. L ow back pain d enies. P sychiatric: Depressed mood d enies. * Medical History: * Surgical History: C ABG x 4 vessels 12/2004resection of malignant seminoma of mediastinum, phrenic nerve injury, left diaphragm paralyzed 1982history of incisional hernia cardiac catheterization 2004colonoscopy, Dr. Adan Linda, [facility], tubular adenoma 2010colonoscopy, Dr. Adan Linda, [facility], negative findings 2016TAVR ortic valve replacement * Hospitalization/Major Diagno stic Procedure: D enies Past Hospitalization * Family History: F ather: 73 yrs, diagnosed with Cancer, DM, HTN. M other: 47 yrs. S iblings: alive. P aternal uncle: alive, diagnosed with DM. 2 brother(s) - healthy. . His mother of liver disease age 47. His father at age 73 of lung cancer. He has 2 healthy brothers who are alive and well. He has no children. * Social History: T obacco Use: T obacco Use/Smoking P atsalvador is a f ormer smoker H ow long has it been since you last smoked??> 10 years A dditional Findings: Tobacco Non-User E x-cigarette smoker Nhung glass has been to [place] and for 37 years. He has 2 stepdaughters but no biological children. 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 He is not on-call and he works 18 hours a week. 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 * Medications: T akingAspirin 81 81 MG Tablet 1 tablet Orally [...] before morning meal Orally Once a day metFORMIN HCl 1000 MG Tablet 1 tablet with a meal Orally Once a day Metoprolol Succinate ER 50 MG Tablet Extended Release 24 Hour TAKE ONE TABLET BY MOUTH EVERY DAY Medication List reviewed and reconciled with the patientTaking Aspirin 81 81 MG Tablet 1 tablet [...] morning meal Orally Once a day Taking metFORMIN HCl 1000 MG Tablet 1 tablet with a meal Orally Once a day Taking Metoprolol Succinate ER 50 MG Tablet Extended Release 24 Hour TAKE ONE TABLET BY MOUTH EVERY DAY Medication List reviewed and reconciled with the patient * Allergies: P enicillin: AllergyContrast Allergy PreMed Pack: Allergyno[Allergies Verified] Objective: * Vitals: H t: 65, Wt:149, BMI:24.79, BP:139/62, HR:63, Temp:98.8, Wt-k.59. * Examination: G eneral Examination: GENERAL APPEARANCE: p leasant, well nourished, well developed, in no acute distress, calm and relaxed, man. HEAD: a traumatic, normocephalic. EYES: e remedios, perrla, anicteric, conjugate. EARS: n ormal. NOSE: s eptum intact. ORAL CAVITY: n ormal, unremarkable. NECK/THYROID: n o jugular venous distention, no carotid bruit, thyroid normal. LYMPH NODES: n o enlarged lymph nodes,spleen normal. SKIN: n o suspicious lesions, anicteric. HEART: n o clicks, gallops, murmurs, or rubs, regular rhythm, S1, S2 normal, no s3, or vascular bruits, Old sternotomy incision. LUNGS: c lear to auscultation . BREASTS: no masses palpable bilaterally. ABDOMEN: b owel sounds normal, no ascites, no organomegaly, no mass. RECTAL EXAM: n ot examined. MUSCULOSKELETAL: e xtremities unremarkable, no clubbing, cyanosis or edema, Very small right inguinal hernia. PERIPHERAL PULSES: n ormal. NEUROLOGIC: a lert and oriented, cranial nerves 2-12 grossly intact, deep tendon reflexes 2+ symmetrical, motor strength normal upper and lower extremities, sensory exam intact. PSYCH: a lert, oriented. Assessment: * Assessment: 1. R ight inguinal hernia - K40.90 (Primary) N otes :It is very small. He has elected for observation. We discussed what is involved in a herniorrhaphy and what to do if a loop of bowel becomes incarcerated and with those symptoms are. Follow-up was arranged. 2 . N onrheumatic aortic valve stenosis - I35.0 N otes :He was admitted to [facility] July 04 and discharged July 07, 2023 for an elective TAVR which was successfully accomplished. His shortness of breath is much better. I do not hear an aortic murmur today. I do not hear mitral murmur. He reports feeling much better and more able to tolerate exertion.His BNP has decreased from 721 to a current value of 353. He is asymptomatic. 3 . H istory of atrial fibrillation - Z86.79 N otes :He is currently a regular sinus rhythm which is well controlled. 4 . S eminoma - C62.90 N otes :He reports that his remaining testis is unremarkable. 5 . B PH (benign prostatic hyperplasia) - N40.0 N otes :He rises from sleep once a night to urinate. We have discussed lifestyle modifications as a way to reduce nocturia. 6 . H yperlipidemia - E78.5 N otes :His fasting lipid profile shows his total cholesterol to be 77. He is doing well. No change in his regimen is needed.. 7 . C oronary artery disease involving [place] coronary artery of [place] heart without angina pectoris - I25.10 N otes :He has had no angina recently. His aortic valve is working well. His cardiac status is stable. His BNP has dropped. 8 . T ype 2 diabetes mellitus without complication, without long-term current use of insulin - E11.9 N otes :His fasting glucose is 158. I have ordered a hemoglobin A1c to be done before his next visit. He seems to be stable and no change in his regimen was made today. Plan: * Treatment: 2. O thers Continue Brilinta Tablet, 90 MG, 1 tablet, Orally, Twice a day; C ontinue Atorvastatin Calcium Tablet, 40 MG, 1 tablet, Orally, Once a day; C ontinue Metoprolol Succinate ER Tablet Extended Release 24 Hour, 50 MG, TAKE ONE TABLET BY MOUTH EVERY DAY. * Procedure Codes: * Preventive Medicine: DM Care Plan: P atient Lifestyle Goals P atient wants to be able to manage diabetes without too much effort. T reatment Goals B lood Sugars less than < 115, HbA1C < 7.0. B arriers n o barriers. S elf-Managment Goals T iram blood sugars twice daily and keep a log. Bring log in to next appointment, Increase exercise to 3 times a week for 30 mins.? * Follow Up: A s Scheduled (Reason: Annual Exam) * Images: * Sign off status: Completed true * Provider: Mara Arellano MD Date: 0 06/18/2024 Generated for Polly mccurdy/Michael/eTalexandresmitting on: 1 04/15/2024 11:12 AM EST History and Physical Notes * HPI (History of Present Illness) Category Sub-Category Detail Notes COVID-19 Screening Questions Have you had any new onset fever, chills, cough, congestion, sore throat, shortness of breath, muscle aches?: No Examination Category Sub-Category Detail Notes General Examination [...] S1, S2 normal, no s3, or vascular bruits, Old sternotomy incision LUNGS: clear to auscultatio n ABDOMEN: bowel sounds normal, no ascites, no organomegaly, no mass NEUROLOGIC: alert and oriented, cranial nerves 2-12 grossly intact, deep tendon reflexes 2+ symmetrical, motor strength normal upper and lower extremities, sensory exam intact SKIN: no suspicious lesion s, anicteric PERIPHERAL PULSES: normal BREASTS: no masses palpable b ilaterally MUSCULOSKELETAL: extremities unremark able, no clubbing, cyanosis or edema, Very small right inguinal hernia LYMPH NODES: no enlarged lymph no sully,spleen normal RECTAL EXAM: not examined PSYCH: alert, oriented ORAL CAVITY: normal, unremarkable
--- OUTSIDE RECORDS SUMMARY | 2024-07-13 10:30 | XMS_ITS ---
Author Organization Adan Arellano III, MD Address [address] [place] [address] Care Team Providers Care Tooth Inspector Name Role Phone Dr. Adan Arellano III Primary Care Provider Allergies Allergen (clinical drug ingredient) Drug/Non Drug Allergy documented on EMR Reaction Allergy Type Onset Date Status Penicillin Unknown Drug Allergy Active Contrast Allergy PreMed Pack Unknown Drug Allergy Active REASON FOR VISIT 2 weeks of right knee pain, uncertainty about duration of Brilinta, repaired aortic stenosis, History of atrial fibrillation, History of seminoma, History of deviated, Coronary artery disease, Diabetes, Right inguinal hernia, Benign prostatic hypertrophy Medications Medication SIG (Take, Route, Frequency, Duration) Notes Start Date End Date Status Omeprazole 20 MG 1 capsule 30 minutes before morning meal Orally Once a day 07/11/2023 Active metFORMIN HCl 1000 MG 1 tablet with a me al Orally Once a day 09/26/2023 Active Metoprolol Succinate ER 50 MG TAKE ONE TABLET BY MOUTH EVERY DAY Active Atorvastatin Calcium 40 MG 1 tablet Oral ly Once a day Active Doxylamine Succinate (Sleep) 25 MG 1 tablet at bedtime as needed Orally Once a day 04/13/2023 Active Brilinta 90 MG 1 tablet Orally Twic e a day Active Aspirin 81 81 MG 1 tablet Orally Once a day Active Social History Tobacco Use: [...] smoker Vital Signs Temperature 98.8 degrees Fahrenheit 07/14/19 25 Blood pressure systolic 136 mm Hg 07/14/19 25 Blood pressure diastolic 64 mm Hg 025 Heart Rate 60 /min 07/13/2024 Height 65 in 07/13/2024 Weight 150 lbs 07/13/2024 BMI 24.96 kg/m2 07/13/2024 Oximetry 97 % 07/13/2024 Encounters Encounter Location Date Provider Diagnosis Adan Arellano III, MD [address] [place] [address] [place] [address] 07/13/2024 Adan Arellano Nonrheumatic aortic valve stenosis I35.0 ; Type 2 diabetes mellitus without complication, without long-term current use of insulin E11.9 ; BPH (benign prostatic hyperplasia) N40.0 ; Hyperlipidemia E78.5 ; History of atrial fibrillation Z86.79 ; 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 His shortness of breath is much better. I do not hear an aortic murmur today. I do not hear mitral murmur. He reports feeling much better and more able to tolerate exertion.His BNP has decreased from 721 to a current value of 353. He is asymptomatic. 07/13/2024 Type 2 diabetes mellitus without complication, without long-term current use of insulin (ICD-10 - E11.9) he will have comprehensive blood work prior to his next visit in September. His fasting glucose levels at home 3 times a week average between 1:15 and 125. No change in his therapy was made today. 07/13/2024 BPH (benign prostati c hyperplasia) (ICD-10 - N40.0) he rises from sleep once a night to urinate. We have discussed various lifestyle modifications he can make to reduce this. 07/13/2024 Hyperlipidemia (ICD-10 - E78.5) fasting lipid profile has been ordered prior to his next visit. No change in his therapy was made today. 07/13/2024 History of atrial fibrillation (ICD-10 - Z86.79) He is currently a regular sinus rhythm which is well controlled. 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 07/13/2024 Coronary artery disease involving chilkat coronary artery of chilkat heart without angina pectoris (ICD-10 - I25.10) He has had no angina recently. His aortic valve is working well. His cardiac status is stable. His BNP has dropped. 07/13/2024 History of DVT (deep vein thrombosis) (ICD-10 - Z86.718) There are no signs of a DVT at this time. He has no history of a familial thrombophilia. The DVT occurred after cardiac surgery. 07/13/2024 Former smoker (ICD-1 0 - Z87.891) He is highly motivated not to smoke and has a plan to prevent relapse in times of stress and illness. Plan Of Treatment Medication Medication Name Sig Start Date Stop Date Notes Omeprazole 20 MG 1 capsule 30 minutes before morning meal Orally Once a day 07/11/2023 metFORMIN HCl 1000 MG 1 tablet with a me al Orally Once a day 09/26/2023 Metoprolol Succinate ER 50 MG TAKE ONE T ABLET BY MOUTH EVERY DAY Atorvastatin Calcium 40 MG 1 tablet Orally Once a day Doxylamine Succinate (Sleep) 25 MG 1 tablet at bedtime as needed Orally Once a day 04/13/2023 Brilinta 90 MG 1 tablet Orally Twic e a day Aspirin 81 81 MG 1 tablet Orally Once a day Next Appt Details Follow Up: As Scheduled, Reyna son: Annual Exam Provider Name:Adan Arellano , 02/13/2025 02:30:00 PM, [address] [place] [address] [address], [place], [address], Provider Name:Adan Arellano , 09/30/2025 02:00:00 PM, [address] [place] [address] [address], [place], [address], Progress Notes * Duane VIDAL:[birth year] (74 yo M)Acc No.[id number]:07/13/2024 Progress Notes Patient: Dionicio OSPINA Provider: Mara Arellano MD :1950 A ge:74 Y S ex:Male Date:07/13/2024 Address: [address], [place], [id number] Subjective: * Chief Complaints: * 2 weeks of right knee painuncertainty about duration of BrilintaRepaired aortic stenosisHistory of atrial fibrillationHistory of seminomaHistory of deviatedCoronary artery diseaseDiabetesRight inguinal herniaBenign prostatic hypertrophy * HPI: C -19 Screening: He returns with several issues. he has had pain in his right knee for 14 days. It is beginning to feel better. He is able to walk. Pain is anterior around the patella. I offered to get x-rays and send him to orthopedics. He said that he would think about it and let me know. He is concerned about a medication he is taking, Brilinta. He understands this is a antiplatelet drug use to prevent clots intercoronary stent. He does not know how long he should take it and wonders if he can stop it. He was begun by the cardiology service in [place] he has gone back to his previous cardiology group here locally but they have referred him back to [place] not answering his questions. He does not have an appointment with cardiology in [place] for several months. I told him we would call them and see what they could tell us. He has had no angina. He was in normal sinus rhythm today with a rate of 58 and an oxygen saturation of 98. His diabetes will be reevaluated in September with a hemoglobin A1c annd microalbumin.? His fasting blood glucose levels have been about 116-120. He has small bilateral hernias that do not bother him. 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 Questions H ave you had any new onset fever, chills, cough, congestion, sore throat, shortness of breath, muscle aches? N o * ROS: G eneral/Constitutional: pain r ight knee with weightbearing for 2 weeks. C hills d enies. F atigue a [...] hernia cardiac catheterization 2004colonoscopy, Dr. Adan Linda, [facility], tubular adenoma 2010colonoscopy, Dr. Adan Linda, [facility], negative findings 2016TAVR ortic valve replacement * [...] T obacco Use: T obacco Use/Smoking P atient is a f ormer smoker H ow [...] Tablet 1 tablet Orally Once a day Atorvastatin Calcium 40 MG Tablet [...] TAKE ONE TABLET BY MOUTH EVERY DAY Brilinta 90 MG Tablet 1 tablet Orally Twice a day Medication List reviewed and reconciled with the patientTaking Aspirin 81 81 MG Tablet 1 tablet Orally Once a day Taking Atorvastatin Calcium 40 MG [...] TAKE ONE TABLET BY MOUTH EVERY DAY Taking Brilinta 90 MG Tablet 1 tablet Orally Twice a day Medication List reviewed and reconciled with the patient * Allergies: P enicillin: AllergyContrast Allergy PreMed Pack: Allergyno[Allergies Verified] Objective: * Vitals: H t: 65, Wt:150, BMI:24.96, BP:136/64, HR:60, Temp:98.8, Oxygen sat %:97, Wt-k.04. * Examination: G eneral Examination: GENERAL APPEARANCE: [...] S1, S2 normal, no s3, or vascular bruits. LUNGS: c lear to auscultation . BREASTS: no masses palpable bilaterally. ABDOMEN: b owel sounds normal, no ascites, no organomegaly, no mass, small bilateral inguinal hernias. RECTAL EXAM: n ot examined. MUSCULOSKELETAL: e xtremities unremarkable, no clubbing, cyanosis or edema. PERIPHERAL PULSES: n ormal. NEUROLOGIC: a lert and oriented, cranial nerves 2-12 grossly intact, deep tendon reflexes 2+ symmetrical, motor strength normal upper and lower extremities, sensory exam intact. PSYCH: a lert, oriented. Assessment: * Assessment: 1. T ype 2 diabetes mellitus without complication, without long-term current use of insulin - E11.9 (Primary) N otes :he will have comprehensive blood work prior to his next visit in September. His fasting glucose levels at home 3 times a week average between 1:15 and 125. No change in his therapy was made today. 2 . N onrheumatic aortic valve stenosis - I35.0 N otes :He was admitted to [facility] July 04 and discharged July [...] of 353. He is asymptomatic. 3 . B PH (benign prostatic hyperplasia) - N40.0 N otes :he rises from sleep once a night to urinate. We have discussed various lifestyle modifications he can make to reduce this. 4 . H yperlipidemia - E78.5 N otes :fasting lipid profile has been ordered prior to his next visit. No change in his therapy was made today. 5 . H istory of atrial fibrillation - Z86.79 N otes :He is currently a regular sinus rhythm which is well controlled. 6 . S eminoma - C62.90 N otes :He reports that his remaining testis is unremarkable. 7 . C oronary artery disease involving chilkat coronary artery of chilkat heart without angina pectoris - I25.10 N otes :He has had no angina recently. His aortic valve is working well. His cardiac status is stable. His BNP has dropped. 8 . H istory of DVT (deep vein thrombosis) - Z86.718 N otes :There are no signs of a DVT at this time. He has no history of a familial thrombophilia. The DVT occurred after cardiac surgery. 9 . F ormer smoker - Z87.891 N otes :He is highly motivated not to smoke and has a plan to prevent relapse in times of stress and illness. Plan: * Treatment: 2. N onrheumatic aortic valve stenosis Continue Aspirin 81 Tablet, 81 MG, 1 tablet, Orally, Once a day; C ontinue Doxylamine Succinate (Sleep) Tablet, 25 MG, 1 tablet at bedtime as needed, Orally, Once a day; C ontinue Omeprazole Capsule Delayed Release, 20 MG, 1 capsule 30 minutes before morning meal, Orally, Once a day; C ontinue metFORMIN HCl Tablet, 1000 MG, 1 tablet with a meal, Orally, Once a day. 3. B PH (benign prostatic hyperplasia) L AB: PROFILE, FASTING (COMPREHENSIVE METABOLIC) L AB: PSA, TOTAL L AB: CBC w DIFF L AB: Lipid Panel L AB: Microalbumin, Random L AB: Hemoglobin A1c 4. H yperlipidemia L AB: PROFILE, FASTING (COMPREHENSIVE METABOLIC) L AB: PSA, TOTAL L AB: CBC w DIFF L AB: Lipid Panel L AB: Microalbumin, Random L AB: Hemoglobin A1c 5. O thers Continue Brilinta Tablet, 90 MG, 1 tablet, Orally, Twice a day; C ontinue Atorvastatin Calcium Tablet, 40 MG, 1 tablet, Orally, Once a day; C ontinue Metoprolol Succinate ER Tablet Extended Release 24 Hour, 50 MG, TAKE ONE TABLET BY MOUTH EVERY DAY. * Procedure Codes: 9 4760 MEASURE BLOOD OXYGEN LEVEL * Preventive Medicine: DM Care Plan: P atient Lifestyle Goals P atient wants to be able to manage diabetes without too much effort. T reatment Goals H bA1C < 7.0, Blood Sugars less than < 115. B arriers n o barriers. S elf-Managment Goals I ncrease exercise to 3 times a week for 30 mins, Stop drinking juice and/or soda, replace with more water. * Follow Up: A s Scheduled (Reason: Annual Exam) * Images: * Sign off status: Completed true * Provider: Mara Arellano MD Date: 0 07/13/2024 Generated for Printi ng/Fadeirdreg/eTransmitting on: 1 04/15/2024 11:11 AM EST History and Physical Notes * [...] sounds normal, no ascites, no organomegaly, no mass, small bilateral inguinal hernias NEUROLOGIC: alert and oriented, cranial nerves 2-12 [...]
--- OUTSIDE RECORDS SUMMARY | 2024-07-25 05:55 | XMS_ITS ---
Author Organization Adan Arellano III, MD Address [address] [place] [address] [place] [address] Care Team Providers Care Family Mediator Name Role Phone Dr. Adan Arellano III Primary Care Provider [phone] Reason For Referral Reason evaluation and treat ment for inguinal hernia Diagnosis 1 Right inguinal herni a (K40.90) Referral Organization Adan Arellano III, MD Referring Provider First Name Adan Referring Provider Last Name Eileen Referring Provider Speciality Internal M edicine Referred Provider Jose Mckeon Referred Provider Specialty General Surg priyanka General Notes Shima Ledesma CMA 07/25 04:11:56 PM >ref, demographics and progress note faxed to Dr Keyes office today pt called and mailed this appt information Referral Priority Routine Referral Appointment Date 08/06/2024 REASON FOR VISIT Message Social History Sex Assigned At : Social History Observation Description Sex Assigned At Male Encounters Encounter Location Date Provider Diagnosis Adan Arellano III, MD [address] [place] [address] [place] [address] 07/25/2024 Adan Arellano Plan Of Treatment Referrals Referral Date Details 07/25/2024 07/25/2024, evaluati on and treatment for inguinal hernia, Jose Mckeon Next Appt Details Provider Name:Adan Arellano , 02/13/2025 02:30:00 PM, [address] [place] [address] [place], [address], Provider Name:Adan Arellano , 09/30/2025 02:00:00 PM, [address] [place] [address] , [address], [place], [address], Progress Notes * Dionicio VIDALDOB:[birth year] (74 yo M)Acc No.[id number]:07/25/2024 Patient: Dionicio OSPINA :1950 A ge:74 Y S ex:Male Address: [address], [place], [address] Subjective: * Chief Complaints: * M essage * Medical History: * Surgical History: * Hospitalization/Major Diagno stic Procedure: * Medications: Objective: * Vitals: * Physical Examination: Assessment: Plan: * Treatment: * Procedure Codes: * true * Date: Generated for Polly mccurdy/Michael/Gracielasmitting on: 04/15/2024 11:09 AM EST Consultation Request Notes Referral Date Referring Provider Referred Provider Not es 07/25/2024 Adan Arellano John evaluation a nd treatment for inguinal hernia
--- OUTSIDE RECORDS SUMMARY | 2024-09-26 09:00 | XMS_ITS ---
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 Adan Arellano III Primary Care Provider [phone] Allergies Allergen (clinical drug ingredient) Drug/Non Drug Allergy documented on EMR Reaction Allergy Type Onset Date Status No Known Food Allergy Unknown Drug Allergy Active Penicillin Unknown Drug Allergy Active Contrast Allergy PreMed Pack Unknown Drug Allergy Active REASON FOR VISIT Annual Exam Medications Medication SIG (Take, Route, Frequency, Duration) [...] a day Active Atorvastatin Calcium 40 MG TAKE ONE TABL ET BY MOUTH EVERY DAY Active Social History Tobacco Use: Social History Observation Description Date Details (start date - stop date) Former Smoker NA - NA Sex Assigned At : Social History Observation Description Sex Assigned At Male Tobacco Control (Standard) Question Answer Notes Tobacco use: Former smoker How long has it been since you last smoked? Grea ter than 10 years Additional Findings: Tobacco non-user Ex-cigaret te smoker AUDIT-C (Standard) Question Answer Notes Did you have a drink containing alcohol in the p ast year? No Points 0 Interpretation Negative Vital Signs Temperature 99.5 degrees Fahrenheit 09/27/19 25 Blood pressure systolic 123 mm Hg 06/25/20 25 Blood pressure diastolic 62 mm Hg 025 Heart Rate 61 /min 09/26/2024 Height 65 in 09/26/2024 Weight 148 lbs 09/26/2024 BMI 24.63 kg/m2 09/26/2024 Encounters Encounter Location Date Provider Diagnosis Adan Arellano III, MD [address] [place] [address] [place] [address] 09/26/2024 Adan Arellano Nonrheumatic aortic valve stenosis I35.0 ; 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 ; History of atrial fibrillation Z86.79 ; Former smoker Z87.891 ; Overweight E66.3 ; History of DVT (deep vein thrombosis) Z86.718 ; Coronary artery disease involving [place] coronary artery of [place] heart without angina pectoris I25.10 ; Thrombocytopenia D69.6 ; BPH (benign prostatic hyperplasia) N40.0 and Type 2 diabetes mellitus without complication, without long-term current use of insulin E11.9 Assessments Encounter Date Diagnosis (ICD Code) Assessment Notes T reatment Notes Treatment Clinical Notes 09/26/2024 Nonrheumatic aortic valve stenosis (ICD-10 - I35.0) He was admitted to [facility] July 04 and discharged July 07, 2023 for an elective TAVR which was successfully accomplished. His shortness of breath is much better. I do not hear an aortic murmur today. I do not hear mitral murmur. He reports feeling much better and more able to tolerate exertion.His BNP has decreased from 721 to a current value of 353. He is asymptomatic. 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 09/26/2024 History of atrial fibrillation (ICD-10 - Z86.79) He is currently a regular sinus rhythm which is well controlled. 09/26/2024 Former smoker (ICD-1 0 - Z87.891) He is highly motivated not to smoke and has a plan to prevent relapse in times of stress and illness. 09/26/2024 Overweight (ICD-10 - E66.3) We have discussed his weight and his diet and nutrition. We reviewed his weight loss strategy. We made a plan to lose weight at a rate of one half of a pound per week. 09/26/2024 History of DVT (deep vein thrombosis) (ICD-10 - Z86.718) There are no signs of a DVT at this time. He has no history of a familial thrombophilia. The DVT occurred after cardiac surgery. 09/26/2024 Coronary artery disease involving [place] coronary artery of [place] heart without angina pectoris (ICD-10 - I25.10) He has had no angina recently. His aortic valve is working well. His cardiac status is stable. His BNP has dropped. 09/26/2024 Thrombocytopenia (ICD-10 - D69.6) His thrombocytopenia is very mild at 146. No change in his regimen as necessary. He was continued on his medications. 09/26/2024 BPH (benign prostati c hyperplasia) (ICD-10 - N40.0) He has been rising from sleep once or twice a night to urinate. He is quite happy with this and no change in his treatment is necessary. We did discuss lifestyle modifications she can make to reduce nocturia. 09/26/2024 Type 2 diabetes mellitus without complication, without long-term current use of insulin (ICD-10 - E11.9) Plan Of Treatment Medication Medication Name Sig [...] Once a day Atorvastatin Calcium 40 MG TAKE ONE TABL ET BY MOUTH EVERY DAY Next Appt Details Follow Up: 3 Months, Reason: OV Provider Name:Adan Arellano , 02/13/2025 02:30:00 PM, [address] [place] [address] [address], [place], [id number], Provider Name:Adan Arellano , 09/30/2025 02:00:00 PM, [address] [place] [address] [address], [place], [id number], Progress Notes * Dionicio VIDALDOB:[birth year] (74 yo M)Acc No.[id number]:09/26/2024 Progress Notes Patient: Dionicio OSPINA Provider: Mara Arellano MD :1950 A ge:74 Y S ex:Male Date:09/26/2024 Address: [address], [place], [id number] Subjective: * Chief Complaints: * A nnual Exam * HPI: D epression Screening: Nhung glass returns to the office for medical management. He is due for a colonoscopy and has been referred for that. He was at [facility] cardiology last week. The TAVR is functioning well. Since that now has been repaired the mitral valve insufficiency has become very minor and will be observed. He has no appointment with general surgery [facility] for hernia repair. This will take place next Tuesday. He is taking aspirin but the [place] has been discontinued. Cardiology department at [facility]. The aspirin was mandatory and should not be stopped prior to the colonoscopy or any angiography. PHQ-9 L ittle interest or pleasure in doing things?Not at all F eeling down, depressed, or hopeless N ot at all T rouble falling or staying asleep, or sleeping too much N ot at all F eeling tired or having little energy N ot at all P oor appetite or overeating N ot at all F eeling bad about yourself or that you are a failure, or have let yourself or your family down N ot at all T rouble concentrating on things, such as reading the newspaper or watching television N ot at all M oving or speaking so slowly that other people could have noticed; or the opposite, being so fidgety or restless that you have been moving around a lot more than usual N ot at all T houghts that you would be better off or of hurting yourself in some way N ot at all T otal Score 0 C OVID-19 Screening: Questions H ave you had any new onset fever, chills, cough, congestion, sore throat, shortness of breath, muscle aches? N o F all Risk Screening: Fall History H ave you had any falls with injury in the past year? N o H ave you had two or more falls in the past year? N o F all Risk Assessment: N o falls in the past year S SHAISTA Questions: SDOH Questions I n the past year have you been worried about losing your housing? N o I n the past year have you or any family members you live with been unable to get any of the following when it was really needed? Check all that apply: N one * ROS: G eneral/Constitutional: pain A bdominal wall hernia, otherwise only normal aches and pains. C hills d enies. F atigue a dmits. F ever d enies. E NT: Decreased hearing d enies. R espiratory: Cough d enies. C ardiovascular: Chest pain with exertion d enies. D yspnea on exertion?denies. S hortness of breath d enies. G astrointestinal: Constipation d enies. D ecreased appetite d enies.?Diarrhea d enies. H e[place]burn d enies. N ausea d enies. R ectal bleeding?denies. V omiting d enies. H ematology: bruising d enies. p etechiae d enies. S wollen glands n one have been noted. G enitourinary: Frequent urination d enies. M usculoskeletal: Muscle aches d enies. P [...] hernia cardiac catheterization 2004colonoscopy, Dr. Adan Linda, [facility], tubular adenoma 2010colonoscopy, Dr. Adan Linda, [facility], negative findings 2016TAVR ortic valve [...] Social History: T obacco Use: T obacco Control (Standard) T obacco use: F ormer smoker H ow long has it been since you last smoked??Greater than 10 years A dditional Findings: Tobacco non-user E x-cigarette smoker D rugs/Alcohol: D rugs H ave you used drugs other than those for medical reasons in the past 12 months? N o D rug/Alcohol: A BUFFY-C (Standard) D id you have a drink containing alcohol in the past year? N o P oints 0 I nterpretation N egative H e has been to [facility] and for 37 [...] TAKE ONE TABLET BY MOUTH EVERY DAY Atorvastatin Calcium 40 MG Tablet TAKE ONE TABLET BY MOUTH EVERY DAY Taking Aspirin 81 81 MG Tablet 1 tablet Orally Once a day Taking metFORMIN HCl 1000 MG Tablet 1 tablet with a meal Orally Once a day Taking Metoprolol Succinate ER 50 MG Tablet Extended Release 24 Hour TAKE ONE TABLET BY MOUTH EVERY DAY Taking Atorvastatin Calcium 40 MG Tablet TAKE ONE TABLET BY MOUTH EVERY DAY Not-Taking/PRNOmeprazole 20 MG Capsule Delayed Release 1 capsule 30 minutes before morning meal Orally Once a day Not-Taking/PRN Omeprazole 20 MG Capsule Delayed Release 1 capsule 30 minutes before morning meal Orally Once a day DiscontinuedBrilinta 90 MG Tablet 1 tablet Orally Twice a day Doxylamine Succinate (Sleep) 25 MG Tablet 1 tablet at bedtime as needed Orally Once a day Medication List reviewed and reconciled with the patientDiscontinued Brilinta 90 MG Tablet 1 tablet Orally Twice a day Discontinued Doxylamine Succinate (Sleep) 25 MG Tablet 1 tablet at bedtime as needed Orally Once a day Medication List reviewed and reconciled with the patient * Allergies: P enicillin: AllergyContrast Allergy PreMed Pack: AllergyNo Known Food Allergyno[Allergies Verified] Objective: * Vitals: H t: 65, Wt:148, BMI:24.63, BP:123/62, HR:61, Temp:99.5, Wt-k.13. * P ast Orders: L ab:Complete Blood Count no Diff (Order Date - 09/20/2024) (Collection Date & Time - 09/20/2024 11:02 AM) Value Reference Range White Blood Count 5.8 4.8-10.8 - X10*3/uL Red Blood Count 5.05 4.60-5.80 - X10*6/uL Hemoglobin 15.5 14.0-18.0 - g/dl Hematocrit 47.0 42.0-52.0 - % Mean Corpuscular Volume 93.1 80.0-98.0 - fL Mean Corpuscular Hemoglobin 30.7 27.0-33.0 - pg Mean Corpuscular HGB Conc 33.0 31.0-36.0 - g/ dl Red Cell Distribution Width 12.6 11.0-16.0 - % Platelet Count 146 L 160-400 - X10*3/uL Mean Platelet Volume 11.7 9.4-12.4 - fL NRBC Pct Auto 0.0 0.0-0.2 - /100WBC NRBC Abs Auto 0.000 0.0-0.012 - X10*3/uL L ab:Basic Metabolic Panel (Order Date - 09/20/2024) (Collection Date & Time - 09/20/2024 11:02 AM) Value Reference Range Sodium 142 135-145 - mmol/L Blood Urea Nitrogen 24 H 9-16 - mg/dL Creatinine 0.71 0.5-1.4 - mg/dL Glucose Random 168 H 60-115 - mg/dL Calcium 9.4 8.4-10.2 - mg/dL Potassium 4.8 3.3-5.1 - mmol/L Chloride 105 96-108 - mmol/L Carbon Dioxide 33 H 22-29 - mmol/L Anion Gap 9 L 12-20 - Estimated Glomerular Filt Rate > 60 - Creatinine Clr Calc Pharmacy 78.7 - Lab:Complete Blood Count Aut o Diff * Collection Date 09/26/2024 03/12/2024 12/27/2023 Collection Time 08:42 AM 09:30 AM 07:42 AM Order Date 09/26/2024 03/12/2024 12/27/2023 White Blood Count 5.9 (Ref Range: 4.8-10.8 X10*3/uL) 5.9 (Ref Range: 4.8-10.8 X10*3/uL) 5.8 (Ref Range: 4.8-10.8 X10*3/uL) Red Blood Count 5.11 (Ref Range: 4.60-5.80 X10*6/uL) 4.86 (Ref Range: 4.60-5.80 X10*6/uL) 4.61 (Ref Range: 4.60-5.80 X10*6/uL) Hemoglobin 15.7 (Ref Range: 14.0-18.0 g/dl) 15.1 (Ref Range: 14.0-18.0 g/dl) 14.3 (Ref Range: 14.0-18.0 g/dl) Hematocrit 46.6 (Ref Range: 42.0-52.0 %) 44.7 (Ref Range: 42.0-52.0 %) 42.6 (Ref Range: 42.0-52.0 %) Mean Corpuscular Volume 91.2 (Ref Range: 80.0-98.0 fL) 92.0 (Ref Range: 80.0-98.0 fL) 92.4 (Ref Range: 80.0-98.0 fL) Mean Corpuscular Hemoglobin 30.7 (Ref Range: 27.0-33.0 pg) 31.1 (Ref Range: 27.0-33.0 pg) 31.0 (Ref Range: 27.0-33.0 pg) Mean Corpuscular HGB Conc 33.7 (Ref Range: 31.0-36.0 g/dl) 33.8 (Ref Range: 31.0-36.0 g/dl) 33.6 (Ref Range: 31.0-36.0 g/dl) Red Cell Distribution Width 12.5 (Ref Range: 11.0-16.0 %) 12.7 (Ref Range: 11.0-16.0 %) 13.3 (Ref Range: 11.0-16.0 %) Platelet Count 143 L (Ref Range: 160-400 X10*3/uL) 135 L (Ref Range: 160-400 X10*3/uL) 134 L (Ref Range: 160-400 X10*3/uL) Mean Platelet Volume 12.0 (Ref Range: 9.4-12.4 fL) 11.8 (Ref Range: 9.4-12.4 fL) 12.1 (Ref Range: 9.4-12.4 fL) Neutrophils Percent Auto 60.1 (Ref Range: 45-73 %) 60.0 (Ref Range: 45-73 %) 57.9 (Ref Range: 45-73 %) Imm Gran Pct Auto 0.3 (Ref Range: 0.0-0.4 %) 0.3 (Ref Range: 0.0-0.4 %) 0.3 (Ref Range: 0.0-0.4 %) Lymphocytes Percent Auto 28.8 (Ref Range: 20-40 %) 27.3 (Ref Range: 20-40 %) 29.8 (Ref Range: 20-40 %) Monocytes Percent Auto 7.8 (Ref Range: 2-11 %) 8.5 (Ref Range: 2-11 %) 9.1 (Ref Range: 2-11 %) Eosinophils Percent Auto 2.7 (Ref Range: 0-4 %) 3.6 (Ref Range: 0-4 %) 2.7 (Ref Range: 0-4 %) Basophils Percent Auto 0.3 (Ref Range: 0-2 %) 0.3 (Ref Range: 0-2 %) 0.2 (Ref Range: 0-2 %) NRBC Pct Auto 0.0 (Ref Range: 0.0-0.2 /100WBC) 0.0 (Ref Range: 0.0-0.2 /100WBC) 0.0 (Ref Range: 0.0-0.2 /100WBC) Neutrophils Absolute Auto 3.6 (Ref Range: 2.0-8.3 x10*3/uL) 3.5 (Ref Range: 2.0-8.3 x10*3/uL) 3.4 (Ref Range: 2.0-8.3 x10*3/uL) Imm Gran Abs Auto 0.02 (Ref Range: 0.00-0.03 X10*3/uL) 0.02 (Ref Range: 0.00-0.03 X10*3/uL) 0.02 (Ref Range: 0.00-0.03 X10*3/uL) Lymphocytes Absolute Auto 1.7 (Ref Range: 1.2-4.9 X10*3/uL) 1.6 (Ref Range: 1.2-4.9 X10*3/uL) 1.7 (Ref Range: 1.2-4.9 X10*3/uL) Monocytes Absolute Auto 0.5 (Ref Range: 0.1-1.2 X10*3/uL) 0.5 (Ref Range: 0.1-1.2 X10*3/uL) 0.5 (Ref Range: 0.1-1.2 X10*3/uL) Eosinophils Absolute Auto 0.2 (Ref Range: 0.0-0.4 X10*3/uL) 0.2 (Ref Range: 0.0-0.4 X10*3/uL) 0.2 (Ref Range: 0.0-0.4 X10*3/uL) Basophils Absolute Auto 0.0 (Ref Range: 0.0-0.2 X10*3/uL) 0.0 (Ref Range: 0.0-0.2 X10*3/uL) 0.0 (Ref Range: 0.0-0.2 X10*3/uL) NRBC Abs Auto 0.000 (Ref Range: 0.0-0.012 X10*3/uL) 0.000 (Ref Range: 0.0-0.012 X10*3/uL) 0.000 (Ref Range: 0.0-0.012 X10*3/uL) * Lab:Namita Anderson. Tde l Fast * Collection Date 09/26/2024 03/12/2024 12/27/2023 Collection Time 08:42 AM 09:30 AM 07:42 AM Order Date 09/26/2024 03/12/2024 12/27/2023 Sodium 141 (Ref Range: 135-145 mmol/L) 141 (Ref Range: 135-145 mmol/L) 142 (Ref Range: 135-145 mmol/L) Bilirubin Total 1.2 H (Ref Range: 0.0-1.0 mg/dL) 1.0 (Ref Range: 0.0-1.0 mg/dL) 1.2 H (Ref Range: 0.0-1.0 mg/dL) Aspartate Amino Transferase 32 (Ref Range: 5-37 U/L) 27 (Ref Range: 5-37 U/L) 22 (Ref Range: 5-37 U/L) Alanine Aminotransferase 65 H (Ref Range: 0-40 U/L) 48 H (Ref Range: 0-40 U/L) 35 (Ref Range: 0-40 U/L) Total Protein 6.6 (Ref Range: 6.5-8.0 g/dL) 6.7 (Ref Range: 6.5-8.0 g/dL) 6.7 (Ref Range: 6.5-8.0 g/dL) Albumin Level 4.2 (Ref Range: 3.5-5.0 g/dL) 4.0 (Ref Range: 3.5-5.0 g/dL) 4.0 (Ref Range: 3.5-5.0 g/dL) Alkaline Phosphatase 49 (Ref Range: 39-117 U/L) 53 (Ref Range: 39-117 U/L) 57 (Ref Range: 39-117 U/L) Potassium 4.2 (Ref Range: 3.3-5.1 mmol/L) 4.6 (Ref Range: 3.3-5.1 mmol/L) 3.7 (Ref Range: 3.3-5.1 mmol/L) Chloride 103 (Ref Range: 96-108 mmol/L) 102 (Ref Range: 96-108 mmol/L) 103 (Ref Range: 96-108 mmol/L) Carbon Dioxide 31 H (Ref Range: 22-29 mmol/L) 34 H (Ref Range: 22-29 mmol/L) 33 H (Ref Range: 22-29 mmol/L) Anion Gap 11 L (Ref Range: 12-20) 10 L (Ref Range: 12-20) 10 L (Ref Range: 12-20) Blood Urea Nitrogen 20 H (Ref Range: 9-16 mg/dL) 18 H (Ref Range: 9-16 mg/dL) 21 H (Ref Range: 9-16 mg/dL) Creatinine 0.75 (Ref Range: 0.5-1.4 mg/dL) 0.76 (Ref Range: 0.5-1.4 mg/dL) 0.80 (Ref Range: 0.5-1.4 mg/dL) Estimated Glomerular Filt Rate > 60 > 60 > 60 Glucose Fasting 119 H (Ref Range: 60-99 mg/dL) 191 H (Ref Range: 60-99 mg/dL) 158 H (Ref Range: 60-99 mg/dL) Calcium 9.1 (Ref Range: 8.4-10.2 mg/dL) 8.8 (Ref Range: 8.4-10.2 mg/dL) 9.5 (Ref Range: 8.4-10.2 mg/dL) * Lab:Lipid Panel * Collection Date 09/26/2024 03/12/2024 12/27/2023 Collection Time 08:42 AM 09:30 AM 07:42 AM Order Date 09/26/2024 03/12/2024 12/27/2023 Triglycerides 90 (Ref Range: <150 mg/dL) 84 (Ref Range: <150 mg/dL) 81 (Ref Range: <150 mg/dL) Cholesterol 83 (Ref Range: <200 mg/dL) 92 (Ref Range: <200 mg/dL) 77 (Ref Range: <200 mg/dL) LDL Cholesterol Calculated 38 (Ref Range: <100 mg/dL) 48 (Ref Range: <100 mg/dL) 35 (Ref Range: <100 mg/dL) HDL Cholesterol 27 L (Ref Range: >40 mg/dL) 28 L (Ref Range: >40 mg/dL) 26 L (Ref Range: >40 mg/dL) * Lab:Prostate Specific Antige n * Collection Date 09/26/2024 03/12/2024 03/05/2023 Collection Time 08:42 AM 09:30 AM 07:33 AM Order Date 09/26/2024 03/12/2024 03/05/2023 Prostate Specific Antigen 0.20 (Ref Range: <0.05-4.0 ng/mL) 0.18 (Ref Range: <0.05-4.0 ng/mL) 0.20 (Ref Range: <0.05-4.0 ng/mL) * Lab:Microalbumin, Random * Collection Date 09/26/2024 08/01/2023 03/05/2023 Collection Time 08:38 AM 09:00 AM 07:27 AM Order Date 09/26/2024 08/01/2023 03/04/2023 Creatinine Urine 111.43 (Ref Range: mg/dL) 148.00 (Ref Range: mg/dL) 112.58 (Ref Range: mg/dL) Microalbumin Urine 15.0 (Ref Range: mg/L) 9.0 (Ref Range: mg/L) 865.0 (Ref Range: mg/L) Microalbum Creatinine Ratio Ur 13.4 (Ref Range: <30 ug/mg cr) 6.0 (Ref Range: <30 ug/mg cr) 768.3 H (Ref Range: <30 ug/mg cr) * Lab:Hemoglobin A1c * Collection Date 09/26/2024 08/01/2023 03/05/2023 Collection Time 08:42 AM 09:06 AM 07:33 AM Order Date 09/26/2024 08/01/2023 03/04/2023 Hemoglobin A1c % 7.0 H (Ref Range: <6.0 %) 7.1 H (Ref Range: <6.0 %) 7.3 H (Ref Range: <6.0 %) Estimated Average Glucose 154 (Ref Range: mg/dL) 157 (Ref Range: mg/dL) 163 (Ref Range: mg/dL) * Examination: G eneral Examination: GENERAL APPEARANCE: [...] a lert, oriented. Assessment: * Assessment: 1. N onrheumatic aortic valve stenosis - I35.0 (Primary) N otes :He was admitted to [facility] July 04 and discharged July 07, 2023 for an elective TAVR which was successfully accomplished. His shortness of breath is much better. I do not hear an aortic murmur today. I do not hear mitral murmur. He reports feeling much better and more able to tolerate exertion.His BNP has decreased from 721 to a current value of 353. He is asymptomatic. 2 . S eminoma - C62.90 N otes :He reports that his remaining testis is unremarkable. 3 . H istory of atrial fibrillation - Z86.79 N otes :He is currently a regular sinus rhythm which is well controlled. 4 . F ormer smoker - Z87.891 N otes :He is highly motivated not to smoke and has a plan to prevent relapse in times of stress and illness. 5 . O verweight - E66.3 N otes :We have discussed his weight and his diet and nutrition. We reviewed his weight loss strategy. We made a plan to lose weight at a rate of one half of a pound per week. 6 . H istory of DVT (deep vein thrombosis) - Z86.718 N otes :There are no signs of a DVT at this time. He has no history of a familial thrombophilia. The DVT occurred after cardiac surgery. 7 . C oronary artery disease involving [place] coronary artery of [place] heart without angina pectoris - I25.10 N otes :He has had no angina recently. His aortic valve is working well. His cardiac status is stable. His BNP has dropped. 8 . T hrombocytopenia - D69.6 N otes :His thrombocytopenia is very mild at 146. No change in his regimen as necessary. He was continued on his medications. 9 . B PH (benign prostatic hyperplasia) - N40.0 N otes :He has been rising from sleep once or twice a night to urinate. He is quite happy with this and no change in his treatment is necessary. We did discuss lifestyle modifications she can make to reduce nocturia. 1 0. T ype 2 diabetes mellitus without complication, without long-term current use of insulin - E11.9 Plan: * Treatment: 2. O verweight L AB: PROFILE, FASTING (COMPREHENSIVE METABOLIC) L AB: PSA, TOTAL L AB: CBC w DIFF L AB: Lipid Panel 3. T hrombocytopenia L AB: PROFILE, FASTING (COMPREHENSIVE METABOLIC) L AB: PSA, TOTAL L AB: CBC w DIFF L AB: Lipid Panel 4. B PH (benign prostatic hyperplasia) L AB: PROFILE, FASTING (COMPREHENSIVE METABOLIC) L AB: PSA, TOTAL L AB: CBC w DIFF L AB: Lipid Panel 5. T ype 2 diabetes mellitus without complication, without long-term current use of insulin L AB: PROFILE, FASTING (COMPREHENSIVE METABOLIC) L AB: PSA, TOTAL L AB: CBC w DIFF L AB: Lipid Panel * Procedure Codes: * Preventive Medicine: Counseling: S moking/Tobacco Use Patient counseled on the dangers of tobacco use and urged to quit. 0 09/26/2024 DM Care Plan: P atient Lifestyle Goals [...] replace with more water. * Follow Up: 3 Months (Reason: OV) * Images: * Sign off status: Completed true * Provider: Mara Arellano MD Date: 0 09/26/2024 Generated for Polly mccurdy/Michael/Gracielasmitting on: 1 04/15/2024 11:10 AM EST History and Physical Notes * HPI (History of Present Illness) Category Sub-Category Detail Notes Depression Screening PHQ-9 Little inte rest or pleasure in doing things: Not at all Feeling down, depressed, or hopeless: No t at all Trouble falling or staying asleep, or sl eeping too much: Not at all Feeling tired or having little energy: N ot at all Poor appetite or overeating: Not at all Feeling bad about yourself o r that you are a failure, or have let yourself or your family down: Not at all Trouble concentrating on thi ngs, such as reading the newspaper or watching television: Not at all Moving or speaking so slowly that other people could have noticed; or the opposite, being so fidgety or restless that you have been moving around a lot more than usual: Not at all Thoughts that you would be b alyse off or of hurting yourself in some way: Not at all Total Score: 0 Fall Risk Screening Fall History Have you had any falls with injury in the past year?: No Have you had two or more falls in the year?: No Fall Risk Assessment:: No falls in the p year COVID-19 Screening Questions Have you had any new onset fever, chills, cough, congestion, sore throat, shortness of breath, muscle aches?: No SDOH Questions SDOH Questions In the past year have you been worried about losing your housing?: No In the past year have you or any family members you live with been unable to get any of the following when it was really needed? Check all that apply:: None Examination Category Sub-Category Detail Notes General Examination [...]
--- OUTSIDE RECORDS SUMMARY | 2024-11-30 05:45 | XMS_ITS ---
Author Organization Adan Arellano III, MD Address [address] [place] [address] Care Team Providers Care Welding Machine Feeder Name Role Phone Dr. 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 Examination of his larynx is unremarkable. The lungs were clear. He has a very significant coronary artery history and was referred to the emergency department [facility] for evaluation. Vital Signs Temperature 100.2 degrees Fahrenheit 025 Blood pressure systolic 154 mm Hg 12/01/19 25 Blood pressure diastolic 63 mm Hg 025 Heart Rate 55 /min 11/30/2024 Height 65 in 11/30/2024 Weight 152 lbs 11/30/2024 BMI 25.29 kg/m2 11/30/2024 Oximetry 94 % 11/30/2024 Encounters Encounter Location Date Provider Diagnosis Adan Arellano III, MD [address] [place] [address] [place] [address] 11/30/2024 Adan Arellano Nonrheumatic aortic valve stenosis I35.0 ; Dyspnea on exertion R06.09 ; Coronary artery disease involving three affiliated coronary artery of three affiliated heart without angina pectoris I25.10 ; Former smoker Z87.891 ; Overweight E66.3 ; History of atrial fibrillation Z86.79 and 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 Assessments Encounter Date Diagnosis (ICD Code) Assessment Notes Treatment Notes Treatment Clinical Notes 11/30/2024 Nonrheumatic aortic valve stenosis (ICD-10 - I35.0) He was admitted to [facility] July 04 and discharged July 07, 2023 for an elective TAVR which was successfully accomplished. His shortness of breath is much better. I do not hear an aortic murmur today. I do not hear mitral murmur. He reports feeling much better and more able to tolerate exertion.His BNP has decreased from 721 to a current value of 353. He is asymptomatic. 11/30/2024 Dyspnea on exertion (ICD-10 - R06.09) He has been growing more and more short of breath for 3 days. Examination of his larynx is unremarkable. The lungs were clear. He has a very significant coronary artery history and was referred to the emergency department [facility] for evaluation. 11/30/2024 Coronary artery disease involving three affiliated coronary artery of three affiliated heart without angina pectoris (ICD-10 - I25.10) He has had no angina recently. His aortic valve is working well. His cardiac status is stable. His BNP has dropped. 11/30/2024 Former smoker (ICD-10 - Z87.891) He is highly motivated not to smoke and has a plan to prevent relapse in times of stress and illness. 11/30/2024 Overweight (ICD-10 - E66.3) We have discussed his weight and his diet and nutrition. We reviewed his weight loss strategy. We made a plan to lose weight at a rate of one half of a pound per week. 11/30/2024 History of atrial fibrillation (ICD-10 - Z86.79) He is currently a regular sinus rhythm which is well controlled. 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 Plan Of Treatment Medication Medication Name Sig Start Date Stop Date Notes Omeprazole 20 MG 1 capsule 30 minutes before morning meal Orally Once a day 07/11/2023 Aspirin 81 81 MG 1 tablet Orally Once a day metFORMIN HCl 1000 MG 1 tablet with a me al Orally Once a day 09/26/2023 Metoprolol Succinate ER 50 MG TAKE ONE T ABLET BY MOUTH EVERY DAY Atorvastatin Calcium 40 MG TAKE ONE TABL ET BY MOUTH EVERY DAY Next Appt Details Follow Up: As Scheduled, Reyna son: OV Provider Name:Adan Arellano , 02/13/2025 02:30:00 PM, [address] [place] [address] [address], [place], [address], Provider Name:Adan Arellano , 09/30/2025 02:00:00 PM, [address] [place] [address] [address], [place], [address], Progress Notes * Dionicio VIDALDOB:[birth year] (74 yo M)Acc No.[id number]:11/30/2024 Patient: Dionicio OSPINA Provider: Mara Arellano MD :1950 A ge:74 Y S ex:Male Date:11/30/2024 Address: [address], [id number] Subjective: * Chief Complaints: * D yspnea on exertion and with recumbencyFeverCoronary artery diseaseHistory of DVTHistory of atrial fibrillationHistory of seminomaBenign prosthetic herReason right inguinal herniorrhaphy * HPI: v : He comes to the office with a three-day history of dyspnea at night. He was dyspneic lying down with an increase in heart rate from 16 sitting to 25 lying down. His lungs were clear and his oxygen saturation was slightly low at 95. His pulse was 53. He has been having some chills at night. His dyspnea was quite disturbing and he was sent to the emergency room [facility] to rule out another blood clot or cardiac event. * ROS: G eneral/Constitutional: pain o nly normal aches and pains. C hills R ecently. F atigue a dmits. F ever , up to 101 degrees. E NT: Decreased hearing d enies. R espiratory: Cough d enies. C ardiovascular: Chest pain with exertion d enies. D yspnea on exertion?with moderate activity. S hortness of breath t hat is moderate. G astrointestinal: Constipation d enies. D ecreased [...] hernia cardiac catheterization 2004colonoscopy, Dr. Adan Linda, [facility], tubular adenoma 2010colonoscopy, Dr. Aadn Linda, [facility], negative findings 2017TAVR ortic valve replacement * Hospitalization/Major Diagno stic [...] dditional Findings: Tobacco non-user E x-cigarette smoker Nhung glass has been [...] TAKE ONE TABLET BY MOUTH EVERY DAY Omeprazole 20 MG Capsule Delayed Release 1 capsule 30 minutes before morning meal Orally Once a day Medication List [...] ONE TABLET BY MOUTH EVERY DAY Taking Omeprazole 20 MG Capsule Delayed Release 1 capsule 30 minutes before morning meal Orally Once a day Medication List reviewed and reconciled with the patient * Allergies: P enicillin: AllergyContrast Allergy PreMed Pack: AllergyNo Known Food Allergyno[Allergies Verified] Objective: * Vitals: H t: 65, Wt:152, BMI:25.29, BP:154/63, HR:55, Temp:100.2, Oxygen sat %:94, Wt-k.95. * Examination: G eneral Examination: GENERAL APPEARANCE: p leasant, well nourished, well developed, in no acute distress, calm and relaxed: overweight: man. HEAD: a traumatic, normocephalic. EYES: e [...] or vascular bruits. LUNGS: c lear to auscultation, Very tachypnea with recumbency, O2 saturation falls from 98 to 90. BREASTS: no masses palpable bilaterally. ABDOMEN: b owel sounds normal, no ascites, no organomegaly, no mass: overweight. RECTAL EXAM: n ot examined. MUSCULOSKELETAL: e xtremities unremarkable, no clubbing, cyanosis or edema. PERIPHERAL PULSES: n ormal. NEUROLOGIC: a lert and oriented, cranial nerves 2-12 grossly intact, deep tendon reflexes 2+ symmetrical, motor strength normal upper and lower extremities, sensory exam intact. PSYCH: a lert, oriented. Assessment: * Assessment: 1. D yspnea on exertion - R06.09 (Primary) N otes :He has been growing more and more short of breath for 3 days. Examination of his larynx is unremarkable. The lungs were clear. He has a very significant coronary artery history and was referred to the emergency department [facility] for evaluation. 2 . N onrheumatic aortic valve stenosis - I35.0 N otes :He was admitted to [facility] July 04 and discharged July [...] of 353. He is asymptomatic. 3 . C oronary artery disease involving three affiliated coronary artery of three affiliated heart without angina pectoris - I25.10 N otes :He has had no angina recently. His aortic valve is working well. His cardiac status is stable. His BNP has dropped. 4 . F ormer smoker - Z87.891 [...] per week. 6 . H istory of atrial fibrillation - Z86.79 N otes :He is currently a regular sinus rhythm which is well controlled. 7 . S eminoma - C62.90 N otes :He reports that his remaining testis is unremarkable. Plan: * Treatment: * Procedure Codes: 9 4760 MEASURE BLOOD OXYGEN LEVEL * Preventive Medicine: Counseling: C are goal follow-up plan: Counseling for abnormal BMI given Y es Above Normal BMI Follow-up D ietary management education, guidance, and counseling S moking/Tobacco Use Patient counseled on the dangers of tobacco use and urged to quit. 0 11/30/2024 * Follow Up: A s Scheduled (Reason: OV) * Images: * Sign off status: Completed true * Provider: Mara Arellano MD Date: 0 11/30/2024 Generated for Polly mccurdy/Michael/eTransmitting on: 04/15/2024 11:10 AM EST History and Physical Notes * Examination Category Sub-Category Detail Notes General Examination GENERAL APPEARANCE: pleasant , well nourished, well developed, in no acute distress, calm and relaxed: overweight: man HEAD: atraumatic, normocep halic EYES: eomi, perrla, anicte laura, conjugate EARS: normal NOSE: septum intact NECK/THYROID: no jugular venous di stention, no carotid bruit, thyroid normal HEART: no clicks, gallops, murmurs, or rubs, regular rhythm, S1, S2 normal, no s3, or vascular bruits LUNGS: clear to auscultatio n, Very tachypnea with recumbency, O2 saturation falls from 98 to 90 ABDOMEN: bowel sounds normal, no ascites, no organomegaly, no mass: overweight NEUROLOGIC: alert and oriented, cranial nerves 2-12 [...]
--- OUTSIDE RECORDS SUMMARY | 2024-12-04 05:35 | XMS_ITS ---
Author Organization Adan Arellano III, MD Address [address] [place] [address] Care Team Providers Care Pelt Shearer Name Role Phone Dr. Adan Arellano III Primary Care Provider Results Component Value Reference Range Notes Magnesium Reviewed date:12/06/2024 11:59:23 AM Interpretation: Performing Lab:[facility], [address] [place] [id number] Notes/Report: Magnesium 2.4 1.6-2.6 mg/dL Hemoglobin A1c Reviewed date:12/06/2024 11:59:23 AM Interpretation: Performing Lab:[facility], [address] [place] [id number] Notes/Report: Hemoglobin A1c % 7.4 <6.0 % Hemoglobin A1C Reference Range Adults: 4.8 - 6.0 % Non diabetic: < 6.0 % Goal: < 7.0 % Additional Action Suggested: > 8.0 % Note: Hemoglobin A1c results are invalid for patients with abnormal amounts of HbF. Blood transfusions may impact the HbA1c concentration in the patient sample. Estimated Average Glucose 166 eAG = Estimated average glucose which is %A1C expressed as average glucose, using the formula of the X4K-Yjreonj Average Glucose study (ADAG), Diabetes Care, Vol.31,#8, Nov. 2007 Social History Sex Assigned At : Social History Observation Description Sex Assigned At Male Encounters Encounter Location Date Provider Diagnosis Adan Arellano III, MD [address] [place] [address] [place] [address] 12/04/2024 Adan Mantillane Type 2 diabetes mellitus without complication, without long-term current use of insulin E11.9 and Congestive heart failure, unspecified HF chronicity, unspecified heart failure type I50.9 Assessments Encounter Date Diagnosis (ICD Code) Assessment Notes Treat ment Notes Treatment Clinical Notes 12/04/2024 Type 2 diabetes mellitus without complication, without long-term current use of insulin (ICD-10 - E11.9) 12/04/2024 Congestive heart failure, unspecified HF chronicity, unspecified heart failure type (ICD-10 - I50.9) Plan Of Treatment Next Appt Details Provider Name:Adan Arellano , 02/13/2025 02:30:00 PM, [address] [place] [address] [address], [place], [address], Provider Name:Adan Arellano , 09/30/2025 02:00:00 PM, [address] [place] [address] [address] R[address], [place], [address], Progress Notes * YOUNG DionicioDOB:[birth year] (74 yo M)Acc No.[id number]:12/04/2024 Patient: Dionicio OSPINA :1950 A ge:74 Y S ex:Male Address: [address], [place], [address] Subjective: * Chief Complaints: * * Medical History: * Surgical History: * Hospitalization/Major Diagno stic Procedure: * Medications: Objective: * Vitals: * Physical Examination: Assessment: * Assessment: 1. T ype 2 diabetes mellitus without complication, without long-term current use of insulin - E11.9 2 . C ongestive heart failure, unspecified HF chronicity, unspecified heart failure type - I50.9 Plan: * Treatment: 2. C ongestive heart failure, unspecified HF chronicity, unspecified heart failure type L AB: BASIC METABOLIC PROFILE RANDOM L AB: BRAIN NATRIURETIC PEPTIDE (BNP) L AB: CBC w DIFF L AB: Magnesium L AB: Hemoglobin A1c * Procedure Codes: * true * Date: Generated for Printi ng/Faxing/eTransmitting on: 04/15/2024 11:10 AM EST
--- OUTSIDE RECORDS SUMMARY | 2024-12-05 11:00 | XMS_ITS ---
Author Organization Adan Arellano III, MD Address [address] [place] [address] Care Team Providers Care Head Waitress Name Role Phone Dr. Adan Arellano III Primary Care Provider Allergies Allergen (clinical drug ingredient) Drug/Non Drug Allergy documented on EMR Reaction Allergy Type Onset Date Status No Known Food Allergy Unknown Drug Allergy Active Penicillin Unknown Drug Allergy Active Contrast Allergy PreMed Pack Unknown Drug Allergy Active REASON FOR VISIT Congestive heart failure, Recent pulmonary edema, Repaired aortic valve, History of aortic stenosis, History of atrial fibrillation, Coronary artery disease, History of DVT, Diabetes, Right inguinal hernia Medications Medication SIG (Take, Route, Frequency, Duration) Notes Start Date End Date Status Atorvastatin Calcium 40 MG TAKE ONE TABL ET BY MOUTH EVERY DAY Active Omeprazole 20 MG 1 capsule 30 minutes before morning meal Orally Once a day 07/11/2023 Active Metoprolol Succinate ER 25 MG 1 tablet Orally Once a day 12/05/2024 Active Furosemide 20 MG 1 tablet Orally Once a day 12/05/2024 Active Dapagliflozin Propanediol 10 MG 1 tablet Orally Once a day Active Metoprolol Succinate ER 50 MG TAKE ONE TABLET BY MOUTH EVERY DAY Active Aspirin 81 81 MG 1 tablet Orally Once a day Active metFORMIN HCl 1000 MG 1 tablet with a me al Orally Once a day 09/26/2023 Active Social History Tobacco Use: Social History Observation Description Date Details (start date - stop date) Former Smoker NA - NA Sex Assigned At : Social History Observation Description Sex Assigned At Male Tobacco Control (Standard) Question Answer Notes Tobacco use: Former smoker How long has it been since you last smoked? Stanley ter than 10 years Additional Findings: Tobacco non-user Ex-cigaret te smoker Vital Signs Temperature 99.9 degrees Fahrenheit 12/06/19 25 Blood pressure systolic 135 mm Hg 12/06/19 25 Blood pressure diastolic 88 mm Hg 025 Heart Rate 61 /min 12/05/2024 Height 65 in 12/05/2024 Weight 147 lbs 12/05/2024 BMI 24.46 kg/m2 12/05/2024 Encounters Encounter Location Date Provider Diagnosis Adan Arellano III, MD [address] [place] [address] [place] [address] 12/05/2024 Adan Arellano Nonrheumatic aortic valve stenosis I35.0 ; Hyperlipidemia E78.5 ; Coronary artery disease involving [place] ore[place] coronary artery of [place] heart without angina pectoris I25.10 ; Former smoker Z87.891 ; History of atrial fibrillation Z86.79 ; BPH (benign prostatic hyperplasia) N40.0 ; History of DVT (deep vein thrombosis) Z86.718 ; 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 His shortness of breath is much better. I do not hear an aortic murmur today. I do not hear mitral murmur. He reports feeling much better and more able to tolerate exertion.His BNP has decreased. He is asymptomatic. 12/05/2024 Hyperlipidemia (ICD-10 - E78.5) fasting lipid profile has been ordered prior to his next visit. No change in his therapy was made today. 12/05/2024 Coronary artery disease involving [place] cour[place] ore[place] coronary artery of [place] ore[place] heart without angina pectoris (ICD-10 - I25.10) He has had no angina recently. His aortic valve is working well. His cardiac status is stable. His BNP has dropped.During the recent hospitalization his troponins were quite elevated. It does not seem clear he had a spinal infarct or not. It was likely strain. 12/05/2024 Former smoker (ICD-10 - Z87.891) He is highly motivated not to smoke and has a plan to prevent relapse in times of stress and illness. 12/05/2024 History of atrial fibrillation (ICD-10 - Z86.79) He is currently a regular sinus rhythm which is well controlled. 12/05/2024 BPH (benign prostatic hyperplasia) (ICD-10 - N40.0) He has been rising from sleep once or twice a night to urinate. He is quite happy with this and no change in his treatment is necessary. We did discuss lifestyle modifications she can make to reduce nocturia. 12/05/2024 History of DVT (deep vein thrombosis) (ICD-10 - Z86.718) There are no signs of a DVT at this time. He has no history of a familial thrombophilia. The DVT occurred after cardiac surgery. 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 12/05/2024 Type 2 diabetes mellitus without complication, without long-term current use of insulin (ICD-10 - E11.9) he will have comprehensive blood work prior to his next visit in September. His fasting glucose levels at home 3 times a week average between 1:15 and 125. No change in his therapy was made today. Plan Of Treatment Medication Medication Name Sig Start Date Stop Date Notes Atorvastatin Calcium 40 MG TAKE ONE TABL ET BY MOUTH EVERY DAY Omeprazole 20 MG 1 capsule 30 minutes before morning meal Orally Once a day 07/11/2023 Metoprolol Succinate ER 25 MG 1 tablet Orally Once a day 0 12/05/2024 Furosemide 20 MG 1 tablet Orally Once a day 12/05/2024 Dapagliflozin Propanediol 10 MG 1 tablet Orally Once a day Metoprolol Succinate ER 50 MG TAKE ONE T ABLET BY MOUTH EVERY DAY Aspirin 81 81 MG 1 tablet Orally Once a day metFORMIN HCl 1000 MG 1 tablet with a me al Orally Once a day 09/26/2023 Next Appt Details Follow Up: 2 Weeks, Reason: ov Provider Name:Adan Arellano , 02/13/2025 02:30:00 PM, [address] [facility] [facility] [address], [place], [address], Provider Name:Adan Arellano , 09/30/2025 02:00:00 PM, [address], [place], [address], Progress Notes * Dionicio VIDALDOB:[birth year] (74 yo M)Acc No.[id number]:12/05/2024 Patient: Dionicio OSPINA Provider: Mara Arellano MD :1950 A ge:74 Y S ex:Male Date:12/05/2024 Address: [address], [place], [id number] Subjective: * Chief Complaints: * C ongestive heart failureRecent pulmonary edemaRepaired aortic valve, History of aortic stenosisHistory of atrial fibrillationCoronary artery diseaseHistory of DVTDiabetesRight inguinal hernia * HPI: v : On his last visit he was very dyspneic and could not lie flat.? He was sent to the [facility] emergency room where his troponins were very elevated and he had interstitial pulmonary edema. He was admitted and discharged December 02, 2024. He comes in today in follow-up. He is no longer short of breath and seems quite comfortable. Medications were reviewed with him. He has no appointment in a few weeks with Dr. 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 * ROS: G eneral/Constitutional: pain o nly normal aches and pains. C hills d enies.?Fatigue a dmits. F ever d enies. E NT: Decreased hearing d enies. R espiratory: Cough d enies. C ardiovascular: Chest pain with exertion d enies. D yspnea on exertion?Resolved. S hortness of breath R esolved. G astrointestinal: Constipation d enies. D ecreased [...] hernia cardiac catheterization 2004colonoscopy, Dr. Adan Linda, [facility], tubular adenoma 2010colonoscopy, Dr. Adan Linda, [facility], negative findings 2016TAVR ortic valve replacement * [...] who retired on disability. * Medications: T akingMetoprolol Succinate ER 25 MG Tablet Extended Release 24 Hour 1 tablet Orally Once a day Furosemide 20 MG Tablet 1 tablet Orally Once a day Dapagliflozin Propanediol 10 MG Tablet 1 tablet Orally Once a day Aspirin 81 81 MG Tablet 1 tablet Orally Once a day metFORMIN HCl 1000 MG Tablet 1 tablet with a meal Orally Once a day Atorvastatin Calcium 40 MG Tablet TAKE ONE TABLET BY MOUTH EVERY DAY Omeprazole 20 MG Capsule Delayed Release 1 capsule 30 minutes before morning meal Orally Once a day Medication List reviewed and reconciled with the patientTaking Metoprolol Succinate ER 25 MG Tablet Extended Release 24 Hour 1 tablet Orally Once a day Taking Furosemide 20 MG Tablet 1 tablet Orally Once a day Taking Dapagliflozin Propanediol 10 MG Tablet 1 tablet Orally Once a day Taking Aspirin 81 81 MG Tablet 1 tablet Orally Once a day Taking metFORMIN HCl 1000 MG Tablet 1 tablet with a meal Orally Once a day Taking Atorvastatin Calcium 40 MG Tablet TAKE ONE TABLET BY MOUTH EVERY DAY Taking Omeprazole 20 MG Capsule Delayed Release 1 capsule 30 minutes before morning meal Orally Once a day Medication List reviewed and reconciled with the patient * Allergies: P enicillin: AllergyContrast Allergy PreMed Pack: AllergyNo Known Food Allergyno[Allergies Verified] Objective: * Vitals: H t: 65, Wt:147, BMI:24.46, BP:135/88, HR:61, Temp:99.9, Wt-k.68. * P ast Orders: L ab:Complete Blood [...] - Creatinine Clr Calc Pharmacy 78.7 - Lab:Lipid Panel * Collection Date 09/26/2024 03/12/2024 [...] 09:00 AM 07:27 AM Order Date 09/26/2024 08/01/202303/0403/04/2023 Creatinine Urine 111.43 (Ref Range: mg/dL) 148.00 [...] Range: mg/dL) 163 (Ref Range: mg/dL) * Lab:Complete Blood Count Aut o [...] 0.000 (Ref Range: 0.0-0.012 X10*3/uL) * Lab:[facility] Fast * Collection Date 09/26/2024 03/12/2024 [...] 8.4-10.2 mg/dL) 9.5 (Ref Range: 8.4-10.2 mg/dL) ???Lab:Glucose, Whole Blood (Order Date - 10/03/2024) (Collection Date & Time - 10/03/2024 06:34 AM)?ValueReference Range?Glucose, Whole [id number] 60-115 - mg/dL ???Lab:Pathology (Order Date - 10/03/2024) (Collection Date & Time - 10/03/2024 08:47 AM) * Examination: G eneral Examination: GENERAL APPEARANCE: p leasant, well nourished, well developed, in no acute distress, calm and relaxed: man. HEAD: a traumatic, normocephalic. EYES: e [...] or vascular bruits. LUNGS: c lear to auscultation: no wheezes, rales, rhonchi: good air movement. BREASTS: no masses palpable bilaterally. ABDOMEN: b [...] (Primary) N otes :He was admitted to [facility] July 04 and discharged July 07, 2023 for an elective TAVR which was successfully accomplished. His shortness of breath is much better. I do not hear an aortic murmur today. I do not hear mitral murmur. He reports feeling much better and more able to tolerate exertion.His BNP has decreased. He is asymptomatic. 2 . H yperlipidemia - E78.5 N otes :fasting lipid profile has been ordered prior to his next visit. No change in his therapy was made today. 3 . C oronary artery disease involving lac courte oreilles coronary artery of [place] cour[place] oreilles heart without angina pectoris - I25.10 N otes :He has had no angina recently. His aortic valve is working well. His cardiac status is stable. His BNP has dropped.During the recent hospitalization his troponins were quite elevated. It does not seem clear he had a spinal infarct or not. It was likely strain. 4 . F ormer smoker - Z87.891 N otes :He is highly motivated not to smoke and has a plan to prevent relapse in times of stress and illness. 5 . H istory of atrial fibrillation - Z86.79 N otes :He is currently a regular sinus rhythm which is well controlled. 6 . B PH (benign prostatic hyperplasia) - N40.0 N otes :He has been rising from sleep once or twice a night to urinate. He is quite happy with this and no change in his treatment is necessary. We did discuss lifestyle modifications she can make to reduce nocturia. 7 . H istory of DVT (deep vein thrombosis) - Z86.718 N otes :There are no signs of a DVT at this time. He has no history of a familial thrombophilia. The DVT occurred after cardiac surgery. 8 . S eminoma - C62.90 N otes :He reports that his remaining testis is unremarkable. 9 . T ype 2 diabetes mellitus without complication, without long-term current use of insulin - E11.9 N otes :he will have comprehensive blood work prior to his next visit in September. His fasting glucose levels at home 3 times a week average between 1:15 and 125. No change in his therapy was made today. Plan: * Treatment: * Procedure Codes: * Preventive Medicine: Counseling: S moking/Tobacco Use Patient counseled on the dangers of tobacco use and urged to quit. 0 12/05/2024 DM Care Plan: P atient Lifestyle Goals P atient wants to be able to manage diabetes without too much effort. T reatment Goals B lood Sugars less than < 115, HbA1C < 7.0. B arriers n o barriers. S elf-Managment Goals S top drinking juice and/or soda, replace with more water, Take blood sugars twice daily and keep a log. Bring log in to next appointment. * Follow Up: 2 Weeks (Reason: ov) * Images: * Sign off status: Completed true * Provider: Mara Arellano MD Date: 0 12/05/2024 Generated for Polyl mccurdy/Michael/eTransmitting on: 1 04/15/2024 11:09 AM EST History and Physical Notes * Examination Category Sub-Category Detail Notes General Examination GENERAL APPEARANCE: pleasant , well nourished, well developed, in no acute distress, calm and relaxed: man HEAD: atraumatic, normocep halic EYES: eomi, perrla, anicte laura, conjugate EARS: normal NOSE: septum intact NECK/THYROID: no jugular venous di stention, no carotid bruit, thyroid normal HEART: no clicks, gallops, murmurs, or rubs, regular rhythm, S1, S2 normal, no s3, or vascular bruits LUNGS: clear to auscultatio n: no wheezes, rales, rhonchi: good air movement ABDOMEN: bowel sounds normal, no ascites, no [...]
--- OUTSIDE RECORDS SUMMARY | 2024-12-19 09:15 | XMS_ITS ---
Author Organization Adan Arellano III, MD Address [address] [place] [address] Care Team Providers Care Senior It Project Manager Name Role Phone Dr. Adan Arellano III Primary Care Provider [phone] Allergies Allergen (clinical drug ingredient) Drug/Non Drug Allergy documented on EMR Reaction Allergy Type Onset Date Status No Known Food Allergy Unknown Drug Allergy Active Penicillin Unknown Drug Allergy Active Contrast Allergy PreMed Pack Unknown Drug Allergy Active REASON FOR VISIT Repaired aortic stenosis, TAVR, Calcified mitral valve annulus, Congestive heart failure, History of atrial fibrillation, History of DVT, Coronary artery disease Medications Medication SIG (Take, Route, Frequency, Duration) Notes Start Date End Date Status FreeStyle Lite Test - use to check blood sugars three times a day Active FreeStyle Lancets - use to check blood sugars three times a day for 90 days DX: Diabetes E 11.9 12/19/2024 Active FreeStyle Lancets - use to check blood sugars three times a day Active Dapagliflozin Propanediol 10 MG 1 tablet Orally Once a day Active Furosemide 20 MG 1 tablet Orally Once a day 12/05/2024 Active metFORMIN HCl 1000 MG 1 tablet with a meal Orally Once a day 09/26/2023 Active Metoprolol Succinate ER 25 MG 1 tablet Orally Once a day 12/05/2024 Active Atorvastatin Calcium 40 MG TAKE ONE TABLET BY MOUTH EVERY DAY Active FreeStyle Lite Test - use to check blood sugars three times a day In Vitro three times a day for 90 days DX: Diabetes E 11.9 DX: Diabetes E11.9 12/19/2024 Active Aspirin 81 81 MG 1 tablet [...] non-user Ex-cigaret te smoker Vital Signs Temperature 98 degrees Fahrenheit 12/19/2024 Blood pressure systolic 123 mm Hg 12/20/19 25 Blood pressure diastolic 62 mm Hg 025 Heart Rate 65 /min 12/19/2024 Height 65 in 12/19/2024 Weight 147 lbs 12/19/2024 BMI 24.46 kg/m2 12/19/2024 Oximetry 94 % 12/19/2024 Encounters Encounter Location Date Provider Diagnosis Adan Arellano III, MD [address] [place] [address] [place] [address] 12/19/2024 Adan Arellano Nonrheumatic aortic valve stenosis I35.0 ; Coronary artery disease involving [place] coronary artery of [place] heart without angina pectoris I25.10 ; History of atrial fibrillation Z86.79 and Type 2 diabetes mellitus without complication, without long-term current use of insulin E11.9 Assessments Encounter Date Diagnosis (ICD Code) Assessment Notes Treatment Notes Treatment Clinical Notes 12/19/2024 Nonrheumatic aortic valve stenosis (ICD-10 - I35.0) A recent echocardiogram shows the aortic valve to be functioning well.He was recently hospitalized for congestive heart failure which is now compensated. 12/19/2024 Coronary artery disease involving [place] coronary artery of [place] heart without angina pectoris (ICD-10 - I25.10) He has had no recent exertional chest pain. An echocardiogram shows normal left ventricular myocardial contractility. 12/19/2024 History of atrial fibrillation (ICD-10 - Z86.79) He is in a regular sinus rhythm today with no premature heart disease. 12/19/2024 Type 2 diabetes mellitus without complication, without long-term current use of insulin (ICD-10 - E11.9) He will take 1000 mg metformin once in the morning. He will call me if he continues to have low glucose levels.His hemoglobin A1c is 7.4 which represents a slight increase compared to previous values. Plan Of Treatment Medication Medication Name Sig Start Date Stop Date Notes FreeStyle Lite Test - use to check blood sugars three times a day FreeStyle Lancets - use to check blood sugars three times a day for 90 days 12/19/2024 FreeStyle Lancets - use to check blood sugars three times a day Dapagliflozin Propanediol 10 MG 1 tablet Orally Once a day Furosemide 20 MG 1 tablet Orally Once a day 12/05/2024 metFORMIN HCl 1000 MG 1 tablet with a meal Orally Once a day 09/26/2023 Metoprolol Succinate ER 25 MG 1 tablet Orally Once a day 12/05/2024 Atorvastatin Calcium 40 MG TAKE ONE TABL ET BY MOUTH EVERY DAY FreeStyle Lite Test - use to check blood sugars three times a day In Vitro three times a day for 90 days 12/19/2024 DX: Diabetes E11.9 Aspirin 81 81 MG 1 tablet Orally Once a day Pending Test Test Name Order Date PROFILE, RANDOM (COMPREHENSIVE METABOLIC ) 12/19/2024 CBC w DIFF 12/19/2024 NT-proBNP 12/19/2024 Next Appt Details Follow Up: 2 Months, Reason: ov review labs Provider Name:Adan Arellano , 02/13/2025 02:30:00 PM, [address] [place] [address] [address], [place], [address], Provider Name:Adan Arellano , 09/30/2025 02:00:00 PM, [address] [place] [address] [address], [place], [address], Progress Notes * YOUNG, DionicioDOB:[birth year] (74 yo M)Acc No.[id number]:12/19/2024 Progress Notes Patient: Dionicio OSPINA Provider: Mara Arellano MD :1950 A ge:74 Y S ex:Male Date:12/19/2024 Address: [address], [id number] Subjective: * Chief Complaints: * R epaired aortic stenosisTAVRCalcified mitral valve annulusCongestive heart failureHistory of atrial fibrillationHistory of DVTCoronary artery disease * HPI: C OVID-19 Screening: H e returns to monitor the treatment of his peripheral edema and fluid retention. His lower extremities are now free of edema on current therapy. He is breathing comfortably and tolerates exertion. His BNP remains elevated but improved. He has an upcoming appointment with cardiology. A recent echocardiogram showed the aortic valve to be functioning normally. Ejection fraction was normal. Left ventricular myocardial contractility was normal. There was trace mitral regurgitation. He has been taking 500 mg of metformin twice a day and has had some low blood glucose levels in the morning when being 57. We have instituted a regimen of 1000 mg of metformin once in the morning with food. His herniorrhaphy is intact but still slightly painful with exertion. On the whole he feels much better and is healing well. Questions H ave you had any new onset fever, chills, cough, congestion, sore throat, shortness of breath, muscle aches? N o * ROS: G eneral/Constitutional: pain o nly [...] hernia cardiac catheterization 2004colonoscopy, Dr. Adan Linda, [facility], tubular adenoma 2010colonoscopy, Dr. Adan Linda, [facility], negative findings 2016TAVR ortic valve replacement [...] who retired on disability. * Medications: T akingFreeStyle Lite Test - Strip use to check blood sugars three times a day FreeStyle Lancets - Miscellaneous use to check blood sugars three times a day Aspirin 81 81 MG Tablet 1 tablet Orally Once a day metFORMIN HCl 1000 MG Tablet 1 tablet with a meal Orally Once a day Atorvastatin Calcium 40 MG Tablet TAKE ONE TABLET BY MOUTH EVERY DAY Metoprolol Succinate ER 25 MG Tablet Extended Release 24 Hour 1 tablet Orally Once a day Furosemide 20 MG Tablet 1 tablet Orally Once a day Dapagliflozin Propanediol 10 MG Tablet 1 tablet Orally Once a day Taking FreeStyle Lite Test - Strip use to check blood sugars three times a day Taking FreeStyle Lancets - Miscellaneous use to check blood sugars three times a day Taking Aspirin 81 81 MG Tablet 1 tablet Orally Once a day Taking metFORMIN HCl 1000 MG Tablet 1 tablet with a meal Orally Once a day Taking Atorvastatin Calcium 40 MG Tablet TAKE ONE TABLET BY MOUTH EVERY DAY Taking Metoprolol Succinate ER 25 MG Tablet Extended Release 24 Hour 1 tablet Orally Once a day Taking Furosemide 20 MG Tablet 1 tablet Orally Once a day Taking Dapagliflozin Propanediol 10 MG Tablet 1 tablet Orally Once a day DiscontinuedMetoprolol Succinate ER 25 MG Tablet Extended Release 24 Hour 1 tablet Orally Once a day Omeprazole 20 MG Capsule Delayed Release 1 capsule 30 minutes before morning meal Orally Once a day Medication List reviewed and reconciled with the patientDiscontinued Metoprolol Succinate ER 25 MG Tablet Extended Release 24 Hour 1 tablet Orally Once a day Discontinued Omeprazole 20 MG Capsule Delayed Release 1 capsule 30 minutes before morning meal Orally Once a day Medication List reviewed and reconciled with the patient * Allergies: P enicillin: AllergyContrast Allergy PreMed Pack: AllergyNo Known Food Allergyno[Allergies Verified] Objective: * Vitals: H t: 65, Wt:147, BMI:24.46, BP:123/62, HR:65, Temp:98, Oxygen sat %:94, Wt-k.68. * P ast Orders: Lab:B Type Natriuretic Pepti de * Collection Date 12/05/2024 12/27/2023 03/05/2023 Collection Time 03:32 PM 07:42 AM 07:33 AM Order Date 12/05/2024 12/27/2023 03/05/2023 B Type Natriuretic Peptide 323 H (Ref Range: <100 pg/mL) 353 H (Ref Range: <100 pg/mL) 721 H (Ref Range: <100 pg/mL) * Lab:Basic Metabolic Panel * Collection Date 12/05/2024 09/20/2024 Collection Time 03:32 PM 11:02 AM Order Date 12/05/2024 09/20/2024 Sodium 142 (Ref Range: 135-145 mmol/L) 142 (Ref Range: 135-145 mmol/L) Blood Urea Nitrogen 27 H (Ref Range: 9-16 mg/dL) 24 H (Ref Range: 9-16 mg/dL) Creatinine 0.89 (Ref Range: 0.5-1.4 mg/dL) 0.71 (Ref Range: 0.5-1.4 mg/dL) Glucose Random 98 (Ref Range: 60-115 mg/dL) 168 H (Ref Range: 60-115 mg/dL) Calcium 9.1 (Ref Range: 8.4-10.2 mg/dL) 9.4 (Ref Range: 8.4-10.2 mg/dL) Potassium 4.2 (Ref Range: 3.3-5.1 mmol/L) 4.8 (Ref Range: 3.3-5.1 mmol/L) Chloride 103 (Ref Range: 96-108 mmol/L) 105 (Ref Range: 96-108 mmol/L) Carbon Dioxide 31 H (Ref Range: 22-29 mmol/L) 33 H (Ref Range: 22-29 mmol/L) Anion Gap 12 (Ref Range: 12-20) 9 L (Ref Range: 12-20) Estimated Glomerular Filt Rate > 60 > 60 Creatinine Clr Calc Pharmacy NR 78.7 * Lab:Complete Blood Count Aut o Diff * Collection Date 12/05/2024 09/26/2024 03/12/2024 Collection Time 03:32 PM 08:42 AM 09:30 AM Order Date 12/05/2024 09/26/2024 03/12/2024 White Blood Count 6.6 (Ref Range: 4.8-10.8 X10*3/uL) 5.9 (Ref Range: 4.8-10.8 X10*3/uL) 5.9 (Ref Range: 4.8-10.8 X10*3/uL) Red Blood Count 4.79 (Ref Range: 4.60-5.80 X10*6/uL) 5.11 (Ref Range: 4.60-5.80 X10*6/uL) 4.86 (Ref Range: 4.60-5.80 X10*6/uL) Hemoglobin 14.7 (Ref Range: 14.0-18.0 g/dl) 15.7 (Ref Range: 14.0-18.0 g/dl) 15.1 (Ref Range: 14.0-18.0 g/dl) Hematocrit 43.4 (Ref Range: 42.0-52.0 %) 46.6 (Ref Range: 42.0-52.0 %) 44.7 (Ref Range: 42.0-52.0 %) Mean Corpuscular Volume 90.6 (Ref Range: 80.0-98.0 fL) 91.2 (Ref Range: 80.0-98.0 fL) 92.0 (Ref Range: 80.0-98.0 fL) Mean Corpuscular Hemoglobin 30.7 (Ref Range: 27.0-33.0 pg) 30.7 (Ref Range: 27.0-33.0 pg) 31.1 (Ref Range: 27.0-33.0 pg) Mean Corpuscular HGB Conc 33.9 (Ref Range: 31.0-36.0 g/dl) 33.7 (Ref Range: 31.0-36.0 g/dl) 33.8 (Ref Range: 31.0-36.0 g/dl) Red Cell Distribution Width 12.6 (Ref Range: 11.0-16.0 %) 12.5 (Ref Range: 11.0-16.0 %) 12.7 (Ref Range: 11.0-16.0 %) Platelet Count 163 (Ref Range: 160-400 X10*3/uL) 143 L (Ref Range: 160-400 X10*3/uL) 135 L (Ref Range: 160-400 X10*3/uL) Mean Platelet Volume 12.0 (Ref Range: 9.4-12.4 fL) 12.0 (Ref Range: 9.4-12.4 fL) 11.8 (Ref Range: 9.4-12.4 fL) Neutrophils Percent Auto 65.8 (Ref Range: 45-73 %) 60.1 (Ref Range: 45-73 %) 60.0 (Ref Range: 45-73 %) Imm Gran Pct Auto 0.3 (Ref Range: 0.0-0.4 %) 0.3 (Ref Range: 0.0-0.4 %) 0.3 (Ref Range: 0.0-0.4 %) Lymphocytes Percent Auto 21.5 (Ref Range: 20-40 %) 28.8 (Ref Range: 20-40 %) 27.3 (Ref Range: 20-40 %) Monocytes Percent Auto 7.4 (Ref Range: 2-11 %) 7.8 (Ref Range: 2-11 %) 8.5 (Ref Range: 2-11 %) Eosinophils Percent Auto 4.5 H (Ref Range: 0-4 %) 2.7 (Ref Range: 0-4 %) 3.6 (Ref Range: 0-4 %) Basophils Percent Auto 0.5 (Ref Range: 0-2 %) 0.3 (Ref Range: 0-2 %) 0.3 (Ref Range: 0-2 %) NRBC Pct Auto 0.0 (Ref Range: 0.0-0.2 /100WBC) 0.0 (Ref Range: 0.0-0.2 /100WBC) 0.0 (Ref Range: 0.0-0.2 /100WBC) Neutrophils Absolute Auto 4.4 (Ref Range: 2.0-8.3 x10*3/uL) 3.6 (Ref Range: 2.0-8.3 x10*3/uL) 3.5 (Ref Range: 2.0-8.3 x10*3/uL) Imm Gran Abs Auto 0.02 (Ref Range: 0.00-0.03 X10*3/uL) 0.02 (Ref Range: 0.00-0.03 X10*3/uL) 0.02 (Ref Range: 0.00-0.03 X10*3/uL) Lymphocytes Absolute Auto 1.4 (Ref Range: 1.2-4.9 X10*3/uL) 1.7 (Ref Range: 1.2-4.9 X10*3/uL) 1.6 (Ref Range: 1.2-4.9 X10*3/uL) Monocytes Absolute Auto 0.5 (Ref Range: 0.1-1.2 X10*3/uL) 0.5 (Ref Range: 0.1-1.2 X10*3/uL) 0.5 (Ref Range: 0.1-1.2 X10*3/uL) Eosinophils Absolute Auto 0.3 (Ref Range: 0.0-0.4 X10*3/uL) 0.2 (Ref Range: 0.0-0.4 X10*3/uL) 0.2 (Ref Range: 0.0-0.4 X10*3/uL) Basophils Absolute Auto 0.0 (Ref Range: 0.0-0.2 X10*3/uL) 0.0 (Ref Range: 0.0-0.2 X10*3/uL) 0.0 (Ref Range: 0.0-0.2 X10*3/uL) NRBC Abs Auto 0.000 (Ref Range: 0.0-0.012 X10*3/uL) 0.000 (Ref Range: 0.0-0.012 X10*3/uL) 0.000 (Ref Range: 0.0-0.012 X10*3/uL) * Lab:Hemoglobin A1c * Collection Date 12/05/2024 09/26/2024 08/01/2023 Collection Time 03:32 PM 08:42 AM 09:06 AM Order Date 12/04/2024 09/26/2024 08/01/2023 Hemoglobin A1c % 7.4 H (Ref Range: <6.0 %) 7.0 H (Ref Range: <6.0 %) 7.1 H (Ref Range: <6.0 %) Estimated Average Glucose 166 (Ref Range: mg/dL) 154 (Ref Range: mg/dL) 157 (Ref Range: mg/dL) ???Lab:Magnesium (Order Date - 12/04/2024) (Collection Date & Time - 12/05/2024 03:32 PM)?ValueReference Range?Magnesium2.41.6-2.6 - mg/dL ???Lab:Complete Blood Count no Diff (Order Date - 09/20/2024) (Collection Date & Time - 511:02 AM)?ValueReference Range?White Blood Count 5.84.8-10.8 - X10*3/uL?Red Blood Count5.054.60-5.80 - X10*6/uL ?Xycqtlfxwn27.514.0-18.0 - g/dl?Unslatixzs26.042.0-52.0 - % ?Mean Corpuscular Fhztvi62.180.0-98.0 - fL?Mean Corpuscular Iurenffrch62.727.0-33.0 - pg?Mean Corpuscular HGB Conc33.031.0-36.0 - g/dl?Red Cell Distribution Width12.611.0-16.0 - %?Platelet Count 120O512-011 - X10*3/uL?Mean Platelet Pqcikb27.79.4-12.4 - fL?NRBC Pct Auto0.00.0-0.2 - /100WBC?NRBC Abs Auto0.0000.0-0.012 - X10*3/uL * Lab:Lipid Panel * Collection Date 09/26/2024 [...] H (Ref Range: <30 ug/mg cr) * Lab:Comprehensive [place]. Pane l Fast * Collection Date 09/26/2024 [...] Time - 10/03/2024 06:34 AM)?ValueReference Range?Glucose, Whole Btbre170K 60-115 - mg/dL ???Lab:Pathology (Order Date - [...] valve stenosis - I35.0 (Primary) N otes : A recent echocardiogram shows the aortic valve to be functioning well.He was recently hospitalized for congestive heart failure which is now compensated. 2 . C oronary artery disease involving [place] coronary artery of [place] heart without angina pectoris - I25.10 N otes :He has had no recent exertional chest pain. An echocardiogram shows normal left ventricular myocardial contractility. 3 . H istory of atrial fibrillation - Z86.79 N otes :He is in a regular sinus rhythm today with no premature heart disease. 4 . T ype 2 diabetes mellitus without complication, without long-term current use of insulin - E11.9 N otes :He will take 1000 mg metformin once in the morning. He will call me if he continues to have low glucose levels.His hemoglobin A1c is 7.4 which represents a slight increase compared to previous values. Plan: * Treatment: 2. C oronary artery disease involving [place] coronary artery of [place] heart without angina pectoris L AB: PROFILE, RANDOM (COMPREHENSIVE METABOLIC) L AB: CBC w DIFF L AB: NT-proBNP 3. H istory of atrial fibrillation L AB: PROFILE, RANDOM (COMPREHENSIVE METABOLIC) L AB: CBC w DIFF L AB: NT-proBNP 4. T ype 2 diabetes mellitus without complication, without long-term current use of insulin Start FreeStyle Lite Test Strip, -, use to check blood sugars three times a day, In Vitro, three times a day DX: Diabetes E 11.9, 90 days, 300, Refills 3, Notes to Pharmacist: DX: Diabetes E11.9; Start FreeStyle Lancets Miscellaneous, -, use to check blood sugars three times a day DX: Diabetes E 11.9, 90 days, 300, Refills 3. * Procedure Codes: 9 4760 MEASURE BLOOD OXYGEN LEVEL * Preventive Medicine: DM Care Plan: P atient Lifestyle Goals P atient wants to be able to manage diabetes without too much effort. T reatment Goals B lood Sugars less than < 115, HbA1C < 7.0. B arriers n o barriers. S elf-Managment Goals I ncrease exercise to 3 times a week for 30 mins. * Follow Up: 2 Months (Reason: ov review labs) * Images: * Sign off status: Completed true * Provider: Mara Arellano MD Date: 0 12/19/2024 Generated for Polly mccurdy/Michael/Valentinitting on: 1 04/15/2024 11:10 AM EST History [...]
--- OUTSIDE RECORDS SUMMARY | 2025-02-13 09:30 | XMS_ITS ---
Author Organization Adan Arellano III, MD Address [address] [place] [address] Care Team Providers Care Medical Or Surgical Instrument Maker Name Role Phone Dr. Adan Arellano III Primary Care Provider [phone] Allergies Allergen (clinical drug ingredient) Drug/Non Drug Allergy documented on EMR Reaction Allergy Type Onset Date Status No Known Food Allergy Unknown Drug Allergy Active Penicillin Unknown Drug Allergy Active Contrast Allergy PreMed Pack Unknown Drug Allergy Active REASON FOR VISIT Follow up Medications Medication SIG (Take, Route, Frequency, Duration) Notes Start Date End Date Status Dapagliflozin Propanediol 10 MG 1 tablet Orally Once a day Active FreeStyle Lancets - use to check blood sugars three times a day DX: Diabetes E 11.9 12/19/2024 Active FreeStyle Lite Test - use to check blood sugars three times a day In Vitro three times a day DX: Diabetes E 11.9 DX: Diabetes E11.9 12/19/2024 Active FreeStyle Lancets - use to check blood sugars three times a day Active FreeStyle Lite Test - use to check blood sugars three times a day Active Aspirin 81 81 MG 1 tablet Orally Once a day Active Furosemide 20 MG 1 tablet Orally Once a day 12/05/2024 Active Metoprolol Succinate ER 25 MG 1 tablet Orally Once a day 12/05/2024 Active Atorvastatin Calcium 40 MG TAKE ONE TABLET BY MOUTH EVERY DAY Active metFORMIN HCl 1000 MG TAKE ONE TABLET BY MOUTH EVERY DAY WITH A MEAL Active Social History Tobacco Use: Social History [...] Additional Findings: Tobacco non-user Ex-cigaret te smoker Encounters Encounter Location Date Provider Diagnosis Adan Arellano III, MD [address] [place] [address] 02/13/2025 Adan Arellano Nonrheumatic aortic valve stenosis I35.0 and Type 2 diabetes mellitus without complication, without long-term current use of insulin E11.9 Assessments Encounter Date Diagnosis (ICD Code) Assessment Notes Treat ment Notes Treatment Clinical Notes 02/13/2025 Nonrheumatic aortic valve stenosis (ICD-10 - I35.0) 02/13/2025 Type 2 diabetes mellitus without complication, without long-term current use of insulin (ICD-10 - E11.9) He will take 1000 mg metformin once in the morning. He will call me if he continues to have low glucose levels.His hemoglobin A1c is 7.4 which represents a slight increase compared to previous values. Plan Of Treatment Medication Medication Name Sig Start Date Stop Date Notes Dapagliflozin Propanediol 10 MG 1 tablet Orally Once a day FreeStyle Lancets - use to check blood sugars three times a day 12/19/2024 FreeStyle Lite Test - use to check blood sugars three times a day In Vitro three times a day 12/19/2024 DX: Diabetes E11.9 FreeStyle Lancets - use to check blood sugars three times a day FreeStyle Lite Test - use to check blood sugars three times a day Aspirin 81 81 MG 1 tablet Orally Once a day Furosemide 20 MG 1 tablet Orally Once a day 12/05/2024 Metoprolol Succinate ER 25 MG 1 tablet Orally Once a day 12/05/2024 Atorvastatin Calcium 40 MG TAKE ONE TABL ET BY MOUTH EVERY DAY metFORMIN HCl 1000 MG TAKE ONE TABLET BY MOUTH EVERY DAY WITH A MEAL Next Appt Details Provider Name:Adan Arellano , 02/13/2025 02:30:00 PM, [address] [facility] [address], [place], [address], Provider Name:Adan Arellano , 09/30/2025 02:00:00 PM, [address] [facility] [address], [place], [address], Progress Notes * Dionicio VIDALDOB:[birth year] (74 yo M)Acc No.[id number]:02/13/2025 Progress Notes Patient: Dionicio OSPINA Provider: Mara Arellano MD :1950 A ge:74 Y S ex:Male Date:02/13/2025 Address: [address], [place], [id number] Subjective: * Chief Complaints: * 1 . Follow up. * HPI: C OVID-19 Screening: Questions H ave you [...] cardiac catheterization 2004, colonoscopy, Dr. Adan Linda, [facility], tubular adenoma 2010, colonoscopy, Dr. Adan Linda, [facility], negative findings 2016, TAVR 07/2023, Aortic valve replacement . * Hospitalization/Major Diagno stic Procedure: D tino Past Hospitalization. * Family History: F ather: [...] Findings: Tobacco non-user E x-cigarette smoker H e has been to [place] and for 37 years. He has 2 stepdaughters but no biological children. 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 He is not on-call and he works 18 hours a week. 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 * Medications: T aking Aspirin 81 81 MG Tablet 1 tablet Orally Once a day , Taking Atorvastatin Calcium 40 MG Tablet TAKE ONE TABLET BY MOUTH EVERY DAY , Taking Metoprolol Succinate ER 25 MG Tablet Extended Release 24 Hour 1 tablet Orally Once a day , Taking Furosemide 20 MG Tablet 1 tablet Orally Once a day , Taking Dapagliflozin Propanediol 10 MG Tablet 1 tablet Orally Once a day , Taking FreeStyle Lite Test - Strip use to check blood sugars three times a day In Vitro three times a day DX: Diabetes E 11.9, Notes to Pharmacist: DX: Diabetes E11.9, Taking FreeStyle Lancets - Miscellaneous use to check blood sugars three times a day DX: Diabetes E 11.9, Taking FreeStyle Lite Test - Strip use to check blood sugars three times a day , Taking FreeStyle Lancets - Miscellaneous use to check blood sugars three times a day , Taking metFORMIN HCl 1000 MG Tablet TAKE ONE TABLET BY MOUTH EVERY DAY WITH A MEAL , Medication List reviewed and reconciled with the patient * Allergies: P enicillin: Allergy, Contrast Allergy PreMed Pack: Allergy, No Known Food Allergy. Objective: * Vitals: * Examination: G eneral Examination: GENERAL APPEARANCE: [...] N onrheumatic aortic valve stenosis - I35.0 2 . T ype 2 diabetes mellitus without complication, without long-term current use of insulin - E11.9 N otes :He will take 1000 mg metformin once in the morning. He will call me if he continues to have low glucose levels.His hemoglobin A1c is 7.4 which represents a slight increase compared to previous values. Plan: * Treatment: 2. T ype 2 diabetes mellitus without complication, without long-term current use of insulin Continue FreeStyle Lite Test Strip, -, use to check blood sugars three times a day, In Vitro, three times a day DX: Diabetes E 11.9, Notes to Pharmacist: DX: Diabetes E11.9; C ontinue FreeStyle Lancets Miscellaneous, -, use to check blood sugars three times a day DX: Diabetes E 11.9. * Images: * The named appointment provid er may or may not be the originator of this progress note, and it is not deemed complete until electronically signed by the appointment provider. Sign off status: Pending * Provider: Mara Arellano MD Date: 04/15/2024 Generated for Polly mccurdy/Michael/Gracielasmitting on: 04/15/2024 11:11 AM EST History and Physical [...]
[2025-02-13 09:56] LABS: MANUAL DIFF FLAG NO
[2025-02-13 10:13] LABS: Hematocrit 50.4 % (42.0-52.0); Hemoglobin 16.4 g/dl (14.0-18.0); Imm Gran Abs Auto 0.01 X10*3/uL (0.00-0.03); Imm Gran Pct Auto 0.2 % (0.0-0.4); Lymphocytes Absolute Auto 1.4 X10*3/uL (1.2-4.9); Mean Corpuscular HGB Conc 32.5 g/dl (31.0-36.0); Mean Corpuscular Hemoglobin 30.0 pg (27.0-33.0); Mean Corpuscular Volume 92.3 fL (80.0-98.0); NRBC Abs Auto 0.000 X10*3/uL (0.0-0.012); NRBC Pct Auto 0.0 /100WBC (0.0-0.2); Platelet Count 124 X10*3/uL (160-400); Red Blood Count 5.46 X10*6/uL (4.60-5.80); White Blood Count 6.2 X10*3/uL (4.8-10.8)
[2025-02-13 10:48] LABS: Alanine Aminotransferase 67 U/L (0-40); Albumin Level 4.5 g/dL (3.5-5.0); Alkaline Phosphatase 59 U/L (39-117); Anion Gap 11 (12-20); Aspartate Amino Transferase 39 U/L (5-37); Blood Urea Nitrogen 22 mg/dL (9-16); Calcium 9.4 mg/dL (8.4-10.2); Carbon Dioxide 32 mmol/L (22-29); Chloride 105 mmol/L (96-108); Estimated Glomerular Filt Rate > 60; Potassium 4.7 mmol/L (3.3-5.1); Sodium 143 mmol/L (135-145); Total Protein 7.2 g/dL (6.5-8.0)
[2025-02-13 11:07] LABS: NT Pro B Type Natriuretic Pept 592.2 pg/mL (<300)
--- OUTSIDE RECORDS SUMMARY | 2025-02-13 11:09 | XMS_ITS | Patient Health Record ---
Author Organization Adan Arellano III, MD Address [address] [place] [address] Care Team Providers Care Internal Recruiter Name Role Phone Dr. Adan Arellano III Primary Care Provider Allergies Allergen (clinical drug ingredient) Drug/Non Drug Allergy documented on EMR Reaction Allergy Type Onset Date Status Penicillin Unknown Drug Allergy Active No Known Food Allergy Unknown Drug Allergy Active Contrast Allergy PreMed Pack Unknown Drug Allergy Active Results Component Value Reference Range Notes Magnesium Reviewed date:12/06/2024 11:59:23 AM Interpretation: Performing Lab:[facility], [address] [place] [phone] Notes/Report: Magnesium 2.4 1.6-2.6 mg/dL Hemoglobin A1c Reviewed date:12/06/2024 11:59:23 AM Interpretation: Performing Lab:[facility], [address] [place] [phone] Notes/Report: Hemoglobin A1c % 7.4 <6.0 % [...] average glucose, using the formula of the U8I-Lctkedb Average Glucose study (ADAG), Diabetes Care, Vol.31,#8, Nov. 2007 Complete Blood Count Auto Di ff Reviewed date:03/26/2024 11:50:31 AM Interpretation: Performing Lab:[facility], [address] [place] [address] Notes/Report: White Blood Count 5.9 4.8-10.8 X10*3/uL [...] NRBC Abs Auto 0.000 0.0-0.012 X10*3/uL Comprehensive Mission. Panel Fa st Reviewed date:03/26/2024 11:50:31 AM Interpretation: Performing Lab:[facility], [address] [place] [address] Notes/Report: Sodium 141 135-145 mmol/L Potassium 4.6 [...] Panel Reviewed date:03/26/2024 11:50:31 AM Interpretation: Performing Lab:[address] [address] Notes/Report: Triglycerides 84 <150 mg/dL Desirable Triglyceride: [...] Antigen Reviewed date:03/26/2024 11:50:31 AM Interpretation: Performing Lab:[address] [address] Notes/Report: Prostate Specific Antigen 0.18 <0.05-4.0 ng/mL PSA methodology: [facility] Chemiluminescent Microparticle Immunoassay (CMIA) Diabetic Eye Exam Reviewed date:09/10/2024 11:16:52 AM Interpretation:undefined Performing Lab: Notes/Report: undefined Complete Blood Count no Diff Reviewed date:09/23/2024 01:47:39 PM Interpretation: Performing Lab:[facility], [address] [place] [address] Notes/Report: White Blood Count 5.8 4.8-10.8 X10*3/uL [...] Panel Reviewed date:09/23/2024 01:47:39 PM Interpretation: Performing Lab:[facility], [address] [place] [phone] Notes/Report: Sodium 142 135-145 mmol/L Potassium 4.8 [...] ff Reviewed date:09/26/2024 02:18:04 PM Interpretation: Performing Lab:[facility], [address] [place] [phone] Notes/Report: White Blood Count 5.9 4.8-10.8 X10*3/uL [...] NRBC Abs Auto 0.000 0.0-0.012 X10*3/uL Comprehensive Mission. Panel Fa st Reviewed date:09/26/2024 02:18:04 PM Interpretation: Performing Lab:[facility], [address] [place] [phone] Notes/Report: Sodium 141 135-145 mmol/L Potassium 4.2 [...] Panel Reviewed date:09/26/2024 02:18:04 PM Interpretation: Performing Lab:[address] [address] Notes/Report: Triglycerides 90 <150 mg/dL Desirable Triglyceride: [...] Antigen Reviewed date:09/26/2024 02:18:04 PM Interpretation: Performing Lab:[address] [address] Notes/Report: Prostate Specific Antigen 0.20 <0.05-4.0 ng/mL PSA methodology: [facility] i Chemiluminescent Microparticle Immunoassay (CMIA) Microalbumin, Random Reviewed date:09/26/2024 02:18:04 PM Interpretation: Performing Lab:[facility], [address] [place] [phone] Notes/Report: Creatinine Urine 111.43 Microalbumin Urine 15.0 Microalbum/Creatinine Ratio Ur 13.4 <30 ug/mg cr Albumin/Creatinine Ratio Reference Ranges: Normal: < 30 ug/mg creatinine Microalbuminuria: 30 - 300 ug/mg creatinine Clinical Albuminuria: > 300 ug/mg creatinine Hemoglobin A1c Reviewed date:09/26/2024 02:18:04 PM Interpretation: Performing Lab:[facility], [address] [place] [phone] Notes/Report: Hemoglobin A1c % 7.0 <6.0 % [...] average glucose, using the formula of the F5J-Guebnck Average Glucose study (ADAG), Diabetes Care, Vol.31,#8, Nov. 2007 Glucose, Whole Blood Reviewed date:10/03/2024 07:23:17 AM Interpretation: Performing Lab:[facility], [address] [place] [phone] Notes/Report: Glucose, Whole Blood 164 60-115 mg/dL METER # : [id number] Pathology Reviewed date:10/05/2024 06:03:20 PM Interpretation: Performing Lab:[facility], [address] [place] [phone] Notes/Report: ------ Name: Roberto Salgado Age/Sex: 74/M : 1950 [id number]#: [id number] Attend Dr: Jose Mckeon MD Re10/03/24 Status : [facility] Location: [facility] Disch: ------ SPEC : [id number] RECD : 10/03/24 STATUS: JACKELYN ABDI NUM: [id number] GRICELDA: 10/03/24 [facility] DR: Jose Mckeon MD ENTERED: 10/03/24 39 SP TYPE: Surgical OTHR DR: Adan [...] magana-pink fibromembra nous tissue unremarkable fibroadipose tissue. Acid Pump Operator sections are submitted in a cassette labeled A1. CEDS IHC S/NG Disclaimer NOTE: Unless otherwi se stated, all tissue is formalin-fixed and paraffin-embedded. Some or all of the immunohistochemical tests reported herein may have been developed and their performance characteristics determined by [facility]. They have not been cleared or appr marcel by the U.S. Food and Drug Administration (FDA). However, the FDA has determined that such clearance or approval is not necessary. This laboratory is certified under the Clinical Laboratory Improvement Amendments of 1988 (CLIA) as qualified to perform high comp lexity clinical laboratory testing. Copies To: Adan Arellano MD [address] [facility] [address] [place] [address] CONTINUED ON NEXT PAGE ------ Name: Roberto Salgado desiree Kala Age/Sex: 74/M : 1950 Unit#: [id number] Attend Dr: Jose Mckeon MD Re10/03/24 Status : [facility] Location: [facility] Disch: ------ SPEC : [id number] RECD : 10/03/24 STATUS: JACKELYN ABDI NUM: [id number] GRICELDA: 10/03/24 [facility] DR: Jose Mckeon MD ENTERED: 10/03/24 39 SP TYPE: Surgical OTHR DR: Adan Arellano MD ORDERED: Gross Micro L2 Copies To: (Continued) Jose Mckeon MD [facility] [address] [place] [address] ------ Signed (signature on file) Yen Misa 10/04/24 1533 ------ END OF REPORT Complete Blood Count Auto Di ff Reviewed date:12/06/2024 11:59:23 AM Interpretation: Performing Lab:[facility], [address] [place] [phone] Notes/Report: White Blood Count 6.6 4.8-10.8 X10*3/uL [...] 0.000 0.0-0.012 X10*3/uL Basic Metabolic Panel Reviewed date:12/06/2024 11:59:23 AM Interpretation: Performing Lab:[facility], [address] [place] [phone] Notes/Report: Sodium 142 135-145 mmol/L Potassium 4.2 [...] 9.1 8.4-10.2 mg/dL B Type Natriuretic Peptide Reviewed date:12/06/2024 11:59:23 AM Interpretation: Performing Lab:[facility], [address] [place] [phone] Notes/Report: B Type Natriuretic Peptide 323 <100 pg/mL Complete Blood Count Auto Di ff (Not yet reviewed by provider) Interpretation: Performing Lab:[facility], [address] [place] [phone] Notes/Report: White Blood Count 6.2 4.8-10.8 X10*3/uL Red Blood Count 5.46 4.60-5.80 X10*6/uL Hemoglobin 16.4 14.0-18.0 g/dl Hematocrit 50.4 42.0-52.0 % Mean Corpuscular Volume 92.3 80.0-98.0 fL Mean Corpuscular Hemoglobin 30.0 27.0-33.0 pg Mean Corpuscular HGB Conc 32.5 31.0-36.0 g/dl Red Cell Distribution Width 13.1 11.0-16.0 % Platelet Count 124 160-400 X10*3/uL Mean Platelet Volume 11.8 9.4-12.4 fL Neutrophils Percent Auto 65.9 45-73 % Imm Gran Pct Auto 0.2 0.0-0.4 % Lymphocytes Percent Auto 22.0 20-40 % Monocytes Percent Auto 8.1 2-11 % Eosinophils Percent Auto 3.3 0-4 % Basophils Percent Auto 0.5 0-2 % NRBC Pct Auto 0.0 0.0-0.2 /100WBC Neutrophils Absolute Auto 4.1 2.0-8.3 x10*3/uL Imm Gran Abs Auto 0.01 0.00-0.03 X10*3/uL Lymphocytes Absolute Auto 1.4 1.2-4.9 X10*3/uL Monocytes Absolute Auto 0.5 0.1-1.2 X10*3/uL Eosinophils Absolute Auto 0.2 0.0-0.4 X10*3/uL Basophils Absolute Auto 0.0 0.0-0.2 X10*3/uL NRBC Abs Auto 0.000 0.0-0.012 X10*3/uL Comprehensive Met. Panel (No t yet reviewed by provider) Interpretation: Performing Lab:[facility], [address] [place] [phone] Notes/Report: Sodium 143 135-145 mmol/L Potassium 4.7 3.3-5.1 mmol/L Chloride 105 96-108 mmol/L Carbon Dioxide 32 22-29 mmol/L Anion Gap 11 12-20 Blood Urea Nitrogen 22 9-16 mg/dL Creatinine 0.80 0.5-1.4 mg/dL Estimated Glomerular Filt Rate > 60 Chronic Kidney Disease: Estimated GFR < 60 mL/min/1.73m2 Severe Kidney Disease: Estimated GFR < 15 mL/min/1.73m2 Glucose Random 110 60-115 mg/dL Calcium 9.4 8.4-10.2 mg/dL Bilirubin Total 1.3 0.0-1.0 mg/dL Aspartate Amino Transferase 39 5-37 U/L Alanine Aminotransferase 67 0-40 U/L Total Protein 7.2 6.5-8.0 g/dL Albumin Level 4.5 3.5-5.0 g/dL Alkaline Phosphatase 59 39-117 U/L NT Pro B Type Natriuretic Pe pt (Not yet reviewed by provider) Interpretation: Performing Lab:[facility], [address] [place] [phone] Notes/Report: NT Pro B Type Natriuretic Pept 592.2 <300 pg/mL Reference Range: Age Group (years) NT-proBNP (pg/ml) Interpretation All <300 Negative: HF unlikely For patients presenting to the ED with clinical suspicion of new onset or worsening HF, see below: 18 to <50 >299.9 to <450.0 Grayzone: Consider 50 to 75 >299.9 to <900.0 other causes of >75 >299.9 to <1800.0 NT-proBNP elevation 18 to <50 >449.9 Positive: HF likely 50-75 >899.9 >75 >1799.9 Note: Elevated NT-proBNP levels should be interpreted in the context of other clinical information. Reason For Referral Reason evaluation and treat [...] 1 tablet Orally Once a day Active Dapagliflozin Propanediol 10 MG 1 tablet Orally Once a day Active Furosemide 20 MG 1 tablet Orally Once a day 12/05/2024 Active Metoprolol Succinate ER 25 MG 1 tablet Orally Once a day 12/05/2024 Active Atorvastatin Calcium 40 MG TAKE ONE TABLET BY MOUTH EVERY DAY Active FreeStyle Lancets - use to check [...] blood sugars three times a day Active metFORMIN HCl 1000 MG TAKE ONE TABLET BY MOUTH EVERY DAY WITH A MEAL Active Immunizations Vaccine Route Administration Date Status [...] Problem Status W/U Status Risk Notes Problem 6862073 Former smoker (Z87.891) Active confirmed He is highly motivated not to smoke and has a plan to prevent relapse in times of stress and illness. Problem Hyperlipidemia (28022929) Hyperlipidemia (E78.5) Active confirmed fasting lipid profile has been ordered prior to his next visit. No change in his therapy was made today. Problem 516611051 Overweight (E66.3) Active confirmed We have discuss ed his weight and his diet and nutrition. We reviewed his weight loss strategy. We made a plan to lose weight at a rate of one half of a pound per week. Problem 411692484 Thrombocytopenia (D69.6) Active confirmed His thrombocytopenia is very mild at 146. No change in his regimen as necessary. He was continued on his medications. Problem Benign prostatic hyperplasia (139824673) BPH (benign prostatic hyperplasia) (N40.0) Active confirmed He has been rising from sleep once or twice a night to urinate. He is quite happy with this and no change in his treatment is necessary. We did discuss lifestyle modifications she can make to reduce nocturia. Problem 84437557 Penicillin allergy (Z88.0) Active confirmed Problem 230799813 Nonrheumatic aortic valve stenosis (I35.0) Active confirmed A recent echocardiogram shows the aortic valve to be functioning well.He was recently hospitalized for congestive heart failure which is now compensated. Problem 245008023 History of DVT (deep vein thrombosis) (Z86.718) Active confirmed There are no signs of a DVT at this time. He has no history of a familial thrombophilia. The DVT occurred after cardiac surgery. Problem 7824906028826 Coronary artery disease involving [place] coronary artery of [place] heart without angina pectoris (I25.10) Active confirmed He has had no recent exertional chest pain. An echocardiogram shows normal left ventricular myocardial contractility. Problem 247866034 Right inguinal hernia (K40.90) Active confirmed It is very s mall. He has elected for observation. We discussed what is involved in a herniorrhaphy and what to do if a loop of bowel becomes incarcerated and with those symptoms are. Follow-up was arranged. Problem 322093374 History of atrial fibrillation (Z86.79) Active confirmed He is in a regular sinus rhythm today with no premature heart disease. Problem 46935272 Dyspnea on exertion (R06.09) Active confirmed He has been growing more and more short of breath for 3 days. Examination of his larynx is unremarkable. The lungs were clear. He has a very significant coronary artery history and was referred to the emergency department [facility] for evaluation. Problem 364122954 Type 2 diabetes mellitus without complication, without long-term current use of insulin (E11.9) Active confirmed He will take 1000 mg metformin once in the morning. He will call me if he continues to have low glucose levels.His hemoglobin A1c is 7.4 which represents a slight increase compared to previous values. Problem 25112579 Congestive heart failure, unspecified HF chronicity, unspecified heart failure type (I50.9) Active confirmed Problem 712182613 Adenomatous polyp (D36.9) Active confirmed His last colonoscopy had no findings and he is now scheduled to repeat in 10 years. Problem 978346943 Seminoma (C62.90) Active confirmed He reports that his remaining testis is unremarkable. Vital Signs Heart Rate 65 /min 12/19/2024 Temperature 98 degrees Fahrenheit 12/19/2024 Oximetry 94 % 12/19/2024 Blood pressure diastolic 62 mm Hg 12/19/2024 Height 65 in 12/19/2024 Blood pressure systolic 123 mm Hg 12/19/2024 Weight 147 lbs 12/19/2024 BMI 24.46 kg/m2 12/19/2024 Encounters Encounter Location Date Provider Diagnosis Adan Arellano III, MD [address] [place] [address] [address] [place] [phone] 03/13/2024 Adan Arellano Nonrheumatic aortic valve stenosis I35.0 ; Type 2 diabetes mellitus without complication, without long-term current use of insulin E11.9 ; Overweight E66.3 ; Hyperlipidemia E78.5 ; Coronary artery disease involving [place] coronary artery of [place] heart without angina pectoris I25.10 and Thrombocytopenia D69.6 Adan Arellano III, MD [address] [place] [address] [address] [place] [phone] 06/18/2024 Adan Arellano Nonrheumatic aortic valve stenosis I35.0 ; Right inguinal hernia K40.90 ; History of atrial fibrillation Z86.79 ; 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 ; BPH (benign prostatic hyperplasia) N40.0 ; Hyperlipidemia E78.5 ; Coronary artery disease involving [place] coronary artery of [place] heart without angina pectoris I25.10 and Type 2 diabetes mellitus without complication, without long-term current use of insulin E11.9 Adan Arellano III, MD [address] [place] [address] [address] [place] [phone] 07/13/2024 Adan Arellano Nonrheumatic aortic valve stenosis I35.0 ; Type 2 diabetes mellitus without complication, without long-term current use of insulin E11.9 ; BPH (benign prostatic hyperplasia) N40.0 ; Hyperlipidemia E78.5 ; History of atrial fibrillation Z86.79 ; 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 ; Coronary artery disease involving [place] coronary artery of [place] heart without angina pectoris I25.10 ; History of DVT (deep vein thrombosis) Z86.718 and Former smoker Z87.891 Adan Arellano III, MD [address] [place] [address] [place] [phone] 09/26/2024 Adan Arellano Nonrheumatic aortic valve stenosis I35.0 ; 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 ; History of atrial fibrillation Z86.79 ; Former smoker Z87.891 ; Overweight E66.3 ; History of DVT (deep vein thrombosis) Z86.718 ; Coronary artery disease involving [place] coronary artery of [place] heart without angina pectoris I25.10 ; Thrombocytopenia D69.6 ; BPH (benign prostatic hyperplasia) N40.0 and Type 2 diabetes mellitus without complication, without long-term current use of insulin E11.9 Adan Arellano III, MD [address] [place] [address] [place] [phone] 11/30/2024 Adan Arellano Nonrheumatic aortic valve stenosis I35.0 ; Dyspnea on exertion R06.09 ; Coronary artery disease involving [place] coronary artery of [place] heart without angina pectoris I25.10 ; Former smoker Z87.891 ; Overweight E66.3 ; History of atrial fibrillation Z86.79 and 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 Adan Arellano III, MD [address] [place] [address] [place] [phone] 12/05/2024 Adan Arellano Nonrheumatic aortic valve stenosis I35.0 ; Hyperlipidemia E78.5 ; Coronary artery disease involving [place] coronary artery of [place] heart without angina pectoris I25.10 ; Former smoker Z87.891 ; History of atrial fibrillation Z86.79 ; BPH (benign prostatic hyperplasia) N40.0 ; History of DVT (deep vein thrombosis) Z86.718 ; 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 and Type 2 diabetes mellitus without complication, without long-term current use of insulin E11.9 Adan Arellano III, MD [address] [place] [address] [place] [phone] 12/19/2024 Adan Arellano Nonrheumatic aortic valve stenosis I35.0 ; Coronary artery disease involving [place] coronary artery of [place] heart without angina pectoris I25.10 ; History of atrial fibrillation Z86.79 and Type 2 diabetes mellitus without complication, without long-term current use of insulin E11.9 Adan Arellano III, MD [address] [place] [address] [place] [phone] 03/14/2024 Adan Arellano III, MD [address] [place] [address] [address] [place] [phone] 07/25/2024 Adan Arellano III, MD [address] [place] [address] [address] [place] [address] 12/04/2024 Adan Arellano Type 2 diabetes palua itus without complication, without long-term current use of insulin E11.9 and Congestive heart failure, unspecified HF chronicity, unspecified heart failure type I50.9 Assessments Encounter Date Diagnosis (ICD Code) Assessment Notes T reatment Notes Treatment Clinical Notes 03/13/2024 Nonrheumatic aortic valve stenosis (ICD-10 - I35.0) He was admitted to [facility] July 04 and discharged July 07, [...] (ICD-10 - I35.0) He was admitted to [facility] July 04 and discharged July 07, [...] (ICD-10 - I35.0) He was admitted to [facility] July 04 and discharged July 07, [...] (ICD-10 - I35.0) He was admitted to [facility] July 04 and discharged July 07, [...] (ICD-10 - I35.0) He was admitted to [facility] July 04 and discharged July 07, [...] and was referred to the emergency department [facility] for evaluation. 12/05/2024 Hyperlipidemia (ICD-10 - E78.5) fasting lipid profile has been ordered prior to his next visit. No change in his therapy was made today. 12/05/2024 Nonrheumatic aortic valve stenosis (ICD-10 - I35.0) He was admitted to [facility] July 04 and discharged July 07, 2023 for an elective TAVR which was successfully accomplished. His shortness of breath is much better. I do not hear an aortic murmur today. I do not hear mitral murmur. He reports feeling much better and more able to tolerate exertion.His BNP has decreased. He is asymptomatic. 12/19/2024 Nonrheumatic aortic valve stenosis (ICD-10 - I35.0) A recent echocardiogram shows the aortic valve to be functioning well.He was recently hospitalized for congestive heart failure which is now compensated. 12/19/2024 Coronary artery disease involving [place] coronary artery of [place] heart without angina pectoris (ICD-10 - I25.10) He has had no recent exertional chest pain. An echocardiogram shows normal left ventricular myocardial contractility. 12/04/2024 Type 2 diabetes mellitus without complication, without long-term current use of insulin (ICD-10 - E11.9) 03/13/2024 Overweight (ICD-10 - E66.3) We have [...] well controlled. 11/30/2024 Coronary artery disease involving [place] coronary artery of [place] heart without angina pectoris (ICD-10 - I25.10) He has had no angina recently. His aortic valve is working well. His cardiac status is stable. His BNP has dropped. 12/05/2024 Coronary artery disease involving [place] coronary artery of [place] heart without angina pectoris (ICD-10 - I25.10) He has had no angina recently. His aortic valve is working well. His cardiac status is stable. His BNP has dropped.During the recent hospitalization his troponins were quite elevated. It does not seem clear he had a spinal infarct or not. It was likely strain. 12/19/2024 History of atrial fibrillation (ICD-10 - Z86.79) He is in a regular sinus rhythm today with no premature heart disease. 12/04/2024 Congestive heart failure, unspecified HF chronicity, unspecified heart failure type (ICD-10 - I50.9) 03/13/2024 Hyperlipidemia (ICD-10 - E78.5) His fasting [...] in times of stress and illness. 12/05/2024 Former smoker (ICD-1 0 - Z87.891) He is highly motivated not to smoke and has a plan to prevent relapse in times of stress and illness. 12/19/2024 Type 2 diabetes mellitus without complication, without long-term current use of insulin (ICD-10 - E11.9) He will take 1000 mg metformin once in the morning. He will call me if he continues to have low glucose levels.His hemoglobin A1c is 7.4 which represents a slight increase compared to previous values. 03/13/2024 Coronary artery disease involving [place] coronary artery of [place] heart without angina pectoris (ICD-10 - I25.10) [...] one half of a pound per week. 12/05/2024 History of atrial fibrillation (ICD-10 - Z86.79) He is currently a regular sinus rhythm which is well controlled. 03/13/2024 Thrombocytopenia (ICD-10 - D69.6) 06/18/2024 Hyperlipidemia [...] which is well controlled. 12/05/2024 BPH (benign prostati c hyperplasia) (ICD-10 - N40.0) He has been rising from sleep once or twice a night to urinate. He is quite happy with this and no change in his treatment is necessary. We did discuss lifestyle modifications she can make to reduce nocturia. 06/18/2024 Coronary artery disease involving [place] coronary artery of [place] heart without angina pectoris (ICD-10 - I25.10) He has had no angina recently. His aortic valve is working well. His cardiac status is stable. His BNP has dropped. 07/13/2024 Coronary artery disease involving [place] coronary artery of [place] heart without angina pectoris (ICD-10 - I25.10) He has had no angina recently. His aortic valve is working well. His cardiac status is stable. His BNP has dropped. 09/26/2024 Coronary artery disease involving [place] coronary artery of [place] heart without angina pectoris (ICD-10 - I25.10) He has had no angina recently. His aortic valve is working well. His cardiac status is stable. His BNP has dropped. 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 12/05/2024 History of DVT (deep vein thrombosis) (ICD-10 - Z86.718) There are no signs of a DVT at this time. He has no history of a familial thrombophilia. The DVT occurred after cardiac surgery. 06/18/2024 Type 2 diabetes mellitus without complication, [...] necessary. He was continued on his medications. 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 07/13/2024 Former smoker (ICD-1 0 - Z87.891) [...] she can make to reduce nocturia. 12/05/2024 Type 2 diabetes mellitus without complication, without long-term current use of insulin (ICD-10 - E11.9) he will have comprehensive blood work prior to his next visit in September. His fasting glucose levels at home 3 times a week average between 1:15 and 125. No change in his therapy was made today. 09/26/2024 Type 2 diabetes mellitus without complication, without long-term current use of insulin (ICD-10 - E11.9) Plan Of Treatment Pending Test Test Name Order Date PROFILE, FASTING (COMPREHENSIVE METABOLI C) 12/27/2023 PROFILE, FASTING (COMPREHENSIVE METABOLI C) 07/11/2023 PROFILE, FASTING (COMPREHENSIVE METABOLI C) 04/10/2019 PROFILE, FASTING (COMPREHENSIVE METABOLI C) 01/18/2022 PROFILE, FASTING (COMPREHENSIVE METABOLI C) 09/16/2021 PROFILE, FASTING (COMPREHENSIVE METABOLI C) 03/04/2023 PROFILE, FASTING (COMPREHENSIVE METABOLI C) 09/26/2023 PROFILE, FASTING (COMPREHENSIVE METABOLI C) 12/03/2019 PROFILE, FASTING (COMPREHENSIVE METABOLI C) 09/21/2022 PROFILE, FASTING (COMPREHENSIVE METABOLI C) 08/10/2019 PROFILE, FASTING (COMPREHENSIVE METABOLI C) 05/21/2022 PROFILE, RANDOM (COMPREHENSIVE METABOLIC ) 12/19/2024 HEMOGLOBIN A1C (GLYCOHEMOGLOBIN) 023 HEMOGLOBIN A1C (GLYCOHEMOGLOBIN) 022 HEMOGLOBIN A1C (GLYCOHEMOGLOBIN) 020 LIPID PANEL 08/10/2019 LIPID PANEL 05/21/2022 LIPID PANEL 04/10/2019 LIPID PANEL 09/16/2021 LIPID PANEL 12/03/2019 LIPID PANEL 09/21/2022 BRAIN NATRIURETIC PEPTIDE (BNP) 03/04/20 23 BRAIN NATRIURETIC PEPTIDE (BNP) 09/26/19 24 PSA, TOTAL 12/27/2023 PSA, TOTAL 03/04/2023 PSA, TOTAL 09/16/2021 MICROALBUMIN, RANDOM 08/10/2019 CBC w DIFF 12/19/2024 CBC w DIFF 09/16/2021 CBC w DIFF 12/03/2019 CBC w DIFF 09/21/2022 CBC w DIFF 01/18/2022 CBC w DIFF 12/27/2023 CBC w DIFF 08/10/2019 CBC w DIFF 05/21/2022 CBC w DIFF 04/10/2019 HELICOBACTER PYLORI IGG (H PYLORI IGG) 0 07/11/2023 Sleep Study - Baseline 03/04/2023 CBC WITH AUTO DIFF 07/11/2023 CBC WITH AUTO DIFF 09/26/2023 CBC WITH AUTO DIFF 03/04/2023 SARS COV2 IGG 11/07/2019 Complete Blood Count Auto Diff 5 Comprehensive Met. Panel 02/13/2025 Lipid Panel 01/18/2022 Lipid Panel 12/27/2023 Lipid Panel 07/11/2023 Lipid Panel 09/26/2023 NT-proBNP 12/19/2024 Microalbumin, Random 07/11/2023 Hemoglobin A1c 07/11/2023 Hemoglobin A1c 01/18/2022 NT Pro B Type Natriuretic Pept 5 Next Appt Details Provider Name:Adan Arellano , 02/13/2025 02:30:00 PM, [address] [place] [address] CLAUDETTE ROPER, RAMÓN HA, [phone], Provider Name:Adan Arellano , 09/30/2025 02:00:00 PM, [address] [place] [address] CLAUDETTE ROPER, RAMÓN HA, [id number], Insurance Providers Payer Name Payer Address Payer Phone Subscriber Number Group Number Insured Name Patient Relationship to Insured Coverage Start Date Coverage End Date MEDICARE NGS [address] [place] [address] [id number] Dionicio Salgado Self - patient is the insured [facility] [address] [place], [place] [id number] Dionicio Salgado Self - patient is [...] replacement TAVR 07/2023 colonoscopy, Dr. Adan ramírez, [facility], negative findings 2016 colonoscopy, Dr. 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
--- OUTSIDE RECORDS SUMMARY | 2025-02-13 11:09 | XMS_ITS | Encounter Summary ---
Author Organization [facility] Address [address] [place] [address] Phone Care Team Providers Care Solar Energy Systems Engineer Name Role Phone Adan Arellano MD Primary Care Provider +1- [phone] Carmelo KhouryBS Unavailable [phone] Encounter Details Date Type Department Care Team (Late st Contact Info) Description 06/02/[address] [facility] [place] [address] [place] [address] Social History Tobacco Use Types Packs/Day Years [...] 06/03/2023 6:00 PM Aparna Zimmerman RN * [place] Suicide Severity Rating Scale (Screener/Recent Self-Report) Question [...] documented as of this encounter Care Teams Solar Energy Systems Engineer Relationship Specialty Start Date End Date Adan Arellano MD [address] [place] [address] [place] [address] PCP - General Medical Oncology 03/30/23 Carmelo Khoury MBBS [address] [place] [address] [email or web address] Thoracic Surgery 05/13/23 documented as of this encounter Additional Source Comments The information contained in this document represents components of the legal health record. It is not the complete legal health record.[facility]
--- OUTSIDE RECORDS SUMMARY | 2025-02-13 11:09 | XMS_ITS | Encounter Summary ---
Author Organization [facility] Address [address] [place] [address] Phone Care Team Providers Care Tdp Displays Analyst Name Role Phone Adan Arellano MD Primary Care Provider [phone]- [phone] Carmelo KhouryBS Unavailable [phone] Encounter Details Date Type Department Care Team (Late st Contact Info) Description 07/05/2023 Procedure Pass [facility] Cardiac US [address] [place] [address] Social History Tobacco Use Types Packs/Day Years [...] 07/05/2023 6:00 PM Racquel Cohn, BELEM * [place] Suicide Severity Rating Scale (Screener/Recent Self-Report) Question [...] on filedocumented in this encounter Care Teams Tdp Displays Analyst Relationship Specialty Start Date End Date Adan Arellano MD [address] [place] [address] [place] [address] PCP - General Medical Oncology 03/30/23 Carmelo Khoury MBBS [address] [place] [address] [email or web address] Thoracic Surgery 05/13/23 documented as of this encounter Additional Source Comments The information contained in this document represents components of the legal health record. It is not the complete legal health record.[facility]
--- OUTSIDE RECORDS SUMMARY | 2025-02-13 11:09 | XMS_ITS | Encounter Summary ---
Author Organization [facility] Address [address] [facility] [address] [place] [address] Phone Care Team Providers Care Instructor Pilot Name Role Phone Adan Arellano MD Primary Care Provider [phone]- [phone] Carmelo KhouryBS Unavailable [phone] Encounter Details Date Type Department Care Team (Late st Contact Info) Description 07/05/2023 Procedure Pass [facility] Cardiac US [address] [place] [address] Social History Tobacco Use Types Packs/Day Years [...] 07/05/2023 6:00 PM Racquel Cohn, BELEM * [place] Suicide Severity Rating Scale (Screener/Recent Self-Report) Question [...] on filedocumented in this encounter Care Teams Instructor Pilot Relationship Specialty Start Date End Date Adan Arellano MD [address] [place] [address] [place] [address] PCP - General Medical Oncology 03/30/23 Carmelo Khoury MBBS [address] [place] [address] [email or web address] Thoracic Surgery 05/13/23 documented as of this encounter Additional Source Comments The information contained in this document represents components of the legal health record. It is not the complete legal health record.[facility]
--- OUTSIDE RECORDS SUMMARY | 2025-02-13 11:10 | XMS_ITS | Encounter Summary ---
Author Organization [facility] Address [address] [place] [address] Phone Care Team Providers Care Tailman Name Role Phone Adan Arellano MD Primary Care Provider [phone]- [phone] Carmelo KhouryBS Unavailable [phone] Encounter Details Date Type Department Care Team (Late st Contact Info) Description 06/07/2023 Procedure Pass [facility] Cardiac Puncher [address], [address], [address] [place] [address] Social History Tobacco Use Types [...] on filedocumented in this encounter Care Teams Tailman Relationship Specialty Start Date End Date Adan Arellano MD [address] [place] [address] [place] [address] PCP - General Medical Oncology 03/30/23 Carmelo Khoury MBBS [address] [place] [address] [email or web address] Thoracic Surgery 05/13/23 documented as of this encounter Additional Source Comments The information contained in this document represents components of the legal health record. It is not the complete legal health record.[facility]
--- OUTSIDE RECORDS SUMMARY | 2025-02-13 11:10 | XMS_ITS | Encounter Summary ---
Author Organization [facility] Address [address] [place] [address] Phone Care Team Providers Care Ux Researcher Name Role Phone Adan Arellano MD Primary Care Provider [phone]- [phone] Carmelo KhouryBS Unavailable [phone] Encounter Details Date Type Department Care Team (Late st Contact Info) Description 07/07/2023 Procedure Pass [facility] ENDO DEPT [address] [facility], 4th [place] [address] Social History Tobacco Use Types Packs/Day Years [...] on filedocumented in this encounter Care Teams Ux Researcher Relationship Specialty Start Date End Date Adan Arellano MD [address] [place] [address] [place] [address] PCP - General Medical Oncology 03/30/23 Carmelo Khoury MBBS [address] [place] [address] [email or web address] Thoracic Surgery 05/13/23 documented as of this encounter Additional Source Comments The information contained in this document represents components of the legal health record. It is not the complete legal health record.[facility]
--- OUTSIDE RECORDS SUMMARY | 2025-02-13 11:10 | XMS_ITS | Clinical Summary ---
Author Organization [facility] Address [address] [place] [address] Phone Care Team Providers Care Machine Paint Mixer Name Role Phone Adan Arellano MD Primary Care Provider [phone]- [phone] Carmelo Khoury MBBS Unavailable [phone] Allergies Active Allergy Reactions Criticality Noted Date [...] likely discharge home later today Atherosclerosis of [place] co ronary artery of [place] heart without angina pectoris 06/07/2023 Assessment & [...] Plan (06/17/2023 12:05 PM EDT): CABG 2004 [facility] (Free WHITMAN to LAD, free LRA [...] likely severe MR/mod MS, CAD, CABG 2004 [facility] (pt reports L arm and IJ DVT post op CABG and paralyzed L hemidiaphragm), HFpEF admit with marked HF decompensation, severe volume overload, elevated TnTs and BNP on Lasix 20 mg daily 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 Evaluated by Dr. Khoury and Dr. Hendricks. [...] needs KEREN assessment first. TMVR analysis for matdl-ji-CEZ and APOLLO: * Mitral annulus average diameter [...] 06/13/23 (PCI/KASSANDRA SVG to RCA and PCI/KASSANDRA [place] LAD and distal LM) he feels even [...] dentist, needs at least one extraction. Per [facility] Dental > cleared for surgery. CT surgery: [...] referral placed to Dr. Katy Cervantes - [facility] pulmonology based on CT findings Social History Tobacco Use Types Packs/Day Years [...] your housing situation today? I have lukas neves 06/03/2023 How many times have you [...] 2002 ZOSTER VACCINES (1 of 2) 2002 CREATININE LEVEL 07/06/2024 07/07/2023, 06/2023, 07/06/2023, Additional history exists INFLUENZA VACCINE (#1) 2024 , 02/19/2022, 04/23/2021, Additional history exists COVID-19 VACCINE (2024- season) 2024 01/28/2021, 07/23/2020, 07/01/2020 RSV VACCINE (1 - 1-dose 75+ series) 2027 HEPATITIS A VACCINES Aged Out No long er eligible based on patient's age to complete this topic HIB VACCINES Aged Out No longer eligi ble based on patient's age to complete this topic IPV VACCINES Aged Out No longer eligi ble based on patient's age to complete this topic MENINGOCOCCAL VACCINES (ACWY) Aged Out No longer eligible based on patient's age to complete this topic MENINGOCOCCAL VACCINES (B) Aged Out N o longer eligible based on patient's age to complete this topic Medical Devices Implanted Type Area Manager Inspection Device Identifier Shelf Expiration Date Model / Serial / Lot Stent Xience Skypoint [id number] Rapid-Exchange Everolimus Eluting Coronary - [id number] Implanted:Qty: 1 on 06/13/2023 at [facility] Stent [employer] 12/15/2025 [id number] System Stent [id number] Rapid-Exchange Coronary Eluting Everolimus Xience Skypoint - [id number] Implanted:Qty: 1 on 06/13/2023 by Josh Farnsworth MD, PhD, MPH at [facility] Coronary [employer] 02/14/2024 [id number] Richey Kevin 3 Ultra Resilia Transcatheter Heart Valve 26mm Implanted:Qty: 1 on 07/05/2023 by Nghia Houston MD at [facility] N/A: Heart 11/17/2025 [id number] / [id number] / Procedures Procedure Name Priority Date/Time Associated Diagnosis Comments BASIC METABOLIC PANEL (BMP) Routine 07/07/2023 5:50 AM EDT from Last 3 Months or Most Recently Relevant to Health Maintenance Results * (ABNORMAL) Basic metabolic panel (07/07/2023 5:50 AM EDT) SODIUM 136 135 - 145 mmol/L [facility] POTASSIUM 4.3 3.4 - 5.0 mmol/L [facility] CHLORIDE 98 98 - 108 mmol/L [facility] CO2 28 23 - 32 mmol/L [facility] BUN 32(H) 8 - 25 mg/dL [facility] CREATININE 0.83 0.60 - 1.50 mg/dL [facility] GLUCOSE 104 70 - 110 mg/dL [facility] CALCIUM 9.0 8.5 - 10.5 mg/dL [facility] EGFR 94 >59 mL/min/1.7 3m2 [facility] Comment:Estimated glomerular filtration rate calculated using the CKD-EPI refit equation. ANION GAP 10 3 - 17 mmol/L [facility] Blood 07/07/2023 5:50 AM EDT 07/07/2023 6:39 AM EDT us Rodriguez Severino PA-C LAB BLOOD BKR ORDERABLES Fin al Result [facility] [address] [place] [address] from Last 3 Months or Most Recently Relevant to Health Maintenance Insurance MEDICARE PART A & B [facility] MEDEX SUPPLEMENT MEDICARE PART A & B [employer] MEDEX SUPPLEMENT MEDICARE PART A & B [employer] MEDEX SUPPLEMENT MEDICARE PART A & B [employer] MEDEX SUPPLEMENT MEDICARE PART A & B [employer] MEDEX SUPPLEMENT MEDICARE PART A & B [employer] MEDEX SUPPLEMENT Advance Directives For more information, please contact: [phone] (9AM - 5PM [facility], Tuesday-Tuesday) * Full Code (Latest Code Status [...] Status Communicated To: Inpatient Attending Care Teams Machine Paint Mixer Relationship Specialty Start Date End Date Adan Arellano MD [address] [place] [address] [place] [address] PCP - General Medical Oncology 03/30/23 Carmelo Khoury MBBS [address] [place] [address] [email or web address] Thoracic Surgery 05/13/23 Additional Source Comments The information contained in this document represents components of the legal health record. It is not the complete legal health record.[facility]
--- OUTSIDE RECORDS SUMMARY | 2025-02-13 11:10 | XMS_ITS | Encounter Summary ---
Author Organization [facility] Address [address] [place] [address] Phone Care Team Providers Care Disabilities Services Officer Name Role Phone Adan Arellano MD Primary Care Provider [phone]- [phone] Carmelo Khoury MBBS Unavailable [phone] Encounter Details Date Type Department Care Team (Late st Contact Info) Description 06/08/2023 Procedure Pass [facility] CT, Mariano [address] [facility] 2nd Floor, [address] [place] [address] Social History Tobacco Use Types Packs/Day Years [...] on filedocumented in this encounter Care Teams Disabilities Services Officer Relationship Specialty Start Date End Date Adan Arellano MD [address] [place] [address] [place] [address] PCP - General Medical Oncology 03/30/23 Carmelo Khoury MBBS [address] [place] [address] [email or web address] Thoracic Surgery 05/13/23 documented as of this encounter Additional Source Comments The information contained in this document represents components of the legal health record. It is not the complete legal health record.[facility]
--- OUTSIDE RECORDS SUMMARY | 2025-02-13 11:10 | XMS_ITS | Encounter Summary ---
Author Organization [facility] Address [address] [place] [address] Phone Care Team Providers Care Real Estate Loan Processor Name Role Phone Adan Arellano MD Primary Care Provider [phone]- [phone] Carmelo KhouryBS Unavailable [phone] Encounter Details Date Type Department Care Team (Late st Contact Info) Description 06/08/2023 Procedure Pass [facility] Cardiac Director Digital Analytics [address] [facility], [address] 9, [address] [place] [address] Social History Tobacco Use Types [...] on filedocumented in this encounter Care Teams Real Estate Loan Processor Relationship Specialty Start Date End Date Adan Arellano MD [address] [place] [address] [place] [address] PCP - General Medical Oncology 03/30/23 Carmelo Khoury MBBS [address] [place] [address] [email or web address] Thoracic Surgery 05/13/23 documented as of this encounter Additional Source Comments The information contained in this document represents components of the legal health record. It is not the complete legal health record.[facility]
--- OUTSIDE RECORDS SUMMARY | 2025-02-13 11:11 | XMS_ITS | Encounter Summary ---
Author Organization [facility] Address [address] [facility] [address] [facility] [address] [place] [address] Phone Care Team Providers Care Business Technology Professor Name Role Phone Adan Arellano MD Primary Care Provider [phone]- [phone] Carmelo Khoury Unavailable [phone] Encounter Details Date Type Department Care Team (Late st Contact Info) Description 06/10/2023 Procedure Pass [facility] PERIOPER[facility]IVE [facility]PT [address] [place] [address] Social History Tobacco Use Types Packs/Day Years [...] on filedocumented in this encounter Care Teams Business Technology Professor Relationship Specialty Start Date End Date Adan Arellano MD [address] [place] [address] [place] [address] PCP - General Medical Oncology 03/30/23 Carmelo Khoury MBBS [address] [place] [address] [email or web address] Thoracic Surgery 05/13/23 documented as of this encounter Additional Source Comments The information contained in this document represents components of the legal health record. It is not the complete legal health record.[facility]
--- OUTSIDE RECORDS SUMMARY | 2025-02-13 11:11 | XMS_ITS | Encounter Summary ---
Author Organization [facility] Address [address] [facility] [address] [place] [address] Phone Care Team Providers Care Assisted Living Administrator Name Role Phone Adan Arellano MD Primary Care Provider [phone]- [phone] Carmelo KhouryBS Unavailable [phone] Encounter Details Date Type Department Care Team (Late st Contact Info) Description 09/13/2023 Procedure Pass [facility] [place] [address] [place] [address] Social History Tobacco Use Types Packs/Day Years [...] on filedocumented in this encounter Care Teams Assisted Living Administrator Relationship Specialty Start Date End Date Adan Arellano MD [address] [place] [address] [place] [address] PCP - General Medical Oncology 03/30/23 Carmelo Khoury MBBS [address] [place] [address] [email or web address] Thoracic Surgery 05/13/23 documented as of this encounter Additional Source Comments The information contained in this document represents components of the legal health record. It is not the complete legal health record.[facility]
--- OUTSIDE RECORDS SUMMARY | 2025-02-13 11:11 | XMS_ITS | Encounter Summary ---
Author Organization [facility] Address [address] [facility] [address] [place] [address] Phone Care Team Providers Care Insurance Job Titles Name Role Phone Adan Arellano MD Primary Care Provider [phone]- [phone] Carmelo KhouryBS Unavailable [phone] Encounter Details Date Type Department Care Team (Late st Contact Info) Description 06/20/2023 Procedure Pass [facility] [place] [address] [place] [address] Social History Tobacco Use Types Packs/Day Years [...] on filedocumented in this encounter Care Teams Insurance Job Titles Relationship Specialty Start Date End Date Adan Arellano MD [address] [place] [address] [place] [address] PCP - General Medical Oncology 03/30/23 Carmelo Khoury MBBS [address] [place] [address] [email or web address] Thoracic Surgery 05/13/23 documented as of this encounter Additional Source Comments The information contained in this document represents components of the legal health record. It is not the complete legal health record.[facility]
--- OUTSIDE RECORDS SUMMARY | 2025-02-13 11:11 | XMS_ITS | Encounter Summary ---
Author Organization [facility] Address [address] [place] [address] Phone Care Team Providers Care Breast Worker Name Role Phone Adan Arellano MD Primary Care Provider [phone]- [phone] Carmelo KhouryBS Unavailable [phone] Encounter Details Date Type Department Care Team (Late st Contact Info) Description 06/13/2023 Procedure Pass [facility] Cardiac Door To Door Salesperson [address] [facility], Floor 9, [address] [place] [address] Social History Tobacco Use Types [...] on filedocumented in this encounter Care Teams Breast Worker Relationship Specialty Start Date End Date Adan Arellano MD [address] [place] [address] [place] [address] PCP - General Medical Oncology 03/30/23 Carmelo Khoury MBBS [address] [place] [address] [email or web address] Thoracic Surgery 05/13/23 documented as of this encounter Additional Source Comments The information contained in this document represents components of the legal health record. It is not the complete legal health record.[facility]
--- OUTSIDE RECORDS SUMMARY | 2025-02-13 11:11 | XMS_ITS | Encounter Summary ---
Author Organization [facility] Address [address] [place] [address] Phone Care Team Providers Care Engine Maintenance Mechanic Name Role Phone Adan Arellano MD Primary Care Provider [phone] Carmelo Khoury MBBS Unavailable [phone] Encounter Details Date Type Department Care Team (Late st Contact Info) Description 06/09/2023 Procedure Pass MGP IMG 3DCTMR MG [address] [place] [address] Social History Tobacco Use Types Packs/Day Years [...] on filedocumented in this encounter Care Teams Engine Maintenance Mechanic Relationship Specialty Start Date End Date Adan Arellano MD [address] [place] [address] [place] [address] PCP - General Medical Oncology 03/30/23 Carmelo Khoury MBBS [address] [place] [address] [email or web address] Thoracic Surgery 05/13/23 documented as of this encounter Additional Source Comments The information contained in this document represents components of the legal health record. It is not the complete legal health record.[facility]
--- OUTSIDE RECORDS SUMMARY | 2025-02-13 11:12 | XMS_ITS | Patient Health Record ---
Author Organization [facility] Address [address] [place] [address] Care Team Providers Care Snaker Tractor Driver Name Role Phone Jerardo Sethi Primary Care Provider Adan Alcaraz [phone] Allergies Allergen (clinical drug ingredient) Drug/Non Drug [...] Problem Status W/U Status Risk Notes Problem Screening for malignant neoplasm of colon (020210128) Encounter for screening for malignant neoplasm of colon (Z12.11) Active confirmed Problem History of adenomatous polyp of colon (892584100) History of adenomatous polyp of colon (Z86.010) Active confirmed Problem Screening for malignant neoplasm of rectum (091090308) Encounter for screening for malignant neoplasm of rectum (Z12.12) Active confirmed Plan Of Treatment Future Test Test Name Order Date COLONOSCOPY 05/20/2016 Insurance Providers Payer Name Payer Address Payer Phone Subscriber Number Group Number Insured Name Patient Relationship to Insured Coverage Start Date Coverage End Date [facility] [employer] [address] [place] [address] [phone] [id number] [address] VIDAL Self - patient is the insured Medical (General) History Medical History History ICD Code Screening colonoscopy 11-24-2010--1 small tubular adenoma, diverticulosis Coronary artery disease--No [place]--CABG as below Heart murmur--aortic valve--- followed w [...]
--- OUTSIDE RECORDS SUMMARY | 2025-02-13 11:12 | XMS_ITS | Encounter Summary ---
Author Organization [facility] Address [address] [place] [address] [place] [address] Phone Care Team Providers Care Aquatic Biologist Name Role Phone Adan Arellano MD Primary Care Provider [phone] Carmelo Khoury Unavailable [phone] Reason for Referral * MRI/CAT Scan - Closed Specialty Diagnoses / Procedures Referred By Eduardo ballesteros Referred To Contact Radiology Diagnoses Nonrheumatic aortic valve stenosis Procedures CT 3D TAVR Reconstruction Krissy Guerra CNP Phone: tel: fax: [email or web address] Referral ID Status Reason Start Date Expiration Date Visits Re quested Visits Authorized [id number] Closed 04/28/2023 1 1 Encounter Details Date Type Department Care Team (Latest Contact Info) Description 04/28/2023 Ancillary Orders [facility] Cardiology [address] [place] [address] Krissy Guerra CNP [address] [facility] [address] [place] [address] [email or web address] Nonrheumatic aortic valve stenosis (Primary Dx) Social [...] qualitative findings for this examination are reportedseparately. Krissy Guerra CNP IMG CT Fin al Result documented in this encounter Visit Diagnoses Diagnosis Nonrheumatic aortic valve stenosis- Primary Nonrheumatic aortic valve stenosis documented in this encounter Additional Health Concerns Infection Onset Date Last Indicated Resolved Time CoV-Risk Comment:Per note documentation 06/03/2023 06/03/2023 4 1:46 PM EST documented as of this encounter Care Teams Aquatic Biologist Relationship Specialty Start Date End Date Adan Arellano MD [address] [place] [address] [place] [address] PCP - General Medical Oncology 03/30/23 Carmelo Khoury MBBS [address] [place] [address] [email or web address] Thoracic Surgery 05/13/23 documented as of this encounter Additional Source Comments The information contained in this document represents components of the legal health record. It is not the complete legal health record.[facility]
--- OUTSIDE RECORDS SUMMARY | 2025-02-13 11:12 | XMS_ITS | Encounter Summary ---
Author Organization [facility] Address [address] [place] [address] Phone Care Team Providers Care Truck Jumper Name Role Phone Adan Arellano MD Primary Care Provider [phone] Carmelo KhouryBS Unavailable [phone] Encounter Details Date Type Department Care Team (Late st Contact Info) Description 04/07/2023 Procedure Pass [facility] [place] [facility], [address] [place] [address] Social History Tobacco Use Types Packs/Day Years [...] documented as of this encounter Care Teams Truck Jumper Relationship Specialty Start Date End Date Adan Arellano MD [address] [place] [address] [place] [address] PCP - General Medical Oncology 03/30/23 Carmelo Khoury MBBS [address] [place] [address] [email or web address] Thoracic Surgery 05/13/23 documented as of this encounter Additional Source Comments The information contained in this document represents components of the legal health record. It is not the complete legal health record.[facility]
--- OUTSIDE RECORDS SUMMARY | 2025-02-13 11:12 | XMS_ITS | Encounter Summary ---
Author Organization [facility] Address [address] [place] [address] Phone Care Team Providers Care Tax Compliance Representative Name Role Phone Adan Arellano MD Primary Care Provider [phone] Carmelo KhouryBS Unavailable [phone] Encounter Details Date Type Department Care Team (Late st Contact Info) Description 07/05/2023 Procedure Pass [facility] PERIOPERATIVE DEPT [address] [place] [address] Social History Tobacco Use Types Packs/Day Years [...] 07/05/2023 6:00 PM Racquel Cohn, BELEM * [place] Suicide Severity Rating Scale (Screener/Recent Self-Report) Question [...] on filedocumented in this encounter Care Teams Tax Compliance Representative Relationship Specialty Start Date End Date Arellano, Adan [employer], MD [address] [place] [address] [place] [address] PCP - General Medical Oncology 03/30/23 Carmelo Khoury MBBS [address] [place] [address] [email or web address] Thoracic Surgery 05/13/23 documented as of this encounter Additional Source Comments The information contained in this document represents components of the legal health record. It is not the complete legal health record.[facility]
--- OUTSIDE RECORDS SUMMARY | 2025-02-13 11:13 | XMS_ITS | Encounter Summary ---
Author Organization [facility] Address [address] [place] [address] Phone Care Team Providers Care Restaurant Attendant Name Role Phone Adan Arellano MD Primary Care Provider [phone]- [phone] Carmelo KhouryBS Unavailable [phone] Encounter Details Date Type Department Care Team (Late st Contact Info) Description 04/28/2023 Procedure Pass [facility]GP IMG 3DCTMR MG [address] [place] [address] Social History Tobacco Use Types Packs/Day Years [...] documented as of this encounter Care Teams Restaurant Attendant Relationship Specialty Start Date End Date Adan Arellano MD [address] [place] [address] [place] [address] PCP - General Medical Oncology 03/30/23 Carmelo Khoury MBBS [address] [place] [address] [email or web address] Thoracic Surgery 05/13/23 documented as of this encounter Additional Source Comments The information contained in this document represents components of the legal health record. It is not the complete legal health record.[facility]
== END 2025-02-13 09:48 | disposition home or self-care (01) ==
LOC: HO.LAB 09:47
PROVIDERS: PCP Internal Medicine Medical Oncology; Visit Provider Internal Medicine Medical Oncology
DX: I35.0 Nonrheumatic aortic (valve) stenosis (principal); I25.10 Atherosclerotic heart disease of native coronary artery without angina pectoris; Z86.79 Personal history of other diseases of the circulatory system
CPT/HCPCS: 36415; 80053; 83880; 85025